=== PATIENT | male | born 1950 | race African-American/Black ===

== ENCOUNTER 2016-09-30 20:19 | Inpatient (IN) | payer BC, MEDICAID ==
[~2016-09-30] VITALS: Ht 182.9 cm; Wt 112.6 kg
[~2016-09-30 20:19] MED LIST: ALFU10TA2 PO; AMIO200T2 PO; ASPI-664 PO; ATOR40TA68 PO; CALC-695 PO; DOCU-144 PO; FERR-55 PO; FLUT125C PO; ISOS30TA5 PO; LOSA50TA6 PO; MEGE400O2 PO; METO-448 PO; SPIR25TA PO
[2016-09-30 20:23] VITALS: Ht 182.9 cm; Wt 112.6 kg
[2016-09-30] MEDS ORDERED: LORAZEPAM 2 MG INJ IV ONE (21:00)
[2016-09-30 21:29] LABS: ADD SCAN DIFF NO
[2016-09-30 21:34] LABS: BASOPHILS % 0.1 % (0.0-2.0); HEMATOCRIT 37.4 % (42.0-52.0); HEMOGLOBIN 13.1 g/dl (14.0-18.0); LYMPHOCYTES % 8.6 % (15.0-51.0); MEAN CORPUSCULAR VOLUME 91.4 fl (82.0-101.0); MONOCYTE # 1.4 10^3/ul (0.3-0.9); MONOCYTES % 12.7 % (0.0-11.0); NEUTROPHIL # 8.8 10^3/ul (1.6-7.5); NEUTROPHILS % 78.2 % (39.0-77.0); PLATELET COUNT 185 10^3/UL (140-415); RED BLOOD COUNT 4.09 10^6/ul (4.70-6.10); RED CELL DISTRIBUTION WIDTH 13.2 % (11.5-14.5); WHITE BLOOD COUNT 11.2 10^3/ul (4.8-10.8)
--- NOTE | 2016-09-30 21:38 | RADRPT ---
PROCEDURE: XR Chest. CLINICAL INDICATION: Chest Pain. TECHNIQUE: Single frontal view of the chest was obtained COMPARISON: 09/04/2013. FINDINGS: Cardiomegaly and atherosclerotic calcifications in the thoracic aorta. Dual chamber left anterior c hest wall cardiac pacer, with lead tips over expected locations of the right atrium and the right ve ntricle. Mild right lung base air space disease. This is new over interval since 09/04/2013. Lungs are otherw ise clear. There is no pleural effusion or pneumothorax. IMPRESSION: Mild right lung base air space disease. RPTAT: [facility] Physician Mamie Date Time Electronically viewed and signed by Physician Mamie on 09/30/2016 21:38 RS/
[2016-09-30 21:42] LABS: INR 1.16; PROTIME 14.9 Sec (12.2-14.2); PT RATIO 1.2
[2016-09-30 21:43] LABS: CREATININE 1.28 mg/dl (0.61-1.24); PARTIAL THROMBOPLASTIN TIME 28.4 Sec (25.0-35.0)
[2016-09-30 21:44] LABS: CALCIUM 9.6 mg/dl (8.4-10.2)
[2016-09-30] MEDS ORDERED: POTASSIUM CHLORIDE 250 ML IVPB ONE (22:00)
[2016-09-30] MEDS ORDERED: AMIODARONE 150MG/D5W BOLUS 100 ML IV ONE (22:00)
[2016-09-30 22:02] LABS: TROPONIN-I 0.64 ng/ml (0.00-0.12)
[2016-09-30] MEDS ORDERED: ACETAMINOPHEN 500 MG TAB PO STA (22:14)
[2016-09-30] MEDS ORDERED: ASPIRIN 81 MG TAB ONE (22:20)
[2016-09-30] MEDS ORDERED: AZITHROMYCIN 500MG/NS (PMX) 250 ML IV STA (22:29)
[2016-09-30] MEDS ORDERED: CEFTRIAXONE 1 GM/50 ML (PMX) 50 ML IVPB STA (22:29)
[2016-09-30] MEDS ORDERED: SOD CHLORIDE 0.9% 1,000 ML IV STA (22:29)
--- NOTE | 2016-09-30 22:29 | ERA ---
ER Documentation Chief Complaint Date/Time DATE: 09/30/16 TIME: 22:22 Chief Complaint defib fired 5-7 times starting at 1900 tonight HPI This 66-year-old male presents to the emergency room for evaluation of his defibrillator firing multiple times tonight. The patient states that he has a pacemaker and defibrillator in place for "an abnormal heart rhythm." The patient states that he was at home and noted his defibrillator went off. He states that it has gone off multiple times, and he came to the ER for evaluation. Since being in the emergency room this patient's defibrillator has fired multiple times as well. He is not complaining of any chest pain when his defibrillator is not firing. He denies any palpitations, states that he is taking all his medications as prescribed. He does state that his scale operator is Dr. Dacosta. ROS All systems reviewed and are negative except as per history of present illness. Medications Home Meds Reported Medications Isosorbide Mononitrate* (Isosorbide Mononitrate*) 30 Mg Tab.er.24h, 30 MG PO DAILY, TAB 07/30/15 Megestrol Acetate (MEGESTROL ACETATE) 400 Mg/10 Ml Oral.susp, 800 MG PO BID, ML 07/30/15 Calcium Carbonate/Vitamin D3 (Calcium 600 + D Tablet) 1 Each Tablet, 1 EACH PO BID, TAB 07/30/15 Docusate Sodium* (Colace*) 100 Mg Capsule, 300 MG PO BID, #60 CAP 07/30/15 Losartan Potassium* (Losartan Potassium*) 50 Mg Tablet, 50 MG PO DAILY, TAB 07/30/15 Ferrous Sulfate* (Ferrous Sulfate*) 325 Mg Tablet, 325 MG PO DAILY, TAB 07/30/15 Spironolactone* (Aldactone*) 25 Mg Tablet, 25 MG PO DAILY, #1 08/08/13 Aspirin* (Aspirin* EC) 81 Mg Tablet.dr, 81 MG PO DAILY 07/12/13 Atorvastatin* (Atorvastatin*) 40 Mg Tablet, 40 MG PO DAILY 07/12/13 Metoprolol Tartrate* (Lopressor*) 25 Mg Tab, 100 MG PO BID 07/12/13 Discontinued Reported Medications Flutamide (Flutamide) 125 Mg Capsule, 250 MG PO Q8, CAP 07/30/15 Alfuzosin Hcl* (Alfuzosin Hcl*) 10 Mg Tab.er.24h, 10 MG PO DAILY, #30 TAB.SA 07/30/15 Amiodarone Hcl* (Amiodarone Hcl*) 200 Mg Tablet, 200 MG PO DAILY 07/12/13 Allergies Allergies: Coded Allergies: lisinopril (Verified Allergy, Severe, ANGIO EDEMA, 09/30/16) PMhx/Soc History of Surgery: Yes (LT INDEX FINGER,DEFIBRILLATOR,UNDESCENDED TESTES) Anesthesia Reaction: No Hx Neurological Disorder: No Hx Respiratory Disorders: No Hx Cardiac Disorders: Yes ([place],DYSLIPIDEMIA,STENT,SVT,POSTURAL HYPOTENSION,HTN, ISCHEMIC CARDIOMYOPATHY) Hx Psychiatric Problems: No Hx Miscellaneous Medical Probl: No Hx Alcohol Use: Yes Hx Substance Use: No Hx Tobacco Use: Yes Smoking Status: Former smoker Physical Exam Vitals Vital Signs Date Time Temp Pulse Resp B/P Pulse Ox O2 Delivery O2 Flow Rate FiO2 09/30/16 22:02 102.3 114 26 115/79 100 09/30/16 21:17 122 28 124/71 100 09/30/16 21:17 Nasal Cannula 3 09/30/16 21:04 129 21 122/61 99 09/30/16 20:43 138 23 136/71 100 09/30/16 20:38 116 137/95 09/30/16 20:23 100.4 80 20 122/83 98 Physical Exam INITIAL VITAL SIGNS: Reviewed by me GENERAL: The patient is well developed, appears to be in mild distress HEENT: Pupils equal, round, and reactive to light. EOMI. There is no scleral icterus. NECK: C-spine is soft and supple, there is no meningismus. There is no cervical lymphadenopathy. LUNGS: Clear to auscultation bilaterally. There are no rales, wheezes or rhonchi. HEART: Tachycardic, no murmurs, clicks, rubs or gallops. ABDOMEN: Soft, non-tender, non-distended. There are bowel sounds in all four quadrants. No rebound or guarding. EXTREMITIES: There is no peripheral cyanosis or edema. No focal swelling or erythema. NEUROLOGICAL: The patient moves all four extremities with 5/5 strength. Cranial nerves II - XII are intact. Normal gait. Alert and oriented SKIN: Pacemaker in place in left anterior chest wall, there is no apparent rash or petechiae. HEME/LYMPHATIC: There is no evidence of excessive bruising or lymphedema. PSYCHIATRIC: The patient does not appear mildly anxious Result Diagram: 09/30/16 2100 09/30/16 2100 Results 24 hrs Laboratory Tests Test 09/30/16 21:00 Activated Partial Thromboplast Time 28.4Sec Anion Gap 23 Basophils # 0.010^3/ul Basophils % 0.1% Blood Urea Nitrogen 16mg/dl Calcium Level 9.6mg/dl Carbon Dioxide Level 19mmol/L Chloride Level 100mmol/L Creatinine 1.28mg/dl Eosinophils # 0.010^3/ul Eosinophils % 0.0% Glucose Level 118mg/dl Hematocrit 37.4% Hemoglobin 13.1g/dl INR International Normalized Ratio 1.16 Lymphocytes # 1.010^3/ul Lymphocytes % 8.6% Mean Corpuscular Hemoglobin 32.0pg Mean Corpuscular Hemoglobin Concent 35.0g/dl Mean Corpuscular Volume 91.4fl Mean Platelet Volume 11.0fl Monocytes # 1.410^3/ul Monocytes % 12.7% Neutrophils # 8.810^3/ul Neutrophils % 78.2% Nucleated Red Blood Cells # 0.010^3/ul Nucleated Red Blood Cells % 0.0/100WBC Platelet Count 67597^3/UL Potassium Level 3.0mmol/L Prothrombin Time 14.9Sec Prothrombin Time Ratio 1.2 Red Blood Count 4.0910^6/ul Red Cell Distribution Width 13.2% Sodium Level 139mmol/L Troponin I 0.640ng/ml White Blood Count 11.210^3/ul Current Medications Medications (Trade) Dose Ordered Sig/Nanette Route PRN Reason Start Time Stop Time Status Last Admin Dose Admin Lorazepam 2 mg 2 mg ONCE ONCE IV 09/30/16 21:00 09/30/16 21:01 DC 09/30/16 20:58 Amiodarone HCl 100 ml @ 600 mls/hr ONCE ONCE IV 09/30/16 22:00 09/30/16 22:09 DC 09/30/16 21:48 Potassium Chloride (KCl 40 MEQ/250 ML NS) 250 ml @ 62.5 mls/hr ONCE ONCE IVPB 09/30/16 22:00 10/01/16 01:59 09/30/16 22:21 Acetaminophen 1000 mg 1,000 mg ONCE STAT PO 09/30/16 22:14 09/30/16 22:15 DC 09/30/16 22:21 Amiodarone HCl/ Dextrose (Cordarone Iv/ D5W) 500 ml @ 0 mls/hr Q0M IV 09/30/16 22:30 10/01/16 22:29 Aspirin (Aspirin) 324 mg ONCE ONCE PO 09/30/16 22:30 09/30/16 22:31 Aspirin (Aspirin) 81 mg STK-MED ONCE .ROUTE 09/30/16 22:20 09/30/16 22:21 DC Procedures/MDM EKG: Rate/Rhythm: Sinus tach with PVCs QRS, ST, T-waves: [No changes consistent w/ acute ischemia] Impression: [Sinus tach with PVCs Chest X-ray 1V Interpreted by me: Soft Tissue: Right lower lobe infiltrate Bones: No acute abnormalities Mediastinum/Cardiac Silhouette/Lungs: [No acute abnormalities] EKG: #2 Rate/Rhythm: Sinus tach with PVCs QRS, ST, T-waves: [No changes consistent w/ acute ischemia] Impression: Sinus tachycardia with PVCs This 66-year-old male presents to the emergency room for evaluation of his defibrillator going off. When I evaluated this patient I did note that his defibrillator went off multiple times in the emergency room. I did call to have his pacemaker interrogated and it was determined that this patient was in a VT storm and has 66 episodes of ventricular tachycardia with multiple shocks delivered throughout the day today. This patient had lab work drawn and his troponin was elevated. The patient was given a full dose aspirin here in the emergency room. He was given 115 mg amiodarone bolus. He was then started on an amiodarone drip. He was found to be febrile after being in the emergency room and he did have a septic workup. Patient does have right lower lobe infiltrate and will be started on Rocephin and azithromycin for right lower lobe pneumonia. I spoke with this patient's scale operator, Dr. Dacosta who agrees with admission to the intensive care unit at this time. This patient will be placed in for admission under the care of Dr. Damon. I have not heard back from this patient's IPA for authorization for over 1 hour. Cardiac Critical Care: Excluding all billable procedures Time: 48 minutes Treatments/Evaluations: Close monitoring for dangerous arrhythmia and cardiovascular collapse, while treating with advance cardiac medications and techniques, multiple bedside evaluations, chemical cardioversion. Departure Diagnosis: Primary Impression: Ventricular tachycardia Additional Impressions: Right lower lobe pneumonia Non-ST elevation [place] (NSTEMI) Hypokalemia Renal insufficiency Condition: Critical KALYANI WHEELER DO Sep 30, 2016 22:28
[2016-09-30] MEDS ORDERED: ONDANSETRON 4 MG INJ IV PRN (22:30)
[2016-09-30] MEDS ORDERED: ASPIRIN 81 MG TAB PO ONE (22:30)
[2016-09-30] MEDS ORDERED: METOCLOPRAMIDE 10 MG INJ IV PRN (22:30)
[2016-09-30] MEDS ORDERED: AMIODARONE 900 MG in DEXTROSE 5% 482 ML IV SCH ×2 (22:30→23:00)
--- NOTE | 2016-09-30 22:38 | HP ---
Date/Time of Note Date/Time of Note DATE: 09/30/16 TIME: 22:33 Assessment/Plan VTE Prophylaxis VTE Prophylaxis Intervention: other (Enoxaparin) Lines/Catheters IV Catheter Type (from Nrs): Peripheral IV Assessment/Plan Assessment/Plan 1) Frequent Defibrillator Shocks, most likely from Runs of VT, also, possibly misfiring. - Admit to Telemetry - Amiodarone bolus and drip - Cardio Consult with Dr. Dallas (ER Physician spoke to him. He is also the patient's Cow Rider.) 2) VT Storm (43 Episodes were seen by the Tech) - See #1 3) Troponin elevated at 0.6, likely due to #2 4)Fever - Septic Work-Up initiated HPI/ROS Admit Date/Time Admit Date/Time Hx of Present Illness Chief Complaint defib fired 5-7 times starting at 1900 tonight HPI per ER Physician This 66-year-old male presents to the emergency room for evaluation of his defibrillator firing multiple times tonight. The patient states that he has a pacemaker and defibrillator in place for "an abnormal heart rhythm." The patient states that he was at home and noted his defibrillator went off. He states that it has gone off multiple times, and he came to the ER for evaluation. Since being in the emergency room this patient's defibrillator has fired multiple times as well. He is not complaining of any chest pain when his defibrillator is not firing. He denies any palpitations, states that he is taking all his medications as prescribed. He does state that his weather algorithm scientist is Dr. Dacosta. Patient also mentions that he thinks he ate a bad salad. He was the only one to eat in, and he was wretching about 30 minutes after eating it, He states he has had sharp pains in his stomach, getting worse. Drank apple cider vinegar to make himself throw up, but id did not alleviate his symptoms He denies diarrhea , but admits to having taken Pepto Bismol last night. He states that he has had another 4 or 5 shocks since he has been here, but only 1 since the Amiodarone was started. He denies Nausea, Vomiting, Cough, Wheeze or SOB. He has had his Pace/Defibrillator about 5 years. Never had a problem like this before. ROS Constitutional: febrile, No chills Eyes: no complaints ENT: no complaints Respiratory: no complaints Cardiovascular: other (Patient is here because of frequent shocks to his chest. ) Gastrointestinal: diarrhea, nausea, pain, No blood, No constipation, No vomiting Musculoskeletal: No back pain, No neck pain Skin: No bruising, No erythema, No pruritis, No rash Neurologic: No confusion, No dizziness, No focal-weakness, No headache Endocrine: No polydypsia, No polyuria Lymphatic: No adenopathy, No tender nodes Psychological: No anxiety, No depression Immunologic: No no complaints PMH/Family/Social Past Medical History Medical History: cancer (Prostate. Completed XRT Tx.) Past Surgical History Past Surgical Hx: no surgical history Family History Significant Family History: no pertinent family hx Social History Alcohol Use: occasionally Smoking Status: Former smoker Drug Use: none Exam/Review of Systems Vital Signs Vitals Vital Signs Date Time Temp Pulse Resp B/P Pulse Ox O2 Delivery O2 Flow Rate FiO2 09/30/16 22:02 102.3 114 26 115/79 100 09/30/16 21:17 Nasal Cannula 3 Exam Exam GENERAL: The patient is well developed, appears to be in mild distress HEENT: Pupils equal, round, and reactive to light. EOMI. There is no scleral icterus. NECK: C-spine is soft and supple,.. No lymphadenopathy. LUNGS: Clear to auscultation bilaterally. There are no rales, wheezes or rhonchi. HEART: Tachycardic, no murmurs, clicks, rubs or gallops. ABDOMEN: Soft, non-tender, non-distended. There are bowel sounds in all four quadrants. No rebound or guarding. EXTREMITIES: There is no peripheral cyanosis or edema. No focal swelling or erythema. NEUROLOGICAL: The patient moves all four extremities with 5/5 strength. Cranial nerves II - XII are grossly intact. Alert and oriented SKIN: Pacemaker in place in left anterior chest wall, there is no apparent rash or petechiae. Normal moisture and temperature. Good turgor. HEME/LYMPHATIC: There is no evidence of excessive bruising or lymphedema. PSYCHIATRIC: The patient does not appear mildly anxious Labs Result Diagram: 09/30/16 2100 09/30/16 2100 Medications Medications Home Meds Reported Medications Isosorbide Mononitrate* (Isosorbide Mononitrate*) 30 Mg Tab.er.24h, 30 MG PO DAILY, TAB 07/30/15 Megestrol Acetate (MEGESTROL ACETATE) 400 Mg/10 Ml Oral.susp, 800 MG PO BID, ML 07/30/15 Calcium Carbonate/Vitamin D3 (Calcium 600 + D Tablet) 1 Each Tablet, 1 EACH PO BID, TAB 07/30/15 Docusate Sodium* (Colace*) 100 Mg Capsule, 300 MG PO BID, #60 CAP 07/30/15 Losartan Potassium* (Losartan Potassium*) 50 Mg Tablet, 50 MG PO DAILY, TAB 07/30/15 Ferrous Sulfate* (Ferrous Sulfate*) 325 Mg Tablet, 325 MG PO DAILY, TAB 07/30/15 Spironolactone* (Aldactone*) 25 Mg Tablet, 25 MG PO DAILY, #1 08/08/13 Aspirin* (Aspirin* EC) 81 Mg Tablet.dr, 81 MG PO DAILY 07/12/13 Atorvastatin* (Atorvastatin*) 40 Mg Tablet, 40 MG PO DAILY 07/12/13 Metoprolol Tartrate* (Lopressor*) 25 Mg Tab, 100 MG PO BID 07/12/13 Discontinued Reported Medications Flutamide (Flutamide) 125 Mg Capsule, 250 MG PO Q8, CAP 07/30/15 Alfuzosin Hcl* (Alfuzosin Hcl*) 10 Mg Tab.er.24h, 10 MG PO DAILY, #30 TAB.SA 07/30/15 Amiodarone Hcl* (Amiodarone Hcl*) 200 Mg Tablet, 200 MG PO DAILY 07/12/13 Current Medications Potassium Chloride 250 ml @ 62.5 mls/hr ONCE ONCE IVPB Last administered on t 22:21; Admin Dose 62.5 MLS/HR; Start 09/30/16 at 22:00; Stop 10/01/16 at 01:59 Amiodarone HCl/ Dextrose (Cordarone Iv/ D5W) 500 ml @ 0 mls/hr Q0M IV ; Start at 22:30; Stop 10/01/16 at 22:29 Aspirin (Aspirin) 324 mg ONCE ONCE PO ; Start 09/30/16 at 22:30; Stop 09/30/16 at 22:31 Procedures Procedures Laboratory Tests Test 09/30/16 21:00 Activated Partial Thromboplast Time 28.4Sec Anion Gap 23 Basophils # 0.010^3/ul Basophils % 0.1% Blood Urea Nitrogen 16mg/dl Calcium Level 9.6mg/dl Carbon Dioxide Level 19mmol/L Chloride Level 100mmol/L Creatinine 1.28mg/dl Eosinophils # 0.010^3/ul Eosinophils % 0.0% Glucose Level 118mg/dl Hematocrit 37.4% Hemoglobin 13.1g/dl INR International Normalized Ratio 1.16 Lymphocytes # 1.010^3/ul Lymphocytes % 8.6% Mean Corpuscular Hemoglobin 32.0pg Mean Corpuscular Hemoglobin Concent 35.0g/dl Mean Corpuscular Volume 91.4fl Mean Platelet Volume 11.0fl Monocytes # 1.410^3/ul Monocytes % 12.7% Neutrophils # 8.810^3/ul Neutrophils % 78.2% Nucleated Red Blood Cells # 0.010^3/ul Nucleated Red Blood Cells % 0.0/100WBC Platelet Count 94473^3/UL Potassium Level 3.0mmol/L Prothrombin Time 14.9Sec Prothrombin Time Ratio 1.2 Red Blood Count 4.0910^6/ul Red Cell Distribution Width 13.2% Sodium Level 139mmol/L Troponin I 0.640ng/ml White Blood Count 11.210^3/ul RADIOLOGY: PROCEDURE: XR Chest. CLINICAL INDICATION: Chest Pain. TECHNIQUE: Single frontal view of the chest was obtained COMPARISON: 09/04/2013. FINDINGS: Cardiomegaly and atherosclerotic calcifications in the thoracic aorta. Dual chamber left anterior chest wall cardiac pacer, with lead tips over expected locations of the right atrium and the right ventricle. Mild right lung base air space disease. This is new over interval since 2013. Lungs are otherwise clear. There is no pleural effusion or pneumothorax. IMPRESSION: Mild right lung base air space disease. KIAN SALAZAR DO Sep 30, 2016 22:38
[2016-09-30 23:02] LABS: ALBUMIN 4.2 g/dl (3.3-4.9); POTASSIUM 3.4 mmol/L (3.5-5.1)
[2016-09-30 23:04] LABS: CREATININE 1.27 mg/dl (0.61-1.24); INR 1.12; PROTIME 14.4 Sec (12.2-14.2); PT RATIO 1.1
[2016-09-30 23:05] LABS: ALBUMIN/GLOBULIN RATIO 1.27; BILIRUBIN,INDIRECT 0.7 mg/dl (0-1.1); BILIRUBIN,TOTAL 0.7 mg/dl (0.2-1.3); CALCIUM 9.7 mg/dl (8.4-10.2); PARTIAL THROMBOPLASTIN TIME 29.9 Sec (25.0-35.0); TOTAL PROTEIN 7.5 g/dl (6.1-8.1)
[2016-10-01] VITALS (44 sets, daily range): BP systolic 92–141; BP diastolic 50–89; PULSE 85–138; RESP 19–33; TEMP 100.6
[2016-10-01] MEDS: morphine 4 MG/ML VIAL IV PRN ×4 (06:27→20:50)
[2016-10-01 07:06] LABS: CK-MB 13.8 ng/ml (0.0-2.4)
[2016-10-01 07:10] LABS: TROPONIN-I 5.56 ng/ml (0.00-0.12)
[2016-10-01 08:04] LABS: CK-MB 10.2 ng/ml (0.0-2.4); TROPONIN-I 4.41 ng/ml (0.00-0.12)
[2016-10-01] MEDS ORDERED: MAGNESIUM SULFATE 2 GM/50 ML 50 ML IVPB ONE (08:30)
[2016-10-01 08:46] LABS: POTASSIUM 4.2 mmol/L (3.5-5.1)
[2016-10-01 08:49] LABS: CREATININE 1.05 mg/dl (0.61-1.24)
[2016-10-01 08:50] LABS: CALCIUM 8.6 mg/dl (8.4-10.2)
[2016-10-01] MEDS: FAMOTIDINE 20 MG INJ IV SCH ×2 (08:59→20:57)
[2016-10-01] MEDS ORDERED: ENOXAPARIN 30 MG/0.3 ML SYG SC SCH (09:00)
[2016-10-01] MEDS: LOSARTAN 50 MG TAB PO SCH (09:00)
[2016-10-01] MEDS: ASPIRIN (EC) 81 MG TAB PO SCH (09:00)
[2016-10-01] MEDS: FERROUS SULFATE (EC) 325 MG TAB PO SCH (09:00)
[2016-10-01] MEDS: ATORVASTATIN 40 MG TAB PO SCH (09:00)
[2016-10-01] MEDS: ISOSORBIDE MONONITRATE(SR)30 MG TAB PO SCH (09:00)
[2016-10-01] MEDS: DOCUSATE SODIUM 100 MG CAP PO SCH ×2 (09:01→20:58)
[2016-10-01] MEDS: METOPROLOL 100 MG TAB PO SCH ×2 (09:01→20:58)
[2016-10-01] MEDS: SPIRONOLACTONE 25 MG TAB PO SCH (09:01)
[2016-10-01 10:19] LABS: ADD UMIC YES; URINE BILIRUBIN (Dip) 1+ (NEGATIVE); URINE BLOOD (Dip) 3+ (NEGATIVE); URINE COLOR YELLOW (YELLOW); URINE GLUCOSE (Dip) NEGATIVE (NEGATIVE); URINE KETONES (Dip) 40 (NEGATIVE); URINE LEUKOCYTE ESTERASE (Dip) NEGATIVE (NEGATIVE); URINE NITRITE (Dip) NEGATIVE (NEGATIVE); URINE TOTAL PROTEIN (Dip) 2+ (NEGATIVE); URINE UROBILINOGEN (Dip) 0.2 E.U./dL (0.1-1.0)
[2016-10-01 10:31] LABS: ICTOTEST NEGATIVE (NEGATIVE)
[2016-10-01 10:35] LABS: BACTERIA,URINE MODERATE
--- NOTE | 2016-10-01 11:29 | CONS ---
Date/Time of Note Date/Time of Note DATE: 10/01/16 TIME: 11:08 Assessment/Plan Assessment/Plan Additional Assessment/Plan Ventricular tachycardia status post ICD firing SIRS Cardiomyopathy status post ICD Coronary artery disease Hypertension Dyslipidemia -Patient with symptoms of fevers and chills and abdominal pain over the past 3 days. Patient was febrile in the emergency room above 102, there is been no further episodes of ventricular tachycardia after amiodarone IV administration. He does also admit to stopping all of his cardiac medications 3 days ago including his amiodarone and beta-alejandro. Would continue IV amiodarone. Continue aspirin, statin, beta-alejandro. Troponins peaked at 5 and are currently trending down. Would recommend sepsis workup including blood and urine cultures. Chest x-ray with possible infiltrate. Would start broad- spectrum antibiotics, would not use any proarrhythmic antibiotics such as quinolones or azithromycin. Maintain potassium above 4.0 and magnesium above 2.0. Check echocardiogram. Consultation Date/Type/Reason Admit Date/Time Type of Consultation: cv Reason for Consultation ICD firing Hx of Present Illness This is a 66-year-old male with past medical history of cardiomyopathy, history of ICD, coronary artery disease who presents after ICD firing. Patient states over the past 3-4 days, he has not been feeling well with abdominal pain and nausea. He states after eating something, he developed abdominal cramps and felt bloated. Because of that, he has not taken any of his medications for the past 3 days. He also has been having right lower quadrant discomfort as well. He denies any chest pain, shortness of breath, dizziness or palpitations. Yesterday, because of severe abdominal cramping, he took some type of liquid laxative. After approximately 20 minutes, he felt his ICD fire. This happened multiple times. He denied any syncope or near syncope, dizziness or lightheadedness, chest pain or palpitations. Because of the above, he came to the emergency room for evaluation and care. He does also complain of fevers and chills and a mild cough. He denies shortness of breath. He is feeling better now but still feels chills. 12 point review of systems was performed with all pertinent positives and negatives mentioned above and all else is negative Past Medical History Medical History: congestive heart failure, coronary artery disease, high cholesterol, hypertension Past Surgical History ICD Past Surgical Hx: angioplasty Family History Significant Family History: no pertinent family hx Social History Smoking Status: Former smoker Exam/Review of Systems Vital Signs Vitals Vital Signs Date Time Temp Pulse Resp B/P Pulse Ox O2 Delivery O2 Flow Rate FiO2 10/01/16 10:30 95 26 128/74 100 10/01/16 10:00 Nasal Cannula 2.0 10/01/16 08:00 100.7 Intake and Output 09/30/16 09/30/16 10/01/16 15:00 23:00 07:00 Intake Total 1100.0 ml Balance 1100.0 ml Exam nad, complaining of chills Constitutional: alert, oriented Head: normocephalic Neck: supple Respiratory: other (Coarse breath sounds bilaterally, no wheezing ) Cardiovascular: other (S1-S2 heard), regular rate and rhythm Gastrointestinal: bowel sounds, other (Discomfort with palpation of the abdomen in the epigastric and right upper quadrant, no guarding), soft Extremities: edema (Trace), other (No cyanosis) Results Result Diagram: 09/30/16209910/01/16 07 Results 24 hrs Laboratory Tests Test 09/30/16 21:00 09/30/16 22:23 10/01/16 05:34 10/01/16 07:22 Activated Partial Thromboplast Time 28.4 29.9 Anion Gap 23 H 21 H 15 Basophils # 0.0 Basophils % 0.1 Blood Urea Nitrogen 16 16 15 Calcium Level 9.6 9.7 8.6 Carbon Dioxide Level 19 L 24 25 Chloride Level 100 99 104 Creatinine 1.28 H 1.27 H 1.05 Eosinophils # 0.0 Eosinophils % 0.0 Glucose Level 118 112 122 Hematocrit 37.4 L Hemoglobin 13.1 L INR International Normalized Ratio 1.16 1.12 Lymphocytes # 1.0 Lymphocytes % 8.6 L Mean Corpuscular Hemoglobin 32.0 Mean Corpuscular Hemoglobin Concent 35.0 Mean Corpuscular Volume 91.4 Mean Platelet Volume 11.0 #H Monocytes # 1.4 H Monocytes % 12.7 H Neutrophils # 8.8 H Neutrophils % 78.2 H Nucleated Red Blood Cells # 0.0 Nucleated Red Blood Cells % 0.0 Platelet Count 185 Potassium Level 3.0 L 3.4 L 4.2 Prothrombin Time 14.9 H 14.4 H Prothrombin Time Ratio 1.2 1.1 Red Blood Count 4.09 L Red Cell Distribution Width 13.2 Sodium Level 139 141 140 Troponin I 0.640 *H 5.560 *H 4.410 *H White Blood Count 11.2 #H Alanine Aminotransferase (ALT/SGPT) 25 Albumin 4.2 Albumin/Globulin Ratio 1.27 Alkaline Phosphatase 66 Aspartate Amino Transf (AST/SGOT) 47 H Direct Bilirubin 0.00 Globulin 3.30 H Indirect Bilirubin 0.7 Lactic Acid Level 1.5 1.1 0.7 Total Bilirubin 0.7 Total Protein 7.5 Creatine Kinase 768 H 741 H Creatine Kinase Index 1.8 1.4 Creatinine Kinase MB (Mass) 13.80 H 10.20 H Magnesium Level 2.0 Test 10/01/16 09:00 Urine Bacteria MODERATE Urine Bilirubin 1+ H Urine Clarity CLEAR Urine Coarse Granular Casts FEW Urine Color YELLOW Urine Epithelial Cells FEW Urine Glucose NEGATIVE Urine Hemoglobin 3+ H Urine Ictotest NEGATIVE Urine Ketones 40 Urine Leukocyte Esterase NEGATIVE Urine Microscopic RBC 5-10 Urine Microscopic WBC 2-5 Urine Nitrite NEGATIVE Urine Specific Wood >=1.030 H Urine Total Protein 2+ H Urine Urobilinogen 0.2 E.U./dL Urine pH 6.0 Medications Medications Current Medications Amiodarone HCl/ Dextrose (Cordarone Iv/ D5W) 500 ml @ 0 mls/hr Q0M IV Last administered on 09/30/16 23:01; Admin Dose 33.3 MLS/HR; Start 09/30/16 at 22:30; Stop 10/01/16 at 22:29 Ondansetron HCl (Zofran Inj) 4 mg Q6H PRN IV NAUSEA AND/OR VOMITING; Start 09/30 at 22:30 Metoclopramide HCl (Reglan) 10 mg Q6H PRN IV NAUSEA AND/OR VOMITING; Start 09/30 at 22:30 Famotidine (Pepcid Iv) 20 mg Q12 IV Last administered on 10/01/16 08:59; Admin Dose 20 MG; Start 10/01/16 at 09:00 Aspirin (Halfprin) 81 mg DAILY PO Last administered on 10/01/16 09:00; Admin Dose 81 MG; Start 10/01/16 at 09:00 Atorvastatin Calcium (Lipitor) 40 mg DAILY PO Last administered on 10/01/16 09 :00; Admin Dose 40 MG; Start 10/01/16 at 09:00 Docusate Sodium (Colace) 300 mg BID PO Last administered on 10/01/16 09:01; Admin Dose 300 MG; Start 10/01/16 at 09:00 Ferrous Sulfate (Ferrous Sulfate (Ec)) 325 mg DAILY PO Last administered on 09:00; Admin Dose 325 MG; Start 10/01/16 at 09:00 Isosorbide Mononitrate (Imdur) 30 mg DAILY PO Last administered on 10/01/16 09 :00; Admin Dose 30 MG; Start 10/01/16 at 09:00 Losartan Potassium (Cozaar) 50 mg DAILY PO Last administered on 10/01/16 09:00 ; Admin Dose 50 MG; Start 10/01/16 at 09:00 Metoprolol Tartrate (Lopressor) 100 mg BID PO Last administered on 10/01/16 09 :01; Admin Dose 100 MG; Start 10/01/16 at 09:00 Spironolactone 25 mg 25 mg DAILY PO Last administered on 10/01/16 09:01; Admin Dose 25 MG; Start 10/01/16 at 09:00 Amiodarone HCl/ Dextrose (Cordarone Iv/ D5W) 500 ml @ 16.667 mls/ hr TITRATE IV ; Start 10/01/16 at 22:30 Enoxaparin Sodium (Lovenox) 30 mg DAILY SC Last administered on 10/01/16 09:04 ; Admin Dose 30 MG; Start 10/01/16 at 09:00 Morphine Sulfate (morphine) 4 mg Q4H PRN IV PAIN LEVEL 4-7 Last administered on 10/01/16 06:27; Admin Dose 4 MG; Start 10/01/16 at 06:30 Simethicone (Mylicon) 80 mg TID PRN PO DISTENSION/GAS/BLOATING Last administered on 10/01/16 09:39; Admin Dose 80 MG; Start 10/01/16 at 09:00 Procedures Procedures ECG demonstrates sinus rhythm at 100 bpm, frequent PVCs, QRS 102 ms, nonspecific STT wave abnormalities Nate Butler DO Oct 01, 2016 11:18
[2016-10-01] MEDS ORDERED: BARIUM SULF 2% 450 ML BTL (BERRY SMOOTHIE) PO ONE (11:30)
--- NOTE | 2016-10-01 12:33 | PN ---
DATE: 10/01/2016 HOSPITALIST PROGRESS NOTE SUBJECTIVE DATA: Complains of right upper quadrant abdominal pain. Complains of nausea. Denies any chest pain. Complains of dyspnea. The patient remains on amiodarone drip. OBJECTIVE DATA: VITAL SIGNS: Temperature 100.7, pulse rate 95, respiratory rate 26, blood pressure 128/74, oxygen saturation is 100% on low flow O2. GENERAL: This is an obese -English male lying in bed in no apparent distress. HEENT: Head normocephalic and atraumatic. Eyes: Anicteric sclerae. Conjunctivae clear. ENT: Nasal septum is midline. Oral mucosa is dry. NECK: Supple. No JVD noticed. RESPIRATORY: Bilaterally diminished breath sounds. No adventitious breath sounds heard. CARDIAC: Irregularly irregular rhythm. Unable to appreciate any murmurs. ABDOMEN: Soft. Diffuse tenderness on palpation. Bowel sounds hypoactive in all 4 quadrants. GENITOURINARY: Deferred. EXTREMITIES: No cyanosis, no clubbing, no edema. Peripheral pulses palpable. NEUROLOGIC: The patient is awake, alert and oriented. Cranial nerves are grossly intact. LABORATORY AND DIAGNOSTIC DATA: WBC 11.2, hemoglobin 13.1, hematocrit 37.4, platelet count 185. Sodium 140, potassium 4.2, chloride 104, anion gap 15, BUN 15, creatinine 1.05, glucose 122. Lactic acid 5.7, calcium 8.6, magnesium 2.0. ASSESSMENT AND PLAN: 1. Ventricular tachycardia. Status post AICD firing. The patient remains on amiodarone drip. Cardiology following. 2. Elevated troponins, etiology unclear. The patient has a known history of coronary artery disease. Continue the patient on aspirin. Cardiology following. 3. Ischemic cardiomyopathy. Status post automatic implantable cardioverter- defibrillator placement. Continue the patient on ARBs, beta blockers, and aldosterone antagonist. 4. Systemic inflammatory response syndrome with leukocytosis, fever, and tachycardia. Etiology unclear. Dewey cultures will be ordered on this patient. Since the patient is complaining of abdominal pain and gastrointestinal disturbances, the patient will be started on empiric antibiotics for any acute gastroenteritis. A CT scan of the abdomen will be obtained to further evaluate this. However, we will avoid any quinolones or Zithromax because of the proarrhythmic properties. 5. Essential hypertension. Continue antihypertensives. Blood pressure well controlled. 6. Dyslipidemia. Continue statins. 7. Abdominal pain. Etiology unclear. Will obtain a CT scan of the abdomen and pelvis. Will send stool studies on this patient. 8. Acute kidney injury. Etiology unclear. Most probably secondary to hemodynamics versus others. We will monitor the BUN and creatinine closely. We will use nephrotoxic drugs with caution. 9. Fluid, electrolytes, and nutrition. Continue on a low cholesterol diet. 10. Deep venous thrombosis prophylaxis, subcutaneous Lovenox (renal dosing). 11. Gastrointestinal prophylaxis, histamine-2 receptor blockers. PLAN: Continue amiodarone. Cardiology to manage cardiac medications. Will send dewey cultures including influenza A and B screen. Will start the patient on empiric antibiotics. Case discussed with Dr. Gordon. Critical care time: 40 minutes. KAILEE GORDON MD, AM/BARRON Conf#: [id number] DID#: [id number] [id number]
--- NOTE | 2016-10-01 14:25 | RADRPT ---
Echocardiogram Report Patient Name: JURGEN JIMENEZ Gender: Male Date: 1950 Study Date: 01-Oct-2016 Cash Grain Farmer: Marcus Keith RDCS Location: 114 Ref. Physician: NATE BUTLER Quality: Technically Difficult Study Procedures: Transthoracic echocardiogram with complete 2D, M-Mode, and doppler examination. Indications: Cardiomyopathy. 2D/M Mode Doppler Measurement Value Normal Ranges Measurement Value Normal Ranges LVIDd 2D 6.3 3.5 - 5.6 cm AV Peak Davin 1.4 m/sec LVIDs 2D 5.3 2.1 - 4.1 cm AV Peak PG 7.3 mmHg LVPWd 2D 0.6 0.6 - 1.1 cm LVOT Peak Davin 0.8 m/sec IVSd 2D 1.2 0.6 - 1.1 cm LVOT Peak PG 2.8 mmHg AoR Diam 2D 3.1 2.0 - 3.7 cm MV E Peak Davin 0.5 m/sec EDV 2D 201.3 cm3 MV A Peak Davin 0.9 m/sec ESV 2D 149.5 cm3 MV E/A 0.6 LA Dimen 2D 4.1 2.3 - 4.0 cm MV Decel Time 121 msec MV Decel [place] 5 MV E/A 0.6 Findings Left Ventricle: Normal left ventricular wall thickness. Mild enlargement of left ventricle cavity. Mild to moderate left ventricular systolic dysfunction. Ejection fraction is visually estimated at 40 %. Tissue Doppler/Mitral Doppler indices are consistent with impaired relaxation (Stage I diastolic dysfunction). Right Ventricle: Normal right ventricular size. Normal right ventricular systolic function. Linear artifact in right ventricle suggestive of ICD lead. Left Atrium: There is mild enlargement of left atrium. Right Atrium: The right atrium is normal in size. Linear artifact in right atrium suggestive of catheter, pacer lead, or ICD lead. Mitral Valve: Mitral valve leaflets appear mildly thickened. Mild to moderate mitral valve regurgitation. Aortic Valve: Normal appearance of the aortic valve. No significant aortic stenosis or insufficiency. Tricuspid Valve: Normal appearance and function of the tricuspid valve with trace physiologic regurgitation. Pulmonic Valve: Normal pulmonic valve appearance. Pericardium: Normal pericardium with no significant pericardial effusion. Aorta: Normal aortic root. IVC: Normal size and normal respiratory collapse consistent with normal right atrial pressure. Conclusions 1.Normal left ventricular wall thickness. Mild enlargement of left ventricle cavity. Mild to moderate left ventricular systolic dysfunction. Ejection fraction is visually estimated at 40 %. Tissue Doppler/Mitral Doppler indices are consistent with impaired relaxation (Stage I diastolic dysfunction). 2.Normal right ventricular size. Normal right ventricular systolic function. Linear artifact in right ventricle suggestive of ICD lead. 3.There is mild enlargement of left atrium. 4.The right atrium is normal in size. Linear artifact in right atrium suggestive of catheter, pacer lead, or ICD lead. 5.Mild to moderate mitral valve regurgitation. 6.No significant valvular stenosis or regurgitation seen of remaining visualized valves. 7.Normal pericardium with no significant pericardial effusion. Electronically Signed By: Nate Butler 01-Oct-2016 14:25:05 -0800 Patient Name: JURGEN JIMENEZ Study Date: 01-Oct-2016 [id number]
[2016-10-01 14:37] LABS: CK-MB 3.2 ng/ml (0.0-2.4); TROPONIN-I 2.07 ng/ml (0.00-0.12)
--- NOTE | 2016-10-01 14:46 | RADRPT ---
Vent Rate: 101 bpm RR Interval: 0 msec IN Interval: 168 msec QRS Duration: 102 msec QT Interval: 366 msec QTC Interval: 474 msec P-R-T [place]: 48 - -3 - 52 degrees Sinus Rhythm with occasional PVC/PAC Otherwise normal ECG Electronically Signed By: Balwinder Lang [id number]
--- NOTE | 2016-10-01 14:50 | RADRPT ---
PROCEDURE: CT Abdomen and Pelvis without contrast. CLINICAL INDICATION: Fever, chills, right lower quadrant pain TECHNIQUE: CT of the abdomen and pelvis was performed on a multi-detector scanner without IV contr ast. Coronal and sagittal images were reformatted from the axial data set. One or more of the foll owing dose reduction techniques were used: automated exposure control, adjustment of the mA and/or kV according to patient size, use of iterative reconstruction technique. CTDI = 22.74 mGy. DLP = 15 11.97 mGy-cm. COMPARISON: CT, 07/12/2013 FINDINGS: CT abdomen: There is mild bibasilar atelectasis. Mild cardiomegaly is noted, without significant pericardial fl uid. Gallbladder is distended. Gallbladder wall thickening and pericholecystic inflammation are no elida. Liver, biliary tree, pancreas, spleen, adrenal glands and right kidney are unremarkable. Smal l nonobstructive left renal calculi are noted. No ureterolithiasis or obstructive uropathy is ident ified. The stomach is grossly unremarkable. The aorta is of normal caliber. Aortic vascular calcifications are present. There is no retroperit jones lymphadenopathy. The chas hepatis region is clear. CT pelvis: No bowel obstruction, free intraperitoneal air or abscess is identified. Scattered colonic divertic brisa are noted without diverticulitis. There is no appendicitis or colitis. Urinary bladder is matthew sly unremarkable. No pelvic mass, free fluid or lymphadenopathy is identified. The surrounding osseous structures are remarkable for degenerative spondylosis of the spine. No ost eolytic or osteoblastic lesion is detected. IMPRESSION: 1. Gallbladder distension, wall thickening and pericholecystic inflammation are seen, suggestive of acute cholecystitis. 2. There is mild cardiomegaly. Coronary arterial and aortoiliac atherosclerotic calcifications are present. 3. Small nonobstructive left renal calculi are noted, without ureterolithiasis or obstructive uropa thy. 4. Scattered colonic diverticula are seen, without diverticulitis. RPTAT: JJ .Josh Georges MD, MD Date Time Electronically viewed and signed by .Josh Georges MD, MD on 10/01/2016 14:50 .R/
[2016-10-01 15:06] LABS: CHOL/HDL RATIO 1.5 RATIO
[2016-10-01] MEDS: CEFEPIME 1GM/50 ML (PMX) 50 ML IVPB SCH ×2 (16:04→20:58)
--- NOTE | 2016-10-01 16:30 | CONS ---
DATE OF ADMISSION: 09/30/2016 DATE OF CONSULTATION: 10/01/2016 TYPE OF CONSULTATION: Infectious disease. REASON FOR CONSULTATION: Antibiotic management. HISTORY OF PRESENT ILLNESS: Jose Barba is a 66-year-old black male who presents to the emergency ro om with a defibrillator out of control with defibrillator firing multiple times. The patient has a pacemaker and defibrillator in place for abnormal heart rhythm. He noted that defibrillated went of f multiple times, and he came to the emergency room. He has no chest pain. He denies palpitations. His assistant store manager is Dr. Rocha. He ate some salad that disagreed with him and began to retc h about 30 minutes after eating it. In the emergency room, he received 4 or 5 shocks and then recei marcello some amiodarone. He denies nausea, vomiting, or shortness of breath. PAST MEDICAL HISTORY: Positive for cancer of the prostate. He completed x-ray therapy. PAST SURGICAL HISTORY: None. FAMILY HISTORY: Noncontributory. SOCIAL HISTORY: He is a former smoker. He does not drink or abuse drugs. ALLERGIES: NONE TO PENICILLIN, SULFA, OR FOODS. MEDICATIONS: Per chart. REVIEW OF SYSTEMS: As per HPI. PHYSICAL EXAMINATION: GENERAL: The patient is a well-developed, well-nourished male who is alert, responsive, in no acute distress. VITAL SIGNS: Stable. His temperature is 102.3. SKIN: Pacemaker in place in the left chest without rash or petechiae and without redness. HEENT: Within normal limits. NECK: Supple. LYMPH NODES: None palpable. CHEST: Decreased breath sounds at the bases. HEART: Without murmur or gallop. ABDOMEN: Soft, nontender, without organosplenomegaly or masses. EXTREMITIES: Without cyanosis, clubbing, or edema. RECTAL AND GENITAL: Deferred. NEUROLOGIC: No focal neurological abnormalities. ANCILLARY LABORATORY DATA: Shows a white count of 11.2, H and H of 13.1 and 37.4, platelet count 18 5,000. BUN and creatinine 16/1.28, glucose 118. Chest x-ray showed cardiomegaly, mild right lung b ase airspace disease. IMPRESSION AND PLAN: The patient may have aspirated. Microbiology: He has gram-negative rods x2 i n his blood cultures, most consistent with urinary tract infection. His urine showed negative for l eukocyte esterase, negative for nitrites, 2 to 5 white cells per high powered field, so not very sig nificant. BUN and creatinine were 15/1.05. His troponin level was 2.07 which is significantly high . Normal was up to 0.12. On 09/30/2016, he had a troponin up to 0.6, then 5.5, 4.4, and 2. The cyndi chisholm may have had some myocardial damage. He was started on metronidazole and cefepime. The cefep amber should be adequate at this point. We have to worry about the possibility of infection of his cyndi lehman, although gram-negative rods are less likely than staph. Nevertheless, that is a possibilit y. A CT scan of the abdomen and pelvis was done today and showed gallbladder distention, wall thick ening, pericholecystic inflammation suggestive of acute cholecystitis. There is mild cardiomegaly, coronary arterial and aortoiliac atherosclerosis, small nonobstructive left renal calculi noted with out ureterolithiasis or obstructive uropathy, scattered colonic diverticula are seen without diverti culitis. In addition to the pacemaker, acute cholecystitis may be the cause of his problem at this point in time. The patient should be seen by surgical consultation. I will dictate my findings to the hospitalist. Dictated By: HARRY RAMACHANDRAN MD, JD/BARRON Conf#: [id number] DID#: [id number]
[2016-10-01] MEDS: metroNIDAZOLE 500 MG/NS (PMX) 100 ML IVPB SCH ×2 (16:56→22:26)
[2016-10-01] MEDS: AMIODARONE 900 MG in DEXTROSE 5% 482 ML IV SCH ×2 (16:57→22:26)
[2016-10-01] MEDS ORDERED: AMIODARONE 900 MG in DEXTROSE 5% 482 ML IV SCH (22:30)
[2016-10-01 23:32] LABS: CK-MB 0.77 ng/ml (0.0-2.4); TROPONIN-I 1.61 ng/ml (0.00-0.12)
[2016-10-02] VITALS (42 sets, daily range): BP systolic 95–150; BP diastolic 57–97; PULSE 108–135; RESP 17–43
[2016-10-02] MEDS ORDERED: AMIODARONE 150MG/D5W BOLUS 100 ML ONE (01:27)
[2016-10-02] MEDS ORDERED: AMIODARONE 150MG/D5W BOLUS 100 ML IV ONE (01:30)
[2016-10-02] MEDS: metroNIDAZOLE 500 MG/NS (PMX) 100 ML IVPB SCH ×3 (05:27→21:47)
[2016-10-02 05:42] LABS: ADD SCAN DIFF NO
[2016-10-02 05:56] LABS: ABNORMAL IP MESSAGE 1; BASOPHILS % 0.1 % (0.0-2.0); HEMATOCRIT 33.3 % (42.0-52.0); HEMOGLOBIN 11.2 g/dl (14.0-18.0); LYMPHOCYTES # 0.4 10^3/ul (0.8-2.9); LYMPHOCYTES % 4.3 % (15.0-51.0); MEAN CORPUSCULAR HEMOGLOBIN 31.2 pg (29.0-33.0); MEAN CORPUSCULAR HGB CONC 33.6 g/dl (32.0-37.0); MEAN CORPUSCULAR VOLUME 92.8 fl (82.0-101.0); MEAN PLATELET VOLUME 11.5 fl (7.4-10.4); MONOCYTE # 0.8 10^3/ul (0.3-0.9); MONOCYTES % 7.7 % (0.0-11.0); NEUTROPHIL # 8.7 10^3/ul (1.6-7.5); NEUTROPHILS % 86.6 % (39.0-77.0); PLATELET COUNT 118 10^3/UL (140-415); RED BLOOD COUNT 3.59 10^6/ul (4.70-6.10); RED CELL DISTRIBUTION WIDTH 13.2 % (11.5-14.5)
[2016-10-02 06:12] LABS: POTASSIUM 3.7 mmol/L (3.5-5.1)
[2016-10-02 06:15] LABS: CREATININE 1.18 mg/dl (0.61-1.24); MAGNESIUM 2.6 mg/dl (1.7-2.5); PHOSPHORUS 1.3 mg/dl (2.5-4.9)
[2016-10-02 06:16] LABS: CALCIUM 8.3 mg/dl (8.4-10.2)
[2016-10-02 06:31] LABS: CK-MB 0.69 ng/ml (0.0-2.4); TROPONIN-I 1.19 ng/ml (0.00-0.12)
--- NOTE | 2016-10-02 08:26 | CONS ---
DATE OF ADMISSION: 09/30/2016 DATE OF CONSULTATION: 10/02/2016 HISTORY OF PRESENT ILLNESS: Mr. Barba is a 66-year-old male who was admitted on the to [facility] due to frequent defibrillator shocks. He was noted to have runs of VT and was admitted to telemetry and started on amiodarone. The following day he was noted to also be complain ing of abdominal pain and there was some concern on CT for cholecystitis, and I was called for a con sultation. The patient has gram-negative rods in his blood. He does have a positive UA. PAST MEDICAL HISTORY: Significant for prostate cancer, treated with RT. ALLERGIES: NONE. SOCIAL HISTORY: He smoked in the past. He drinks occasionally. PAST MEDICAL HISTORY: Significant for CHF, coronary artery disease, elevated cholesterol, hypertens ion. PHYSICAL EXAMINATION: GENERAL: He is an obese male, in no apparent distress. VITAL SIGNS: He is afebrile. Vital signs are stable. His temperature is 99.4, heart rate is 122., his blood pressure is 116/74. CHEST: Clear to auscultation bilaterally. HEART: Tachycardic. ABDOMEN: Soft, nontender. LABORATORY: Today reveal a white count of 10, hematocrit of 33 and platelets of 118. Sodium is 137 , potassium 3.7, chloride 100, CO2 24, BUN and creatinine are 12 and 1.1, and a glucose of 119. LFT s have not been ordered. His troponin yesterday was 2.0, today it is 1.1. His urine did show 1+ bilirubin, moderate bacteria and his blood cultures grew out gram-negative luigi s. He did have a CT yesterday, which revealed gallbladder distention, wall thickening, pericholecystic inflammation seen, suggestive of acute cholecystitis. HIDA scan is pending. ASSESSMENT AND PLAN: Mr. Barab is a 56-year-old high risk surgical candidate, with possible cholecy stitis. 1. Await HIDA scan results. 2. Not clear if the patient truly has cholecystitis, as he does not have any real right upper quadr ant or epigastric tenderness. The source of his gram-negative rods may be his urine, as he does hav e a positive urinalysis. 3. If he does have a positive HIDA, then would likely need a cholecystostomy, as he is a very high risk surgical candidate. 4. Further recommendations to follow, based on HIDA scan results. Dictated By: LUL BUTLER/BARRON Conf#: [id number] DID#: [id number]
--- NOTE | 2016-10-02 08:43 | RADRPT ---
PROCEDURE: Nuclear medicine hepatobiliary scan CLINICAL INDICATION: Cholecystitis abdominal pain, distended gallbladder TECHNIQUE: 8.5 mCi of technetium-99m Choletec was administered intravenously. Planar imaging of t he hepatobiliary system was performed. Delayed images were obtained. Images were reviewed on the h igh resolution PACS workstation. COMPARISON: CT abdomen and pelvis without contrast of 10/01/2016 FINDINGS: There is prompt uptake of the radiopharmaceutical by the liver and excretion into bile ducts. Activ ity seen in bowel as early as 5 minutes postinjection consistent with patency of the common bile sarah t. No activity is seen in the gallbladder up to 4 hours postinjection consistent with cystic duct o bstruction and acute cholecystitis. IMPRESSION: Consistent with cystic duct obstruction and acute cholecystitis. RPTAT: HJES .Vernon Story MD, Date Time Electronically viewed and signed by .Vernon Story MD, on 10/02/2016 08:42 .S/
[2016-10-02] MEDS: DOCUSATE SODIUM 100 MG CAP PO SCH ×2 (09:00→21:00)
[2016-10-02] MEDS: LOSARTAN 50 MG TAB PO SCH (09:00)
[2016-10-02] MEDS: FERROUS SULFATE (EC) 325 MG TAB PO SCH (09:00)
[2016-10-02] MEDS: ISOSORBIDE MONONITRATE(SR)30 MG TAB PO SCH (09:00)
[2016-10-02] MEDS: ASPIRIN (EC) 81 MG TAB PO SCH (09:00)
[2016-10-02] MEDS: METOPROLOL 100 MG TAB PO SCH (09:00)
[2016-10-02] MEDS: SPIRONOLACTONE 25 MG TAB PO SCH (09:00)
[2016-10-02] MEDS: ATORVASTATIN 40 MG TAB PO SCH (09:00)
--- NOTE | 2016-10-02 09:20 | CONS ---
Date/Time of Note Date/Time of Note DATE: 10/02/16 TIME: 09:19 Assessment/Plan Assessment/Plan Chief Complaint/Hosp Course ID PROGRESS NOTE TOTAL ABX DAY #3 => Cefepime #2 + Flagyl #2 s/p Ceftriaxone/Azith 09/30/16 24H INTERVAL SUMMARY * Tmax 99.4, mild tachycardia, WBC normalized w/elevated Neuts%, renal fx improved * A/A/O == he feels much better, still w/sharp pain ABD * CXR IMPRESSION: Mild right lung base air space disease. * BCx 10/01/16 => (+)GNR pending Specimen: [id number] Status: Resulted Gerard: 09/30/16-14 Rcvd: 10/01-7 Source: BLOOD Sp Descrip: Microbiology BLOOD CULTURE Preliminary BCULT GRAM BOTTLE 1 Gram negative rods . seen on gram stain of the broth Organism 1 GRAM NEGATIVE GURPREET PHYSICAL EXAMINATION: GENERAL: 66 yo M, low grade temps, calm, VSS HEENT: Unremarkable NECK: Supple, full ROM CHEST: Equal chest rise bilaterally, without dyspnea on observation HEART: Pulse RRR ABDOMEN: Soft EXTREMITIES: Warm SKIN: See hard chart skin assessment ID ASSESSMENT: 66 yo M w/PMHx former tobacco user, ASHD-CMY w/ICD, prostate cancer->s/p XRT admit with: 1. GNR Sepsis w/shock on admission with acute ABD pain due to #2, ?#3, #4=> associated with: * 10/01/16 (+)GNR Septicemia/Bacteremia 2/2 bottles * Fevers >102.3 * Leukocytosis w/left shift * VT Storm (43 Episodes were seen by the Tech) ->s/p ICD firing * (+)Troponin 2. Acute Cholecystitis-> 10/01/16 HIDA Scan (+) Consistent with cystic duct obstruction and acute cholecystitis. 3. Microhematuria w/possible UTI =>Urine cx pending * CT: Small nonobstructive left renal calculi are noted, without ureterolithiasis or obstructive uropathy. 4. Complex cardiac acute/chronic issues: * NSTEMI in setting sepsis, CMY, demand ischemia * ASHD w/ischemia CMY w/indwelling ICD, CAD->Hx of angioplasty cardiomyopathy * s/p VT Storm (43 Episodes were seen by the Tech on admission) 5. Acute renal insufficiency/AMBER -> s.Cr improved today 6. HTN 7. HLD 8. Scattered colonic diverticula are seen, without diverticulitis. (-)MRSA Nares INVASIVES: ICD, Periph IV ABX ALLERGY: None to ABX CURRENT ABX: TOTAL ABX DAY #3 => Cefepime #2 + Flagyl #2 s/p Ceftriaxone/Azith 09/30/16 ID RECOMMENDATIONS: 1. Continue current ABX * Avoid renal toxic ABX * Avoid Fluoroquinolones/Macrolides in setting VTach 2. Surgical & Cards recs pending . Problems: Consultation Date/Type/Reason Admit Date/Time Sep 30, 2016 at 22:33 Initial Consult Date Type of Consultation: ID Exam/Review of Systems Vital Signs Vitals Vital Signs Date Time Temp Pulse Resp B/P Pulse Ox O2 Delivery O2 Flow Rate FiO2 10/02/16 08:00 116 10/02/16 07:43 Nasal Cannula 1.0 10/02/16 07:00 99.4 22 116/74 100 Intake and Output 10/01/16 10/01/16 10/02/16 15:00 23:00 07:00 Intake Total 633.6 ml 533.40 ml 416.62 ml Output Total 200 ml 225 ml 800 ml Balance 433.6 ml 308.40 ml -383.38 ml Results Result Diagram: 10/02/16 0450 10/02/16 0450 Results 24 hrs Laboratory Tests Test 10/01/16 13:30 10/01/16 22:45 10/02/16 04:50 Cholesterol Level 115 Cholesterol/HDL Ratio 1.5 Creatine Kinase 750 H 616 H 599 H Creatine Kinase Index 0.4 0.1 0.1 Creatinine Kinase MB (Mass) 3.20 H 0.77 0.69 Free Thyroxine 1.15 HDL Cholesterol 72 Hemoglobin A1c 5.5 LDL Cholesterol, Calculated 35 Thyroid Stimulating Hormone (TSH) 0.337 L Triglycerides Level 41 Troponin I 2.070 *H 1.610 *H 1.190 *H Anion Gap 17 H Basophils # 0.0 Basophils % 0.1 Blood Urea Nitrogen 12 Calcium Level 8.3 L Carbon Dioxide Level 24 Chloride Level 100 Creatinine 1.18 Eosinophils # 0.0 Eosinophils % 0.0 Glucose Level 119 Hematocrit 33.3 L Hemoglobin 11.2 L Lymphocytes # 0.4 L Lymphocytes % 4.3 L Magnesium Level 2.6 H Mean Corpuscular Hemoglobin 31.2 Mean Corpuscular Hemoglobin Concent 33.6 Mean Corpuscular Volume 92.8 Mean Platelet Volume 11.5 H Monocytes # 0.8 Monocytes % 7.7 Neutrophils # 8.7 H Neutrophils % 86.6 H Nucleated Red Blood Cells # 0.0 Nucleated Red Blood Cells % 0.0 Phosphorus Level 1.3 L Platelet Count 118 #L Potassium Level 3.7 Red Blood Count 3.59 L Red Cell Distribution Width 13.2 Sodium Level 137 White Blood Count 10.0 Medications Medications Current Medications Ondansetron HCl (Zofran Inj) 4 mg Q6H PRN IV NAUSEA AND/OR VOMITING; Start 09/30 at 22:30 Metoclopramide HCl (Reglan) 10 mg Q6H PRN IV NAUSEA AND/OR VOMITING; Start 09/30 at 22:30 Famotidine (Pepcid Iv) 20 mg Q12 IV Last administered on 10/01/16 20:57; Admin Dose 20 MG; Start 10/01/16 at 09:00 Aspirin (Halfprin) 81 mg DAILY PO Last administered on 10/01/16 09:00; Admin Dose 81 MG; Start 10/01/16 at 09:00 Atorvastatin Calcium (Lipitor) 40 mg DAILY PO Last administered on 10/01/16 09 :00; Admin Dose 40 MG; Start 10/01/16 at 09:00 Docusate Sodium (Colace) 300 mg BID PO Last administered on 10/01/16 09:01; Admin Dose 300 MG; Start 10/01/16 at 09:00 Ferrous Sulfate (Ferrous Sulfate (Ec)) 325 mg DAILY PO Last administered on 09:00; Admin Dose 325 MG; Start 10/01/16 at 09:00 Isosorbide Mononitrate (Imdur) 30 mg DAILY PO Last administered on 10/01/16 09 :00; Admin Dose 30 MG; Start 10/01/16 at 09:00 Losartan Potassium (Cozaar) 50 mg DAILY PO Last administered on 10/01/16 09:00 ; Admin Dose 50 MG; Start 10/01/16 at 09:00 Metoprolol Tartrate (Lopressor) 100 mg BID PO Last administered on 10/01/16 09 :01; Admin Dose 100 MG; Start 10/01/16 at 09:00 Spironolactone (Aldactone) 25 mg DAILY PO Last administered on 10/01/16 09:01 ; Admin Dose 25 MG; Start 10/01/16 at 09:00 Morphine Sulfate (morphine) 4 mg Q4H PRN IV PAIN LEVEL 4-7 Last administered on 10/01/16 20:15; Admin Dose 4 MG; Start 10/01/16 at 06:30 Simethicone 80 mg 80 mg TID PRN PO DISTENSION/GAS/BLOATING Last administered on 10/01/16 09:39; Admin Dose 80 MG; Start 10/01/16 at 09:00 Cefepime HCl 50 ml @ 100 mls/hr Q12 IVPB Last administered on 10/01/16 20:58 ; Admin Dose 100 MLS/HR; Start 10/01/16 at 13:00 Metronidazole 100 ml @ 100 mls/hr Q8 IVPB Last administered on 10/02/16 05:27 ; Admin Dose 100 MLS/HR; Start 10/01/16 at 14:00 Amiodarone HCl/ Dextrose (Cordarone Iv/ D5W) 500 ml @ 16.66 mls/ hr Q24H IV Last administered on 10/01/16 22:26; Admin Dose 16.66 MLS/HR; Start 10/01/16 at 17:00 SUSAN GLOVER NP Oct 02, 2016 09:20
[2016-10-02] MEDS: CEFEPIME 1GM/50 ML (PMX) 50 ML IVPB SCH ×2 (09:48→22:30)
[2016-10-02] MEDS: FAMOTIDINE 20 MG INJ IV SCH ×2 (09:48→21:38)
--- NOTE | 2016-10-02 10:30 | PN ---
DATE: 10/02/2016 SUBJECTIVE: Follow up on gram-negative sepsis, v-tach, status post ICD firing, cardiomyopathy, [place]ary artery disease, hypertension, dyslipidemia. The patient does report mild right upper quadrant pain, no vomiting today. No reported chest pain. The patient is breathing comfortably, no orthopne a. The patient is saturating 99% to 100% on 1 liter nasal cannula. The patient did have a low-grad e temperature earlier this morning of 99.4, temperature max of 100.8. PHYSICAL EXAMINATION: GENERAL: The patient is conscious, awake, alert. VITAL SIGNS: Temperature max 100.8, pulse 116, respirations 22, blood pressure 116/74, O2 saturatio n 100% on 1 liter. HEENT: Atraumatic, normocephalic. Conjunctivae and lids normal. Oropharynx clear. NECK: Supple. No mass, no thyromegaly. CHEST: Fairly clear. CARDIOVASCULAR: S1, S2 normal. No murmur or gallop. ABDOMEN: Soft, nondistended. Mild right upper quadrant tenderness present. EXTREMITIES: No significant edema. No clubbing or cyanosis. NEUROLOGIC: The patient is awake, alert, fairly oriented with no gross focal deficit. LABORATORY DATA: Done this morning, WBC 10, hemoglobin 11.2, platelet 118. Sodium 137, potassium 3 .7, BUN 12, creatinine 1.1, phosphorus 1.3, magnesium 2.6. Troponin 1.19. IMPRESSION: 1. Ventricular tachycardia. Currently, the patient remains on amiodarone drip. 2. Gram-negative sepsis, possibly due to cholecystitis. The patient's HIDA scan is positive. CT o f the abdomen and pelvis is positive for cholecystitis. The patient remains on cefepime and Flagyl. The patient is beginning to have mild thrombocytopenia, another indication of gram-negative sepsis . 3. Cardiomyopathy. Continue aspirin, Imdur, Cozaar, metoprolol and Aldactone. The patient remains critically ill. We will continue to monitor him in ICU. Meanwhile, we will rep lace phosphate and will continue to monitor electrolytes and renal function closely. The patient delgado s slight depressed TSH; however, free T4 is within normal limits. Total critical care time spent 30 minutes. Dictated By: ASHIA AVERY/BARRON Conf#: [id number] DID#: [id number]
[2016-10-02] MEDS ORDERED: POTASSIUM PHOSPHATE 15 MM in SOD CHLORIDE 0.9% 250 ML IVPB ONE (11:00)
[2016-10-02 12:20] LABS: CK-MB 1.07 ng/ml (0.0-2.4); TROPONIN-I 0.921 ng/ml (0.00-0.12)
--- NOTE | 2016-10-02 16:08 | PN ---
DATE: 10/02/2016 CARDIOLOGY FOLLOWUP SUBJECTIVE: Discussed with the staff. Rhythm strip was reviewed. The patient with episodes of suzanne tained VT overnight. He was successfully cardioverted back using ATP ICD. Extra amiodarone was giv en. It has come down for now. The patient is still n.p.o. He does not complain of any abdominal p ain, no chest pain. MEDICATIONS: Reviewed. PHYSICAL EXAMINATION: VITAL SIGNS: Temperature 99, heart rate of 120, blood pressure 130/90, respiratory rate of 24, satu rating 100%. HEENT: Normocephalic, atraumatic. CARDIOVASCULAR: Tachycardic, systolic murmur. PULMONARY: With no wheezes anteriorly. GASTROINTESTINAL: Soft. No rebound or guarding. EXTREMITIES: With trivial edema. NEUROLOGIC: Awake, responds appropriately. PSYCHIATRIC: Appears to be calm. IMAGING: Abdominal and pelvic CT shows gallbladder distention. LABORATORY DATA: Shows WBC of 10, hemoglobin 11.2, platelets of 118. Sodium 137, potassium 3.7, BU N of 12, creatinine 1.18, glucose 119. Troponin at peak was 2.0, has come down to 0.96. Magnesium is 2.6. Blood cultures grew gram-negative rods. ASSESSMENT AND PLAN: 1. Ventricular tachycardia storm. 2. Status post successful ICD function/discharge for SVT. 3. Sepsis. 4. Ischemic cardiomyopathy. 5. Congestive heart failure, currently appears to be stable. 6. History of hypertension. 7. History of coronary artery disease, status post myocardial infarction. 8. History of percutaneous coronary intervention. 9. [id number]-[id number] myocardial infarction. 10. Tachycardia. 11. Acute cholecystitis. RECOMMENDATIONS: Will replace the potassium and magnesium. Recommend keeping the magnesium above 2 and potassium above 4. I will start the patient on carvedilol. The patient has been kept n.p.o. o n all his p.o. medications . We will give the aspirin rectally and I personally instructed the nurse to give the p.o. Coreg despite patient being n.p.o. Amiodarone drip will be continued at th e current dose. We will continue to closely monitor in the ICU. More than 38 minutes of critical care time was spent managing this patient excluding any procedures. Dictated By: MONIQUE EDWARDS/BARRON Conf#: [id number] DID#: [id number] CC: ASHIA MARCANO MD;*[facility]*
[2016-10-02] MEDS: ASPIRIN 300 MG SUPP PR SCH (16:56)
[2016-10-02] MEDS: AMIODARONE 900 MG in DEXTROSE 5% 482 ML IV SCH (23:25)
[2016-10-03] VITALS (27 sets, daily range): BP systolic 83–159; BP diastolic 55–111; PULSE 99–154; RESP 15–31
[2016-10-03 05:04] LABS: ADD SCAN DIFF NO
[2016-10-03 05:16] LABS: ABNORMAL IP MESSAGE 1; BASOPHILS % 0.1 % (0.0-2.0); HEMATOCRIT 33.2 % (42.0-52.0); HEMOGLOBIN 11.4 g/dl (14.0-18.0); LYMPHOCYTES # 0.4 10^3/ul (0.8-2.9); LYMPHOCYTES % 3.8 % (15.0-51.0); MEAN CORPUSCULAR HEMOGLOBIN 31.4 pg (29.0-33.0); MEAN CORPUSCULAR HGB CONC 34.3 g/dl (32.0-37.0); MEAN CORPUSCULAR VOLUME 91.5 fl (82.0-101.0); MEAN PLATELET VOLUME 11.4 fl (7.4-10.4); MONOCYTE # 0.8 10^3/ul (0.3-0.9); MONOCYTES % 7.6 % (0.0-11.0); NEUTROPHIL # 8.9 10^3/ul (1.6-7.5); NEUTROPHILS % 87.3 % (39.0-77.0); PLATELET COUNT 116 10^3/UL (140-415); RED BLOOD COUNT 3.63 10^6/ul (4.70-6.10); RED CELL DISTRIBUTION WIDTH 13.2 % (11.5-14.5); WHITE BLOOD COUNT 10.1 10^3/ul (4.8-10.8)
[2016-10-03 05:46] LABS: ALBUMIN 3.1 g/dl (3.3-4.9)
[2016-10-03 05:47] LABS: POTASSIUM 3.7 mmol/L (3.5-5.1)
[2016-10-03 05:48] LABS: TROPONIN-I 0.535 ng/ml (0.00-0.12)
[2016-10-03 05:49] LABS: ALBUMIN/GLOBULIN RATIO 0.93; BILIRUBIN,INDIRECT 0.3 mg/dl (0-1.1); BILIRUBIN,TOTAL 0.3 mg/dl (0.2-1.3); CK-MB 1.36 ng/ml (0.0-2.4); CREATININE 1.17 mg/dl (0.61-1.24); TOTAL PROTEIN 6.4 g/dl (6.1-8.1)
[2016-10-03 05:50] LABS: CALCIUM 8.6 mg/dl (8.4-10.2); MAGNESIUM 2.7 mg/dl (1.7-2.5)
[2016-10-03] MEDS: metroNIDAZOLE 500 MG/NS (PMX) 100 ML IVPB SCH ×3 (06:14→22:09)
[2016-10-03] MEDS ORDERED: POTASSIUM CHLORIDE 250 ML IVPB ONE (07:30)
[2016-10-03] MEDS: morphine 4 MG/ML VIAL IV PRN (08:34)
[2016-10-03] MEDS: ASPIRIN 300 MG SUPP PR SCH (09:00)
[2016-10-03] MEDS: DOCUSATE SODIUM 100 MG CAP PO SCH ×2 (09:00→21:48)
[2016-10-03] MEDS: FAMOTIDINE 20 MG INJ IV SCH ×2 (09:56→21:50)
[2016-10-03] MEDS: CEFEPIME 1GM/50 ML (PMX) 50 ML IVPB SCH (09:56)
[2016-10-03] MEDS: SPIRONOLACTONE 25 MG TAB PO SCH (09:57)
[2016-10-03] MEDS: FERROUS SULFATE (EC) 325 MG TAB PO SCH (09:59)
[2016-10-03] MEDS: LOSARTAN 50 MG TAB PO SCH (09:59)
[2016-10-03] MEDS: ASPIRIN (EC) 81 MG TAB PO SCH (10:00)
[2016-10-03] MEDS: ATORVASTATIN 40 MG TAB PO SCH (10:00)
[2016-10-03] MEDS: ISOSORBIDE MONONITRATE(SR)30 MG TAB PO SCH (10:00)
--- NOTE | 2016-10-03 10:56 | PN ---
Date/Time of Note Date/Time of Note DATE: 10/03/16 TIME: 10:49 Assessment/Plan VTE Prophylaxis VTE Prophylaxis Intervention: SCD's Lines/Catheters IV Catheter Type (from [facility]): Peripheral IV Urinary Cath still in place: No Assessment/Plan Assessment/Plan 1. Ventricular tachycardia. Currently, the patient remains on amiodarone drip. - monitor him in ICU. - monitor electrolytes and renal function closely. 2. Gram-negative sepsis, possibly due to cholecystitis. The patient's HIDA scan is positive. CT of the abdomen and pelvis is positive for cholecystitis. The patient remains on cefepime and Flagyl. The patient is beginning to have mild thrombocytopenia, another indication of gram-negative sepsis. 3. Cardiomyopathy. Continue aspirin, Imdur, Cozaar, metoprolol and Aldactone. 4. Coronary artery disease. 5. Hypertension 6. Dyslipidemia Further recommendations based on clinical course. Plan of care discussed with Dr. Duron. Total critical care time spent 30 minutes. Subjective 24 Hr Interval Summary Free Text/Dictation NAD, feeling better, deies any chest pain, shortness of breath, dizziness, palpitations, states his abdominal discomforts are much better- no pain, nausea/ vomitting. Taking clear liquid diet- tolerating so far.seems comfortable. no new issues reported by staff. dw staff. Constitutional: improved Eyes: no complaints ENT: no complaints Respiratory: no complaints Cardiovascular: no complaints Gastrointestinal: no complaints Genitourinary: no complaints Musculoskeletal: no complaints Skin: no complaints Neurologic: no complaints Endocrine: no complaints Lymphatic: no complaints Psychological: no complaints Immunologic: no complaints Exam/Review of Systems Vital Signs Vitals Vital Signs Date Time Temp Pulse Resp B/P Pulse Ox O2 Delivery O2 Flow Rate FiO2 10/03/16 10:00 100 28 136/95 10/03/16 09:00 100 10/03/16 08:00 99.4 Nasal Cannula 10/03/16 08:00 2.0 Intake and Output 10/02/16 10/02/16 10/03/16 15:00 23:00 07:00 Intake Total 50 ml 688.30 ml 224.92 ml Output Total 225 ml 725 ml 350 ml Balance -175 ml -36.70 ml -125.08 ml Exam Constitutional: alert, oriented, well developed Psych: nl mood/affect Head: atraumatic Eyes: EOMI ENMT: nl external ears & nose Neck: non-tender Respiratory: clear to auscultation Cardiovascular: nl pulses Gastrointestinal: non-tender, soft Musculoskeletal: nl extremities to inspection Extremities: normal pulses Neurological: nl mental status, nl speech Skin: nl turgor Lymph: nontender Results Result Diagram: 10/03/160 10/03/16409 Results 24 hrs Laboratory Tests Test 10/02/16 11:40 10/03/16 04:10 Creatine Kinase 506 H 491 H Creatine Kinase Index 0.2 0.3 Creatinine Kinase MB (Mass) 1.07 1.36 Troponin I 0.921 *H 0.535 *H Alanine Aminotransferase (ALT/SGPT) 49 Albumin 3.1 L Albumin/Globulin Ratio 0.93 Alkaline Phosphatase 81 Anion Gap 18 H Aspartate Amino Transf (AST/SGOT) 80 H B-Type Natriuretic Peptide 2210 H Basophils # 0.0 Basophils % 0.1 Blood Urea Nitrogen 14 Calcium Level 8.6 Carbon Dioxide Level 22 Chloride Level 105 Creatinine 1.17 Direct Bilirubin 0.00 Eosinophils # 0.0 Eosinophils % 0.0 Globulin 3.30 H Glucose Level 115 Hematocrit 33.2 L Hemoglobin 11.4 L Indirect Bilirubin 0.3 Lymphocytes # 0.4 L Lymphocytes % 3.8 L Magnesium Level 2.7 H Mean Corpuscular Hemoglobin 31.4 Mean Corpuscular Hemoglobin Concent 34.3 Mean Corpuscular Volume 91.5 Mean Platelet Volume 11.4 H Monocytes # 0.8 Monocytes % 7.6 Neutrophils # 8.9 H Neutrophils % 87.3 H Nucleated Red Blood Cells # 0.0 Nucleated Red Blood Cells % 0.0 Phosphorus Level 2.0 L Platelet Count 116 L Potassium Level 3.7 Red Blood Count 3.63 L Red Cell Distribution Width 13.2 Sodium Level 141 Total Bilirubin 0.3 Total Protein 6.4 White Blood Count 10.1 Medications Medications Current Medications Ondansetron HCl (Zofran Inj) 4 mg Q6H PRN IV NAUSEA AND/OR VOMITING; Start 09/30 at 22:30 Metoclopramide HCl (Reglan) 10 mg Q6H PRN IV NAUSEA AND/OR VOMITING; Start 09/30 at 22:30 Famotidine (Pepcid Iv) 20 mg Q12 IV Last administered on 10/03/16t 09:56; Admin Dose 20 MG; Start 10/01/16 at 09:00 Aspirin (Halfprin) 81 mg DAILY PO Last administered on 10/03/16 10:00; Admin Dose 81 MG; Start 10/01/16 at 09:00 Atorvastatin Calcium (Lipitor) 40 mg DAILY PO Last administered on 10/03/16 10 :00; Admin Dose 40 MG; Start 10/01/16 at 09:00 Docusate Sodium (Colace) 300 mg BID PO Last administered on 10/01/16 09:01; Admin Dose 300 MG; Start 10/01/16 at 09:00 Ferrous Sulfate (Ferrous Sulfate (Ec)) 325 mg DAILY PO Last administered on 09:59; Admin Dose 325 MG; Start 10/01/16 at 09:00 Isosorbide Mononitrate (Imdur) 30 mg DAILY PO Last administered on 10/03/16 10 :00; Admin Dose 30 MG; Start 10/01/16 at 09:00 Losartan Potassium (Cozaar) 50 mg DAILY PO Last administered on 10/03/16 09:59 ; Admin Dose 50 MG; Start 10/01/16 at 09:00 Spironolactone (Aldactone) 25 mg DAILY PO Last administered on 10/03/16 09:57 ; Admin Dose 25 MG; Start 10/01/16 at 09:00 Morphine Sulfate (morphine) 4 mg Q4H PRN IV PAIN LEVEL 4-7 Last administered on 10/03/16 08:34; Admin Dose 4 MG; Start 10/01/16 at 06:30 Simethicone 80 mg 80 mg TID PRN PO DISTENSION/GAS/BLOATING Last administered on 10/01/16 09:39; Admin Dose 80 MG; Start 10/01/16 at 09:00 Cefepime HCl 50 ml @ 100 mls/hr Q12 IVPB Last administered on 10/03/16 09:56 ; Admin Dose 100 MLS/HR; Start 10/01/16 at 13:00 Metronidazole 100 ml @ 100 mls/hr Q8 IVPB Last administered on 10/03/16 06:14 ; Admin Dose 100 MLS/HR; Start 10/01/16 at 14:00 Amiodarone HCl/ Dextrose (Cordarone Iv/ D5W) 500 ml @ 8.33 mls/hr Q24H IV Last administered on 10/02/16 23:25; Admin Dose 16.66 MLS/HR; Start 10/01/16 at 17:00 Aspirin 300 mg 300 mg DAILY [place] Last administered on 10/02/16 16:56; Admin Dose 300 MG; Start 10/02/16 at 15:30 Potassium Chloride (KCl 40 MEQ/250 ML NS) 250 ml @ 62.5 mls/hr ONCE ONCE IVPB Last administered on 10/03/16 08:29; Admin Dose 62.5 MLS/HR; Start 10/03/16 at 07:30; Stop 10/03/16 at 11:29 Digoxin (Digoxin) 125 mcg DAILY@13 IV ; Start 10/03/16 at 13:00 Carvedilol (Coreg) 6.25 mg BID PO Last administered on 10/03/16 09:59; Admin Dose 6.25 MG; Start 10/03/16 at 09:00 RON GR Oct 03, 2016 10:56
--- NOTE | 2016-10-03 13:48 | CONS ---
Date/Time of Note Date/Time of Note DATE: 10/03/16 TIME: 13:39 Assessment/Plan Assessment/Plan Chief Complaint/Hosp Course ID PROGRESS NOTE TOTAL ABX DAY #4 => Cefepime #3 + Flagyl #3 s/p Ceftriaxone/Azith 09/30/16 24H INTERVAL SUMMARY * A/A/O -- doing well, had episode of Vtach last night -- CARDS increased Amiodarone and restarted PO COREG * Tmax 99.4, mild tachycardia, WBC normalized, renal fx improved * CXR IMPRESSION: Mild right lung base air space disease. * BCx 10/01/16 => BLOOD CULTURE Final BCULT GRAM BOTTLE 1 Gram negative rods . seen on gram stain of the broth Organism 1 SERRATIA MARCESCENS S LINA M.I.C. RX --------- --- AMIKACIN 4 S CEFOTAXIME S CIPROFLOXACIN <=0.25 S GENTAMICIN <=1 S LEVOFLOXACIN <=0.12 S TOBRAMYCIN 8 I TRIMETHOPRIM/SULFAMETHOXAZOLE <=20 S PHYSICAL EXAMINATION: GENERAL: 66 yo M, low grade temps, calm, VSS HEENT: Unremarkable NECK: Supple, full ROM CHEST: Equal chest rise bilaterally, without dyspnea on observation HEART: Pulse RRR ABDOMEN: Soft EXTREMITIES: Warm SKIN: See hard chart skin assessment ID ASSESSMENT: 66 yo M w/PMHx former tobacco user, ASHD-CMY w/ICD, prostate cancer->s/p XRT admit with: 1. GNR Biliary Sepsis w/shock on admission with acute ABD pain due to #2, ?#3, #4=>associated with: * 10/01/16 (+)GNR Septicemia/Bacteremia 2/2 bottles =>Organism 1 SERRATIA MARCESCENS * Fevers >102.3 = RESOLVED * Leukocytosis w/left shift = RESOLVED * VT Storm (43 Episodes were seen by the Tech) ->s/p ICD firing * (+)Troponin 2. Acute Cholecystitis-> 10/01/16 HIDA Scan (+) Consistent with cystic duct obstruction and acute cholecystitis. 3. Microhematuria w/possible UTI =>Urine cx pending * CT: Small nonobstructive left renal calculi are noted, without ureterolithiasis or obstructive uropathy. 4. Complex cardiac acute/chronic issues: * Acute NSTEMI in setting sepsis, CMY, VTACH storm, +demand ischemia * Hx of ASHD w/ischemia CMY w/indwelling ICD, CAD->Hx of angioplasty cardiomyopathy * s/p VT Storm (43 Episodes were seen by the Tech on admission) 5. Acute renal insufficiency/AMBER -> s.Cr improved today 6. HTN 7. HLD 8. Scattered colonic diverticula are seen, without diverticulitis. (-)MRSA Nares INVASIVES: ICD, Periph IV ABX ALLERGY: None to ABX CURRENT ABX: TOTAL ABX DAY #4 => Cefepime #3 + Flagyl #3 s/p Ceftriaxone/Azith 09/30/16 ID RECOMMENDATIONS: 1. Continue current ABX * Avoid Fluoroquinolones/Macrolides in setting VTach * Avoid renal toxic ABX - renal fx has improved 2. Surgical & Cards recs noted - unstable for surgery at this time . . Problems: Consultation Date/Type/Reason Admit Date/Time Sep 30, 2016 at 22:33 Type of Consultation: ID Exam/Review of Systems Vital Signs Vitals Vital Signs Date Time Temp Pulse Resp B/P Pulse Ox O2 Delivery O2 Flow Rate FiO2 10/03/16 12:00 110 10/03/16 12:00 99.0 25 110/74 99 Nasal Cannula 10/03/16 08:00 2.0 Intake and Output 10/02/16 10/02/16 10/03/16 15:00 23:00 07:00 Intake Total 50 ml 688.30 ml 224.92 ml Output Total 225 ml 725 ml 350 ml Balance -175 ml -36.70 ml -125.08 ml Results Result Diagram: 10/03/16 0410 10/03/16409 Results 24 hrs Laboratory Tests Test 10/03/16 04:10 Alanine Aminotransferase (ALT/SGPT) 49 Albumin 3.1 L Albumin/Globulin Ratio 0.93 Alkaline Phosphatase 81 Anion Gap 18 H Aspartate Amino Transf (AST/SGOT) 80 H B-Type Natriuretic Peptide 2210 H Basophils # 0.0 Basophils % 0.1 Blood Urea Nitrogen 14 Calcium Level 8.6 Carbon Dioxide Level 22 Chloride Level 105 Creatine Kinase 491 H Creatine Kinase Index 0.3 Creatinine 1.17 Creatinine Kinase MB (Mass) 1.36 Direct Bilirubin 0.00 Eosinophils # 0.0 Eosinophils % 0.0 Globulin 3.30 H Glucose Level 115 Hematocrit 33.2 L Hemoglobin 11.4 L Indirect Bilirubin 0.3 Lymphocytes # 0.4 L Lymphocytes % 3.8 L Magnesium Level 2.7 H Mean Corpuscular Hemoglobin 31.4 Mean Corpuscular Hemoglobin Concent 34.3 Mean Corpuscular Volume 91.5 Mean Platelet Volume 11.4 H Monocytes # 0.8 Monocytes % 7.6 Neutrophils # 8.9 H Neutrophils % 87.3 H Nucleated Red Blood Cells # 0.0 Nucleated Red Blood Cells % 0.0 Phosphorus Level 2.0 L Platelet Count 116 L Potassium Level 3.7 Red Blood Count 3.63 L Red Cell Distribution Width 13.2 Sodium Level 141 Total Bilirubin 0.3 Total Protein 6.4 Troponin I 0.535 *H White Blood Count 10.1 Medications Medications Current Medications Ondansetron HCl (Zofran Inj) 4 mg Q6H PRN IV NAUSEA AND/OR VOMITING; Start 09/30 at 22:30 Metoclopramide HCl (Reglan) 10 mg Q6H PRN IV NAUSEA AND/OR VOMITING; Start 09/30 at 22:30 Famotidine (Pepcid Iv) 20 mg Q12 IV Last administered on 10/03/16 09:56; Admin Dose 20 MG; Start 10/01/16 at 09:00 Aspirin (Halfprin) 81 mg DAILY PO Last administered on 10/03/16 10:00; Admin Dose 81 MG; Start 10/01/16 at 09:00 Atorvastatin Calcium (Lipitor) 40 mg DAILY PO Last administered on 10/03/16 10 :00; Admin Dose 40 MG; Start 10/01/16 at 09:00 Docusate Sodium (Colace) 300 mg BID PO Last administered on 10/01/16 09:01; Admin Dose 300 MG; Start 10/01/16 at 09:00 Ferrous Sulfate (Ferrous Sulfate (Ec)) 325 mg DAILY PO Last administered on 09:59; Admin Dose 325 MG; Start 10/01/16 at 09:00 Isosorbide Mononitrate (Imdur) 30 mg DAILY PO Last administered on 10/03/16 10 :00; Admin Dose 30 MG; Start 10/01/16 at 09:00 Losartan Potassium (Cozaar) 50 mg DAILY PO Last administered on 10/03/16 09:59 ; Admin Dose 50 MG; Start 10/01/16 at 09:00 Spironolactone (Aldactone) 25 mg DAILY PO Last administered on 10/03/16 09:57 ; Admin Dose 25 MG; Start 10/01/16 at 09:00 Morphine Sulfate (morphine) 4 mg Q4H PRN IV PAIN LEVEL 4-7 Last administered on 10/03/16 08:34; Admin Dose 4 MG; Start 10/01/16 at 06:30 Simethicone 80 mg 80 mg TID PRN PO DISTENSION/GAS/BLOATING Last administered on 10/01/16 09:39; Admin Dose 80 MG; Start 10/01/16 at 09:00 Cefepime HCl 50 ml @ 100 mls/hr Q12 IVPB Last administered on 10/03/16 09:56 ; Admin Dose 100 MLS/HR; Start 10/01/16 at 13:00 Metronidazole 100 ml @ 100 mls/hr Q8 IVPB Last administered on 10/03/16 06:14 ; Admin Dose 100 MLS/HR; Start 10/01/16 at 14:00 Amiodarone HCl/ Dextrose (Cordarone Iv/ D5W) 500 ml @ 8.33 mls/hr Q24H IV Last administered on 10/02/16 23:25; Admin Dose 16.66 MLS/HR; Start 10/01/16 at 17:00 Aspirin (Aspirin) 300 mg DAILY AL Last administered on 10/02/16 16:56; Admin Dose 300 MG; Start 10/02/16 at 15:30 Digoxin (Digoxin) 125 mcg DAILY@13 IV ; Start 10/03/16 at 13:00 Carvedilol (Coreg) 6.25 mg BID PO Last administered on 10/03/16 09:59; Admin Dose 6.25 MG; Start 10/03/16 at 09:00 SUSAN GLOVER NP 12, 2017 13:48
--- NOTE | 2016-10-03 14:05 | PN ---
DATE: 10/03/2016 SUBJECTIVE: Mr. Barba is hospital day 3 from a run of V-tach and possible cholecystitis. Patient f eels much better, minimal pain. OBJECTIVE VITAL SIGNS: He is afebrile. Vital signs stable. ABDOMEN: Soft, nondistended. LABORATORY DATA: Today, reveal white count of 10, hematocrit 33, and platelets 116. His LFTs are w ithin normal limits. ASSESSMENT AND PLAN: Mr. Barba is a 66-year-old male with a resolving acute cholecystitis. 1. Clears. 2. Advance diet as tolerated. 3. Laparoscopic cholecystectomy when more stable and recovers from his myocardial infarction. Dictated By: LUL BUTLER/NTS Conf#: [id number] DID#: [id number]
[2016-10-03] MEDS: DIGOXIN 500 MCG INJ IV SCH (16:51)
[2016-10-03] MEDS ORDERED: ACETAMINOPHEN 325 MG TAB PO ONE (20:30)
[2016-10-04] VITALS (25 sets, daily range): BP systolic 92–173; BP diastolic 53–90; PULSE 20–120; RESP 18–24
[2016-10-04] MEDS: CEFEPIME 1GM/50 ML (PMX) 50 ML IVPB SCH ×3 (01:49→20:43)
[2016-10-04] MEDS: metroNIDAZOLE 500 MG/NS (PMX) 100 ML IVPB SCH ×2 (06:05→13:31)
[2016-10-04 07:06] LABS: ADD SCAN DIFF NO
[2016-10-04 07:14] LABS: ABNORMAL IP MESSAGE 1; BASOPHILS % 0.1 % (0.0-2.0); EOSINOPHILS % 0.1 % (0.0-7.0); HEMATOCRIT 32.7 % (42.0-52.0); HEMOGLOBIN 11.1 g/dl (14.0-18.0); LYMPHOCYTES # 0.4 10^3/ul (0.8-2.9); LYMPHOCYTES % 3.8 % (15.0-51.0); MEAN CORPUSCULAR HEMOGLOBIN 31.2 pg (29.0-33.0); MEAN CORPUSCULAR HGB CONC 33.9 g/dl (32.0-37.0); MEAN CORPUSCULAR VOLUME 91.9 fl (82.0-101.0); MEAN PLATELET VOLUME 12.1 fl (7.4-10.4); MONOCYTE # 0.8 10^3/ul (0.3-0.9); MONOCYTES % 7.6 % (0.0-11.0); NEUTROPHIL # 8.9 10^3/ul (1.6-7.5); NEUTROPHILS % 87.6 % (39.0-77.0); PLATELET COUNT 99 10^3/UL (140-415); RED BLOOD COUNT 3.56 10^6/ul (4.70-6.10); RED CELL DISTRIBUTION WIDTH 13.3 % (11.5-14.5); WHITE BLOOD COUNT 10.2 10^3/ul (4.8-10.8)
--- NOTE | 2016-10-04 07:25 | PN ---
DATE: 10/03/2016 CARDIOLOGY FOLLOWUP PROGRESS NOTE/INTENSIVE CARE UNIT PROGRESS NOTE SUBJECTIVE: Discussed with the staff. Rhythm strip was reviewed. Overnight, the patient's rhythm has remained stable. Remains in sinus rhythm. Frequent PVCs but no more episodes of shocks or VT n oted. Denies any chest pain or pressure. Does complain of diarrhea though. MEDICATIONS: Reviewed as per medical reconciliation, personally reviewed and discussed with the sta ff . PHYSICAL EXAMINATION: VITAL SIGNS: Temperature 99, T-max is 102, heart rate of 109, blood pressure 130/90, respiratory ra te of 24. HEENT: Normocephalic, atraumatic. No acute distress. Pupils equal and round. CARDIOVASCULAR: Tachycardic, systolic murmur. PULMONARY: With no wheezes anteriorly. GASTROINTESTINAL: Soft. No rebound or guarding. EXTREMITIES: With trivial edema. NEUROLOGIC: Awake and alert. PSYCHIATRIC: Appeared to be calm. LABORATORY: Sodium 141, potassium 3.7, BUN of 14, creatinine 1.17, glucose 115. Mag is 2.7. ProBN P of 2210. WBC of 10.1, hemoglobin 11.4, platelet 116. ASSESSMENT AND PLAN: 1. Recurrent ventricular tachycardia requiring multiple implantable cardioverter defibrillator ther apies. 2. Status post successful implantable cardioverter defibrillator therapy with antitachycardia pacin g (ATP) and shocks. 3. History of severe ischemic cardiomyopathy. 4. Sepsis and possibly cholangitis and acute cholecystitis. 5. Gram-negative luigi bacteremia 6. Hypertension. 7. History of coronary artery disease. 8. Status post acute myocardial infarction. 9. History of percutaneous coronary intervention (PCI). 10. Tachycardia . RECOMMENDATIONS: I will decrease the amiodarone to 0.25. Aspirin will be continued. Coreg will be increased to 6.25 b.i.d. and increased as tolerated. We will continue with the ICU care. Potassiu m and magnesium will be replaced. To keep the potassium above 4 and magnesium above 2. We will cont inue with the ICU care and close monitoring. GI workup and surgical workup as per surgical colleagu es. We will continue with the ICU care. I spent more than 38 minutes of critical care time in management of this patient excluding procedure s. Dictated By: MONIQUE BARONE MD AV/NTS Conf#: [id number] DID#: [id number] CC: ASHIA MARCANO MD;*[facility]*
[2016-10-04 07:50] LABS: ALBUMIN 2.8 g/dl (3.3-4.9)
[2016-10-04 07:53] LABS: BILIRUBIN,INDIRECT 0.3 mg/dl (0-1.1); BILIRUBIN,TOTAL 0.3 mg/dl (0.2-1.3); CREATININE 1.03 mg/dl (0.61-1.24); TOTAL PROTEIN 5.6 g/dl (6.1-8.1)
[2016-10-04 07:54] LABS: MAGNESIUM 2.6 mg/dl (1.7-2.5)
[2016-10-04] MEDS: DOCUSATE SODIUM 100 MG CAP PO SCH ×2 (09:00→20:43)
[2016-10-04] MEDS: ISOSORBIDE MONONITRATE(SR)30 MG TAB PO SCH ×2 (09:00→10:57)
[2016-10-04] MEDS: LOSARTAN 50 MG TAB PO SCH ×2 (09:00→10:58)
[2016-10-04] MEDS: FAMOTIDINE 20 MG INJ IV SCH ×2 (09:47→20:40)
[2016-10-04] MEDS: ASPIRIN (EC) 81 MG TAB PO SCH (09:48)
[2016-10-04] MEDS: FERROUS SULFATE (EC) 325 MG TAB PO SCH (09:48)
[2016-10-04] MEDS: ATORVASTATIN 40 MG TAB PO SCH (09:48)
[2016-10-04] MEDS: SPIRONOLACTONE 25 MG TAB PO SCH (10:58)
--- NOTE | 2016-10-04 12:43 | PN ---
DATE: 10/04/2016 SUBJECTIVE: No acute events overnight. The patient is alert, feels better, looks comfortable. VITAL SIGNS: He is afebrile. T-max yesterday was 103.9. LABORATORY: WBC count 10.2, platelets 99, neutrophils 87.6. BUN 16, creatinine 1.03. MICROBIOLOGY: Blood culture on admission grew Serratia marcescens intermittently sensitive to tobra mycin. Repeat blood cultures negative. Urine culture negative. Stool for C. diff negative. ANTIMICROBIALS: The patient is on: 1. Flagyl. 2. Cefepime. PHYSICAL EXAMINATION: GENERAL: Obese, well-developed, elderly man who is alert, in no distress. HEENT: Head atraumatic, normocephalic. Sclerae anicteric. Buccal mucosa pink. NECK: Supple, trachea midline. CHEST: Rise symmetrical. Breath sounds clear. HEART: S1, S2. ABDOMEN: Soft, bowel tones present. EXTREMITIES: Without cyanosis. ASSESSMENT: 1. Acute cholecystitis. 2. Bacteremia, likely secondary to above. 3. Arrhythmia with a history of ICD. 4. Non-ST elevation myocardial infarction. 5. Acute renal insufficiency. 6. Hypertension. 7. Thrombocytopenia, possibly secondary to cefepime. PLAN: The patient remains stable. Surgery on case. We will continue him on current antimicrobials . Monitor platelet count closely. The patient is not a candidate for fluoroquinolones given his ar rhythmia and amiodarone therapy. Dictated By: DILLON GÓMEZ COLD ROLLING COORDINATOR for HARRY ALEJANDRA/BARRON Conf#: [id number] DID#: [id number]
[2016-10-04] MEDS: DIGOXIN 500 MCG INJ IV SCH (13:30)
[2016-10-04] MEDS ORDERED: AMIODARONE 200 MG TAB PO ONE (15:42)
--- NOTE | 2016-10-04 15:45 | CONS ---
Date/Time of Note Date/Time of Note DATE: 10/04/16 TIME: 15:39 Assessment/Plan Assessment/Plan Additional Assessment/Plan Ventricular tachycardia status post ICD firing Sepsis with acute cholecystitis Cardiomyopathy with ejection fraction 40% status post ICD Coronary artery disease Hypertension Dyslipidemia -Patient with improvement with IV antibiotics. Given recent ventricular tachycardia requiring multiple shocks and troponin elevation likely secondary to above, patient currently at high risk for any procedures at the current time. Increase Coreg as blood pressure permits. Change amiodarone to p.o. Maintain potassium above 4.0 and magnesium above 2.0. Consultation Date/Type/Reason Admit Date/Time Sep 30, 2016 at 22:33 Initial Consult Date Type of Consultation: cv 24 HR Interval Summary Free Text/Dictation Feeling better, less abdominal pain. Able to tolerate p.o. medications and food. Denies chest pain or palpitations Exam/Review of Systems Vital Signs Vitals Vital Signs Date Time Temp Pulse Resp B/P Pulse Ox O2 Delivery O2 Flow Rate FiO2 10/04/16 15:15 98.5 112 24 142/72 95 Nasal Cannula 2.0 Intake and Output 10/03/16 10/03/16 10/04/16 15:00 23:00 07:00 Intake Total 1220 ml 50 ml 513.2 ml Output Total 401 ml 51 ml 101 ml Balance 819 ml -1 ml 412.2 ml Exam No apparent distress Constitutional: alert, oriented Head: normocephalic Neck: supple Respiratory: other (Coarse breath sounds bilaterally, no wheezing) Cardiovascular: other, regular rate and rhythm Gastrointestinal: bowel sounds, other (Mild discomfort right upper quadrant, no guarding), soft Extremities: edema (Trace), other (No cyanosis) Results Result Diagram: 10/04/16 0624 10/04/16 0410 Results 24 hrs Laboratory Tests Test 10/04/16 04:10 10/04/16 06:24 Alanine Aminotransferase (ALT/SGPT) 51 Albumin 2.8 L Albumin/Globulin Ratio 1.00 Alkaline Phosphatase 90 Anion Gap 16 Aspartate Amino Transf (AST/SGOT) 88 H Blood Urea Nitrogen 16 Calcium Level 8.0 L Carbon Dioxide Level 23 Chloride Level 104 Creatinine 1.03 Direct Bilirubin 0.00 Globulin 2.80 Glucose Level 140 Indirect Bilirubin 0.3 Magnesium Level 2.6 H Potassium Level 4.0 Sodium Level 139 Total Bilirubin 0.3 Total Protein 5.6 L Basophils # 0.0 Basophils % 0.1 Eosinophils # 0.0 Eosinophils % 0.1 Hematocrit 32.7 L Hemoglobin 11.1 L Lymphocytes # 0.4 L Lymphocytes % 3.8 L Mean Corpuscular Hemoglobin 31.2 Mean Corpuscular Hemoglobin Concent 33.9 Mean Corpuscular Volume 91.9 Mean Platelet Volume 12.1 H Monocytes # 0.8 Monocytes % 7.6 Neutrophils # 8.9 H Neutrophils % 87.6 H Nucleated Red Blood Cells # 0.0 Nucleated Red Blood Cells % 0.0 Platelet Count 99 L Red Blood Count 3.56 L Red Cell Distribution Width 13.3 White Blood Count 10.2 Medications Medications Current Medications Ondansetron HCl (Zofran Inj) 4 mg Q6H PRN IV NAUSEA AND/OR VOMITING; Start 09/30 at 22:30 Metoclopramide HCl (Reglan) 10 mg Q6H PRN IV NAUSEA AND/OR VOMITING; Start 09/30 at 22:30 Famotidine (Pepcid Iv) 20 mg Q12 IV Last administered on 10/04/16 09:47; Admin Dose 20 MG; Start 10/01/16 at 09:00 Aspirin (Halfprin) 81 mg DAILY PO Last administered on 10/04/16 09:48; Admin Dose 81 MG; Start 10/01/16 at 09:00 Atorvastatin Calcium (Lipitor) 40 mg DAILY PO Last administered on 10/04/16 09 :48; Admin Dose 40 MG; Start 10/01/16 at 09:00 Docusate Sodium (Colace) 300 mg BID PO Last administered on 10/03/16 21:48; Admin Dose 300 MG; Start 10/01/16 at 09:00 Ferrous Sulfate (Ferrous Sulfate (Ec)) 325 mg DAILY PO Last administered on 09:48; Admin Dose 325 MG; Start 10/01/16 at 09:00 Isosorbide Mononitrate (Imdur) 30 mg DAILY PO Last administered on 10/04/16 10 :57; Admin Dose 30 MG; Start 10/01/16 at 09:00 Losartan Potassium (Cozaar) 50 mg DAILY PO Last administered on 10/04/16 10:58 ; Admin Dose 50 MG; Start 10/01/16 at 09:00 Spironolactone (Aldactone) 25 mg DAILY PO Last administered on 10/04/16 10:58 ; Admin Dose 25 MG; Start 10/01/16 at 09:00 Morphine Sulfate (morphine) 4 mg Q4H PRN IV PAIN LEVEL 4-7 Last administered on 10/03/16 08:34; Admin Dose 4 MG; Start 10/01/16 at 06:30 Simethicone 80 mg 80 mg TID PRN PO DISTENSION/GAS/BLOATING Last administered on 10/01/16 09:39; Admin Dose 80 MG; Start 10/01/16 at 09:00 Cefepime HCl 50 ml @ 100 mls/hr Q12 IVPB Last administered on 10/04/16 09:47 ; Admin Dose 100 MLS/HR; Start 10/01/16 at 13:00 Metronidazole 100 ml @ 100 mls/hr Q8 IVPB Last administered on 10/04/16 13:31 ; Admin Dose 100 MLS/HR; Start 10/01/16 at 14:00 Amiodarone HCl/ Dextrose (Cordarone Iv/ D5W) 500 ml @ 8.33 mls/hr Q24H IV Last administered on 10/02/16 23:25; Admin Dose 16.66 MLS/HR; Start 10/01/16 at 17:00 Digoxin (Digoxin) 125 mcg DAILY@13 IV Last administered on 10/04/16 13:30; Admin Dose 125 MCG; Start 10/03/16 at 13:00 Carvedilol (Coreg) 6.25 mg BID PO Last administered on 10/04/16 09:49; Admin Dose 6.25 MG; Start 10/03/16 at 09:00 Nate Butler DO Oct 04, 2016 15:44
--- NOTE | 2016-10-04 18:55 | PN ---
Date/Time of Note Date/Time of Note DATE: 10/04/16 TIME: 18:46 Assessment/Plan VTE Prophylaxis VTE Prophylaxis Intervention: SCD's Lines/Catheters IV [facility]from [facility] Urinary Cath still in place: No Assessment/Plan Chief Complaint/Hosp Course Assessment and plan - Ventricular tachycardia status post ICD firing, Dr. Bautista is following in cardiology consultation. Continue p.o. amiodarone. Telemetry monitoring. - Elevated troponin secondary to #1. - Sepsis 2 to acute cholecystitis with gram-negative rods bacteremia. Dr. Persaud is following infection disease consultation. Patient is currently on cefepime and Flagyl. - Cardiomyopathy with ejection fraction 40%. Continue Coreg. - Coronary artery disease. Continue aspirin. - Hypertension, continue Cozaar. - Dyslipidemia, continue Lipitor. Further recommendations based on clinical course. Plan of care discussed with Dr. Duron. Problems: Subjective 24 Hr Interval Summary Free Text/Dictation Patient denies any chest pain denies shortness of breath, sinus rhythm on telemetry, patient's complains of abdominal pain., Patient tolerates liquid diet well. Denies nausea vomiting. Exam/Review of Systems Vital Signs Vitals Vital Signs Date Time Temp Pulse Resp B/P Pulse Ox O2 Delivery O2 Flow Rate FiO2 10/04/16 16:38 110 10/04/16 15:58 98.0 19 137/74 98 10/04/16 15:15 Nasal Cannula 2.0 Intake and Output 10/03/16 10/03/16 10/04/16 15:00 23:00 07:00 Intake Total 1220 ml 50 ml 513.2 ml Output Total 401 ml 51 ml 101 ml Balance 819 ml -1 ml 412.2 ml Exam Constitutional: alert, oriented Psych: no complaints Head: atraumatic, normocephalic Eyes: nl conjunctiva ENMT: nl external ears & nose Neck: non-tender, supple Respiratory: clear to auscultation, normal air movement Cardiovascular: nl pulses, regular rate and rhythm Gastrointestinal: non-tender, soft Musculoskeletal: nl extremities to inspection Extremities: normal pulses Neurological: MEDIA RELATIONS COORDINATOR II-XII intact Results Result Diagram: 10/04/16 0624 10/04/16 0410 Results 24 hrs Laboratory Tests Test 10/04/16 04:10 10/04/16 06:24 Alanine Aminotransferase (ALT/SGPT) 51 Albumin 2.8 L Albumin/Globulin Ratio 1.00 Alkaline Phosphatase 90 Anion Gap 16 Aspartate Amino Transf (AST/SGOT) 88 H Blood Urea Nitrogen 16 Calcium Level 8.0 L Carbon Dioxide Level 23 Chloride Level 104 Creatinine 1.03 Direct Bilirubin 0.00 Globulin 2.80 Glucose Level 140 Indirect Bilirubin 0.3 Magnesium Level 2.6 H Potassium Level 4.0 Sodium Level 139 Total Bilirubin 0.3 Total Protein 5.6 L Basophils # 0.0 Basophils % 0.1 Eosinophils # 0.0 Eosinophils % 0.1 Hematocrit 32.7 L Hemoglobin 11.1 L Lymphocytes # 0.4 L Lymphocytes % 3.8 L Mean Corpuscular Hemoglobin 31.2 Mean Corpuscular Hemoglobin Concent 33.9 Mean Corpuscular Volume 91.9 Mean Platelet Volume 12.1 H Monocytes # 0.8 Monocytes % 7.6 Neutrophils # 8.9 H Neutrophils % 87.6 H Nucleated Red Blood Cells # 0.0 Nucleated Red Blood Cells % 0.0 Platelet Count 99 L Red Blood Count 3.56 L Red Cell Distribution Width 13.3 White Blood Count 10.2 Medications Medications Current Medications Ondansetron HCl (Zofran Inj) 4 mg Q6H PRN IV NAUSEA AND/OR VOMITING; Start 09/30 at 22:30 Metoclopramide HCl (Reglan) 10 mg Q6H PRN IV NAUSEA AND/OR VOMITING; Start 09/30 at 22:30 Famotidine (Pepcid Iv) 20 mg Q12 IV Last administered on 10/04/16 09:47; Admin Dose 20 MG; Start 10/01/16 at 09:00 Aspirin (Halfprin) 81 mg DAILY PO Last administered on 10/04/16 09:48; Admin Dose 81 MG; Start 10/01/16 at 09:00 Atorvastatin Calcium (Lipitor) 40 mg DAILY PO Last administered on 10/04/16 09 :48; Admin Dose 40 MG; Start 10/01/16 at 09:00 Docusate Sodium (Colace) 300 mg BID PO Last administered on 10/03/16 21:48; Admin Dose 300 MG; Start 10/01/16 at 09:00 Ferrous Sulfate (Ferrous Sulfate (Ec)) 325 mg DAILY PO Last administered on 09:48; Admin Dose 325 MG; Start 10/01/16 at 09:00 Isosorbide Mononitrate (Imdur) 30 mg DAILY PO Last administered on 10/04/16 10 :57; Admin Dose 30 MG; Start 10/01/16 at 09:00 Losartan Potassium (Cozaar) 50 mg DAILY PO Last administered on 10/04/16 10:58 ; Admin Dose 50 MG; Start 10/01/16 at 09:00 Spironolactone (Aldactone) 25 mg DAILY PO Last administered on 10/04/16 10:58 ; Admin Dose 25 MG; Start 10/01/16 at 09:00 Morphine Sulfate (morphine) 4 mg Q4H PRN IV PAIN LEVEL 4-7 Last administered on 10/03/16 08:34; Admin Dose 4 MG; Start 10/01/16 at 06:30 Simethicone 80 mg 80 mg TID PRN PO DISTENSION/GAS/BLOATING Last administered on 10/01/16 09:39; Admin Dose 80 MG; Start 10/01/16 at 09:00 Cefepime HCl 50 ml @ 100 mls/hr Q12 IVPB Last administered on 10/04/16 09:47 ; Admin Dose 100 MLS/HR; Start 10/01/16 at 13:00 Metronidazole (Flagyl 500 Mg (Pmx)) 100 ml @ 100 mls/hr Q8 IVPB Last administered on 10/04/16 13:31; Admin Dose 100 MLS/HR; Start 10/01/16 at 14:00 Digoxin (Digoxin) 125 mcg DAILY@13 IV Last administered on 10/04/16 13:30; Admin Dose 125 MCG; Start 10/03/16 at 13:00 Carvedilol (Coreg) 6.25 mg TID PO ; Start 10/04/16 at 21:00 Amiodarone HCl (Cordarone) 200 mg BID PO ; Start 10/04/16 at 21:00 ANGELI BLACKWELL Oct 04, 2016 18:55
[2016-10-04] MEDS: AMIODARONE 200 MG TAB PO SCH (20:43)
[2016-10-05] VITALS (15 sets, daily range): BP systolic 109–140; BP diastolic 58–94; PULSE 86–104; RESP 19–22
[2016-10-05] MEDS: metroNIDAZOLE 500 MG/NS (PMX) 100 ML IVPB SCH ×4 (01:10→20:55)
[2016-10-05 06:59] LABS: ADD SCAN DIFF NO
[2016-10-05 07:03] LABS: ABNORMAL IP MESSAGE 1; BASOPHILS % 0.1 % (0.0-2.0); EOSINOPHILS # 0.1 10^3/ul (0.0-0.5); EOSINOPHILS % 0.8 % (0.0-7.0); HEMATOCRIT 28.7 % (42.0-52.0); HEMOGLOBIN 9.9 g/dl (14.0-18.0); LYMPHOCYTES # 0.5 10^3/ul (0.8-2.9); LYMPHOCYTES % 4.9 % (15.0-51.0); MEAN CORPUSCULAR HEMOGLOBIN 30.8 pg (29.0-33.0); MEAN CORPUSCULAR HGB CONC 34.5 g/dl (32.0-37.0); MEAN CORPUSCULAR VOLUME 89.4 fl (82.0-101.0); MEAN PLATELET VOLUME 12.4 fl (7.4-10.4); MONOCYTE # 1.1 10^3/ul (0.3-0.9); MONOCYTES % 11.2 % (0.0-11.0); NEUTROPHIL # 8.2 10^3/ul (1.6-7.5); NEUTROPHILS % 82.2 % (39.0-77.0); PLATELET COUNT 98 10^3/UL (140-415); RED BLOOD COUNT 3.21 10^6/ul (4.70-6.10); RED CELL DISTRIBUTION WIDTH 13.2 % (11.5-14.5)
[2016-10-05 07:13] LABS: POTASSIUM 3.7 mmol/L (3.5-5.1)
[2016-10-05 07:16] LABS: CALCIUM 8.1 mg/dl (8.4-10.2); CREATININE 1.09 mg/dl (0.61-1.24)
[2016-10-05] MEDS: DOCUSATE SODIUM 100 MG CAP PO SCH ×2 (09:00→20:54)
[2016-10-05] MEDS: CEFEPIME 1GM/50 ML (PMX) 50 ML IVPB SCH (09:15)
[2016-10-05] MEDS: FERROUS SULFATE (EC) 325 MG TAB PO SCH (09:17)
[2016-10-05] MEDS: SPIRONOLACTONE 25 MG TAB PO SCH (09:17)
[2016-10-05] MEDS: ATORVASTATIN 40 MG TAB PO SCH (09:17)
[2016-10-05] MEDS: FAMOTIDINE 20 MG INJ IV SCH ×2 (09:18→20:55)
[2016-10-05] MEDS: ASPIRIN (EC) 81 MG TAB PO SCH (09:20)
[2016-10-05] MEDS: ISOSORBIDE MONONITRATE(SR)30 MG TAB PO SCH (09:20)
[2016-10-05] MEDS: AMIODARONE 200 MG TAB PO SCH ×2 (09:21→20:54)
[2016-10-05] MEDS: LOSARTAN 50 MG TAB PO SCH (09:27)
[2016-10-05] MEDS: DIGOXIN 500 MCG INJ IV SCH (13:33)
--- NOTE | 2016-10-05 14:41 | CONS ---
Date/Time of Note Date/Time of Note DATE: 10/05/16 TIME: 14:38 Assessment/Plan Assessment/Plan Additional Assessment/Plan Ventricular tachycardia status post ICD firing Sepsis with acute cholecystitis Cardiomyopathy with ejection fraction 40% status post ICD Coronary artery disease Hypertension Dyslipidemia -Patient was on Lopressor at home, would switch Coreg to Lopressor at higher dose for better beta blockade. Encourage ambulation today, continue amiodarone , supplement potassium to maintain above 4.0 and magnesium above 2.0 Consultation Date/Type/Reason Admit Date/Time Sep 30, 2016 at 22:33 Type of Consultation: cv 24 HR Interval Summary Free Text/Dictation Denies chest pain, shortness of breath, palpitations. Abdominal pain is improving Exam/Review of Systems Vital Signs Vitals Vital Signs Date Time Temp Pulse Resp B/P Pulse Ox O2 Delivery O2 Flow Rate FiO2 10/05/16 12:00 94 10/05/16 11:18 98.0 22 125/68 96 10/05/16 08:20 Nasal Cannula 2.0 Intake and Output 10/04/16 10/04/16 10/05/16 15:00 23:00 07:00 Intake Total 150 ml 1520.3 ml Output Total 300 ml 700 ml Balance -150 ml 820.3 ml Exam No apparent distress Constitutional: alert, oriented Head: normocephalic Neck: supple Respiratory: other (Coarse breath sounds bilaterally, no wheezing) Cardiovascular: other (S1-S2 heard), regular rate and rhythm Gastrointestinal: bowel sounds, other (Mild discomfort with palpation, no guarding), soft Extremities: other (No edema or cyanosis) Results Result Diagram: 10/05/16 0615 10/05/16 0615 Results 24 hrs Laboratory Tests Test 10/05/16 06:15 Anion Gap 13 Basophils # 0.0 Basophils % 0.1 Blood Urea Nitrogen 17 Calcium Level 8.1 L Carbon Dioxide Level 23 Chloride Level 104 Creatinine 1.09 Eosinophils # 0.1 Eosinophils % 0.8 Glucose Level 142 Hematocrit 28.7 L Hemoglobin 9.9 L Lymphocytes # 0.5 L Lymphocytes % 4.9 L Mean Corpuscular Hemoglobin 30.8 Mean Corpuscular Hemoglobin Concent 34.5 Mean Corpuscular Volume 89.4 Mean Platelet Volume 12.4 H Monocytes # 1.1 H Monocytes % 11.2 H Neutrophils # 8.2 H Neutrophils % 82.2 H Nucleated Red Blood Cells # 0.0 Nucleated Red Blood Cells % 0.0 Platelet Count 98 L Potassium Level 3.7 Red Blood Count 3.21 L Red Cell Distribution Width 13.2 Sodium Level 136 White Blood Count 10.0 Medications Medications Current Medications Ondansetron HCl (Zofran Inj) 4 mg Q6H PRN IV NAUSEA AND/OR VOMITING; Start 09/30 at 22:30 Metoclopramide HCl (Reglan) 10 mg Q6H PRN IV NAUSEA AND/OR VOMITING; Start 09/30 at 22:30 Famotidine (Pepcid Iv) 20 mg Q12 IV Last administered on 10/05/16 09:18; Admin Dose 20 MG; Start 10/01/16 at 09:00 Aspirin (Halfprin) 81 mg DAILY PO Last administered on 10/05/16 09:20; Admin Dose 81 MG; Start 10/01/16 at 09:00 Atorvastatin Calcium (Lipitor) 40 mg DAILY PO Last administered on 10/05/16 09 :17; Admin Dose 40 MG; Start 10/01/16 at 09:00 Docusate Sodium (Colace) 300 mg BID PO Last administered on 10/04/16 20:43; Admin Dose 300 MG; Start 10/01/16 at 09:00 Ferrous Sulfate (Ferrous Sulfate (Ec)) 325 mg DAILY PO Last administered on 09:17; Admin Dose 325 MG; Start 10/01/16 at 09:00 Isosorbide Mononitrate (Imdur) 30 mg DAILY PO Last administered on 10/05/16 09 :20; Admin Dose 30 MG; Start 10/01/16 at 09:00 Losartan Potassium (Cozaar) 50 mg DAILY PO Last administered on 10/05/16 09:27 ; Admin Dose 50 MG; Start 10/01/16 at 09:00 Spironolactone (Aldactone) 25 mg DAILY PO Last administered on 10/05/16 09:17 ; Admin Dose 25 MG; Start 10/01/16 at 09:00 Morphine Sulfate (morphine) 4 mg Q4H PRN IV PAIN LEVEL 4-7 Last administered on 10/03/16 08:34; Admin Dose 4 MG; Start 10/01/16 at 06:30 Simethicone 80 mg 80 mg TID PRN PO DISTENSION/GAS/BLOATING Last administered on 10/01/16 09:39; Admin Dose 80 MG; Start 10/01/16 at 09:00 Cefepime HCl 50 ml @ 100 mls/hr Q12 IVPB Last administered on 10/05/16 09:15 ; Admin Dose 100 MLS/HR; Start 10/01/16 at 13:00 Metronidazole (Flagyl 500 Mg (Pmx)) 100 ml @ 100 mls/hr Q8 IVPB Last administered on 10/05/16 13:33; Admin Dose 100 MLS/HR; Start 10/01/16 at 14:00 Digoxin (Digoxin) 125 mcg DAILY@13 IV Last administered on 10/05/16 13:33; Admin Dose 125 MCG; Start 10/03/16 at 13:00 Carvedilol (Coreg) 6.25 mg TID PO Last administered on 10/05/16 13:33; Admin Dose 6.25 MG; Start 10/04/16 at 21:00 Amiodarone HCl (Cordarone) 200 mg BID PO Last administered on 10/05/16 09:21; Admin Dose 200 MG; Start 10/04/16 at 21:00 Acetaminophen (Tylenol Tab) 650 mg Q4H PRN PO PAIN AND OR ELEVATED TEMP; Start 10/04/16 at 23:00 Nate Butler DO Oct 05, 2016 14:41
[2016-10-05] MEDS ORDERED: POTASSIUM CHLORIDE 20 MEQ POWDER FOR ORAL SOLN PO ONE (15:00)
--- NOTE | 2016-10-05 16:16 | CONS ---
Date/Time of Note Date/Time of Note DATE: 10/05/16 TIME: 16:14 Assessment/Plan Assessment/Plan Chief Complaint/Hosp Course SUBJECTIVE: No acute events overnight. The patient is alert, feels good, no fevers MICROBIOLOGY: Blood culture on admission grew Serratia marcescens. Repeat blood cultures negative. Urine culture negative. Stool for C. diff negative. ANTIMICROBIALS: 1. Flagyl. 2. Cefepime. PHYSICAL EXAMINATION: GENERAL: Obese, well-developed, elderly man who is alert, in no distress. HEENT: Head atraumatic, normocephalic. Sclerae anicteric. Buccal mucosa pink. NECK: Supple, trachea midline. CHEST: Rise symmetrical. Breath sounds clear. HEART: S1, S2. ABDOMEN: Soft, bowel tones present. EXTREMITIES: Without cyanosis. ASSESSMENT: 1. Acute cholecystitis. 2. Bacteremia, likely secondary to above. 3. Arrhythmia with a history of ICD. 4. Non-ST elevation myocardial infarction. 5. Acute renal insufficiency. 6. Hypertension. 7. Thrombocytopenia, possibly secondary to cefepime. PLAN: The patient remains stable. Willl change Cefepime to Rocephin, f/u surgical/card recommendations. The patient is not a candidate for fluoroquinolones given his arrhythmia and amiodarone therapy. DW staff Problems: Consultation Date/Type/Reason Admit Date/Time Sep 30, 2016 at 22:33 Initial Consult Date Type of Consultation: id Exam/Review of Systems Vital Signs Vitals Vital Signs Date Time Temp Pulse Resp B/P Pulse Ox O2 Delivery O2 Flow Rate FiO2 10/05/16 14:56 98.2 99 21 118/66 95 10/05/16 08:20 Nasal Cannula 2.0 Intake and Output 10/04/16 10/04/16 10/05/16 15:00 23:00 07:00 Intake Total 150 ml 1520.3 ml Output Total 300 ml 700 ml Balance -150 ml 820.3 ml Results Result Diagram: 10/05/16 0615 10/05/16 0615 Results 24 hrs Laboratory Tests Test 10/05/16 06:15 Anion Gap 13 Basophils # 0.0 Basophils % 0.1 Blood Urea Nitrogen 17 Calcium Level 8.1 L Carbon Dioxide Level 23 Chloride Level 104 Creatinine 1.09 Eosinophils # 0.1 Eosinophils % 0.8 Glucose Level 142 Hematocrit 28.7 L Hemoglobin 9.9 L Lymphocytes # 0.5 L Lymphocytes % 4.9 L Mean Corpuscular Hemoglobin 30.8 Mean Corpuscular Hemoglobin Concent 34.5 Mean Corpuscular Volume 89.4 Mean Platelet Volume 12.4 H Monocytes # 1.1 H Monocytes % 11.2 H Neutrophils # 8.2 H Neutrophils % 82.2 H Nucleated Red Blood Cells # 0.0 Nucleated Red Blood Cells % 0.0 Platelet Count 98 L Potassium Level 3.7 Red Blood Count 3.21 L Red Cell Distribution Width 13.2 Sodium Level 136 White Blood Count 10.0 Medications Medications Current Medications Ondansetron HCl (Zofran Inj) 4 mg Q6H PRN IV NAUSEA AND/OR VOMITING; Start 09/30 at 22:30 Metoclopramide HCl (Reglan) 10 mg Q6H PRN IV NAUSEA AND/OR VOMITING; Start 09/30 at 22:30 Famotidine (Pepcid Iv) 20 mg Q12 IV Last administered on 10/05/16 09:18; Admin Dose 20 MG; Start 10/01/16 at 09:00 Aspirin (Halfprin) 81 mg DAILY PO Last administered on 10/05/16 09:20; Admin Dose 81 MG; Start 10/01/16 at 09:00 Atorvastatin Calcium (Lipitor) 40 mg DAILY PO Last administered on 10/05/16 09 :17; Admin Dose 40 MG; Start 10/01/16 at 09:00 Docusate Sodium (Colace) 300 mg BID PO Last administered on 10/04/16 20:43; Admin Dose 300 MG; Start 10/01/16 at 09:00 Ferrous Sulfate (Ferrous Sulfate (Ec)) 325 mg DAILY PO Last administered on 09:17; Admin Dose 325 MG; Start 10/01/16 at 09:00 Isosorbide Mononitrate (Imdur) 30 mg DAILY PO Last administered on 10/05/16 09 :20; Admin Dose 30 MG; Start 10/01/16 at 09:00 Losartan Potassium (Cozaar) 50 mg DAILY PO Last administered on 10/05/16 09:27 ; Admin Dose 50 MG; Start 10/01/16 at 09:00 Spironolactone (Aldactone) 25 mg DAILY PO Last administered on 10/05/16 09:17 ; Admin Dose 25 MG; Start 10/01/16 at 09:00 Morphine Sulfate (morphine) 4 mg Q4H PRN IV PAIN LEVEL 4-7 Last administered on 10/03/16 08:34; Admin Dose 4 MG; Start 10/01/16 at 06:30 Simethicone 80 mg 80 mg TID PRN PO DISTENSION/GAS/BLOATING Last administered on 10/01/16 09:39; Admin Dose 80 MG; Start 10/01/16 at 09:00 Cefepime HCl 50 ml @ 100 mls/hr Q12 IVPB Last administered on 10/05/16 09:15 ; Admin Dose 100 MLS/HR; Start 10/01/16 at 13:00 Metronidazole (Flagyl 500 Mg (Pmx)) 100 ml @ 100 mls/hr Q8 IVPB Last administered on 10/05/16 13:33; Admin Dose 100 MLS/HR; Start 10/01/16 at 14:00 Digoxin (Digoxin) 125 mcg DAILY@13 IV Last administered on 10/05/16 13:33; Admin Dose 125 MCG; Start 10/03/16 at 13:00 Amiodarone HCl (Cordarone) 200 mg BID PO Last administered on 10/05/16 09:21; Admin Dose 200 MG; Start 10/04/16 at 21:00 Acetaminophen (Tylenol Tab) 650 mg Q4H PRN PO PAIN AND OR ELEVATED TEMP; Start 10/04/16 at 23:00 Metoprolol Tartrate (Lopressor) 100 mg BID PO ; Start 10/05/16 at 21:00 DILLON GÓMEZ NP Oct 05, 2016 16:15
[2016-10-05] MEDS: CEFTRIAXONE 1 GM/50 ML (PMX) 50 ML IVPB SCH (17:14)
--- NOTE | 2016-10-05 18:06 | PN ---
Date/Time of Note Date/Time of Note DATE: 10/05/16 TIME: 18:02 Assessment/Plan VTE Prophylaxis VTE Prophylaxis Intervention: SCD's Lines/Catheters IV C[facility]ter Type (from [facility]): Saline Lock Urinary Cath still in place: No Assessment/Plan Chief Complaint/Hosp Course Assessment and plan - Ventricular tachycardia status post ICD firing, Dr. Bautista is following in cardiology consultation. Continue p.o. amiodarone. Telemetry monitoring. - Elevated troponin secondary to #1. - Sepsis 2 to acute cholecystitis with gram-negative rods bacteremia. Dr. Persaud is following infection disease consultation. Patient is currently on cefepime and Flagyl. - Acute cholecystitis, continue antibiotics per ID. Status post evaluation by Dr. Vargas and general surgery consultation. Plan for laparoscopic cholecystectomy as an outpatient when patient cardiac condition improves. - Cardiomyopathy with ejection fraction 40%. Continue Coreg. - Coronary artery disease. Continue aspirin. - Hypertension, continue Cozaar. - Dyslipidemia, continue Lipitor. Further recommendations based on clinical course. Plan of care discussed with Dr. Duron. Problems: Subjective 24 Hr Interval Summary Free Text/Dictation Patient was able to walk with physical therapy, wants to have a walker in his room so he can get out get up to use the restroom, although patient had episode of ventricular tachycardia status post defibrillation by the implanted device, patient is currently in sinus rhythm, denies any chest pain denies shortness of breath, continue telemetry monitoring. Exam/Review of Systems Vital Signs Vitals Vital Signs Date Time Temp Pulse Resp B/P Pulse Ox O2 Delivery O2 Flow Rate FiO2 10/05/16 16:00 98 10/05/16 14:56 98.2 21 118/66 95 10/05/16 08:20 Nasal Cannula 2.0 Intake and Output 10/04/16 10/04/16 10/05/16 15:00 23:00 07:00 Intake Total 150 ml 1520.3 ml Output Total 300 ml 700 ml Balance -150 ml 820.3 ml Exam Constitutional: alert, oriented Psych: no complaints Head: atraumatic, normocephalic Eyes: nl conjunctiva ENMT: nl external ears & nose Neck: non-tender, supple Respiratory: clear to auscultation, normal air movement Cardiovascular: nl pulses, regular rate and rhythm Gastrointestinal: non-tender, soft Musculoskeletal: nl extremities to inspection Extremities: normal pulses Neurological: POLISHER HAND II-XII intact Results Result Diagram: 10/05/16 0615 10/05/16 0615 Results 24 hrs Laboratory Tests Test 10/05/16 06:15 Anion Gap 13 Basophils # 0.0 Basophils % 0.1 Blood Urea Nitrogen 17 Calcium Level 8.1 L Carbon Dioxide Level 23 Chloride Level 104 Creatinine 1.09 Eosinophils # 0.1 Eosinophils % 0.8 Glucose Level 142 Hematocrit 28.7 L Hemoglobin 9.9 L Lymphocytes # 0.5 L Lymphocytes % 4.9 L Mean Corpuscular Hemoglobin 30.8 Mean Corpuscular Hemoglobin Concent 34.5 Mean Corpuscular Volume 89.4 Mean Platelet Volume 12.4 H Monocytes # 1.1 H Monocytes % 11.2 H Neutrophils # 8.2 H Neutrophils % 82.2 H Nucleated Red Blood Cells # 0.0 Nucleated Red Blood Cells % 0.0 Platelet Count 98 L Potassium Level 3.7 Red Blood Count 3.21 L Red Cell Distribution Width 13.2 Sodium Level 136 White Blood Count 10.0 Medications Medications Current Medications Ondansetron HCl (Zofran Inj) 4 mg Q6H PRN IV NAUSEA AND/OR VOMITING; Start 09/30 at 22:30 Metoclopramide HCl (Reglan) 10 mg Q6H PRN IV NAUSEA AND/OR VOMITING; Start 09/30 at 22:30 Famotidine (Pepcid Iv) 20 mg Q12 IV Last administered on 10/05/16 09:18; Admin Dose 20 MG; Start 10/01/16 at 09:00 Aspirin (Halfprin) 81 mg DAILY PO Last administered on 10/05/16 09:20; Admin Dose 81 MG; Start 10/01/16 at 09:00 Atorvastatin Calcium (Lipitor) 40 mg DAILY PO Last administered on 10/05/16 09 :17; Admin Dose 40 MG; Start 10/01/16 at 09:00 Docusate Sodium (Colace) 300 mg BID PO Last administered on 10/04/16 20:43; Admin Dose 300 MG; Start 10/01/16 at 09:00 Ferrous Sulfate (Ferrous Sulfate (Ec)) 325 mg DAILY PO Last administered on 09:17; Admin Dose 325 MG; Start 10/01/16 at 09:00 Isosorbide Mononitrate (Imdur) 30 mg DAILY PO Last administered on 10/05/16 09 :20; Admin Dose 30 MG; Start 10/01/16 at 09:00 Losartan Potassium (Cozaar) 50 mg DAILY PO Last administered on 10/05/16 09:27 ; Admin Dose 50 MG; Start 10/01/16 at 09:00 Spironolactone (Aldactone) 25 mg DAILY PO Last administered on 10/05/16 09:17 ; Admin Dose 25 MG; Start 10/01/16 at 09:00 Morphine Sulfate (morphine) 4 mg Q4H PRN IV PAIN LEVEL 4-7 Last administered on 10/03/16 08:34; Admin Dose 4 MG; Start 10/01/16 at 06:30 Simethicone 80 mg 80 mg TID PRN PO DISTENSION/GAS/BLOATING Last administered on 10/01/16 09:39; Admin Dose 80 MG; Start 10/01/16 at 09:00 Metronidazole (Flagyl 500 Mg (Pmx)) 100 ml @ 100 mls/hr Q8 IVPB Last administered on 10/05/16 13:33; Admin Dose 100 MLS/HR; Start 10/01/16 at 14:00 Digoxin (Digoxin) 125 mcg DAILY@13 IV Last administered on 10/05/16 13:33; Admin Dose 125 MCG; Start 10/03/16 at 13:00 Amiodarone HCl (Cordarone) 200 mg BID PO Last administered on 10/05/16 09:21; Admin Dose 200 MG; Start 10/04/16 at 21:00 Acetaminophen (Tylenol Tab) 650 mg Q4H PRN PO PAIN AND OR ELEVATED TEMP; Start 10/04/16 at 23:00 Metoprolol Tartrate 100 mg 100 mg BID PO ; Start 10/05/16 at 21:00 Ceftriaxone Sodium (Rocephin) 50 ml @ 100 mls/hr Q24H IVPB Last administered on 10/05/16 17:14; Admin Dose 100 MLS/HR; Start 10/05/16 at 16:30 ANGELI BLACKWELL Oct 05, 2016 18:06
[2016-10-05] MEDS: METOPROLOL 100 MG TAB PO SCH (20:55)
[2016-10-06] VITALS (11 sets, daily range): BP systolic 112–140; BP diastolic 63–72; PULSE 76–97; RESP 18–22
[2016-10-06] MEDS: metroNIDAZOLE 500 MG/NS (PMX) 100 ML IVPB SCH ×3 (07:09→21:17)
[2016-10-06 07:11] LABS: ADD SCAN DIFF NO
[2016-10-06 07:18] LABS: BASOPHILS % 0.4 % (0.0-2.0); EOSINOPHILS # 0.2 10^3/ul (0.0-0.5); HEMATOCRIT 29.5 % (42.0-52.0); HEMOGLOBIN 10.3 g/dl (14.0-18.0); LYMPHOCYTES # 0.7 10^3/ul (0.8-2.9); LYMPHOCYTES % 7.7 % (15.0-51.0); MEAN CORPUSCULAR HEMOGLOBIN 31.3 pg (29.0-33.0); MEAN CORPUSCULAR HGB CONC 34.9 g/dl (32.0-37.0); MEAN CORPUSCULAR VOLUME 89.7 fl (82.0-101.0); MEAN PLATELET VOLUME 12.3 fl (7.4-10.4); MONOCYTES % 10.8 % (0.0-11.0); NEUTROPHIL # 7.6 10^3/ul (1.6-7.5); NEUTROPHILS % 78.3 % (39.0-77.0); PLATELET COUNT 134 10^3/UL (140-415); RED BLOOD COUNT 3.29 10^6/ul (4.70-6.10); RED CELL DISTRIBUTION WIDTH 13.4 % (11.5-14.5); WHITE BLOOD COUNT 9.7 10^3/ul (4.8-10.8)
[2016-10-06 07:43] LABS: POTASSIUM 3.7 mmol/L (3.5-5.1)
[2016-10-06 07:45] LABS: CREATININE 0.94 mg/dl (0.61-1.24)
[2016-10-06 07:46] LABS: CALCIUM 8.4 mg/dl (8.4-10.2)
[2016-10-06] MEDS: DOCUSATE SODIUM 100 MG CAP PO SCH ×2 (09:00→21:17)
[2016-10-06] MEDS: ASPIRIN (EC) 81 MG TAB PO SCH (09:30)
[2016-10-06] MEDS: ATORVASTATIN 40 MG TAB PO SCH (09:30)
[2016-10-06] MEDS: SPIRONOLACTONE 25 MG TAB PO SCH (09:30)
[2016-10-06] MEDS: LOSARTAN 50 MG TAB PO SCH (09:31)
[2016-10-06] MEDS: ISOSORBIDE MONONITRATE(SR)30 MG TAB PO SCH (09:31)
[2016-10-06] MEDS: METOPROLOL 100 MG TAB PO SCH ×2 (09:32→21:18)
[2016-10-06] MEDS: AMIODARONE 200 MG TAB PO SCH ×2 (09:32→21:18)
[2016-10-06] MEDS: FAMOTIDINE 20 MG INJ IV SCH (09:37)
[2016-10-06] MEDS: FERROUS SULFATE (EC) 325 MG TAB PO SCH (09:37)
--- NOTE | 2016-10-06 11:09 | CONS ---
Date/Time of Note Date/Time of Note DATE: 10/06/16 TIME: 11:08 Assessment/Plan Assessment/Plan Additional Assessment/Plan Ventricular tachycardia status post ICD firing Sepsis with acute cholecystitis Cardiomyopathy with ejection fraction 40% status post ICD Coronary artery disease Hypertension Dyslipidemia -Patient tolerating current dose of beta-alejandro. Blood pressure trend overall stable. Potassium supplementation to maintain above 4.0. Consultation Date/Type/Reason Admit Date/Time Sep 30, 2016 at 22:33 Type of Consultation: cv 24 HR Interval Summary Free Text/Dictation Patient feeling better today, denies shortness of breath, palpitations or dizziness Exam/Review of Systems Vital Signs Vitals Vital Signs Date Time Temp Pulse Resp B/P Pulse Ox O2 Delivery O2 Flow Rate FiO2 10/06/16 09:16 88 10/06/16 08:41 Nasal Cannula 2.0 10/06/16 07:22 98.3 18 140/72 95 Intake and Output 10/05/16 10/05/16 10/06/16 15:00 23:00 07:00 Intake Total 150 ml 850 ml 300 ml Output Total 750 ml 850 ml Balance 150 ml 100 ml -550 ml Exam No apparent distress Constitutional: alert, oriented Head: normocephalic Neck: supple Respiratory: clear to auscultation, normal air movement Cardiovascular: other (S1-S2 heard), regular rate and rhythm Gastrointestinal: bowel sounds, other (Mild discomfort with palpation, no guarding), soft Extremities: other (No edema or cyanosis) Results Result Diagram: 10/06/16 0625 10/06/16 0625 Results 24 hrs Laboratory Tests Test 10/06/16 06:25 Anion Gap 15 Basophils # 0.0 Basophils % 0.4 Blood Urea Nitrogen 15 Calcium Level 8.4 Carbon Dioxide Level 23 Chloride Level 104 Creatinine 0.94 Eosinophils # 0.2 Eosinophils % 2.0 Glucose Level 147 Hematocrit 29.5 L Hemoglobin 10.3 L Lymphocytes # 0.7 L Lymphocytes % 7.7 L Mean Corpuscular Hemoglobin 31.3 Mean Corpuscular Hemoglobin Concent 34.9 Mean Corpuscular Volume 89.7 Mean Platelet Volume 12.3 H Monocytes # 1.0 H Monocytes % 10.8 Neutrophils # 7.6 H Neutrophils % 78.3 H Nucleated Red Blood Cells # 0.0 Nucleated Red Blood Cells % 0.0 Platelet Count 134 #L Potassium Level 3.7 Red Blood Count 3.29 L Red Cell Distribution Width 13.4 Sodium Level 138 White Blood Count 9.7 Medications Medications Current Medications Ondansetron HCl (Zofran Inj) 4 mg Q6H PRN IV NAUSEA AND/OR VOMITING; Start 09/30 at 22:30 Metoclopramide HCl (Reglan) 10 mg Q6H PRN IV NAUSEA AND/OR VOMITING; Start 09/30 at 22:30 Famotidine (Pepcid Iv) 20 mg Q12 IV Last administered on 10/06/16 09:37; Admin Dose 20 MG; Start 10/01/16 at 09:00 Aspirin (Halfprin) 81 mg DAILY PO Last administered on 10/06/16 09:30; Admin Dose 81 MG; Start 10/01/16 at 09:00 Atorvastatin Calcium (Lipitor) 40 mg DAILY PO Last administered on 10/06/16 09 :30; Admin Dose 40 MG; Start 10/01/16 at 09:00 Docusate Sodium (Colace) 300 mg BID PO Last administered on 10/05/16 20:54; Admin Dose 300 MG; Start 10/01/16 at 09:00 Ferrous Sulfate (Ferrous Sulfate (Ec)) 325 mg DAILY PO Last administered on 09:37; Admin Dose 325 MG; Start 10/01/16 at 09:00 Isosorbide Mononitrate (Imdur) 30 mg DAILY PO Last administered on 10/06/16 09 :31; Admin Dose 30 MG; Start 10/01/16 at 09:00 Losartan Potassium (Cozaar) 50 mg DAILY PO Last administered on 10/06/16 09:31 ; Admin Dose 50 MG; Start 10/01/16 at 09:00 Spironolactone (Aldactone) 25 mg DAILY PO Last administered on 10/06/16 09:30 ; Admin Dose 25 MG; Start 10/01/16 at 09:00 Morphine Sulfate (morphine) 4 mg Q4H PRN IV PAIN LEVEL 4-7 Last administered on 10/03/16 08:34; Admin Dose 4 MG; Start 10/01/16 at 06:30 Simethicone 80 mg 80 mg TID PRN PO DISTENSION/GAS/BLOATING Last administered on 10/01/16 09:39; Admin Dose 80 MG; Start 10/01/16 at 09:00 Metronidazole (Flagyl 500 Mg (Pmx)) 100 ml @ 100 mls/hr Q8 IVPB Last administered on 10/06/16 07:09; Admin Dose 100 MLS/HR; Start 10/01/16 at 14:00 Digoxin (Digoxin) 125 mcg DAILY@13 IV Last administered on 10/05/16 13:33; Admin Dose 125 MCG; Start 10/03/16 at 13:00 Amiodarone HCl (Cordarone) 200 mg BID PO Last administered on 10/06/16 09:32; Admin Dose 200 MG; Start 10/04/16 at 21:00 Acetaminophen (Tylenol Tab) 650 mg Q4H PRN PO PAIN AND OR ELEVATED TEMP; Start 10/04/16 at 23:00 Metoprolol Tartrate 100 mg 100 mg BID PO Last administered on 10/06/16 09:32; Admin Dose 100 MG; Start 10/05/16 at 21:00 Ceftriaxone Sodium (Rocephin) 50 ml @ 100 mls/hr Q24H IVPB Last administered on 10/05/16 17:14; Admin Dose 100 MLS/HR; Start 10/05/16 at 16:30 Nate Butler DO Oct 06, 2016 11:09
[2016-10-06] MEDS: DIGOXIN 500 MCG INJ IV SCH (13:05)
--- NOTE | 2016-10-06 14:43 | CONS ---
Date/Time of Note Date/Time of Note DATE: 10/06/16 TIME: 14:41 Assessment/Plan Assessment/Plan Chief Complaint/Hosp Course SUBJECTIVE: No acute events overnight. The patient is alert, feels ok, no fevers MICROBIOLOGY: Blood culture on admission grew Serratia marcescens. Repeat blood cultures negative. Urine culture negative. Stool for C. diff negative. ANTIMICROBIALS: 1. Flagyl. 2. Rocephin. PHYSICAL EXAMINATION: GENERAL: Obese, well-developed, elderly man who is alert, in no distress. HEENT: Head atraumatic, normocephalic. Sclerae anicteric. Buccal mucosa pink. NECK: Supple, trachea midline. CHEST: Rise symmetrical. Breath sounds clear. HEART: S1, S2. ABDOMEN: Soft, bowel tones present. EXTREMITIES: Without cyanosis. ASSESSMENT: 1. Acute cholecystitis. 2. Bacteremia, likely secondary to above. 3. Arrhythmia with a history of ICD. 4. Non-ST elevation myocardial infarction. 5. Acute renal insufficiency. 6. Hypertension. 7. Thrombocytopenia PLAN: The patient remains stable. Continue abx, warm compresses to L wrist/ hand and elevation. F/u surgical/card recommendations. DW pt Problems: Consultation Date/Type/Reason Admit Date/Time Sep 30, 2016 at 22:33 Type of Consultation: ID Exam/Review of Systems Vital Signs Vitals Vital Signs Date Time Temp Pulse Resp B/P Pulse Ox O2 Delivery O2 Flow Rate FiO2 10/06/16 12:33 76 10/06/16 11:39 97.9 18 117/66 97 10/06/16 08:41 Nasal Cannula 2.0 Intake and Output 10/05/16 10/05/16 10/06/16 15:00 23:00 07:00 Intake Total 150 ml 850 ml 300 ml Output Total 750 ml 850 ml Balance 150 ml 100 ml -550 ml Results Result Diagram: 10/06/16 0625 10/06/16 0625 Results 24 hrs Laboratory Tests Test 10/06/16 06:25 Anion Gap 15 Basophils # 0.0 Basophils % 0.4 Blood Urea Nitrogen 15 Calcium Level 8.4 Carbon Dioxide Level 23 Chloride Level 104 Creatinine 0.94 Eosinophils # 0.2 Eosinophils % 2.0 Glucose Level 147 Hematocrit 29.5 L Hemoglobin 10.3 L Lymphocytes # 0.7 L Lymphocytes % 7.7 L Mean Corpuscular Hemoglobin 31.3 Mean Corpuscular Hemoglobin Concent 34.9 Mean Corpuscular Volume 89.7 Mean Platelet Volume 12.3 H Monocytes # 1.0 H Monocytes % 10.8 Neutrophils # 7.6 H Neutrophils % 78.3 H Nucleated Red Blood Cells # 0.0 Nucleated Red Blood Cells % 0.0 Platelet Count 134 #L Potassium Level 3.7 Red Blood Count 3.29 L Red Cell Distribution Width 13.4 Sodium Level 138 White Blood Count 9.7 Medications Medications Current Medications Ondansetron HCl (Zofran Inj) 4 mg Q6H PRN IV NAUSEA AND/OR VOMITING; Start 09/30 at 22:30 Metoclopramide HCl (Reglan) 10 mg Q6H PRN IV NAUSEA AND/OR VOMITING; Start 09/30 at 22:30 Famotidine (Pepcid Iv) 20 mg Q12 IV Last administered on 10/06/16 09:37; Admin Dose 20 MG; Start 10/01/16 at 09:00 Aspirin (Halfprin) 81 mg DAILY PO Last administered on 10/06/16 09:30; Admin Dose 81 MG; Start 10/01/16 at 09:00 Atorvastatin Calcium (Lipitor) 40 mg DAILY PO Last administered on 10/06/16 09 :30; Admin Dose 40 MG; Start 10/01/16 at 09:00 Docusate Sodium (Colace) 300 mg BID PO Last administered on 10/05/16 20:54; Admin Dose 300 MG; Start 10/01/16 at 09:00 Ferrous Sulfate (Ferrous Sulfate (Ec)) 325 mg DAILY PO Last administered on 09:37; Admin Dose 325 MG; Start 10/01/16 at 09:00 Isosorbide Mononitrate (Imdur) 30 mg DAILY PO Last administered on 10/06/16 09 :31; Admin Dose 30 MG; Start 10/01/16 at 09:00 Losartan Potassium (Cozaar) 50 mg DAILY PO Last administered on 10/06/16 09:31 ; Admin Dose 50 MG; Start 10/01/16 at 09:00 Spironolactone (Aldactone) 25 mg DAILY PO Last administered on 10/06/16 09:30 ; Admin Dose 25 MG; Start 10/01/16 at 09:00 Morphine Sulfate (morphine) 4 mg Q4H PRN IV PAIN LEVEL 4-7 Last administered on 10/03/16 08:34; Admin Dose 4 MG; Start 10/01/16 at 06:30 Simethicone 80 mg 80 mg TID PRN PO DISTENSION/GAS/BLOATING Last administered on 10/01/16 09:39; Admin Dose 80 MG; Start 10/01/16 at 09:00 Metronidazole (Flagyl 500 Mg (Pmx)) 100 ml @ 100 mls/hr Q8 IVPB Last administered on 10/06/16 14:33; Admin Dose 100 MLS/HR; Start 10/01/16 at 14:00 Digoxin (Digoxin) 125 mcg DAILY@13 IV Last administered on 10/06/16 13:05; Admin Dose 125 MCG; Start 10/03/16 at 13:00 Amiodarone HCl (Cordarone) 200 mg BID PO Last administered on 10/06/16 09:32; Admin Dose 200 MG; Start 10/04/16 at 21:00 Acetaminophen (Tylenol Tab) 650 mg Q4H PRN PO PAIN AND OR ELEVATED TEMP; Start 10/04/16 at 23:00 Metoprolol Tartrate 100 mg 100 mg BID PO Last administered on 10/06/16 09:32; Admin Dose 100 MG; Start 10/05/16 at 21:00 Ceftriaxone Sodium (Rocephin) 50 ml @ 100 mls/hr Q24H IVPB Last administered on 10/05/16 17:14; Admin Dose 100 MLS/HR; Start 10/05/16 at 16:30 DILLON GÓMEZ NP Oct 06, 2016 14:43
[2016-10-06] MEDS: CEFTRIAXONE 1 GM/50 ML (PMX) 50 ML IVPB SCH (16:13)
--- NOTE | 2016-10-06 16:35 | PN ---
Date/Time of Note Date/Time of Note DATE: 10/06/16 TIME: 16:33 Assessment/Plan VTE Prophylaxis VTE Prophylaxis Intervention: SCD's Lines/Catheters IV [facility] Saline Lock Urinary Cath still in place: No Assessment/Plan Chief Complaint/Hosp Course Assessment and plan - Ventricular tachycardia status post ICD firing, Dr. Bautista is following in cardiology consultation. Continue p.o. amiodarone. Telemetry monitoring. - Elevated troponin secondary to #1. - Sepsis 2 to acute cholecystitis with gram-negative rods bacteremia. Dr. Persaud is following infection disease consultation. Patient is currently on cefepime and Flagyl. - Acute cholecystitis, continue antibiotics per ID. Status post evaluation by Dr. Vargas and general surgery consultation. Plan for laparoscopic cholecystectomy as an outpatient when patient cardiac condition improves. - Cardiomyopathy with ejection fraction 40%. Continue Coreg. - Coronary artery disease. Continue aspirin. - Hypertension, continue Cozaar. - Dyslipidemia, continue Lipitor. Further recommendations based on clinical course. Plan of care discussed with Dr. Duron. Problems: Subjective 24 Hr Interval Summary Free Text/Dictation Patient denies any chest pain, sinus rhythm with frequent PVCs. Exam/Review of Systems Vital Signs Vitals Vital Signs Date Time Temp Pulse Resp B/P Pulse Ox O2 Delivery O2 Flow Rate FiO2 10/06/16 16:30 83 10/06/16 15:08 98.2 22 115/63 97 10/06/16 08:41 Nasal Cannula 2.0 Intake and Output 10/05/16 10/05/16 10/06/16 15:00 23:00 07:00 Intake Total 150 ml 850 ml 300 ml Output Total 750 ml 850 ml Balance 150 ml 100 ml -550 ml Exam Constitutional: alert, oriented Psych: no complaints Head: atraumatic, normocephalic Eyes: nl conjunctiva ENMT: nl external ears & nose Neck: non-tender, supple Respiratory: clear to auscultation, normal air movement Cardiovascular: nl pulses, regular rate and rhythm Gastrointestinal: non-tender, soft Musculoskeletal: nl extremities to inspection Extremities: normal pulses Neurological: PIPE WASHER II-XII intact Results Result Diagram: 10/06/16 0625 10/06/16 0625 Results 24 hrs Laboratory Tests Test 10/06/16 06:25 Anion Gap 15 Basophils # 0.0 Basophils % 0.4 Blood Urea Nitrogen 15 Calcium Level 8.4 Carbon Dioxide Level 23 Chloride Level 104 Creatinine 0.94 Eosinophils # 0.2 Eosinophils % 2.0 Glucose Level 147 Hematocrit 29.5 L Hemoglobin 10.3 L Lymphocytes # 0.7 L Lymphocytes % 7.7 L Mean Corpuscular Hemoglobin 31.3 Mean Corpuscular Hemoglobin Concent 34.9 Mean Corpuscular Volume 89.7 Mean Platelet Volume 12.3 H Monocytes # 1.0 H Monocytes % 10.8 Neutrophils # 7.6 H Neutrophils % 78.3 H Nucleated Red Blood Cells # 0.0 Nucleated Red Blood Cells % 0.0 Platelet Count 134 #L Potassium Level 3.7 Red Blood Count 3.29 L Red Cell Distribution Width 13.4 Sodium Level 138 White Blood Count 9.7 Medications Medications Current Medications Ondansetron HCl (Zofran Inj) 4 mg Q6H PRN IV NAUSEA AND/OR VOMITING; Start 09/30 at 22:30 Metoclopramide HCl (Reglan) 10 mg Q6H PRN IV NAUSEA AND/OR VOMITING; Start 09/30 at 22:30 Famotidine (Pepcid Iv) 20 mg Q12 IV Last administered on 10/06/16 09:37; Admin Dose 20 MG; Start 10/01/16 at 09:00 Aspirin (Halfprin) 81 mg DAILY PO Last administered on 10/06/16 09:30; Admin Dose 81 MG; Start 10/01/16 at 09:00 Atorvastatin Calcium (Lipitor) 40 mg DAILY PO Last administered on 10/06/16 09 :30; Admin Dose 40 MG; Start 10/01/16 at 09:00 Docusate Sodium (Colace) 300 mg BID PO Last administered on 10/05/16 20:54; Admin Dose 300 MG; Start 10/01/16 at 09:00 Ferrous Sulfate (Ferrous Sulfate (Ec)) 325 mg DAILY PO Last administered on 09:37; Admin Dose 325 MG; Start 10/01/16 at 09:00 Isosorbide Mononitrate (Imdur) 30 mg DAILY PO Last administered on 10/06/16 09 :31; Admin Dose 30 MG; Start 10/01/16 at 09:00 Losartan Potassium (Cozaar) 50 mg DAILY PO Last administered on 10/06/16 09:31 ; Admin Dose 50 MG; Start 10/01/16 at 09:00 Spironolactone (Aldactone) 25 mg DAILY PO Last administered on 10/06/16 09:30 ; Admin Dose 25 MG; Start 10/01/16 at 09:00 Morphine Sulfate (morphine) 4 mg Q4H PRN IV PAIN LEVEL 4-7 Last administered on 10/03/16 08:34; Admin Dose 4 MG; Start 10/01/16 at 06:30 Simethicone 80 mg 80 mg TID PRN PO DISTENSION/GAS/BLOATING Last administered on 10/01/16 09:39; Admin Dose 80 MG; Start 10/01/16 at 09:00 Metronidazole (Flagyl 500 Mg (Pmx)) 100 ml @ 100 mls/hr Q8 IVPB Last administered on 10/06/16 14:33; Admin Dose 100 MLS/HR; Start 10/01/16 at 14:00 Digoxin (Digoxin) 125 mcg DAILY@13 IV Last administered on 10/06/16 13:05; Admin Dose 125 MCG; Start 10/03/16 at 13:00 Amiodarone HCl (Cordarone) 200 mg BID PO Last administered on 10/06/16 09:32; Admin Dose 200 MG; Start 10/04/16 at 21:00 Acetaminophen (Tylenol Tab) 650 mg Q4H PRN PO PAIN AND OR ELEVATED TEMP; Start 10/04/16 at 23:00 Metoprolol Tartrate 100 mg 100 mg BID PO Last administered on 10/06/16 09:32; Admin Dose 100 MG; Start 10/05/16 at 21:00 Ceftriaxone Sodium (Rocephin) 50 ml @ 100 mls/hr Q24H IVPB Last administered on 10/06/16 16:13; Admin Dose 100 MLS/HR; Start 10/05/16 at 16:30 ANGELI BLACKWELL Oct 06, 2016 16:34
[2016-10-06] MEDS: FAMOTIDINE 20 MG TAB PO SCH (21:17)
[2016-10-07] VITALS (12 sets, daily range): BP systolic 114–146; BP diastolic 64–81; PULSE 78–95; RESP 18–20
[2016-10-07] MEDS: metroNIDAZOLE 500 MG/NS (PMX) 100 ML IVPB SCH ×2 (05:43→14:00)
[2016-10-07 07:15] LABS: ADD SCAN DIFF NO
[2016-10-07 07:35] LABS: POTASSIUM 3.9 mmol/L (3.5-5.1)
[2016-10-07 07:38] LABS: CREATININE 0.92 mg/dl (0.61-1.24)
[2016-10-07 07:39] LABS: CALCIUM 8.6 mg/dl (8.4-10.2)
[2016-10-07 08:34] LABS: BASOPHILS % 0.2 % (0.0-2.0); EOSINOPHILS # 0.2 10^3/ul (0.0-0.5); EOSINOPHILS % 2.3 % (0.0-7.0); HEMATOCRIT 30.3 % (42.0-52.0); HEMOGLOBIN 10.4 g/dl (14.0-18.0); LYMPHOCYTES % 10.6 % (15.0-51.0); MEAN CORPUSCULAR HGB CONC 34.3 g/dl (32.0-37.0); MEAN CORPUSCULAR VOLUME 90.4 fl (82.0-101.0); MEAN PLATELET VOLUME 12.7 fl (7.4-10.4); MONOCYTES % 10.8 % (0.0-11.0); NEUTROPHIL # 6.9 10^3/ul (1.6-7.5); NEUTROPHILS % 75.4 % (39.0-77.0); PLATELET COUNT 200 10^3/UL (140-415); RED BLOOD COUNT 3.35 10^6/ul (4.70-6.10); WHITE BLOOD COUNT 9.2 10^3/ul (4.8-10.8)
[2016-10-07] MEDS: FAMOTIDINE 20 MG TAB PO SCH ×2 (08:52→20:53)
[2016-10-07] MEDS: FERROUS SULFATE (EC) 325 MG TAB PO SCH (08:52)
[2016-10-07] MEDS: ACETAMINOPHEN 325 MG TAB PO PRN (08:52)
[2016-10-07] MEDS: SPIRONOLACTONE 25 MG TAB PO SCH (08:52)
[2016-10-07] MEDS: DOCUSATE SODIUM 100 MG CAP PO SCH ×2 (08:52→20:53)
[2016-10-07] MEDS: ASPIRIN (EC) 81 MG TAB PO SCH (08:52)
[2016-10-07] MEDS: ATORVASTATIN 40 MG TAB PO SCH (08:53)
[2016-10-07] MEDS: AMIODARONE 200 MG TAB PO SCH ×2 (08:53→20:56)
[2016-10-07] MEDS: ISOSORBIDE MONONITRATE(SR)30 MG TAB PO SCH (08:53)
[2016-10-07] MEDS: LOSARTAN 50 MG TAB PO SCH (08:53)
[2016-10-07] MEDS: METOPROLOL 100 MG TAB PO SCH ×2 (08:54→20:57)
--- NOTE | 2016-10-07 12:23 | PN ---
Date/Time of Note Date/Time of Note DATE: 10/07/16 TIME: 12:20 Assessment/Plan VTE Prophylaxis VTE Prophylaxis Intervention: other Lines/Catheters IV Catheter Type (from [facility]): Saline Lock Urinary Cath still in place: No Assessment/Plan Assessment/Plan - Ventricular tachycardia status post ICD firing - per Dr. Bautista is following in cardiology consultation. Continue p.o. amiodarone. Telemetry monitoring. - Elevated troponin secondary to #1. - Sepsis 2 to acute cholecystitis with gram-negative rods bacteremia. - per Dr. Persaud in infection disease consultation. - on cefepime and Flagyl. - Acute cholecystitis, continue antibiotics per ID. - per Dr. Vargas in general surgery consultation. Plan for laparoscopic cholecystectomy as an outpatient when patient cardiac condition improves. - Cardiomyopathy with ejection fraction 40%. Continue Coreg. - Coronary artery disease. Continue aspirin. - Hypertension, continue Cozaar. - Dyslipidemia, continue Lipitor. Further recommendations based on clinical course. Plan of care discussed with Dr. Duron. Subjective 24 Hr Interval Summary Free Text/Dictation NAD . resting in bed, seems comfortable.c/o generalized weakness when standing up- no fall /injury reported.dw staff Eyes: no complaints ENT: no complaints Respiratory: no complaints Cardiovascular: no complaints Gastrointestinal: no complaints Genitourinary: no complaints Musculoskeletal: no complaints Skin: no complaints Neurologic: no complaints Endocrine: no complaints Lymphatic: no complaints Psychological: no complaints Exam/Review of Systems Vital Signs Vitals Vital Signs Date Time Temp Pulse Resp B/P Pulse Ox O2 Delivery O2 Flow Rate FiO2 10/07/16 11:39 98.0 73 18 114/67 98 10/07/16 08:45 Nasal Cannula 2.0 Intake and Output 10/06/16 10/06/16 10/07/16 15:00 23:00 07:00 Intake Total 750 ml 400 ml Output Total 800 ml 800 ml Balance -50 ml -400 ml Exam Constitutional: alert, oriented, well developed Psych: nl mood/affect Head: atraumatic Eyes: EOMI, PERRL, nl sclera ENMT: nl external ears & nose Neck: non-tender Cardiovascular: nl pulses Gastrointestinal: non-tender, soft Musculoskeletal: nl extremities to inspection Extremities: normal pulses Neurological: nl mental status, nl speech Skin: nl turgor Lymph: nontender Results Result Diagram: 10/07/1635 10/07/1635 Results 24 hrs Laboratory Tests Test 10/07/16 06:35 Anion Gap 14 Basophils # 0.0 Basophils % 0.2 Blood Urea Nitrogen 12 Calcium Level 8.6 Carbon Dioxide Level 23 Chloride Level 104 Creatinine 0.92 Eosinophils # 0.2 Eosinophils % 2.3 Glucose Level 196 Hematocrit 30.3 L Hemoglobin 10.4 L Lymphocytes # 1.0 Lymphocytes % 10.6 L Mean Corpuscular Hemoglobin 31.0 Mean Corpuscular Hemoglobin Concent 34.3 Mean Corpuscular Volume 90.4 Mean Platelet Volume 12.7 H Monocytes # 1.0 H Monocytes % 10.8 Neutrophils # 6.9 Neutrophils % 75.4 Nucleated Red Blood Cells # 0.0 Nucleated Red Blood Cells % 0.0 Platelet Count 200 # Potassium Level 3.9 Red Blood Count 3.35 L Red Cell Distribution Width 14.0 Sodium Level 137 White Blood Count 9.2 Medications Medications Current Medications Ondansetron HCl (Zofran Inj) 4 mg Q6H PRN IV NAUSEA AND/OR VOMITING; Start 09/30 at 22:30 Metoclopramide HCl (Reglan) 10 mg Q6H PRN IV NAUSEA AND/OR VOMITING; Start 09/30 at 22:30 Aspirin (Halfprin) 81 mg DAILY PO Last administered on 10/07/16 08:52; Admin Dose 81 MG; Start 10/01/16 at 09:00 Atorvastatin Calcium (Lipitor) 40 mg DAILY PO Last administered on 10/07/16 08 :53; Admin Dose 40 MG; Start 10/01/16 at 09:00 Docusate Sodium (Colace) 300 mg BID PO Last administered on 10/07/16 08:52; Admin Dose 300 MG; Start 10/01/16 at 09:00 Ferrous Sulfate (Ferrous Sulfate (Ec)) 325 mg DAILY PO Last administered on 08:52; Admin Dose 325 MG; Start 10/01/16 at 09:00 Isosorbide Mononitrate (Imdur) 30 mg DAILY PO Last administered on 10/07/16 08 :53; Admin Dose 30 MG; Start 10/01/16 at 09:00 Losartan Potassium (Cozaar) 50 mg DAILY PO Last administered on 10/07/16 08:53 ; Admin Dose 50 MG; Start 10/01/16 at 09:00 Spironolactone (Aldactone) 25 mg DAILY PO Last administered on 10/07/16 08:52 ; Admin Dose 25 MG; Start 10/01/16 at 09:00 Morphine Sulfate (morphine) 4 mg Q4H PRN IV PAIN LEVEL 4-7 Last administered on 10/03/16 08:34; Admin Dose 4 MG; Start 10/01/16 at 06:30 Simethicone 80 mg 80 mg TID PRN PO DISTENSION/GAS/BLOATING Last administered on 10/01/16 09:39; Admin Dose 80 MG; Start 10/01/16 at 09:00 Metronidazole (Flagyl 500 Mg (Pmx)) 100 ml @ 100 mls/hr Q8 IVPB Last administered on 10/07/16 05:43; Admin Dose 100 MLS/HR; Start 10/01/16 at 14:00 Digoxin (Digoxin) 125 mcg DAILY@13 IV Last administered on 10/06/16 13:05; Admin Dose 125 MCG; Start 10/03/16 at 13:00 Amiodarone HCl (Cordarone) 200 mg BID PO Last administered on 10/07/16 08:53; Admin Dose 200 MG; Start 10/04/16 at 21:00 Acetaminophen (Tylenol Tab) 650 mg Q4H PRN PO PAIN AND OR ELEVATED TEMP Last administered on 10/07/16 08:52; Admin Dose 650 MG; Start 10/04/16 at 23:00 Metoprolol Tartrate 100 mg 100 mg BID PO Last administered on 10/07/16 08:54; Admin Dose 100 MG; Start 10/05/16 at 21:00 Ceftriaxone Sodium (Rocephin) 50 ml @ 100 mls/hr Q24H IVPB Last administered on 10/06/16 16:13; Admin Dose 100 MLS/HR; Start 10/05/16 at 16:30 Famotidine (Pepcid) 20 mg BID PO Last administered on 10/07/16 08:52; Admin Dose 20 MG; Start 10/06/16 at 21:00 RON GR Oct 07, 2016 12:22
[2016-10-07] MEDS: DIGOXIN 500 MCG INJ IV SCH (13:11)
--- NOTE | 2016-10-07 14:57 | RADRPT ---
PROCEDURE: US left upper extremity veins. CLINICAL INDICATION: Left arm pain and swelling. TECHNIQUE: Multiple longitudinal and transverse images of the left upper extremity venous tree was obtained with cabral scale, pulsed Doppler, and color Doppler imaging. COMPARISON: None available FINDINGS: The left internal jugular, subclavian, axillary, brachial, radial, and ulnar veins are patent with n ormal flow and compressibility. There is thrombosis of the left cephalic vein and the basilic vein w ith lack of flow and lack of compressibility. IMPRESSION: 1. Thrombosis of the left cephalic vein and left basilic vein. 2. Otherwise normal venous system of the left upper extremity. RPTAT: QQ .Yogesh Thibodeaux MD, Date Time Electronically viewed and signed by .Yogesh Thibodeaux MD, on 10/07/2016 14:56 .R/
--- NOTE | 2016-10-07 15:16 | CONS ---
Date/Time of Note Date/Time of Note DATE: 10/07/16 TIME: 15:14 Assessment/Plan Assessment/Plan Chief Complaint/Hosp Course SUBJECTIVE: No acute events overnight. The patient is alert, feels ok, he doesn't have IV line and refusing it, no fevers MICROBIOLOGY: Blood culture on admission grew Serratia marcescens. Repeat blood cultures negative. Urine culture negative. Stool for C. diff negative. PHYSICAL EXAMINATION: GENERAL: Obese, well-developed, elderly man who is alert, in no distress. HEENT: Head atraumatic, normocephalic. Sclerae anicteric. Buccal mucosa pink. NECK: Supple, trachea midline. CHEST: Rise symmetrical. Breath sounds clear. HEART: S1, S2. ABDOMEN: Soft, bowel tones present. EXTREMITIES: Without cyanosis. ASSESSMENT: 1. Acute cholecystitis. 2. Bacteremia, likely secondary to above. 3. Arrhythmia with a history of ICD. 4. Non-ST elevation myocardial infarction. 5. Acute renal insufficiency. 6. Hypertension. 7. Thrombocytopenia PLAN: The patient remains stable. He is on abx #8, needs to complete 6 more days IV Rocephin, I gave him an option of PICC, will dw primary, not a candidate for oral Levaquin or Cipro 2 to interaction with Tal CLAYTON pt Problems: Consultation Date/Type/Reason Admit Date/Time Sep 30, 2016 at 22:33 Type of Consultation: ID Exam/Review of Systems Vital Signs Vitals Vital Signs Date Time Temp Pulse Resp B/P Pulse Ox O2 Delivery O2 Flow Rate FiO2 10/07/16 12:13 95 10/07/16 11:39 98.0 18 114/67 98 10/07/16 08:45 Nasal Cannula 2.0 Intake and Output 10/06/16 10/06/16 10/07/16 15:00 23:00 07:00 Intake Total 750 ml 400 ml Output Total 800 ml 800 ml Balance -50 ml -400 ml Results Result Diagram: 10/07/16 0635 10/07/16 0635 Results 24 hrs Laboratory Tests Test 10/07/16 06:35 Anion Gap 14 Basophils # 0.0 Basophils % 0.2 Blood Urea Nitrogen 12 Calcium Level 8.6 Carbon Dioxide Level 23 Chloride Level 104 Creatinine 0.92 Eosinophils # 0.2 Eosinophils % 2.3 Glucose Level 196 Hematocrit 30.3 L Hemoglobin 10.4 L Lymphocytes # 1.0 Lymphocytes % 10.6 L Mean Corpuscular Hemoglobin 31.0 Mean Corpuscular Hemoglobin Concent 34.3 Mean Corpuscular Volume 90.4 Mean Platelet Volume 12.7 H Monocytes # 1.0 H Monocytes % 10.8 Neutrophils # 6.9 Neutrophils % 75.4 Nucleated Red Blood Cells # 0.0 Nucleated Red Blood Cells % 0.0 Platelet Count 200 # Potassium Level 3.9 Red Blood Count 3.35 L Red Cell Distribution Width 14.0 Sodium Level 137 White Blood Count 9.2 Medications Medications Current Medications Ondansetron HCl (Zofran Inj) 4 mg Q6H PRN IV NAUSEA AND/OR VOMITING; Start 09/30 at 22:30 Metoclopramide HCl (Reglan) 10 mg Q6H PRN IV NAUSEA AND/OR VOMITING; Start 09/30 at 22:30 Aspirin (Halfprin) 81 mg DAILY PO Last administered on 10/07/16 08:52; Admin Dose 81 MG; Start 10/01/16 at 09:00 Atorvastatin Calcium (Lipitor) 40 mg DAILY PO Last administered on 10/07/16 08 :53; Admin Dose 40 MG; Start 10/01/16 at 09:00 Docusate Sodium (Colace) 300 mg BID PO Last administered on 10/07/16 08:52; Admin Dose 300 MG; Start 10/01/16 at 09:00 Ferrous Sulfate (Ferrous Sulfate (Ec)) 325 mg DAILY PO Last administered on 08:52; Admin Dose 325 MG; Start 10/01/16 at 09:00 Isosorbide Mononitrate (Imdur) 30 mg DAILY PO Last administered on 10/07/16 08 :53; Admin Dose 30 MG; Start 10/01/16 at 09:00 Losartan Potassium (Cozaar) 50 mg DAILY PO Last administered on 10/07/16 08:53 ; Admin Dose 50 MG; Start 10/01/16 at 09:00 Spironolactone (Aldactone) 25 mg DAILY PO Last administered on 10/07/16 08:52 ; Admin Dose 25 MG; Start 10/01/16 at 09:00 Morphine Sulfate (morphine) 4 mg Q4H PRN IV PAIN LEVEL 4-7 Last administered on 10/03/16 08:34; Admin Dose 4 MG; Start 10/01/16 at 06:30 Simethicone (Mylicon) 80 mg TID PRN PO DISTENSION/GAS/BLOATING Last administered on 10/01/16 09:39; Admin Dose 80 MG; Start 10/01/16 at 09:00 Digoxin (Digoxin) 125 mcg DAILY@13 IV Last administered on 10/07/16 13:11; Admin Dose 125 MCG; Start 10/03/16 at 13:00 Amiodarone HCl (Cordarone) 200 mg BID PO Last administered on 10/07/16 08:53; Admin Dose 200 MG; Start 10/04/16 at 21:00 Acetaminophen (Tylenol Tab) 650 mg Q4H PRN PO PAIN AND OR ELEVATED TEMP Last administered on 10/07/16 08:52; Admin Dose 650 MG; Start 10/04/16 at 23:00 Metoprolol Tartrate (Lopressor) 100 mg BID PO Last administered on 10/07/16 08 :54; Admin Dose 100 MG; Start 10/05/16 at 21:00 Famotidine (Pepcid) 20 mg BID PO Last administered on 10/07/16 08:52; Admin Dose 20 MG; Start 10/06/16 at 21:00 Levofloxacin (Levaquin) 500 mg DAILY PO ; Start 10/08/16 at 09:00; Status UNV Metronidazole (Flagyl) 500 mg BID PO ; Start 10/07/16 at 21:00; Status UNV DILLON GÓMEZ NP Oct 07, 2016 15:16
[2016-10-07] MEDS ORDERED: POTASSIUM CHLORIDE (SR) 20 MEQ TAB PO STA (15:57)
--- NOTE | 2016-10-07 15:58 | CONS ---
Date/Time of Note Date/Time of Note DATE: 10/07/16 TIME: 15:55 Assessment/Plan Assessment/Plan Additional Assessment/Plan Ventricular tachycardia status post ICD firing Sepsis with acute cholecystitis Cardiomyopathy with ejection fraction 40% status post ICD Coronary artery disease Hypertension Dyslipidemia -Patient continues to feel better. Telemetry reviewed with no significant episodes of ventricular tachycardia. Continue beta blockade and amiodarone. Maintain potassium above 4.0 and magnesium above 2.0. Consultation Date/Type/Reason Admit Date/Time Sep 30, 2016 at 22:33 Type of Consultation: cv 24 HR Interval Summary Free Text/Dictation Patient denies chest pain, shortness of breath or dizziness. Abdominal pain improving Exam/Review of Systems Vital Signs Vitals Vital Signs Date Time Temp Pulse Resp B/P Pulse Ox O2 Delivery O2 Flow Rate FiO2 10/07/16 12:13 95 10/07/16 11:39 98.0 18 114/67 98 10/07/16 08:45 Nasal Cannula 2.0 Intake and Output 10/06/16 10/06/16 10/07/16 14:59 22:59 06:59 Intake Total 750 ml 400 ml Output Total 800 ml 800 ml Balance -50 ml -400 ml Exam No apparent distress, family at bedside, eating lunch Constitutional: alert, oriented Head: normocephalic Neck: supple Respiratory: other (Coarse breath sounds bilaterally, no wheezing) Cardiovascular: other (S1-S2 heard), regular rate and rhythm Gastrointestinal: bowel sounds, non-tender, other (No guarding), soft Extremities: edema (Trace lower extremity) Results Result Diagram: 10/07/16 0635 10/07/16 0635 Results 24 hrs Laboratory Tests Test 10/07/16 06:35 Anion Gap 14 Basophils # 0.0 Basophils % 0.2 Blood Urea Nitrogen 12 Calcium Level 8.6 Carbon Dioxide Level 23 Chloride Level 104 Creatinine 0.92 Eosinophils # 0.2 Eosinophils % 2.3 Glucose Level 196 Hematocrit 30.3 L Hemoglobin 10.4 L Lymphocytes # 1.0 Lymphocytes % 10.6 L Mean Corpuscular Hemoglobin 31.0 Mean Corpuscular Hemoglobin Concent 34.3 Mean Corpuscular Volume 90.4 Mean Platelet Volume 12.7 H Monocytes # 1.0 H Monocytes % 10.8 Neutrophils # 6.9 Neutrophils % 75.4 Nucleated Red Blood Cells # 0.0 Nucleated Red Blood Cells % 0.0 Platelet Count 200 # Potassium Level 3.9 Red Blood Count 3.35 L Red Cell Distribution Width 14.0 Sodium Level 137 White Blood Count 9.2 Medications Medications Current Medications Ondansetron HCl (Zofran Inj) 4 mg Q6H PRN IV NAUSEA AND/OR VOMITING; Start 09/30 at 22:30 Metoclopramide HCl (Reglan) 10 mg Q6H PRN IV NAUSEA AND/OR VOMITING; Start 09/30 at 22:30 Aspirin (Halfprin) 81 mg DAILY PO Last administered on 10/07/16 08:52; Admin Dose 81 MG; Start 10/01/16 at 09:00 Atorvastatin Calcium (Lipitor) 40 mg DAILY PO Last administered on 10/07/16 08 :53; Admin Dose 40 MG; Start 10/01/16 at 09:00 Docusate Sodium (Colace) 300 mg BID PO Last administered on 10/07/16 08:52; Admin Dose 300 MG; Start 10/01/16 at 09:00 Ferrous Sulfate (Ferrous Sulfate (Ec)) 325 mg DAILY PO Last administered on 08:52; Admin Dose 325 MG; Start 10/01/16 at 09:00 Isosorbide Mononitrate (Imdur) 30 mg DAILY PO Last administered on 10/07/16 08 :53; Admin Dose 30 MG; Start 10/01/16 at 09:00 Losartan Potassium (Cozaar) 50 mg DAILY PO Last administered on 10/07/16 08:53 ; Admin Dose 50 MG; Start 10/01/16 at 09:00 Spironolactone (Aldactone) 25 mg DAILY PO Last administered on 10/07/16 08:52 ; Admin Dose 25 MG; Start 10/01/16 at 09:00 Morphine Sulfate (morphine) 4 mg Q4H PRN IV PAIN LEVEL 4-7 Last administered on 10/03/16 08:34; Admin Dose 4 MG; Start 10/01/16 at 06:30 Simethicone (Mylicon) 80 mg TID PRN PO DISTENSION/GAS/BLOATING Last administered on 10/01/16 09:39; Admin Dose 80 MG; Start 10/01/16 at 09:00 Digoxin (Digoxin) 125 mcg DAILY@13 IV Last administered on 10/07/16 13:11; Admin Dose 125 MCG; Start 10/03/16 at 13:00 Amiodarone HCl (Cordarone) 200 mg BID PO Last administered on 10/07/16 08:53; Admin Dose 200 MG; Start 10/04/16 at 21:00 Acetaminophen (Tylenol Tab) 650 mg Q4H PRN PO PAIN AND OR ELEVATED TEMP Last administered on 10/07/16 08:52; Admin Dose 650 MG; Start 10/04/16 at 23:00 Metoprolol Tartrate (Lopressor) 100 mg BID PO Last administered on 10/07/16 08 :54; Admin Dose 100 MG; Start 10/05/16 at 21:00 Famotidine (Pepcid) 20 mg BID PO Last administered on 10/07/16 08:52; Admin Dose 20 MG; Start 10/06/16 at 21:00 Levofloxacin (Levaquin) 500 mg DAILY PO ; Start 10/08/16 at 09:00 Metronidazole (Flagyl) 500 mg BID PO ; Start 10/07/16 at 21:00 Nate Butler DO Oct 07, 2016 15:57
[2016-10-07] MEDS: metroNIDAZOLE 500 MG TAB PO SCH (20:53)
[2016-10-07] MEDS: ENOXAPARIN 60 MG/0.6 ML SYG SC SCH (21:33)
[2016-10-08] VITALS (15 sets, daily range): BP systolic 137–151; BP diastolic 58–81; PULSE 20–111; RESP 18–20
[2016-10-08 07:35] LABS: ADD SCAN DIFF NO
[2016-10-08 07:45] LABS: BASOPHILS % 0.4 % (0.0-2.0); EOSINOPHILS # 0.2 10^3/ul (0.0-0.5); HEMATOCRIT 31.7 % (42.0-52.0); HEMOGLOBIN 11.1 g/dl (14.0-18.0); LYMPHOCYTES # 0.9 10^3/ul (0.8-2.9); LYMPHOCYTES % 8.8 % (15.0-51.0); MEAN CORPUSCULAR HEMOGLOBIN 31.5 pg (29.0-33.0); MEAN CORPUSCULAR VOLUME 90.1 fl (82.0-101.0); MEAN PLATELET VOLUME 12.2 fl (7.4-10.4); MONOCYTE # 1.1 10^3/ul (0.3-0.9); MONOCYTES % 10.4 % (0.0-11.0); NEUTROPHIL # 8.1 10^3/ul (1.6-7.5); NEUTROPHILS % 77.5 % (39.0-77.0); PLATELET COUNT 277 10^3/UL (140-415); RED BLOOD COUNT 3.52 10^6/ul (4.70-6.10); RED CELL DISTRIBUTION WIDTH 14.1 % (11.5-14.5); WHITE BLOOD COUNT 10.4 10^3/ul (4.8-10.8)
[2016-10-08 08:11] LABS: CREATININE 0.9 mg/dl (0.61-1.24)
[2016-10-08 08:12] LABS: CALCIUM 8.8 mg/dl (8.4-10.2)
[2016-10-08] MEDS: metroNIDAZOLE 500 MG TAB PO SCH (10:23)
[2016-10-08] MEDS: LEVOFLOXACIN 500 MG TAB PO SCH (10:23)
[2016-10-08] MEDS: FERROUS SULFATE (EC) 325 MG TAB PO SCH (10:24)
[2016-10-08] MEDS: FAMOTIDINE 20 MG TAB PO SCH ×2 (10:24→21:40)
[2016-10-08] MEDS: METOPROLOL 100 MG TAB PO SCH ×2 (10:24→21:40)
[2016-10-08] MEDS: ISOSORBIDE MONONITRATE(SR)30 MG TAB PO SCH (10:25)
[2016-10-08] MEDS: ASPIRIN (EC) 81 MG TAB PO SCH (10:26)
[2016-10-08] MEDS: AMIODARONE 200 MG TAB PO SCH ×2 (10:26→21:39)
[2016-10-08] MEDS: DOCUSATE SODIUM 100 MG CAP PO SCH ×2 (10:26→21:31)
[2016-10-08] MEDS: ATORVASTATIN 40 MG TAB PO SCH (10:27)
[2016-10-08] MEDS: SPIRONOLACTONE 25 MG TAB PO SCH (10:27)
[2016-10-08] MEDS: LOSARTAN 50 MG TAB PO SCH (10:27)
[2016-10-08] MEDS: ENOXAPARIN 60 MG/0.6 ML SYG SC SCH ×2 (10:36→21:44)
--- NOTE | 2016-10-08 13:33 | CONS ---
Date/Time of Note Date/Time of Note DATE: 10/08/16 TIME: 13:31 Assessment/Plan Assessment/Plan Additional Assessment/Plan Ventricular tachycardia status post ICD firing Sepsis with acute cholecystitis Cardiomyopathy with ejection fraction 40% status post ICD Coronary artery disease Hypertension Dyslipidemia Left upper extremity cephalic and basilic superficial vein thrombosis -Patient continues to feel better. Heart rate well controlled and blood pressure trend improved. Telemetry reviewed with no evidence of significant ventricular arrhythmias. Maintain potassium above 4.0 and magnesium above 2.0. IV has been removed from left upper extremity. Might benefit from warm compresses. Consultation Date/Type/Reason Admit Date/Time Sep 30, 2016 at 22:33 Type of Consultation: cv 24 HR Interval Summary Free Text/Dictation Patient continues to feel better, denies palpitations, chest pain or shortness of breath Exam/Review of Systems Vital Signs Vitals Vital Signs Date Time Temp Pulse Resp B/P Pulse Ox O2 Delivery O2 Flow Rate FiO2 10/08/16 12:45 20 10/08/16 12:03 98.2 19 143/70 98 10/08/16 00:57 2.0 10/07/16 08:45 Nasal Cannula Intake and Output 10/07/16 10/07/16 10/08/16 15:00 23:00 07:00 Intake Total 740 ml Output Total 225 ml 200 ml Balance 515 ml -200 ml Exam No apparent distress Constitutional: alert, oriented Head: normocephalic Neck: supple Respiratory: other (Coarse breath sounds bilaterally, no wheezing) Cardiovascular: other (S1-S2 heard), regular rate and rhythm Gastrointestinal: bowel sounds, non-tender, other (No guarding with palpation) , soft Extremities: other (No edema or cyanosis) Results Result Diagram: 10/08/16 0700 10/08/16 0700 Results 24 hrs Laboratory Tests Test 10/08/16 07:00 Anion Gap 14 Basophils # 0.0 Basophils % 0.4 Blood Urea Nitrogen 10 Calcium Level 8.8 Carbon Dioxide Level 25 Chloride Level 104 Creatinine 0.90 Eosinophils # 0.2 Eosinophils % 2.0 Glucose Level 145 # Hematocrit 31.7 L Hemoglobin 11.1 L Lymphocytes # 0.9 Lymphocytes % 8.8 L Magnesium Level 1.8 Mean Corpuscular Hemoglobin 31.5 Mean Corpuscular Hemoglobin Concent 35.0 Mean Corpuscular Volume 90.1 Mean Platelet Volume 12.2 H Monocytes # 1.1 H Monocytes % 10.4 Neutrophils # 8.1 H Neutrophils % 77.5 H Nucleated Red Blood Cells # 0.0 Nucleated Red Blood Cells % 0.0 Platelet Count 277 # Potassium Level 4.0 Red Blood Count 3.52 L Red Cell Distribution Width 14.1 Sodium Level 139 White Blood Count 10.4 Medications Medications Current Medications Ondansetron HCl (Zofran Inj) 4 mg Q6H PRN IV NAUSEA AND/OR VOMITING; Start 09/30 at 22:30 Metoclopramide HCl (Reglan) 10 mg Q6H PRN IV NAUSEA AND/OR VOMITING; Start 09/30 at 22:30 Aspirin (Halfprin) 81 mg DAILY PO Last administered on 10/08/16 10:26; Admin Dose 81 MG; Start 10/01/16 at 09:00 Atorvastatin Calcium (Lipitor) 40 mg DAILY PO Last administered on 10/08/16 10 :27; Admin Dose 40 MG; Start 10/01/16 at 09:00 Docusate Sodium (Colace) 300 mg BID PO Last administered on 10/08/16 10:26; Admin Dose 300 MG; Start 10/01/16 at 09:00 Ferrous Sulfate (Ferrous Sulfate (Ec)) 325 mg DAILY PO Last administered on 10:24; Admin Dose 325 MG; Start 10/01/16 at 09:00 Isosorbide Mononitrate (Imdur) 30 mg DAILY PO Last administered on 10/08/16 10 :25; Admin Dose 30 MG; Start 10/01/16 at 09:00 Losartan Potassium (Cozaar) 50 mg DAILY PO Last administered on 10/08/16 10:27 ; Admin Dose 50 MG; Start 10/01/16 at 09:00 Spironolactone (Aldactone) 25 mg DAILY PO Last administered on 10/08/16 10:27 ; Admin Dose 25 MG; Start 10/01/16 at 09:00 Morphine Sulfate (morphine) 4 mg Q4H PRN IV PAIN LEVEL 4-7 Last administered on 10/03/16 08:34; Admin Dose 4 MG; Start 10/01/16 at 06:30 Simethicone (Mylicon) 80 mg TID PRN PO DISTENSION/GAS/BLOATING Last administered on 10/01/16 09:39; Admin Dose 80 MG; Start 10/01/16 at 09:00 Amiodarone HCl (Cordarone) 200 mg BID PO Last administered on 10/08/16 10:26; Admin Dose 200 MG; Start 10/04/16 at 21:00 Acetaminophen (Tylenol Tab) 650 mg Q4H PRN PO PAIN AND OR ELEVATED TEMP Last administered on 10/07/16 08:52; Admin Dose 650 MG; Start 10/04/16 at 23:00 Metoprolol Tartrate (Lopressor) 100 mg BID PO Last administered on 10/08/16 10 :24; Admin Dose 100 MG; Start 10/05/16 at 21:00 Famotidine (Pepcid) 20 mg BID PO Last administered on 10/08/16 10:24; Admin Dose 20 MG; Start 10/06/16 at 21:00 Levofloxacin (Levaquin) 500 mg DAILY PO Last administered on 10/08/16 10:23; Admin Dose 500 MG; Start 10/08/16 at 09:00 Enoxaparin Sodium (Lovenox) 115 mg Q12 SC Last administered on 10/08/16 10:36 ; Admin Dose 115 MG; Start 10/07/16 at 21:00 Digoxin 0.125 mg 0.125 mg DAILY@13 PO ; Start 10/08/16 at 13:00 Magnesium Sulfate (Magnesium Sulfate 2 Gm/50 ml) 50 ml @ 25 mls/hr ONCE ONCE IVPB ; Start 10/08/16 at 13:30; Stop 10/08/16 at 15:29; Status Nate Tavares DO Oct 08, 2016 13:33
[2016-10-08] MEDS: DIGOXIN 0.125 MG TAB PO SCH (13:45)
[2016-10-08] MEDS ORDERED: MAGNESIUM SULFATE 2 GM/50 ML 50 ML IVPB ONE (14:00)
--- NOTE | 2016-10-08 15:34 | CONS ---
Date/Time of Note Date/Time of Note DATE: 10/08/16 TIME: 15:33 Assessment/Plan Assessment/Plan Chief Complaint/Hosp Course SUBJECTIVE: No acute events overnight no fevers Abx: Levaquin PHYSICAL EXAMINATION: GENERAL: Obese, well-developed, elderly man who is alert, in no distress. HEENT: Head atraumatic, normocephalic. Sclerae anicteric. Buccal mucosa pink. NECK: Supple, trachea midline. CHEST: Rise symmetrical. Breath sounds clear. HEART: S1, S2. ABDOMEN: Soft, bowel tones present. EXTREMITIES: Without cyanosis. ASSESSMENT: 1. Acute cholecystitis. 2. Bacteremia, likely secondary to above. 3. Arrhythmia with a history of ICD. 4. Non-ST elevation myocardial infarction. 5. Acute renal insufficiency. 6. Hypertension. 7. Thrombocytopenia PLAN: The patient remains stable. Started on PO Levaquin per primary==> abx #9 , will monitor on telemetry DW pt Problems: Consultation Date/Type/Reason Admit Date/Time Sep 30, 2016 at 22:33 Type of Consultation: ID Exam/Review of Systems Vital Signs Vitals Vital Signs Date Time Temp Pulse Resp B/P Pulse Ox O2 Delivery O2 Flow Rate FiO2 10/08/16 15:16 98.2 83 19 143/71 96 10/08/16 15:07 2.0 10/07/16 08:45 Nasal Cannula Intake and Output 10/07/16 10/07/16 10/08/16 15:00 23:00 07:00 Intake Total 740 ml Output Total 225 ml 200 ml Balance 515 ml -200 ml Results Result Diagram: 10/08/16 0700 10/08/16 0700 Results 24 hrs Laboratory Tests Test 10/08/16 07:00 Anion Gap 14 Basophils # 0.0 Basophils % 0.4 Blood Urea Nitrogen 10 Calcium Level 8.8 Carbon Dioxide Level 25 Chloride Level 104 Creatinine 0.90 Eosinophils # 0.2 Eosinophils % 2.0 Glucose Level 145 # Hematocrit 31.7 L Hemoglobin 11.1 L Lymphocytes # 0.9 Lymphocytes % 8.8 L Magnesium Level 1.8 Mean Corpuscular Hemoglobin 31.5 Mean Corpuscular Hemoglobin Concent 35.0 Mean Corpuscular Volume 90.1 Mean Platelet Volume 12.2 H Monocytes # 1.1 H Monocytes % 10.4 Neutrophils # 8.1 H Neutrophils % 77.5 H Nucleated Red Blood Cells # 0.0 Nucleated Red Blood Cells % 0.0 Platelet Count 277 # Potassium Level 4.0 Red Blood Count 3.52 L Red Cell Distribution Width 14.1 Sodium Level 139 White Blood Count 10.4 Medications Medications Current Medications Ondansetron HCl (Zofran Inj) 4 mg Q6H PRN IV NAUSEA AND/OR VOMITING; Start 09/30 at 22:30 Metoclopramide HCl (Reglan) 10 mg Q6H PRN IV NAUSEA AND/OR VOMITING; Start 09/30 at 22:30 Aspirin (Halfprin) 81 mg DAILY PO Last administered on 10/08/16 10:26; Admin Dose 81 MG; Start 10/01/16 at 09:00 Atorvastatin Calcium (Lipitor) 40 mg DAILY PO Last administered on 10/08/16 10 :27; Admin Dose 40 MG; Start 10/01/16 at 09:00 Docusate Sodium (Colace) 300 mg BID PO Last administered on 10/08/16 10:26; Admin Dose 300 MG; Start 10/01/16 at 09:00 Ferrous Sulfate (Ferrous Sulfate (Ec)) 325 mg DAILY PO Last administered on 10:24; Admin Dose 325 MG; Start 10/01/16 at 09:00 Isosorbide Mononitrate (Imdur) 30 mg DAILY PO Last administered on 10/08/16 10 :25; Admin Dose 30 MG; Start 10/01/16 at 09:00 Losartan Potassium (Cozaar) 50 mg DAILY PO Last administered on 10/08/16 10:27 ; Admin Dose 50 MG; Start 10/01/16 at 09:00 Spironolactone (Aldactone) 25 mg DAILY PO Last administered on 10/08/16 10:27 ; Admin Dose 25 MG; Start 10/01/16 at 09:00 Morphine Sulfate (morphine) 4 mg Q4H PRN IV PAIN LEVEL 4-7 Last administered on 10/03/16 08:34; Admin Dose 4 MG; Start 10/01/16 at 06:30 Simethicone (Mylicon) 80 mg TID PRN PO DISTENSION/GAS/BLOATING Last administered on 10/01/16 09:39; Admin Dose 80 MG; Start 10/01/16 at 09:00 Amiodarone HCl (Cordarone) 200 mg BID PO Last administered on 10/08/16 10:26; Admin Dose 200 MG; Start 10/04/16 at 21:00 Acetaminophen (Tylenol Tab) 650 mg Q4H PRN PO PAIN AND OR ELEVATED TEMP Last administered on 10/07/16 08:52; Admin Dose 650 MG; Start 10/04/16 at 23:00 Metoprolol Tartrate (Lopressor) 100 mg BID PO Last administered on 10/08/16 10 :24; Admin Dose 100 MG; Start 10/05/16 at 21:00 Famotidine (Pepcid) 20 mg BID PO Last administered on 10/08/16 10:24; Admin Dose 20 MG; Start 10/06/16 at 21:00 Levofloxacin (Levaquin) 500 mg DAILY PO Last administered on 10/08/16 10:23; Admin Dose 500 MG; Start 10/08/16 at 09:00 Enoxaparin Sodium (Lovenox) 115 mg Q12 SC Last administered on 10/08/16 10:36 ; Admin Dose 115 MG; Start 10/07/16 at 21:00 Digoxin 0.125 mg 0.125 mg DAILY@13 PO Last administered on 10/08/16 13:45; Admin Dose 0.125 MG; Start 10/08/16 at 13:00 Magnesium Sulfate (Magnesium Sulfate 2 Gm/50 ml) 50 ml @ 25 mls/hr ONCE ONCE IVPB ; Start 10/08/16 at 14:00; Stop 10/08/16 at 15:59; Status Future hold DILLON GÓMEZ NP Oct 08, 2016 15:34
--- NOTE | 2016-10-08 18:32 | PN ---
Date/Time of Note Date/Time of Note DATE: 10/08/16 TIME: 18:25 Assessment/Plan VTE Prophylaxis VTE Prophylaxis Intervention: SCD's Lines/Catheters IV C[facility]ter Type (from [facility]): [facility] Urinary Cath still in place: No Assessment/Plan Chief Complaint/Hosp Course Assessment and plan - Left cephalic and left basilic veins thrombosis, continue Lovenox. - Ventricular tachycardia status post ICD firing, Dr. Butler is following in cardiology consultation. Continue p.o. amiodarone. Telemetry monitoring. - Elevated troponin secondary to #1. - Sepsis 2 to acute cholecystitis with gram-negative rods bacteremia. Dr. Persaud is following infection disease consultation. Continue Levaquin. - Acute cholecystitis, continue antibiotics per ID. Status post evaluation by Dr. Vargas and general surgery consultation. Plan for laparoscopic cholecystectomy as an outpatient when patient cardiac condition improves. - Cardiomyopathy with ejection fraction 40%. Continue Coreg. - Coronary artery disease. Continue aspirin. - Hypertension, continue Cozaar. - Dyslipidemia, continue Lipitor. Further recommendations based on clinical course. Plan of care discussed with Dr. Duron. Problems: Subjective 24 Hr Interval Summary Free Text/Dictation Patient's complains of left left hand swelling, denies any chest pain, continues to have frequent PVCs with small run of V. tach. Exam/Review of Systems Vital Signs Vitals Vital Signs Date Time Temp Pulse Resp B/P Pulse Ox O2 Delivery O2 Flow Rate FiO2 10/08/16 17:31 106 10/08/16 15:16 98.2 19 143/71 96 10/08/16 15:07 2.0 10/07/16 08:45 Nasal Cannula Intake and Output 10/07/16 10/07/16 10/08/16 15:00 23:00 07:00 Intake Total 740 ml Output Total 225 ml 200 ml Balance 515 ml -200 ml Exam Constitutional: alert, oriented Psych: no complaints Head: atraumatic, normocephalic Eyes: nl conjunctiva ENMT: nl external ears & nose Neck: non-tender, supple Respiratory: clear to auscultation, normal air movement Cardiovascular: nl pulses, regular rate and rhythm Gastrointestinal: non-tender, soft Musculoskeletal: nl extremities to inspection Extremities: normal pulses Neurological: [employer] II-XII intact Results Result Diagram: 10/08/16 0700 10/08/16 0700 Results 24 hrs Laboratory Tests Test 10/08/16 07:00 Anion Gap 14 Basophils # 0.0 Basophils % 0.4 Blood Urea Nitrogen 10 Calcium Level 8.8 Carbon Dioxide Level 25 Chloride Level 104 Creatinine 0.90 Eosinophils # 0.2 Eosinophils % 2.0 Glucose Level 145 # Hematocrit 31.7 L Hemoglobin 11.1 L Lymphocytes # 0.9 Lymphocytes % 8.8 L Magnesium Level 1.8 Mean Corpuscular Hemoglobin 31.5 Mean Corpuscular Hemoglobin Concent 35.0 Mean Corpuscular Volume 90.1 Mean Platelet Volume 12.2 H Monocytes # 1.1 H Monocytes % 10.4 Neutrophils # 8.1 H Neutrophils % 77.5 H Nucleated Red Blood Cells # 0.0 Nucleated Red Blood Cells % 0.0 Platelet Count 277 # Potassium Level 4.0 Red Blood Count 3.52 L Red Cell Distribution Width 14.1 Sodium Level 139 White Blood Count 10.4 Medications Medications Current Medications Ondansetron HCl (Zofran Inj) 4 mg Q6H PRN IV NAUSEA AND/OR VOMITING; Start 09/30 at 22:30 Metoclopramide HCl (Reglan) 10 mg Q6H PRN IV NAUSEA AND/OR VOMITING; Start 09/30 at 22:30 Aspirin (Halfprin) 81 mg DAILY PO Last administered on 10/08/16 10:26; Admin Dose 81 MG; Start 10/01/16 at 09:00 Atorvastatin Calcium (Lipitor) 40 mg DAILY PO Last administered on 10/08/16 10 :27; Admin Dose 40 MG; Start 10/01/16 at 09:00 Docusate Sodium (Colace) 300 mg BID PO Last administered on 10/08/16 10:26; Admin Dose 300 MG; Start 10/01/16 at 09:00 Ferrous Sulfate (Ferrous Sulfate (Ec)) 325 mg DAILY PO Last administered on 10:24; Admin Dose 325 MG; Start 10/01/16 at 09:00 Isosorbide Mononitrate (Imdur) 30 mg DAILY PO Last administered on 10/08/16 10 :25; Admin Dose 30 MG; Start 10/01/16 at 09:00 Losartan Potassium (Cozaar) 50 mg DAILY PO Last administered on 10/08/16 10:27 ; Admin Dose 50 MG; Start 10/01/16 at 09:00 Spironolactone (Aldactone) 25 mg DAILY PO Last administered on 10/08/16 10:27 ; Admin Dose 25 MG; Start 10/01/16 at 09:00 Morphine Sulfate (morphine) 4 mg Q4H PRN IV PAIN LEVEL 4-7 Last administered on 10/03/16 08:34; Admin Dose 4 MG; Start 10/01/16 at 06:30 Simethicone (Mylicon) 80 mg TID PRN PO DISTENSION/GAS/BLOATING Last administered on 10/01/16 09:39; Admin Dose 80 MG; Start 10/01/16 at 09:00 Amiodarone HCl (Cordarone) 200 mg BID PO Last administered on 10/08/16 10:26; Admin Dose 200 MG; Start 10/04/16 at 21:00 Acetaminophen (Tylenol Tab) 650 mg Q4H PRN PO PAIN AND OR ELEVATED TEMP Last administered on 10/07/16 08:52; Admin Dose 650 MG; Start 10/04/16 at 23:00 Metoprolol Tartrate (Lopressor) 100 mg BID PO Last administered on 10/08/16 10 :24; Admin Dose 100 MG; Start 10/05/16 at 21:00 Famotidine (Pepcid) 20 mg BID PO Last administered on 10/08/16 10:24; Admin Dose 20 MG; Start 10/06/16 at 21:00 Levofloxacin (Levaquin) 500 mg DAILY PO Last administered on 10/08/16 10:23; Admin Dose 500 MG; Start 10/08/16 at 09:00 Enoxaparin Sodium (Lovenox) 115 mg Q12 SC Last administered on 10/08/16 10:36 ; Admin Dose 115 MG; Start 10/07/16 at 21:00 Digoxin (Digoxin) 0.125 mg DAILY@13 PO Last administered on 10/08/16 13:45; Admin Dose 0.125 MG; Start 10/08/16 at 13:00 Magnesium Chloride (Mag 64) 64 mg BID PO ; Start 10/08/16 at 21:00 ANGELI BLACKWELL Oct 08, 2016 18:32
[2016-10-08] MEDS: MAGNESIUM CHLORIDE (SR) 64 MG TAB PO SCH (21:40)
[2016-10-09] VITALS (12 sets, daily range): BP systolic 130–149; BP diastolic 60–69; PULSE 80–95; RESP 16–19
[2016-10-09 06:27] LABS: ADD SCAN DIFF NO
[2016-10-09 06:54] LABS: BASOPHIL # 0.1 10^3/ul (0.0-0.1); BASOPHILS % 0.4 % (0.0-2.0); EOSINOPHILS # 0.1 10^3/ul (0.0-0.5); EOSINOPHILS % 1.1 % (0.0-7.0); HEMATOCRIT 32.6 % (42.0-52.0); HEMOGLOBIN 11.4 g/dl (14.0-18.0); LYMPHOCYTES # 1.2 10^3/ul (0.8-2.9); LYMPHOCYTES % 9.8 % (15.0-51.0); MEAN CORPUSCULAR HEMOGLOBIN 31.7 pg (29.0-33.0); MEAN CORPUSCULAR VOLUME 90.6 fl (82.0-101.0); MEAN PLATELET VOLUME 12.4 fl (7.4-10.4); MONOCYTE # 0.9 10^3/ul (0.3-0.9); MONOCYTES % 7.1 % (0.0-11.0); NEUTROPHIL # 9.5 10^3/ul (1.6-7.5); PLATELET COUNT 358 10^3/UL (140-415); RED CELL DISTRIBUTION WIDTH 14.2 % (11.5-14.5); WHITE BLOOD COUNT 11.9 10^3/ul (4.8-10.8)
[2016-10-09 06:58] LABS: POTASSIUM 4.1 mmol/L (3.5-5.1)
[2016-10-09 07:01] LABS: CALCIUM 9.3 mg/dl (8.4-10.2)
[2016-10-09] MEDS: MAGNESIUM CHLORIDE (SR) 64 MG TAB PO SCH ×2 (08:46→20:38)
[2016-10-09] MEDS: FERROUS SULFATE (EC) 325 MG TAB PO SCH (08:47)
[2016-10-09] MEDS: LEVOFLOXACIN 500 MG TAB PO SCH (08:47)
[2016-10-09] MEDS: DOCUSATE SODIUM 100 MG CAP PO SCH ×2 (08:47→20:39)
[2016-10-09] MEDS: SPIRONOLACTONE 25 MG TAB PO SCH (08:47)
[2016-10-09] MEDS: ASPIRIN (EC) 81 MG TAB PO SCH (08:47)
[2016-10-09] MEDS: ATORVASTATIN 40 MG TAB PO SCH (08:47)
[2016-10-09] MEDS: AMIODARONE 200 MG TAB PO SCH ×2 (08:48→20:39)
[2016-10-09] MEDS: FAMOTIDINE 20 MG TAB PO SCH ×2 (08:48→20:38)
[2016-10-09] MEDS: METOPROLOL 100 MG TAB PO SCH ×2 (08:48→20:38)
[2016-10-09] MEDS: ISOSORBIDE MONONITRATE(SR)30 MG TAB PO SCH (08:49)
[2016-10-09] MEDS: LOSARTAN 50 MG TAB PO SCH (08:49)
[2016-10-09] MEDS: ENOXAPARIN 60 MG/0.6 ML SYG SC SCH ×2 (08:58→20:58)
--- NOTE | 2016-10-09 10:05 | CONS ---
Date/Time of Note Date/Time of Note DATE: 10/09/16 TIME: 10:03 Assessment/Plan Assessment/Plan Chief Complaint/Hosp Course Ventricular tachycardia status post ICD firing Sepsis with acute cholecystitis Cardiomyopathy with ejection fraction 40% status post ICD Coronary artery disease Hypertension Dyslipidemia Left upper extremity cephalic and basilic superficial vein thrombosis Problems: Additional Assessment/Plan 1) continue amiodarone 2) patient on AC though only seems to have superficial thrombosis. Will discuss Consultation Date/Type/Reason Admit Date/Time Sep 30, 2016 at 22:33 Initial Consult Date Type of Consultation: cv 24 HR Interval Summary Free Text/Dictation no chest pain, no sob, no palpitations. Detailed Summary Respiratory: no complaints Cardiovascular: no complaints Musculoskeletal: no complaints Skin: no complaints Neurologic: no complaints Exam/Review of Systems Vital Signs Vitals Vital Signs Date Time Temp Pulse Resp B/P Pulse Ox O2 Delivery O2 Flow Rate FiO2 10/09/16 08:22 87 10/09/16 07:39 98.7 19 130/60 95 10/08/16 23:30 Room Air 10/08/16 15:07 2.0 Intake and Output 10/08/16 10/08/16 10/09/16 15:00 23:00 07:00 Intake Total 700 ml Output Total 225 ml 400 ml Balance 475 ml -400 ml Exam Constitutional: alert, oriented Head: atraumatic, normocephalic Neck: supple Respiratory: clear to auscultation Cardiovascular: regular rate and rhythm Gastrointestinal: soft Musculoskeletal: nl extremities to inspection Extremities: normal pulses Results Result Diagram: 10/09/16 0540 10/09/16 0540 Results 24 hrs Laboratory Tests Test 10/09/16 05:40 Anion Gap 16 Basophils # 0.1 Basophils % 0.4 Blood Urea Nitrogen 13 Calcium Level 9.3 Carbon Dioxide Level 23 Chloride Level 104 Creatinine 1.00 Eosinophils # 0.1 Eosinophils % 1.1 Glucose Level 146 Hematocrit 32.6 L Hemoglobin 11.4 L Lymphocytes # 1.2 Lymphocytes % 9.8 L Mean Corpuscular Hemoglobin 31.7 Mean Corpuscular Hemoglobin Concent 35.0 Mean Corpuscular Volume 90.6 Mean Platelet Volume 12.4 H Monocytes # 0.9 Monocytes % 7.1 Neutrophils # 9.5 H Neutrophils % 80.0 H Nucleated Red Blood Cells # 0.0 Nucleated Red Blood Cells % 0.0 Platelet Count 358 # Potassium Level 4.1 Red Blood Count 3.60 L Red Cell Distribution Width 14.2 Sodium Level 139 White Blood Count 11.9 H Medications Medications Current Medications Ondansetron HCl (Zofran Inj) 4 mg Q6H PRN IV NAUSEA AND/OR VOMITING; Start 09/30 at 22:30 Metoclopramide HCl (Reglan) 10 mg Q6H PRN IV NAUSEA AND/OR VOMITING; Start 09/30 at 22:30 Aspirin (Halfprin) 81 mg DAILY PO Last administered on 10/09/16 08:47; Admin Dose 81 MG; Start 10/01/16 at 09:00 Atorvastatin Calcium (Lipitor) 40 mg DAILY PO Last administered on 10/09/16 08 :47; Admin Dose 40 MG; Start 10/01/16 at 09:00 Docusate Sodium (Colace) 300 mg BID PO Last administered on 10/09/16 08:47; Admin Dose 300 MG; Start 10/01/16 at 09:00 Ferrous Sulfate (Ferrous Sulfate (Ec)) 325 mg DAILY PO Last administered on 08:47; Admin Dose 325 MG; Start 10/01/16 at 09:00 Isosorbide Mononitrate (Imdur) 30 mg DAILY PO Last administered on 10/09/16 08 :49; Admin Dose 30 MG; Start 10/01/16 at 09:00 Losartan Potassium (Cozaar) 50 mg DAILY PO Last administered on 10/09/16 08:49 ; Admin Dose 50 MG; Start 10/01/16 at 09:00 Spironolactone (Aldactone) 25 mg DAILY PO Last administered on 10/09/16 08:47 ; Admin Dose 25 MG; Start 10/01/16 at 09:00 Morphine Sulfate (morphine) 4 mg Q4H PRN IV PAIN LEVEL 4-7 Last administered on 10/03/16 08:34; Admin Dose 4 MG; Start 10/01/16 at 06:30 Simethicone (Mylicon) 80 mg TID PRN PO DISTENSION/GAS/BLOATING Last administered on 10/01/16 09:39; Admin Dose 80 MG; Start 10/01/16 at 09:00 Amiodarone HCl (Cordarone) 200 mg BID PO Last administered on 10/09/16 08:48; Admin Dose 200 MG; Start 10/04/16 at 21:00 Acetaminophen (Tylenol Tab) 650 mg Q4H PRN PO PAIN AND OR ELEVATED TEMP Last administered on 10/07/16 08:52; Admin Dose 650 MG; Start 10/04/16 at 23:00 Metoprolol Tartrate (Lopressor) 100 mg BID PO Last administered on 10/09/16 08 :48; Admin Dose 100 MG; Start 10/05/16 at 21:00 Famotidine (Pepcid) 20 mg BID PO Last administered on 10/09/16 08:48; Admin Dose 20 MG; Start 10/06/16 at 21:00 Levofloxacin (Levaquin) 500 mg DAILY PO Last administered on 10/09/16 08:47; Admin Dose 500 MG; Start 10/08/16 at 09:00 Enoxaparin Sodium (Lovenox) 115 mg Q12 SC Last administered on 10/09/16 08:58 ; Admin Dose 115 MG; Start 10/07/16 at 21:00 Digoxin (Digoxin) 0.125 mg DAILY@13 PO Last administered on 10/08/16 13:45; Admin Dose 0.125 MG; Start 10/08/16 at 13:00 Magnesium Chloride (Mag 64) 64 mg BID PO Last administered on 10/09/16 08:46; Admin Dose 64 MG; Start 10/08/16 at 21:00 ANDRES TORRES MD Oct 09, 2016 10:05
--- NOTE | 2016-10-09 12:02 | PN ---
Date/Time of Note Date/Time of Note DATE: 10/09/16 TIME: 12:02 Assessment/Plan VTE Prophylaxis VTE Prophylaxis Intervention: other Lines/Catheters [facility] Urinary Cath still in place: No Assessment/Plan Chief Complaint/Hosp Course - Left cephalic and left basilic veins thrombosis, continue Lovenox. - Ventricular tachycardia status post ICD firing, Dr. Butler is following in cardiology consultation. Continue p.o. amiodarone. Telemetry monitoring. - Elevated troponin secondary to #1. - Sepsis 2 to acute cholecystitis with gram-negative rods bacteremia. Dr. Persaud is following infection disease consultation. Continue Levaquin. - Acute cholecystitis, continue antibiotics per ID. Status post evaluation by Dr. Vargas and general surgery consultation. Plan for laparoscopic cholecystectomy as an outpatient when patient cardiac condition improves. - Cardiomyopathy with ejection fraction 40%. Continue Coreg. - Coronary artery disease. Continue aspirin. - Hypertension, continue Cozaar. - Dyslipidemia, continue Lipitor. Problems: Subjective 24 Hr Interval Summary Free Text/Dictation Patient is doing better Exam/Review of Systems Vital Signs Vitals Vital Signs Date Time Temp Pulse Resp B/P Pulse Ox O2 Delivery O2 Flow Rate FiO2 10/09/16 08:22 87 10/09/16 07:39 98.7 19 130/60 95 10/08/16 23:30 Room Air 10/08/16 15:07 2.0 Intake and Output 10/08/16 10/08/16 10/09/16 15:00 23:00 07:00 Intake Total 700 ml Output Total 225 ml 400 ml Balance 475 ml -400 ml Exam Constitutional: well developed Head: atraumatic, normocephalic Neck: supple Respiratory: clear to auscultation Cardiovascular: regular rate and rhythm Gastrointestinal: non-tender, soft Results Result Diagram: 10/09/16 0540 10/09/16 0540 Results 24 hrs Laboratory Tests Test 10/09/16 05:40 Anion Gap 16 Basophils # 0.1 Basophils % 0.4 Blood Urea Nitrogen 13 Calcium Level 9.3 Carbon Dioxide Level 23 Chloride Level 104 Creatinine 1.00 Eosinophils # 0.1 Eosinophils % 1.1 Glucose Level 146 Hematocrit 32.6 L Hemoglobin 11.4 L Lymphocytes # 1.2 Lymphocytes % 9.8 L Mean Corpuscular Hemoglobin 31.7 Mean Corpuscular Hemoglobin Concent 35.0 Mean Corpuscular Volume 90.6 Mean Platelet Volume 12.4 H Monocytes # 0.9 Monocytes % 7.1 Neutrophils # 9.5 H Neutrophils % 80.0 H Nucleated Red Blood Cells # 0.0 Nucleated Red Blood Cells % 0.0 Platelet Count 358 # Potassium Level 4.1 Red Blood Count 3.60 L Red Cell Distribution Width 14.2 Sodium Level 139 White Blood Count 11.9 H Medications Medications Current Medications Ondansetron HCl (Zofran Inj) 4 mg Q6H PRN IV NAUSEA AND/OR VOMITING; Start 09/30 at 22:30 Metoclopramide HCl (Reglan) 10 mg Q6H PRN IV NAUSEA AND/OR VOMITING; Start 09/30 at 22:30 Aspirin (Halfprin) 81 mg DAILY PO Last administered on 10/09/16 08:47; Admin Dose 81 MG; Start 10/01/16 at 09:00 Atorvastatin Calcium (Lipitor) 40 mg DAILY PO Last administered on 10/09/16 08 :47; Admin Dose 40 MG; Start 10/01/16 at 09:00 Docusate Sodium (Colace) 300 mg BID PO Last administered on 10/09/16 08:47; Admin Dose 300 MG; Start 10/01/16 at 09:00 Ferrous Sulfate (Ferrous Sulfate (Ec)) 325 mg DAILY PO Last administered on 08:47; Admin Dose 325 MG; Start 10/01/16 at 09:00 Isosorbide Mononitrate (Imdur) 30 mg DAILY PO Last administered on 10/09/16 08 :49; Admin Dose 30 MG; Start 10/01/16 at 09:00 Losartan Potassium (Cozaar) 50 mg DAILY PO Last administered on 10/09/16 08:49 ; Admin Dose 50 MG; Start 10/01/16 at 09:00 Spironolactone (Aldactone) 25 mg DAILY PO Last administered on 10/09/16 08:47 ; Admin Dose 25 MG; Start 10/01/16 at 09:00 Morphine Sulfate (morphine) 4 mg Q4H PRN IV PAIN LEVEL 4-7 Last administered on 10/03/16 08:34; Admin Dose 4 MG; Start 10/01/16 at 06:30 Simethicone (Mylicon) 80 mg TID PRN PO DISTENSION/GAS/BLOATING Last administered on 10/01/16 09:39; Admin Dose 80 MG; Start 10/01/16 at 09:00 Amiodarone HCl (Cordarone) 200 mg BID PO Last administered on 10/09/16 08:48; Admin Dose 200 MG; Start 10/04/16 at 21:00 Acetaminophen (Tylenol Tab) 650 mg Q4H PRN PO PAIN AND OR ELEVATED TEMP Last administered on 10/07/16 08:52; Admin Dose 650 MG; Start 10/04/16 at 23:00 Metoprolol Tartrate (Lopressor) 100 mg BID PO Last administered on 10/09/16 08 :48; Admin Dose 100 MG; Start 10/05/16 at 21:00 Famotidine (Pepcid) 20 mg BID PO Last administered on 10/09/16 08:48; Admin Dose 20 MG; Start 10/06/16 at 21:00 Levofloxacin (Levaquin) 500 mg DAILY PO Last administered on 10/09/16 08:47; Admin Dose 500 MG; Start 10/08/16 at 09:00 Enoxaparin Sodium (Lovenox) 115 mg Q12 SC Last administered on 10/09/16 08:58 ; Admin Dose 115 MG; Start 10/07/16 at 21:00 Digoxin (Digoxin) 0.125 mg DAILY@13 PO Last administered on 10/08/16 13:45; Admin Dose 0.125 MG; Start 10/08/16 at 13:00 Magnesium Chloride (Mag 64) 64 mg BID PO Last administered on 10/09/16 08:46; Admin Dose 64 MG; Start 10/08/16 at 21:00 LEILANI FRIAS 18, 2017 12:02
[2016-10-09] MEDS: DIGOXIN 0.125 MG TAB PO SCH (13:22)
[2016-10-09] MEDS: ACETAMINOPHEN 325 MG TAB PO PRN (17:29)
[2016-10-10] VITALS (13 sets, daily range): BP systolic 119–186; BP diastolic 56–80; PULSE 64–105; RESP 16–22
[2016-10-10] MEDS: AMIODARONE 200 MG TAB PO SCH ×2 (10:13→21:14)
[2016-10-10] MEDS: MAGNESIUM CHLORIDE (SR) 64 MG TAB PO SCH ×2 (10:13→21:16)
[2016-10-10] MEDS: ASPIRIN (EC) 81 MG TAB PO SCH (10:14)
[2016-10-10] MEDS: FAMOTIDINE 20 MG TAB PO SCH ×2 (10:14→21:16)
[2016-10-10] MEDS: FERROUS SULFATE (EC) 325 MG TAB PO SCH (10:15)
[2016-10-10] MEDS: LEVOFLOXACIN 500 MG TAB PO SCH (10:15)
[2016-10-10] MEDS: METOPROLOL 100 MG TAB PO SCH ×2 (10:15→21:14)
[2016-10-10] MEDS: ISOSORBIDE MONONITRATE(SR)30 MG TAB PO SCH (10:15)
[2016-10-10] MEDS: ATORVASTATIN 40 MG TAB PO SCH (10:16)
[2016-10-10] MEDS: DOCUSATE SODIUM 100 MG CAP PO SCH ×2 (10:16→21:13)
[2016-10-10] MEDS: LOSARTAN 50 MG TAB PO SCH (10:16)
[2016-10-10] MEDS: SPIRONOLACTONE 25 MG TAB PO SCH (10:17)
[2016-10-10] MEDS: ENOXAPARIN 60 MG/0.6 ML SYG SC SCH ×2 (10:23→21:28)
--- NOTE | 2016-10-10 11:46 | PN ---
Date/Time of Note Date/Time of Note DATE: 10/10/16 TIME: 11:45 Assessment/Plan VTE Prophylaxis VTE Prophylaxis Intervention: other Lines/Catheters IV Catheter Type (from [facility]): [facility] Urinary Cath still in place: No Assessment/Plan Chief Complaint/Hosp Course - Left cephalic and left basilic veins thrombosis, continue Lovenox. - Ventricular tachycardia status post ICD firing, Dr. Butler is following in cardiology consultation. Continue p.o. amiodarone. Telemetry monitoring. - Elevated troponin secondary to #1. - Sepsis 2 to acute cholecystitis with gram-negative rods bacteremia. Dr. Persaud is following infection disease consultation. Continue Levaquin. - Acute cholecystitis, continue antibiotics per ID. Status post evaluation by Dr. Vargas and general surgery consultation. Plan for laparoscopic cholecystectomy as an outpatient when patient cardiac condition improves. - Cardiomyopathy with ejection fraction 40%. Continue Coreg. - Coronary artery disease. Continue aspirin. - Hypertension, continue Cozaar. - Dyslipidemia, continue Lipitor. Problems: Subjective 24 Hr Interval Summary Free Text/Dictation Patient has no complaints Exam/Review of Systems Vital Signs Vitals Vital Signs Date Time Temp Pulse Resp B/P Pulse Ox O2 Delivery O2 Flow Rate FiO2 10/10/16 08:22 83 10/10/16 08:06 98.3 20 138/63 100 10/10/16 05:46 Room Air 10/10/16 03:59 2.0 Intake and Output 10/09/16 10/09/16 10/10/16 15:00 23:00 07:00 Intake Total 1200 ml 400 ml Output Total 400 ml Balance 1200 ml 0 ml Exam Constitutional: well developed Head: atraumatic, normocephalic Neck: supple Respiratory: clear to auscultation Cardiovascular: regular rate and rhythm Gastrointestinal: non-tender, soft Extremities: normal pulses Results Result Diagram: 10/09/1640 10/09/1640 Medications Medications Current Medications Ondansetron HCl (Zofran Inj) 4 mg Q6H PRN IV NAUSEA AND/OR VOMITING; Start 09/30 at 22:30 Metoclopramide HCl (Reglan) 10 mg Q6H PRN IV NAUSEA AND/OR VOMITING; Start 09/30 at 22:30 Aspirin (Halfprin) 81 mg DAILY PO Last administered on 10/10/16t 10:14; Admin Dose 81 MG; Start 10/01/16 at 09:00 Atorvastatin Calcium (Lipitor) 40 mg DAILY PO Last administered on 10/10/16 10 :16; Admin Dose 40 MG; Start 10/01/16 at 09:00 Docusate Sodium (Colace) 300 mg BID PO Last administered on 10/10/16 10:16; Admin Dose 300 MG; Start 10/01/16 at 09:00 Ferrous Sulfate (Ferrous Sulfate (Ec)) 325 mg DAILY PO Last administered on 10:15; Admin Dose 325 MG; Start 10/01/16 at 09:00 Isosorbide Mononitrate (Imdur) 30 mg DAILY PO Last administered on 10/10/16 10 :15; Admin Dose 30 MG; Start 10/01/16 at 09:00 Losartan Potassium (Cozaar) 50 mg DAILY PO Last administered on 10/10/16 10:16 ; Admin Dose 50 MG; Start 10/01/16 at 09:00 Spironolactone (Aldactone) 25 mg DAILY PO Last administered on 10/10/16 10:17 ; Admin Dose 25 MG; Start 10/01/16 at 09:00 Morphine Sulfate (morphine) 4 mg Q4H PRN IV PAIN LEVEL 4-7 Last administered on 10/03/16 08:34; Admin Dose 4 MG; Start 10/01/16 at 06:30 Simethicone (Mylicon) 80 mg TID PRN PO DISTENSION/GAS/BLOATING Last administered on 10/01/16 09:39; Admin Dose 80 MG; Start 10/01/16 at 09:00 Amiodarone HCl (Cordarone) 200 mg BID PO Last administered on 10/10/16 10:13; Admin Dose 200 MG; Start 10/04/16 at 21:00 Acetaminophen (Tylenol Tab) 650 mg Q4H PRN PO PAIN AND OR ELEVATED TEMP Last administered on 10/09/16 17:29; Admin Dose 650 MG; Start 10/04/16 at 23:00 Metoprolol Tartrate (Lopressor) 100 mg BID PO Last administered on 10/10/16 10 :15; Admin Dose 100 MG; Start 10/05/16 at 21:00 Famotidine (Pepcid) 20 mg BID PO Last administered on 10/10/16 10:14; Admin Dose 20 MG; Start 10/06/16 at 21:00 Levofloxacin (Levaquin) 500 mg DAILY PO Last administered on 10/10/16 10:15; Admin Dose 500 MG; Start 10/08/16 at 09:00 Enoxaparin Sodium (Lovenox) 115 mg Q12 SC Last administered on 10/10/16 10:23 ; Admin Dose 115 MG; Start 10/07/16 at 21:00 Digoxin (Digoxin) 0.125 mg DAILY@13 PO Last administered on 10/09/16 13:22; Admin Dose 0.125 MG; Start 10/08/16 at 13:00 Magnesium Chloride (Mag 64) 64 mg BID PO Last administered on 10/10/16 10:13; Admin Dose 64 MG; Start 10/08/16 at 21:00 LEILANI FRIAS 19, 2017 11:46
[2016-10-10] MEDS ORDERED: MAGNESIUM SULFATE 2 GM/50 ML 50 ML IVPB ONE (12:00)
[2016-10-10] MEDS: DIGOXIN 0.125 MG TAB PO SCH (13:34)
--- NOTE | 2016-10-10 16:42 | PN ---
DATE: 10/10/2016 SUBJECTIVE: Mr. Barba is recovering from VT storm and sepsis secondary to acute cholecystitis with Gram-negative luigi bacteremia. Unfortunately, he developed an episode of VF while on telemetry, requ iring an ICD shock which was successful. The patient was symptomatic with the prodrome of near loss of consciousness. He is clearly scared and anxious about the recurrent nature of his shock. PHYSICAL EXAMINATION: GENERAL: He is in no physical distress. VITAL SIGNS: Temperature 98.6, pulse 105, blood pressure 186/66, oxygen saturation 98%. NECK: No jugular venous distention. LUNGS: Clear. CARDIAC: Regular rate and rhythm. ABDOMEN: Obese, soft. EXTREMITIES: Reveal no edema. LABORATORY RESULTS: Sodium 139, potassium 4.1, BUN 13, creatinine 1. White count 11.9, hematocrit 32.6, platelet count 358. ASSESSMENT: 1. At this time, I will take the liberty of stopping Levaquin, which is QT-prolonging and can furth ermore interact with amiodarone. 2. I have asked the nurse to discussed possible replacement of antibiotics with the primary and inf ectious disease team. In addition, I will give 2 grams of magnesium sulfate. 3. I will also increase the oral amiodarone to 400 mg twice daily. Dictated By: JAMES SEVERINO/BARRON Conf#: [id number] DID#: [id number]
[2016-10-10] MEDS: TRIMETHOPRIM/SULFAMETHOX (DS) TAB PO SCH (21:14)
[2016-10-11] VITALS (12 sets, daily range): BP systolic 116–151; BP diastolic 58–87; PULSE 70–219; RESP 16–18
[2016-10-11 07:30] LABS: ADD SCAN DIFF NO
[2016-10-11 07:44] LABS: BASOPHIL # 0.1 10^3/ul (0.0-0.1); BASOPHILS % 0.7 % (0.0-2.0); EOSINOPHILS # 0.1 10^3/ul (0.0-0.5); EOSINOPHILS % 1.4 % (0.0-7.0); HEMATOCRIT 32.9 % (42.0-52.0); HEMOGLOBIN 11.3 g/dl (14.0-18.0); LYMPHOCYTES % 11.4 % (15.0-51.0); MEAN CORPUSCULAR HEMOGLOBIN 31.4 pg (29.0-33.0); MEAN CORPUSCULAR HGB CONC 34.3 g/dl (32.0-37.0); MEAN CORPUSCULAR VOLUME 91.4 fl (82.0-101.0); MEAN PLATELET VOLUME 11.4 fl (7.4-10.4); MONOCYTE # 0.8 10^3/ul (0.3-0.9); MONOCYTES % 8.5 % (0.0-11.0); NEUTROPHIL # 6.7 10^3/ul (1.6-7.5); NEUTROPHILS % 76.1 % (39.0-77.0); PLATELET COUNT 401 10^3/UL (140-415); RED CELL DISTRIBUTION WIDTH 14.2 % (11.5-14.5); WHITE BLOOD COUNT 8.8 10^3/ul (4.8-10.8)
[2016-10-11 07:55] LABS: POTASSIUM 4.4 mmol/L (3.5-5.1)
[2016-10-11 07:58] LABS: CREATININE 1.06 mg/dl (0.61-1.24)
[2016-10-11 07:59] LABS: CALCIUM 9.1 mg/dl (8.4-10.2)
[2016-10-11] MEDS: SPIRONOLACTONE 25 MG TAB PO SCH (08:40)
[2016-10-11] MEDS: DOCUSATE SODIUM 100 MG CAP PO SCH ×2 (08:40→21:06)
[2016-10-11] MEDS: ATORVASTATIN 40 MG TAB PO SCH (08:41)
[2016-10-11] MEDS: AMIODARONE 200 MG TAB PO SCH ×2 (08:41→21:06)
[2016-10-11] MEDS: ASPIRIN (EC) 81 MG TAB PO SCH (08:43)
[2016-10-11] MEDS: METOPROLOL 100 MG TAB PO SCH ×2 (08:43→21:06)
[2016-10-11] MEDS: FERROUS SULFATE (EC) 325 MG TAB PO SCH (08:43)
[2016-10-11] MEDS: TRIMETHOPRIM/SULFAMETHOX (DS) TAB PO SCH ×2 (08:43→21:06)
[2016-10-11] MEDS: FAMOTIDINE 20 MG TAB PO SCH ×2 (08:44→21:05)
[2016-10-11] MEDS: LOSARTAN 50 MG TAB PO SCH (08:44)
[2016-10-11] MEDS: MAGNESIUM CHLORIDE (SR) 64 MG TAB PO SCH ×2 (08:44→21:05)
[2016-10-11] MEDS: ISOSORBIDE MONONITRATE(SR)30 MG TAB PO SCH (08:44)
[2016-10-11] MEDS: ENOXAPARIN 60 MG/0.6 ML SYG SC SCH ×2 (09:02→21:21)
[2016-10-11] MEDS: DIGOXIN 0.125 MG TAB PO SCH (13:09)
--- NOTE | 2016-10-11 17:14 | CONS ---
Date/Time of Note Date/Time of Note DATE: 10/11/16 TIME: 17:11 Assessment/Plan Assessment/Plan Additional Assessment/Plan Ventricular tachycardia status post ICD firing Sepsis with acute cholecystitis Cardiomyopathy with ejection fraction 40% status post ICD Coronary artery disease Hypertension Dyslipidemia Left upper extremity cephalic and basilic superficial vein thrombosis -Patient with recurrent VT/VF requiring ICD firing today and successful. Electrolytes within normal limits. Agree with holding quinolones secondary to proarrhythmic effects. Increase dose of beta-alejandro, start mexiletine. Continue telemetry monitoring. Consultation Date/Type/Reason Admit Date/Time Sep 30, 2016 at 22:33 Type of Consultation: cv 24 HR Interval Summary Free Text/Dictation Patient with ICD firing today. Did feel lightheaded and dizzy prior to this episode. Denied chest pain or shortness of breath Exam/Review of Systems Vital Signs Vitals Vital Signs Date Time Temp Pulse Resp B/P Pulse Ox O2 Delivery O2 Flow Rate FiO2 10/11/16 12:30 98.3 83 17 151/63 97 Room Air 10/11/16 04:43 2.0 Intake and Output 10/10/16 10/10/16 10/11/16 15:00 23:00 07:00 Intake Total 950 ml 480 ml Output Total 1100 ml 550 ml Balance -150 ml -70 ml Exam No apparent distress Constitutional: alert, oriented Head: normocephalic Neck: supple Respiratory: other (Coarse breath sounds bilaterally, no wheezing) Cardiovascular: other (S1-S2 heard), regular rate and rhythm Gastrointestinal: bowel sounds, non-tender, other (No guarding), soft Extremities: other (No edema or cyanosis) Results Result Diagram: 10/11/16 0625 10/11/16 0655 Results 24 hrs Laboratory Tests Test 10/11/16 05:25 10/11/16 06:25 10/11/16 06:55 Magnesium Level 2.1 Basophils # 0.1 Basophils % 0.7 Eosinophils # 0.1 Eosinophils % 1.4 Hematocrit 32.9 L Hemoglobin 11.3 L Lymphocytes # 1.0 Lymphocytes % 11.4 L Mean Corpuscular Hemoglobin 31.4 Mean Corpuscular Hemoglobin Concent 34.3 Mean Corpuscular Volume 91.4 Mean Platelet Volume 11.4 H Monocytes # 0.8 Monocytes % 8.5 Neutrophils # 6.7 Neutrophils % 76.1 Nucleated Red Blood Cells # 0.0 Nucleated Red Blood Cells % 0.0 Platelet Count 401 Red Blood Count 3.60 L Red Cell Distribution Width 14.2 White Blood Count 8.8 # Anion Gap 15 Blood Urea Nitrogen 12 Calcium Level 9.1 Carbon Dioxide Level 23 Chloride Level 104 Creatinine 1.06 Glucose Level 110 Potassium Level 4.4 Sodium Level 138 Medications Medications Current Medications Ondansetron HCl (Zofran Inj) 4 mg Q6H PRN IV NAUSEA AND/OR VOMITING; Start 09/30 at 22:30 Metoclopramide HCl (Reglan) 10 mg Q6H PRN IV NAUSEA AND/OR VOMITING; Start 09/30 at 22:30 Aspirin (Halfprin) 81 mg DAILY PO Last administered on 10/11/16 08:43; Admin Dose 81 MG; Start 10/01/16 at 09:00 Atorvastatin Calcium (Lipitor) 40 mg DAILY PO Last administered on 10/11/16 08 :41; Admin Dose 40 MG; Start 10/01/16 at 09:00 Docusate Sodium (Colace) 300 mg BID PO Last administered on 10/11/16 08:40; Admin Dose 300 MG; Start 10/01/16 at 09:00 Ferrous Sulfate (Ferrous Sulfate (Ec)) 325 mg DAILY PO Last administered on 08:43; Admin Dose 325 MG; Start 10/01/16 at 09:00 Isosorbide Mononitrate (Imdur) 30 mg DAILY PO Last administered on 10/11/16 08 :44; Admin Dose 30 MG; Start 10/01/16 at 09:00 Losartan Potassium (Cozaar) 50 mg DAILY PO Last administered on 10/11/16 08:44 ; Admin Dose 50 MG; Start 10/01/16 at 09:00 Spironolactone (Aldactone) 25 mg DAILY PO Last administered on 10/11/16 08:40 ; Admin Dose 25 MG; Start 10/01/16 at 09:00 Morphine Sulfate (morphine) 4 mg Q4H PRN IV PAIN LEVEL 4-7 Last administered on 10/03/16 08:34; Admin Dose 4 MG; Start 10/01/16 at 06:30 Simethicone (Mylicon) 80 mg TID PRN PO DISTENSION/GAS/BLOATING Last administered on 10/01/16 09:39; Admin Dose 80 MG; Start 10/01/16 at 09:00 Acetaminophen (Tylenol Tab) 650 mg Q4H PRN PO PAIN AND OR ELEVATED TEMP Last administered on 10/09/16 17:29; Admin Dose 650 MG; Start 10/04/16 at 23:00 Metoprolol Tartrate (Lopressor) 100 mg BID PO Last administered on 10/11/16 08 :43; Admin Dose 100 MG; Start 10/05/16 at 21:00 Famotidine (Pepcid) 20 mg BID PO Last administered on 10/11/16 08:44; Admin Dose 20 MG; Start 10/06/16 at 21:00 Enoxaparin Sodium (Lovenox) 115 mg Q12 SC Last administered on 10/11/16 09:02 ; Admin Dose 115 MG; Start 10/07/16 at 21:00 Digoxin (Digoxin) 0.125 mg DAILY@13 PO Last administered on 10/11/16 13:09; Admin Dose 0.125 MG; Start 10/08/16 at 13:00 Magnesium Chloride (Mag 64) 64 mg BID PO Last administered on 10/11/16 08:44; Admin Dose 64 MG; Start 10/08/16 at 21:00 Amiodarone HCl (Cordarone) 400 mg BID PO Last administered on 10/11/16 08:41; Admin Dose 400 MG; Start 10/10/16 at 21:00 Trimethoprim/ Sulfamethoxazole (Bactrim (Ds)) 1 tab BID PO Last administered on 10/11/16 08:43; Admin Dose 1 TAB; Start 10/10/16 at 21:00 Mexiletine HCl (Mexitil) 150 mg Q8 PO ; Start 10/11/16 at 16:30 Nate Butler DO Oct 11, 2016 17:14
[2016-10-11] MEDS: MEXILETINE 150 MG CAP PO SCH ×2 (17:57→21:06)
--- NOTE | 2016-10-11 18:38 | PN ---
Date/Time of Note Date/Time of Note DATE: 10/11/16 TIME: 18:35 Assessment/Plan VTE Prophylaxis VTE Prophylaxis Intervention: SCD's Lines/Catheters [facility] Saline [facility] Urinary Cath still in place: No Assessment/Plan Chief Complaint/Hosp Course Assessment and plan - Left cephalic and left basilic veins thrombosis, continue Lovenox. - Ventricular tachycardia status post ICD firing, Dr. Butler is following in cardiology consultation. Continue p.o. amiodarone. Started on Mexitil, continue telemetry monitoring. - Elevated troponin secondary to #1. - Sepsis 2 to acute cholecystitis with gram-negative rods bacteremia. Dr. Persaud is following infection disease consultation. - Acute cholecystitis, continue antibiotics per ID. Status post evaluation by Dr. Vargas and general surgery consultation. Plan for laparoscopic cholecystectomy as an outpatient when patient cardiac condition improves. - Cardiomyopathy with ejection fraction 40%. Continue Coreg. - Coronary artery disease. Continue aspirin. - Hypertension, continue Cozaar. - Dyslipidemia, continue Lipitor. Further recommendations based on clinical course. Plan of care discussed with Dr. Duron. Problems: Subjective 24 Hr Interval Summary Free Text/Dictation Patient was run of V. tach and ICD firing today, currently is sinus rhythm with bigeminy and paced rhythm. Patient remains afebrile. Exam/Review of Systems Vital Signs Vitals Vital Signs Date Time Temp Pulse Resp B/P Pulse Ox O2 Delivery O2 Flow Rate FiO2 10/11/16 18:00 98.1 73 17 133/58 96 Room Air 10/11/16 04:43 2.0 Intake and Output 10/10/16 10/10/16 10/11/16 15:00 23:00 07:00 Intake Total 950 ml 480 ml Output Total 1100 ml 550 ml Balance -150 ml -70 ml Exam Constitutional: alert, oriented Psych: no complaints Head: atraumatic, normocephalic Eyes: nl conjunctiva ENMT: nl external ears & nose Neck: non-tender, supple Respiratory: clear to auscultation, normal air movement Cardiovascular: nl pulses, regular rate and rhythm Gastrointestinal: non-tender, soft Musculoskeletal: nl extremities to inspection Extremities: normal pulses 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 Results Result Diagram: 10/11/16 0625 10/11/16 0655 Results 24 hrs Laboratory Tests Test 10/11/16 05:25 10/11/16 06:25 10/11/16 06:55 Magnesium Level 2.1 Basophils # 0.1 Basophils % 0.7 Eosinophils # 0.1 Eosinophils % 1.4 Hematocrit 32.9 L Hemoglobin 11.3 L Lymphocytes # 1.0 Lymphocytes % 11.4 L Mean Corpuscular Hemoglobin 31.4 Mean Corpuscular Hemoglobin Concent 34.3 Mean Corpuscular Volume 91.4 Mean Platelet Volume 11.4 H Monocytes # 0.8 Monocytes % 8.5 Neutrophils # 6.7 Neutrophils % 76.1 Nucleated Red Blood Cells # 0.0 Nucleated Red Blood Cells % 0.0 Platelet Count 401 Red Blood Count 3.60 L Red Cell Distribution Width 14.2 White Blood Count 8.8 # Anion Gap 15 Blood Urea Nitrogen 12 Calcium Level 9.1 Carbon Dioxide Level 23 Chloride Level 104 Creatinine 1.06 Glucose Level 110 Potassium Level 4.4 Sodium Level 138 Medications Medications Current Medications Ondansetron HCl (Zofran Inj) 4 mg Q6H PRN IV NAUSEA AND/OR VOMITING; Start 09/30 at 22:30 Metoclopramide HCl (Reglan) 10 mg Q6H PRN IV NAUSEA AND/OR VOMITING; Start 09/30 at 22:30 Aspirin (Halfprin) 81 mg DAILY PO Last administered on 10/11/16 08:43; Admin Dose 81 MG; Start 10/01/16 at 09:00 Atorvastatin Calcium (Lipitor) 40 mg DAILY PO Last administered on 10/11/16 08 :41; Admin Dose 40 MG; Start 10/01/16 at 09:00 Docusate Sodium (Colace) 300 mg BID PO Last administered on 10/11/16 08:40; Admin Dose 300 MG; Start 10/01/16 at 09:00 Ferrous Sulfate (Ferrous Sulfate (Ec)) 325 mg DAILY PO Last administered on 08:43; Admin Dose 325 MG; Start 10/01/16 at 09:00 Isosorbide Mononitrate (Imdur) 30 mg DAILY PO Last administered on 10/11/16 08 :44; Admin Dose 30 MG; Start 10/01/16 at 09:00 Losartan Potassium (Cozaar) 50 mg DAILY PO Last administered on 10/11/16 08:44 ; Admin Dose 50 MG; Start 10/01/16 at 09:00 Spironolactone (Aldactone) 25 mg DAILY PO Last administered on 10/11/16 08:40 ; Admin Dose 25 MG; Start 10/01/16 at 09:00 Morphine Sulfate (morphine) 4 mg Q4H PRN IV PAIN LEVEL 4-7 Last administered on 10/03/16 08:34; Admin Dose 4 MG; Start 10/01/16 at 06:30 Simethicone (Mylicon) 80 mg TID PRN PO DISTENSION/GAS/BLOATING Last administered on 10/01/16 09:39; Admin Dose 80 MG; Start 10/01/16 at 09:00 Acetaminophen (Tylenol Tab) 650 mg Q4H PRN PO PAIN AND OR ELEVATED TEMP Last administered on 10/09/16 17:29; Admin Dose 650 MG; Start 10/04/16 at 23:00 Famotidine (Pepcid) 20 mg BID PO Last administered on 10/11/16 08:44; Admin Dose 20 MG; Start 10/06/16 at 21:00 Enoxaparin Sodium (Lovenox) 115 mg Q12 SC Last administered on 10/11/16 09:02 ; Admin Dose 115 MG; Start 10/07/16 at 21:00 Magnesium Chloride (Mag 64) 64 mg BID PO Last administered on 10/11/16 08:44; Admin Dose 64 MG; Start 10/08/16 at 21:00 Amiodarone HCl (Cordarone) 400 mg BID PO Last administered on 10/11/16 08:41; Admin Dose 400 MG; Start 10/10/16 at 21:00 Trimethoprim/ Sulfamethoxazole (Bactrim (Ds)) 1 tab BID PO Last administered on 10/11/16 08:43; Admin Dose 1 TAB; Start 10/10/16 at 21:00 Mexiletine HCl (Mexitil) 150 mg Q8 PO Last administered on 10/11/16 17:57; Admin Dose 150 MG; Start 10/11/16 at 16:30 Metoprolol Tartrate (Lopressor) 150 mg BID PO ; Start 10/11/16 at 21:00 ANGELI BLACKWELL Oct 11, 2016 18:38
[2016-10-12] VITALS (12 sets, daily range): BP systolic 108–128; BP diastolic 55–62; PULSE 60–75; RESP 16–18
[2016-10-12] MEDS: MEXILETINE 150 MG CAP PO SCH ×3 (06:10→22:26)
[2016-10-12 06:50] LABS: ADD SCAN DIFF NO
[2016-10-12 06:52] LABS: BASOPHIL # 0.1 10^3/ul (0.0-0.1); BASOPHILS % 0.7 % (0.0-2.0); EOSINOPHILS # 0.1 10^3/ul (0.0-0.5); EOSINOPHILS % 1.3 % (0.0-7.0); HEMOGLOBIN 11.5 g/dl (14.0-18.0); LYMPHOCYTES # 1.1 10^3/ul (0.8-2.9); LYMPHOCYTES % 12.2 % (15.0-51.0); MEAN CORPUSCULAR HEMOGLOBIN 31.1 pg (29.0-33.0); MEAN CORPUSCULAR HGB CONC 33.8 g/dl (32.0-37.0); MEAN CORPUSCULAR VOLUME 91.9 fl (82.0-101.0); MEAN PLATELET VOLUME 10.6 fl (7.4-10.4); MONOCYTE # 0.7 10^3/ul (0.3-0.9); MONOCYTES % 7.4 % (0.0-11.0); NEUTROPHIL # 6.8 10^3/ul (1.6-7.5); NEUTROPHILS % 76.6 % (39.0-77.0); PLATELET COUNT 468 10^3/UL (140-415); RED CELL DISTRIBUTION WIDTH 14.1 % (11.5-14.5); WHITE BLOOD COUNT 8.9 10^3/ul (4.8-10.8)
[2016-10-12 07:06] LABS: POTASSIUM 4.5 mmol/L (3.5-5.1)
[2016-10-12 07:09] LABS: CREATININE 1.26 mg/dl (0.61-1.24)
[2016-10-12 07:10] LABS: CALCIUM 9.4 mg/dl (8.4-10.2)
[2016-10-12] MEDS: MAGNESIUM CHLORIDE (SR) 64 MG TAB PO SCH ×2 (08:22→21:10)
[2016-10-12] MEDS: AMIODARONE 200 MG TAB PO SCH ×2 (08:22→21:12)
[2016-10-12] MEDS: FERROUS SULFATE (EC) 325 MG TAB PO SCH (08:24)
[2016-10-12] MEDS: ASPIRIN (EC) 81 MG TAB PO SCH (08:24)
[2016-10-12] MEDS: DOCUSATE SODIUM 100 MG CAP PO SCH ×2 (08:24→21:10)
[2016-10-12] MEDS: LOSARTAN 50 MG TAB PO SCH (08:24)
[2016-10-12] MEDS: FAMOTIDINE 20 MG TAB PO SCH ×2 (08:24→21:10)
[2016-10-12] MEDS: ISOSORBIDE MONONITRATE(SR)30 MG TAB PO SCH (08:24)
[2016-10-12] MEDS: TRIMETHOPRIM/SULFAMETHOX (DS) TAB PO SCH ×2 (08:24→21:10)
[2016-10-12] MEDS: ATORVASTATIN 40 MG TAB PO SCH (08:24)
[2016-10-12] MEDS: SPIRONOLACTONE 25 MG TAB PO SCH (08:25)
[2016-10-12] MEDS: METOPROLOL 100 MG TAB PO SCH ×2 (08:26→21:13)
[2016-10-12] MEDS: ENOXAPARIN 60 MG/0.6 ML SYG SC SCH ×2 (08:37→21:18)
--- NOTE | 2016-10-12 15:26 | CONS ---
Date/Time of Note Date/Time of Note DATE: 10/12/16 TIME: 15:24 Assessment/Plan Assessment/Plan Additional Assessment/Plan Ventricular tachycardia status post ICD firing Sepsis with acute cholecystitis Cardiomyopathy with ejection fraction 40% status post ICD Coronary artery disease Hypertension Dyslipidemia Left upper extremity cephalic and basilic superficial vein thrombosis -No significant arrhythmias on review of telemetry over the past day. Decreased dose of amiodarone, continue mexiletine, will stop him door for more "blood pressure room" for beta-alejandro if needed. Maintain potassium above 4.0 and magnesium above 2.0. Encourage ambulation. Consultation Date/Type/Reason Admit Date/Time Sep 30, 2016 at 22:33 Type of Consultation: cv 24 HR Interval Summary Free Text/Dictation Patient denies shortness of breath, chest pain, palpitations or dizziness Exam/Review of Systems Vital Signs Vitals Vital Signs Date Time Temp Pulse Resp B/P Pulse Ox O2 Delivery O2 Flow Rate FiO2 10/12/16 15:22 98.5 60 18 117/62 97 10/12/16 01:31 2.0 10/11/16 18:00 Room Air Intake and Output 10/11/16 10/11/16 10/12/16 15:00 23:00 07:00 Intake Total 600 ml 500 ml Output Total 1000 ml 550 ml Balance -1000 ml 600 ml -50 ml Exam No apparent distress, brother at bedside Constitutional: alert, obese, oriented Head: normocephalic Neck: supple Respiratory: other (Coarse breath sounds bilaterally, no wheezing or rhonchi) Cardiovascular: other (S1-S2 heard), regular rate and rhythm, systolic murmur Gastrointestinal: bowel sounds, non-tender, other (No guarding), soft Extremities: other (No edema or cyanosis) Results Result Diagram: 10/12/16 0632 10/12/16 0632 Results 24 hrs Laboratory Tests Test 10/12/16 06:32 Anion Gap 14 Basophils # 0.1 Basophils % 0.7 Blood Urea Nitrogen 14 Calcium Level 9.4 Carbon Dioxide Level 24 Chloride Level 103 Creatinine 1.26 H Eosinophils # 0.1 Eosinophils % 1.3 Glucose Level 105 Hematocrit 34.0 L Hemoglobin 11.5 L Lymphocytes # 1.1 Lymphocytes % 12.2 L Mean Corpuscular Hemoglobin 31.1 Mean Corpuscular Hemoglobin Concent 33.8 Mean Corpuscular Volume 91.9 Mean Platelet Volume 10.6 H Monocytes # 0.7 Monocytes % 7.4 Neutrophils # 6.8 Neutrophils % 76.6 Nucleated Red Blood Cells # 0.0 Nucleated Red Blood Cells % 0.0 Platelet Count 468 H Potassium Level 4.5 Red Blood Count 3.70 L Red Cell Distribution Width 14.1 Sodium Level 136 White Blood Count 8.9 Medications Medications Current Medications Ondansetron HCl (Zofran Inj) 4 mg Q6H PRN IV NAUSEA AND/OR VOMITING; Start 09/30 at 22:30 Metoclopramide HCl (Reglan) 10 mg Q6H PRN IV NAUSEA AND/OR VOMITING; Start 09/30 at 22:30 Aspirin (Halfprin) 81 mg DAILY PO Last administered on 10/12/16 08:24; Admin Dose 81 MG; Start 10/01/16 at 09:00 Atorvastatin Calcium (Lipitor) 40 mg DAILY PO Last administered on 10/12/16 08 :24; Admin Dose 40 MG; Start 10/01/16 at 09:00 Docusate Sodium (Colace) 300 mg BID PO Last administered on 10/12/16 08:24; Admin Dose 300 MG; Start 10/01/16 at 09:00 Ferrous Sulfate (Ferrous Sulfate (Ec)) 325 mg DAILY PO Last administered on 08:24; Admin Dose 325 MG; Start 10/01/16 at 09:00 Isosorbide Mononitrate (Imdur) 30 mg DAILY PO Last administered on 10/12/16 08 :24; Admin Dose 30 MG; Start 10/01/16 at 09:00 Losartan Potassium (Cozaar) 50 mg DAILY PO Last administered on 10/12/16 08:24 ; Admin Dose 50 MG; Start 10/01/16 at 09:00 Spironolactone (Aldactone) 25 mg DAILY PO Last administered on 10/12/16 08:25 ; Admin Dose 25 MG; Start 10/01/16 at 09:00 Morphine Sulfate (morphine) 4 mg Q4H PRN IV PAIN LEVEL 4-7 Last administered on 10/03/16 08:34; Admin Dose 4 MG; Start 10/01/16 at 06:30 Simethicone (Mylicon) 80 mg TID PRN PO DISTENSION/GAS/BLOATING Last administered on 10/01/16 09:39; Admin Dose 80 MG; Start 10/01/16 at 09:00 Acetaminophen (Tylenol Tab) 650 mg Q4H PRN PO PAIN AND OR ELEVATED TEMP Last administered on 10/09/16 17:29; Admin Dose 650 MG; Start 10/04/16 at 23:00 Famotidine (Pepcid) 20 mg BID PO Last administered on 10/12/16 08:24; Admin Dose 20 MG; Start 10/06/16 at 21:00 Enoxaparin Sodium (Lovenox) 115 mg Q12 SC Last administered on 10/12/16 08:37 ; Admin Dose 115 MG; Start 10/07/16 at 21:00 Magnesium Chloride (Mag 64) 64 mg BID PO Last administered on 10/12/16 08:22; Admin Dose 64 MG; Start 10/08/16 at 21:00 Amiodarone HCl (Cordarone) 400 mg BID PO Last administered on 10/12/16 08:22; Admin Dose 400 MG; Start 10/10/16 at 21:00 Trimethoprim/ Sulfamethoxazole (Bactrim (Ds)) 1 tab BID PO Last administered on 10/12/16 08:24; Admin Dose 1 TAB; Start 10/10/16 at 21:00 Mexiletine HCl (Mexitil) 150 mg Q8 PO Last administered on 10/12/16 13:48; Admin Dose 150 MG; Start 10/11/16 at 16:30 Metoprolol Tartrate (Lopressor) 150 mg BID PO Last administered on 10/12/16 08 :26; Admin Dose 150 MG; Start 10/11/16 at 21:00 Nate Butler DO Oct 12, 2016 15:26
--- NOTE | 2016-10-12 16:19 | PN ---
Date/Time of Note Date/Time of Note DATE: 10/12/16 TIME: 16:17 Assessment/Plan VTE Prophylaxis VTE Prophylaxis Intervention: SCD's Lines/Catheters [facility] Saline Lock Urinary Cath still in place: No Assessment/Plan Chief Complaint/Hosp Course Assessment and plan - Left cephalic and left basilic veins thrombosis, continue Lovenox. - Ventricular tachycardia status post ICD firing, Dr. Butler is following in cardiology consultation. Continue p.o. amiodarone. Started on Mexitil, continue telemetry monitoring. - Elevated troponin secondary to #1. - Sepsis 2 to acute cholecystitis with gram-negative rods bacteremia. Dr. Persaud is following infection disease consultation. - Acute cholecystitis, continue antibiotics per ID. Status post evaluation by Dr. Vargas and general surgery consultation. Plan for laparoscopic cholecystectomy as an outpatient when patient cardiac condition improves. - Cardiomyopathy with ejection fraction 40%. Continue Coreg. - Coronary artery disease. Continue aspirin. - Hypertension, continue Cozaar. - Dyslipidemia, continue Lipitor. Further recommendations based on clinical course. Plan of care discussed with Dr. Duron. Problems: Subjective 24 Hr Interval Summary Free Text/Dictation Sinus rhythm with PVC on telemetry monitoring, patient denies any chest pain denies shortness of breath, remains afebrile. Exam/Review of Systems Vital Signs Vitals Vital Signs Date Time Temp Pulse Resp B/P Pulse Ox O2 Delivery O2 Flow Rate FiO2 10/12/16 15:22 98.5 60 18 117/62 97 10/12/16 01:31 2.0 10/11/16 18:00 Room Air Intake and Output 10/11/16 10/11/16 10/12/16 15:00 23:00 07:00 Intake Total 600 ml 500 ml Output Total 1000 ml 550 ml Balance -1000 ml 600 ml -50 ml Exam Constitutional: alert, oriented Psych: no complaints Head: atraumatic, normocephalic Eyes: nl conjunctiva ENMT: nl external ears & nose Neck: non-tender, supple Respiratory: clear to auscultation, normal air movement Cardiovascular: nl pulses, regular rate and rhythm Gastrointestinal: non-tender, soft Musculoskeletal: nl extremities to inspection Extremities: normal pulses Neurological: LEAD DEVELOPER II-XII intact Results Result Diagram: 10/12/16 0632 10/12/16 0632 Results 24 hrs Laboratory Tests Test 3/21/17 06:32 Anion Gap 14 Basophils # 0.1 Basophils % 0.7 Blood Urea Nitrogen 14 Calcium Level 9.4 Carbon Dioxide Level 24 Chloride Level 103 Creatinine 1.26 H Eosinophils # 0.1 Eosinophils % 1.3 Glucose Level 105 Hematocrit 34.0 L Hemoglobin 11.5 L Lymphocytes # 1.1 Lymphocytes % 12.2 L Mean Corpuscular Hemoglobin 31.1 Mean Corpuscular Hemoglobin Concent 33.8 Mean Corpuscular Volume 91.9 Mean Platelet Volume 10.6 H Monocytes # 0.7 Monocytes % 7.4 Neutrophils # 6.8 Neutrophils % 76.6 Nucleated Red Blood Cells # 0.0 Nucleated Red Blood Cells % 0.0 Platelet Count 468 H Potassium Level 4.5 Red Blood Count 3.70 L Red Cell Distribution Width 14.1 Sodium Level 136 White Blood Count 8.9 Medications Medications Current Medications Ondansetron HCl (Zofran Inj) 4 mg Q6H PRN IV NAUSEA AND/OR VOMITING; Start 09/30 at 22:30 Metoclopramide HCl (Reglan) 10 mg Q6H PRN IV NAUSEA AND/OR VOMITING; Start 09/30 at 22:30 Aspirin (Halfprin) 81 mg DAILY PO Last administered on 10/12/16 08:24; Admin Dose 81 MG; Start 10/01/16 at 09:00 Atorvastatin Calcium (Lipitor) 40 mg DAILY PO Last administered on 10/12/16 08 :24; Admin Dose 40 MG; Start 10/01/16 at 09:00 Docusate Sodium (Colace) 300 mg BID PO Last administered on 10/12/16 08:24; Admin Dose 300 MG; Start 10/01/16 at 09:00 Ferrous Sulfate (Ferrous Sulfate (Ec)) 325 mg DAILY PO Last administered on 08:24; Admin Dose 325 MG; Start 10/01/16 at 09:00 Losartan Potassium (Cozaar) 50 mg DAILY PO Last administered on 10/12/16 08:24 ; Admin Dose 50 MG; Start 10/01/16 at 09:00 Spironolactone (Aldactone) 25 mg DAILY PO Last administered on 10/12/16 08:25 ; Admin Dose 25 MG; Start 10/01/16 at 09:00 Morphine Sulfate (morphine) 4 mg Q4H PRN IV PAIN LEVEL 4-7 Last administered on 10/03/16 08:34; Admin Dose 4 MG; Start 10/01/16 at 06:30 Simethicone (Mylicon) 80 mg TID PRN PO DISTENSION/GAS/BLOATING Last administered on 10/01/16 09:39; Admin Dose 80 MG; Start 10/01/16 at 09:00 Acetaminophen (Tylenol Tab) 650 mg Q4H PRN PO PAIN AND OR ELEVATED TEMP Last administered on 10/09/16 17:29; Admin Dose 650 MG; Start 10/04/16 at 23:00 Famotidine (Pepcid) 20 mg BID PO Last administered on 10/12/16 08:24; Admin Dose 20 MG; Start 10/06/16 at 21:00 Enoxaparin Sodium (Lovenox) 115 mg Q12 SC Last administered on 10/12/16 08:37 ; Admin Dose 115 MG; Start 10/07/16 at 21:00 Magnesium Chloride (Mag 64) 64 mg BID PO Last administered on 10/12/16 08:22; Admin Dose 64 MG; Start 10/08/16 at 21:00 Trimethoprim/ Sulfamethoxazole (Bactrim (Ds)) 1 tab BID PO Last administered on 10/12/16 08:24; Admin Dose 1 TAB; Start 10/10/16 at 21:00 Mexiletine HCl (Mexitil) 150 mg Q8 PO Last administered on 10/12/16 13:48; Admin Dose 150 MG; Start 10/11/16 at 16:30 Metoprolol Tartrate (Lopressor) 150 mg BID PO Last administered on 10/12/16 08 :26; Admin Dose 150 MG; Start 10/11/16 at 21:00 Amiodarone HCl (Cordarone) 200 mg BID PO ; Start 10/12/16 at 21:00 ANGELI BLACKWELL Oct 12, 2016 16:19
[2016-10-13] VITALS (13 sets, daily range): BP systolic 93–131; BP diastolic 56–68; PULSE 61–70; RESP 16–18
[2016-10-13] MEDS: MEXILETINE 150 MG CAP PO SCH ×3 (05:42→21:20)
[2016-10-13 08:04] LABS: ADD SCAN DIFF NO
[2016-10-13 08:10] LABS: BASOPHIL # 0.1 10^3/ul (0.0-0.1); BASOPHILS % 0.5 % (0.0-2.0); EOSINOPHILS # 0.1 10^3/ul (0.0-0.5); HEMATOCRIT 34.7 % (42.0-52.0); HEMOGLOBIN 11.7 g/dl (14.0-18.0); LYMPHOCYTES # 1.1 10^3/ul (0.8-2.9); LYMPHOCYTES % 11.4 % (15.0-51.0); MEAN CORPUSCULAR HEMOGLOBIN 30.8 pg (29.0-33.0); MEAN CORPUSCULAR HGB CONC 33.7 g/dl (32.0-37.0); MEAN CORPUSCULAR VOLUME 91.3 fl (82.0-101.0); MEAN PLATELET VOLUME 10.5 fl (7.4-10.4); MONOCYTE # 0.6 10^3/ul (0.3-0.9); MONOCYTES % 6.8 % (0.0-11.0); NEUTROPHIL # 7.4 10^3/ul (1.6-7.5); PLATELET COUNT 490 10^3/UL (140-415); RED CELL DISTRIBUTION WIDTH 14.1 % (11.5-14.5); WHITE BLOOD COUNT 9.4 10^3/ul (4.8-10.8)
--- NOTE | 2016-10-13 08:16 | RADRPT ---
Vent Rate: 81 bpm RR Interval: 0 msec GA Interval: 186 msec QRS Duration: 96 msec QT Interval: 390 msec QTC Interval: 453 msec P-R-T Kasbeer: 50 - 3 - 34 degrees Sinus rhythm with occasional , and consecutive premature ventricular complexes and fusion complexes Nonspecific T wave abnormality Abnormal ECG Electronically Signed By: Shabbir Trevizo [id number]
[2016-10-13 08:23] LABS: POTASSIUM 4.6 mmol/L (3.5-5.1)
[2016-10-13 08:26] LABS: CREATININE 1.33 mg/dl (0.61-1.24)
[2016-10-13 08:27] LABS: CALCIUM 9.3 mg/dl (8.4-10.2); MAGNESIUM 2.2 mg/dl (1.7-2.5)
[2016-10-13] MEDS: DOCUSATE SODIUM 100 MG CAP PO SCH ×2 (08:48→21:22)
[2016-10-13] MEDS: ASPIRIN (EC) 81 MG TAB PO SCH (08:48)
[2016-10-13] MEDS: TRIMETHOPRIM/SULFAMETHOX (DS) TAB PO SCH ×2 (08:48→21:19)
[2016-10-13] MEDS: FERROUS SULFATE (EC) 325 MG TAB PO SCH (08:48)
[2016-10-13] MEDS: ATORVASTATIN 40 MG TAB PO SCH (08:48)
[2016-10-13] MEDS: MAGNESIUM CHLORIDE (SR) 64 MG TAB PO SCH ×2 (08:48→21:20)
[2016-10-13] MEDS: SPIRONOLACTONE 25 MG TAB PO SCH (08:48)
[2016-10-13] MEDS: LOSARTAN 50 MG TAB PO SCH (08:49)
[2016-10-13] MEDS: METOPROLOL 100 MG TAB PO SCH ×2 (08:49→21:25)
[2016-10-13] MEDS: FAMOTIDINE 20 MG TAB PO SCH ×2 (08:49→21:20)
[2016-10-13] MEDS: AMIODARONE 200 MG TAB PO SCH ×2 (09:00→14:01)
[2016-10-13] MEDS: ENOXAPARIN 60 MG/0.6 ML SYG SC SCH ×2 (09:00→21:31)
--- NOTE | 2016-10-13 18:25 | CONS ---
Date/Time of Note Date/Time of Note DATE: 10/13/16 TIME: 18:23 Assessment/Plan Assessment/Plan Additional Assessment/Plan Ventricular tachycardia status post ICD firing Sepsis with acute cholecystitis Cardiomyopathy with ejection fraction 40% status post ICD Coronary artery disease Hypertension Dyslipidemia Left upper extremity cephalic and basilic superficial vein thrombosis -Patient tolerating current dose of beta-alejandro, amiodarone and mexiletine. Telemetry reviewed with no significant arrhythmias. Increase ambulation and activity. DC planning next 1-2 days. Consultation Date/Type/Reason Admit Date/Time Sep 30, 2016 at 22:33 Type of Consultation: cv 24 HR Interval Summary Free Text/Dictation Patient denies shortness of breath, chest pain or palpitations. Feeling better. Exam/Review of Systems Vital Signs Vitals Vital Signs Date Time Temp Pulse Resp B/P Pulse Ox O2 Delivery O2 Flow Rate FiO2 10/13/16 16:14 62 10/13/16 15:15 98.6 18 118/59 93 10/13/16 12:20 2.0 10/11/16 18:00 Room Air Intake and Output 10/12/16 10/12/16 10/13/16 15:00 23:00 07:00 Intake Total 800 ml 240 ml Output Total 500 ml 350 ml Balance 300 ml -110 ml Exam No apparent distress, brother at bedside Constitutional: alert, oriented Head: normocephalic Neck: supple Respiratory: clear to auscultation, normal air movement Cardiovascular: other (S1-S2 heard), regular rate and rhythm Gastrointestinal: bowel sounds, non-tender, other (No guarding), soft Extremities: other (No edema or cyanosis) Results Result Diagram: 10/13/16 0725 10/13/16 0725 Results 24 hrs Laboratory Tests Test 10/13/16 07:25 White Blood Count 9.4 Red Blood Count 3.80 L Hemoglobin 11.7 L Hematocrit 34.7 L Mean Corpuscular Volume 91.3 Mean Corpuscular Hemoglobin 30.8 Mean Corpuscular Hemoglobin Concent 33.7 Red Cell Distribution Width 14.1 Platelet Count 490 H Mean Platelet Volume 10.5 H Neutrophils % 79.0 H Lymphocytes % 11.4 L Monocytes % 6.8 Eosinophils % 1.0 Basophils % 0.5 Nucleated Red Blood Cells % 0.0 Neutrophils # 7.4 Lymphocytes # 1.1 Monocytes # 0.6 Eosinophils # 0.1 Basophils # 0.1 Nucleated Red Blood Cells # 0.0 Sodium Level 135 Potassium Level 4.6 Chloride Level 102 Carbon Dioxide Level 21 Anion Gap 17 H Blood Urea Nitrogen 18 Creatinine 1.33 H Glucose Level 100 Calcium Level 9.3 Magnesium Level 2.2 Medications Medications Current Medications Ondansetron HCl (Zofran Inj) 4 mg Q6H PRN IV NAUSEA AND/OR VOMITING; Start 09/30 at 22:30 Metoclopramide HCl (Reglan) 10 mg Q6H PRN IV NAUSEA AND/OR VOMITING; Start 09/30 at 22:30 Aspirin (Halfprin) 81 mg DAILY PO Last administered on 10/13/16 08:48; Admin Dose 81 MG; Start 10/01/16 at 09:00 Atorvastatin Calcium (Lipitor) 40 mg DAILY PO Last administered on 10/13/16 08 :48; Admin Dose 40 MG; Start 10/01/16 at 09:00 Docusate Sodium (Colace) 300 mg BID PO Last administered on 10/13/16 08:48; Admin Dose 300 MG; Start 10/01/16 at 09:00 Ferrous Sulfate (Ferrous Sulfate (Ec)) 325 mg DAILY PO Last administered on 08:48; Admin Dose 325 MG; Start 10/01/16 at 09:00 Losartan Potassium (Cozaar) 50 mg DAILY PO Last administered on 10/13/16 08:49 ; Admin Dose 50 MG; Start 10/01/16 at 09:00 Spironolactone (Aldactone) 25 mg DAILY PO Last administered on 10/13/16 08:48 ; Admin Dose 25 MG; Start 10/01/16 at 09:00 Morphine Sulfate (morphine) 4 mg Q4H PRN IV PAIN LEVEL 4-7 Last administered on 10/03/16 08:34; Admin Dose 4 MG; Start 10/01/16 at 06:30 Simethicone (Mylicon) 80 mg TID PRN PO DISTENSION/GAS/BLOATING Last administered on 10/01/16 09:39; Admin Dose 80 MG; Start 10/01/16 at 09:00 Acetaminophen (Tylenol Tab) 650 mg Q4H PRN PO PAIN AND OR ELEVATED TEMP Last administered on 10/09/16 17:29; Admin Dose 650 MG; Start 10/04/16 at 23:00 Famotidine (Pepcid) 20 mg BID PO Last administered on 10/13/16 08:49; Admin Dose 20 MG; Start 10/06/16 at 21:00 Enoxaparin Sodium (Lovenox) 115 mg Q12 SC Last administered on 10/13/16 09:00 ; Admin Dose 115 MG; Start 10/07/16 at 21:00 Magnesium Chloride (Mag 64) 64 mg BID PO Last administered on 10/13/16 08:48; Admin Dose 64 MG; Start 10/08/16 at 21:00 Trimethoprim/ Sulfamethoxazole (Bactrim (Ds)) 1 tab BID PO Last administered on 10/13/16 08:48; Admin Dose 1 TAB; Start 10/10/16 at 21:00 Mexiletine HCl (Mexitil) 150 mg Q8 PO Last administered on 10/13/16 14:21; Admin Dose 150 MG; Start 10/11/16 at 16:30 Metoprolol Tartrate (Lopressor) 150 mg BID PO Last administered on 10/13/16 08 :49; Admin Dose 150 MG; Start 10/11/16 at 21:00 Amiodarone HCl (Cordarone) 200 mg BID PO Last administered on 10/13/16 14:01; Admin Dose 200 MG; Start 10/12/16 at 21:00 Nate Butlre DO Oct 13, 2016 18:25
--- NOTE | 2016-10-13 18:46 | PN ---
Date/Time of Note Date/Time of Note DATE: 10/13/16 TIME: 18:44 Assessment/Plan VTE Prophylaxis VTE Prophylaxis Intervention: SCD's Lines/Catheters IV C[facility]ter Type (from [facility] Saline Lock Urinary Cath still in place: No Assessment/Plan Chief Complaint/Hosp Course Assessment and plan - Left cephalic and left basilic veins thrombosis, continue Lovenox. - Ventricular tachycardia status post ICD firing, Dr. Butler is following in cardiology consultation. Continue p.o. amiodarone. Started on Mexitil, continue telemetry monitoring. - Elevated troponin secondary to #1. - Sepsis 2 to acute cholecystitis with gram-negative rods bacteremia. Dr. Persaud is following infection disease consultation. - Acute cholecystitis, continue antibiotics per ID. Status post evaluation by Dr. Vargas and general surgery consultation. Plan for laparoscopic cholecystectomy as an outpatient when patient cardiac condition improves. - Cardiomyopathy with ejection fraction 40%. Continue Coreg. - Coronary artery disease. Continue aspirin. - Hypertension, continue Cozaar. - Dyslipidemia, continue Lipitor. Further recommendations based on clinical course. Plan of care discussed with Dr. Duron. Problems: Subjective 24 Hr Interval Summary Free Text/Dictation Patient remains in sinus rhythm, paced at times, no episodes of V. tach. Patient tolerates current diet well. Exam/Review of Systems Vital Signs Vitals Vital Signs Date Time Temp Pulse Resp B/P Pulse Ox O2 Delivery O2 Flow Rate FiO2 10/13/16 16:14 62 10/13/16 15:15 98.6 18 118/59 93 10/13/16 12:20 2.0 10/11/16 18:00 Room Air Intake and Output 10/12/16 10/12/16 10/13/16 15:00 23:00 07:00 Intake Total 800 ml 240 ml Output Total 500 ml 350 ml Balance 300 ml -110 ml Exam Constitutional: alert, oriented Psych: no complaints Head: atraumatic, normocephalic Eyes: nl conjunctiva ENMT: nl external ears & nose Neck: non-tender, supple Respiratory: clear to auscultation, normal air movement Cardiovascular: nl pulses, regular rate and rhythm Gastrointestinal: non-tender, soft Musculoskeletal: nl extremities to inspection Extremities: normal pulses Neurological: [employer]IN[employer] II-XII intact Results Result Diagram: 10/13/1672410/13/16724 Results 24 hrs Laboratory Tests Test 10/13/16 07:25 White Blood Count 9.4 Red Blood Count 3.80 L Hemoglobin 11.7 L Hematocrit 34.7 L Mean Corpuscular Volume 91.3 Mean Corpuscular Hemoglobin 30.8 Mean Corpuscular Hemoglobin Concent 33.7 Red Cell Distribution Width 14.1 Platelet Count 490 H Mean Platelet Volume 10.5 H Neutrophils % 79.0 H Lymphocytes % 11.4 L Monocytes % 6.8 Eosinophils % 1.0 Basophils % 0.5 Nucleated Red Blood Cells % 0.0 Neutrophils # 7.4 Lymphocytes # 1.1 Monocytes # 0.6 Eosinophils # 0.1 Basophils # 0.1 Nucleated Red Blood Cells # 0.0 Sodium Level 135 Potassium Level 4.6 Chloride Level 102 Carbon Dioxide Level 21 Anion Gap 17 H Blood Urea Nitrogen 18 Creatinine 1.33 H Glucose Level 100 Calcium Level 9.3 Magnesium Level 2.2 Medications Medications Current Medications Ondansetron HCl (Zofran Inj) 4 mg Q6H PRN IV NAUSEA AND/OR VOMITING; Start 09/30 at 22:30 Metoclopramide HCl (Reglan) 10 mg Q6H PRN IV NAUSEA AND/OR VOMITING; Start 09/30 at 22:30 Aspirin (Halfprin) 81 mg DAILY PO Last administered on 10/13/16 08:48; Admin Dose 81 MG; Start 10/01/16 at 09:00 Atorvastatin Calcium (Lipitor) 40 mg DAILY PO Last administered on 10/13/16 08 :48; Admin Dose 40 MG; Start 10/01/16 at 09:00 Docusate Sodium (Colace) 300 mg BID PO Last administered on 10/13/16 08:48; Admin Dose 300 MG; Start 10/01/16 at 09:00 Ferrous Sulfate (Ferrous Sulfate (Ec)) 325 mg DAILY PO Last administered on 08:48; Admin Dose 325 MG; Start 10/01/16 at 09:00 Losartan Potassium (Cozaar) 50 mg DAILY PO Last administered on 10/13/16 08:49 ; Admin Dose 50 MG; Start 10/01/16 at 09:00 Spironolactone (Aldactone) 25 mg DAILY PO Last administered on 10/13/16 08:48 ; Admin Dose 25 MG; Start 10/01/16 at 09:00 Morphine Sulfate (morphine) 4 mg Q4H PRN IV PAIN LEVEL 4-7 Last administered on 10/03/16 08:34; Admin Dose 4 MG; Start 10/01/16 at 06:30 Simethicone (Mylicon) 80 mg TID PRN PO DISTENSION/GAS/BLOATING Last administered on 10/01/16 09:39; Admin Dose 80 MG; Start 10/01/16 at 09:00 Acetaminophen (Tylenol Tab) 650 mg Q4H PRN PO PAIN AND OR ELEVATED TEMP Last administered on 10/09/16 17:29; Admin Dose 650 MG; Start 10/04/16 at 23:00 Famotidine (Pepcid) 20 mg BID PO Last administered on 10/13/16 08:49; Admin Dose 20 MG; Start 10/06/16 at 21:00 Enoxaparin Sodium (Lovenox) 115 mg Q12 SC Last administered on 10/13/16 09:00 ; Admin Dose 115 MG; Start 10/07/16 at 21:00 Magnesium Chloride (Mag 64) 64 mg BID PO Last administered on 10/13/16 08:48; Admin Dose 64 MG; Start 10/08/16 at 21:00 Trimethoprim/ Sulfamethoxazole (Bactrim (Ds)) 1 tab BID PO Last administered on 10/13/16 08:48; Admin Dose 1 TAB; Start 10/10/16 at 21:00 Mexiletine HCl (Mexitil) 150 mg Q8 PO Last administered on 10/13/16 14:21; Admin Dose 150 MG; Start 10/11/16 at 16:30 Metoprolol Tartrate (Lopressor) 150 mg BID PO Last administered on 10/13/16 08 :49; Admin Dose 150 MG; Start 10/11/16 at 21:00 Amiodarone HCl (Cordarone) 200 mg BID PO Last administered on 10/13/16 14:01; Admin Dose 200 MG; Start 10/12/16 at 21:00 ANGELI BLACKWELL Oct 13, 2016 18:46
[2016-10-14] VITALS (11 sets, daily range): BP systolic 114–140; BP diastolic 57–67; PULSE 60–67; RESP 16–20
[2016-10-14] MEDS: MEXILETINE 150 MG CAP PO SCH ×3 (05:34→21:42)
[2016-10-14] MEDS: MAGNESIUM CHLORIDE (SR) 64 MG TAB PO SCH ×2 (08:52→21:41)
[2016-10-14] MEDS: ATORVASTATIN 40 MG TAB PO SCH (08:52)
[2016-10-14] MEDS: FAMOTIDINE 20 MG TAB PO SCH ×2 (08:52→21:43)
[2016-10-14] MEDS: TRIMETHOPRIM/SULFAMETHOX (DS) TAB PO SCH ×2 (08:52→21:42)
[2016-10-14] MEDS: ASPIRIN (EC) 81 MG TAB PO SCH (08:52)
[2016-10-14] MEDS: FERROUS SULFATE (EC) 325 MG TAB PO SCH (08:52)
[2016-10-14] MEDS: DOCUSATE SODIUM 100 MG CAP PO SCH ×2 (08:52→21:43)
[2016-10-14] MEDS: SPIRONOLACTONE 25 MG TAB PO SCH (08:52)
[2016-10-14] MEDS: AMIODARONE 200 MG TAB PO SCH ×2 (08:53→21:42)
[2016-10-14] MEDS: LOSARTAN 50 MG TAB PO SCH (08:53)
[2016-10-14] MEDS: METOPROLOL 100 MG TAB PO SCH ×2 (08:55→21:43)
[2016-10-14] MEDS: ENOXAPARIN 60 MG/0.6 ML SYG SC SCH ×2 (08:57→21:47)
--- NOTE | 2016-10-14 12:41 | CONS ---
Date/Time of Note Date/Time of Note DATE: 10/14/16 TIME: 12:40 Assessment/Plan Assessment/Plan Additional Assessment/Plan Ventricular tachycardia status post ICD firing Sepsis with acute cholecystitis Cardiomyopathy with ejection fraction 40% status post ICD Coronary artery disease Hypertension Dyslipidemia Left upper extremity cephalic and basilic superficial vein thrombosis -Patient tolerating current dose of beta-alejandro, amiodarone and mexiletine. Telemetry reviewed with no significant arrhythmias. Increase ambulation and activity. Check labs. Maintain potassium above 4.0 and magnesium above 2.0. DC planning Consultation Date/Type/Reason Admit Date/Time Sep 30, 2016 at 22:33 Type of Consultation: cv 24 HR Interval Summary Free Text/Dictation Patient ambulating in the room. Denies chest pain, shortness of breath or palpitations Exam/Review of Systems Vital Signs Vitals Vital Signs Date Time Temp Pulse Resp B/P Pulse Ox O2 Delivery O2 Flow Rate FiO2 10/14/16 12:08 67 10/14/16 11:05 97.5 18 116/57 96 10/14/16 00:35 2.0 10/11/16 18:00 Room Air Intake and Output 10/13/16 10/13/16 10/14/16 15:00 23:00 07:00 Intake Total 720 ml 500 ml Output Total 940 ml 900 ml Balance -220 ml -400 ml Exam No apparent distress Constitutional: alert, oriented Head: normocephalic Neck: supple Respiratory: clear to auscultation, normal air movement Cardiovascular: other (S1-S2 heard), regular rate and rhythm Gastrointestinal: bowel sounds, non-tender, other (No guarding), soft Extremities: other (No cyanosis or edema) Results Result Diagram: 10/13/1672410/13/16724 Medications Medications Current Medications Ondansetron HCl (Zofran Inj) 4 mg Q6H PRN IV NAUSEA AND/OR VOMITING; Start 09/30 at 22:30 Metoclopramide HCl (Reglan) 10 mg Q6H PRN IV NAUSEA AND/OR VOMITING; Start 09/30 at 22:30 Aspirin (Halfprin) 81 mg DAILY PO Last administered on 10/14/16t 08:52; Admin Dose 81 MG; Start 10/01/16 at 09:00 Atorvastatin Calcium (Lipitor) 40 mg DAILY PO Last administered on 10/14/16 08 :52; Admin Dose 40 MG; Start 10/01/16 at 09:00 Docusate Sodium (Colace) 300 mg BID PO Last administered on 10/14/16 08:52; Admin Dose 300 MG; Start 10/01/16 at 09:00 Ferrous Sulfate (Ferrous Sulfate (Ec)) 325 mg DAILY PO Last administered on 08:52; Admin Dose 325 MG; Start 10/01/16 at 09:00 Losartan Potassium (Cozaar) 50 mg DAILY PO Last administered on 10/14/16 08:53 ; Admin Dose 50 MG; Start 10/01/16 at 09:00 Spironolactone (Aldactone) 25 mg DAILY PO Last administered on 10/14/16 08:52 ; Admin Dose 25 MG; Start 10/01/16 at 09:00 Morphine Sulfate (morphine) 4 mg Q4H PRN IV PAIN LEVEL 4-7 Last administered on 10/03/16 08:34; Admin Dose 4 MG; Start 10/01/16 at 06:30 Simethicone (Mylicon) 80 mg TID PRN PO DISTENSION/GAS/BLOATING Last administered on 10/01/16 09:39; Admin Dose 80 MG; Start 10/01/16 at 09:00 Acetaminophen (Tylenol Tab) 650 mg Q4H PRN PO PAIN AND OR ELEVATED TEMP Last administered on 10/09/16 17:29; Admin Dose 650 MG; Start 10/04/16 at 23:00 Famotidine (Pepcid) 20 mg BID PO Last administered on 10/14/16 08:52; Admin Dose 20 MG; Start 10/06/16 at 21:00 Enoxaparin Sodium (Lovenox) 115 mg Q12 SC Last administered on 10/14/16 08:57 ; Admin Dose 115 MG; Start 10/07/16 at 21:00 Magnesium Chloride (Mag 64) 64 mg BID PO Last administered on 10/14/16 08:52; Admin Dose 64 MG; Start 10/08/16 at 21:00 Trimethoprim/ Sulfamethoxazole (Bactrim (Ds)) 1 tab BID PO Last administered on 10/14/16 08:52; Admin Dose 1 TAB; Start 10/10/16 at 21:00 Mexiletine HCl (Mexitil) 150 mg Q8 PO Last administered on 10/14/16 05:34; Admin Dose 150 MG; Start 10/11/16 at 16:30 Metoprolol Tartrate (Lopressor) 150 mg BID PO Last administered on 10/14/16 08 :55; Admin Dose 150 MG; Start 10/11/16 at 21:00 Amiodarone HCl (Cordarone) 200 mg BID PO Last administered on 10/14/16 08:53; Admin Dose 200 MG; Start 10/12/16 at 21:00 Nate Butler DO Oct 14, 2016 12:41
--- NOTE | 2016-10-14 18:09 | PN ---
Date/Time of Note Date/Time of Note DATE: 10/14/16 TIME: 18:04 Assessment/Plan VTE Prophylaxis VTE Prophylaxis Intervention: other Lines/Catheters IV [facility]from [facility] Saline Lock Urinary Cath still in place: No Assessment/Plan Assessment/Plan - Left cephalic and left basilic veins thrombosis, continue Lovenox. - Ventricular tachycardia status post ICD firing, Dr. Butler is following in cardiology consultation. Continue p.o. amiodarone. Started on Mexitil, continue telemetry monitoring. - Elevated troponin secondary to #1. - Sepsis 2 to acute cholecystitis with gram-negative rods bacteremia. Dr. Persaud is following infection disease consultation. - Acute cholecystitis, continue antibiotics per ID. Status post evaluation by Dr. Vargas and general surgery consultation. Plan for laparoscopic cholecystectomy as an outpatient when patient cardiac condition improves. - Cardiomyopathy with ejection fraction 40%. Continue Coreg. - Coronary artery disease. Continue aspirin. - Hypertension, continue Cozaar. - Dyslipidemia, continue Lipitor. Further recommendations based on clinical course. Plan of care discussed with Dr. Duron. Exam/Review of Systems Vital Signs Vitals Vital Signs Date Time Temp Pulse Resp B/P Pulse Ox O2 Delivery O2 Flow Rate FiO2 10/14/16 16:06 62 10/14/16 14:56 98.4 18 126/63 96 10/14/16 00:35 2.0 10/11/16 18:00 Room Air Intake and Output 10/13/16 10/13/16 10/14/16 15:00 23:00 07:00 Intake Total 720 ml 500 ml Output Total 940 ml 900 ml Balance -220 ml -400 ml Exam Constitutional: alert, well developed Psych: no complaints Eyes: EOMI, nl sclera ENMT: nl external ears & nose Respiratory: clear to auscultation Cardiovascular: nl pulses Gastrointestinal: non-tender, soft Musculoskeletal: nl extremities to inspection Extremities: normal pulses Lymph: nontender Results Result Diagram: 10/13/1672410/13/16724 Medications Medications Current Medications Ondansetron HCl (Zofran Inj) 4 mg Q6H PRN IV NAUSEA AND/OR VOMITING; Start 09/30 at 22:30 Metoclopramide HCl (Reglan) 10 mg Q6H PRN IV NAUSEA AND/OR VOMITING; Start 09/30 at 22:30 Aspirin (Halfprin) 81 mg DAILY PO Last administered on 10/14/16 08:52; Admin Dose 81 MG; Start 10/01/16 at 09:00 Atorvastatin Calcium (Lipitor) 40 mg DAILY PO Last administered on 10/14/16 08 :52; Admin Dose 40 MG; Start 10/01/16 at 09:00 Docusate Sodium (Colace) 300 mg BID PO Last administered on 10/14/16 08:52; Admin Dose 300 MG; Start 10/01/16 at 09:00 Ferrous Sulfate (Ferrous Sulfate (Ec)) 325 mg DAILY PO Last administered on 08:52; Admin Dose 325 MG; Start 10/01/16 at 09:00 Losartan Potassium (Cozaar) 50 mg DAILY PO Last administered on 10/14/16 08:53 ; Admin Dose 50 MG; Start 10/01/16 at 09:00 Spironolactone (Aldactone) 25 mg DAILY PO Last administered on 10/14/16 08:52 ; Admin Dose 25 MG; Start 10/01/16 at 09:00 Morphine Sulfate (morphine) 4 mg Q4H PRN IV PAIN LEVEL 4-7 Last administered on 10/03/16 08:34; Admin Dose 4 MG; Start 10/01/16 at 06:30 Simethicone (Mylicon) 80 mg TID PRN PO DISTENSION/GAS/BLOATING Last administered on 10/01/16 09:39; Admin Dose 80 MG; Start 10/01/16 at 09:00 Acetaminophen (Tylenol Tab) 650 mg Q4H PRN PO PAIN AND OR ELEVATED TEMP Last administered on 10/09/16 17:29; Admin Dose 650 MG; Start 10/04/16 at 23:00 Famotidine (Pepcid) 20 mg BID PO Last administered on 10/14/16 08:52; Admin Dose 20 MG; Start 10/06/16 at 21:00 Enoxaparin Sodium (Lovenox) 115 mg Q12 SC Last administered on 10/14/16 08:57 ; Admin Dose 115 MG; Start 10/07/16 at 21:00 Magnesium Chloride (Mag 64) 64 mg BID PO Last administered on 10/14/16 08:52; Admin Dose 64 MG; Start 10/08/16 at 21:00 Trimethoprim/ Sulfamethoxazole (Bactrim (Ds)) 1 tab BID PO Last administered on 10/14/16 08:52; Admin Dose 1 TAB; Start 10/10/16 at 21:00 Mexiletine HCl (Mexitil) 150 mg Q8 PO Last administered on 10/14/16 15:24; Admin Dose 150 MG; Start 10/11/16 at 16:30 Metoprolol Tartrate (Lopressor) 150 mg BID PO Last administered on 10/14/16 08 :55; Admin Dose 150 MG; Start 10/11/16 at 21:00 Amiodarone HCl (Cordarone) 200 mg BID PO Last administered on 10/14/16 08:53; Admin Dose 200 MG; Start 10/12/16 at 21:00 RON GR Oct 14, 2016 18:09
[2016-10-14 19:08] LABS: ADD SCAN DIFF NO
[2016-10-14 19:11] LABS: BASOPHIL # 0.1 10^3/ul (0.0-0.1); BASOPHILS % 0.6 % (0.0-2.0); EOSINOPHILS # 0.1 10^3/ul (0.0-0.5); HEMATOCRIT 35.7 % (42.0-52.0); HEMOGLOBIN 12.1 g/dl (14.0-18.0); LYMPHOCYTES # 1.2 10^3/ul (0.8-2.9); LYMPHOCYTES % 12.8 % (15.0-51.0); MEAN CORPUSCULAR HEMOGLOBIN 31.3 pg (29.0-33.0); MEAN CORPUSCULAR HGB CONC 33.9 g/dl (32.0-37.0); MEAN CORPUSCULAR VOLUME 92.5 fl (82.0-101.0); MEAN PLATELET VOLUME 10.4 fl (7.4-10.4); MONOCYTE # 0.6 10^3/ul (0.3-0.9); MONOCYTES % 6.5 % (0.0-11.0); NEUTROPHIL # 7.3 10^3/ul (1.6-7.5); NEUTROPHILS % 78.1 % (39.0-77.0); PLATELET COUNT 515 10^3/UL (140-415); RED BLOOD COUNT 3.86 10^6/ul (4.70-6.10); WHITE BLOOD COUNT 9.4 10^3/ul (4.8-10.8)
[2016-10-15] VITALS (12 sets, daily range): BP systolic 120–144; BP diastolic 57–70; PULSE 57–72; RESP 16–20
[2016-10-15] MEDS: MEXILETINE 150 MG CAP PO SCH ×3 (05:51→21:01)
[2016-10-15 06:13] LABS: ADD SCAN DIFF NO
[2016-10-15 06:35] LABS: BASOPHIL # 0.1 10^3/ul (0.0-0.1); BASOPHILS % 0.8 % (0.0-2.0); EOSINOPHILS # 0.1 10^3/ul (0.0-0.5); EOSINOPHILS % 1.2 % (0.0-7.0); HEMATOCRIT 35.9 % (42.0-52.0); HEMOGLOBIN 11.9 g/dl (14.0-18.0); LYMPHOCYTES # 0.9 10^3/ul (0.8-2.9); LYMPHOCYTES % 11.2 % (15.0-51.0); MEAN CORPUSCULAR HEMOGLOBIN 30.8 pg (29.0-33.0); MEAN CORPUSCULAR HGB CONC 33.1 g/dl (32.0-37.0); MEAN PLATELET VOLUME 10.3 fl (7.4-10.4); MONOCYTE # 0.6 10^3/ul (0.3-0.9); MONOCYTES % 6.6 % (0.0-11.0); NEUTROPHIL # 6.6 10^3/ul (1.6-7.5); NEUTROPHILS % 79.4 % (39.0-77.0); PLATELET COUNT 459 10^3/UL (140-415); RED BLOOD COUNT 3.86 10^6/ul (4.70-6.10); RED CELL DISTRIBUTION WIDTH 14.2 % (11.5-14.5); WHITE BLOOD COUNT 8.3 10^3/ul (4.8-10.8)
[2016-10-15 06:52] LABS: POTASSIUM 4.8 mmol/L (3.5-5.1)
[2016-10-15 06:54] LABS: CREATININE 1.62 mg/dl (0.61-1.24)
[2016-10-15 06:55] LABS: CALCIUM 9.5 mg/dl (8.4-10.2)
[2016-10-15] MEDS: MAGNESIUM CHLORIDE (SR) 64 MG TAB PO SCH ×2 (08:39→21:03)
[2016-10-15] MEDS: ASPIRIN (EC) 81 MG TAB PO SCH (08:40)
[2016-10-15] MEDS: FAMOTIDINE 20 MG TAB PO SCH ×2 (08:40→21:03)
[2016-10-15] MEDS: LOSARTAN 50 MG TAB PO SCH (08:40)
[2016-10-15] MEDS: TRIMETHOPRIM/SULFAMETHOX (DS) TAB PO SCH (08:40)
[2016-10-15] MEDS: FERROUS SULFATE (EC) 325 MG TAB PO SCH (08:40)
[2016-10-15] MEDS: ATORVASTATIN 40 MG TAB PO SCH (08:40)
[2016-10-15] MEDS: SPIRONOLACTONE 25 MG TAB PO SCH (08:40)
[2016-10-15] MEDS: METOPROLOL 100 MG TAB PO SCH ×2 (08:40→21:02)
[2016-10-15] MEDS: DOCUSATE SODIUM 100 MG CAP PO SCH ×2 (08:41→21:03)
[2016-10-15] MEDS: ENOXAPARIN 60 MG/0.6 ML SYG SC SCH ×2 (08:42→22:42)
[2016-10-15] MEDS: AMIODARONE 200 MG TAB PO SCH ×2 (09:25→21:02)
--- NOTE | 2016-10-15 15:23 | CONS ---
Date/Time of Note Date/Time of Note DATE: 10/15/16 TIME: 15:22 Assessment/Plan Assessment/Plan Additional Assessment/Plan Ventricular tachycardia status post ICD firing Sepsis with acute cholecystitis Cardiomyopathy with ejection fraction 40% status post ICD Coronary artery disease Hypertension Dyslipidemia Left upper extremity cephalic and basilic superficial vein thrombosis -Patient tolerating current dose of beta-alejandro, amiodarone and mexiletine. Telemetry reviewed with no significant arrhythmias. Increase ambulation and activity. Creatinine is rising, would monitor and if continues to rise, would hold ARB and possibly Aldactone. Consultation Date/Type/Reason Admit Date/Time Sep 30, 2016 at 22:33 Type of Consultation: cv 24 HR Interval Summary Free Text/Dictation Feeling better, denies chest pain, shortness of breath or palpitations or dizziness. Still complains of fatigue Exam/Review of Systems Vital Signs Vitals Vital Signs Date Time Temp Pulse Resp B/P Pulse Ox O2 Delivery O2 Flow Rate FiO2 10/15/16 12:37 57 10/15/16 11:12 98.1 18 137/65 96 10/15/16 06:07 2.0 10/11/16 18:00 Room Air Intake and Output 10/14/16 10/14/16 10/15/16 15:00 23:00 07:00 Intake Total 720 ml 500 ml Output Total 900 ml 1000 ml Balance -180 ml -500 ml Exam No apparent distress Constitutional: alert, oriented Head: normocephalic Neck: supple Respiratory: other (Coarse breath sounds bilaterally, no wheezing) Cardiovascular: other (S1-S2), regular rate and rhythm Gastrointestinal: bowel sounds, non-tender, other (No guarding), soft Extremities: other (No edema or cyanosis) Results Result Diagram: 10/15/16 0535 10/15/16 0535 Results 24 hrs Laboratory Tests Test 10/14/16 18:50 10/15/16 05:35 White Blood Count 9.4 8.3 Red Blood Count 3.86 L 3.86 L Hemoglobin 12.1 L 11.9 L Hematocrit 35.7 L 35.9 L Mean Corpuscular Volume 92.5 93.0 Mean Corpuscular Hemoglobin 31.3 30.8 Mean Corpuscular Hemoglobin Concent 33.9 33.1 Red Cell Distribution Width 14.0 14.2 Platelet Count 515 H 459 H Mean Platelet Volume 10.4 10.3 Neutrophils % 78.1 H 79.4 H Lymphocytes % 12.8 L 11.2 L Monocytes % 6.5 6.6 Eosinophils % 1.0 1.2 Basophils % 0.6 0.8 Nucleated Red Blood Cells % 0.0 0.0 Neutrophils # 7.3 6.6 Lymphocytes # 1.2 0.9 Monocytes # 0.6 0.6 Eosinophils # 0.1 0.1 Basophils # 0.1 0.1 Nucleated Red Blood Cells # 0.0 0.0 Sodium Level 136 Potassium Level 4.8 Chloride Level 102 Carbon Dioxide Level 20 L Anion Gap 19 H Blood Urea Nitrogen 21 H Creatinine 1.62 H Glucose Level 109 Calcium Level 9.5 Magnesium Level 2.3 Medications Medications Current Medications Ondansetron HCl (Zofran Inj) 4 mg Q6H PRN IV NAUSEA AND/OR VOMITING; Start 09/30 at 22:30 Metoclopramide HCl (Reglan) 10 mg Q6H PRN IV NAUSEA AND/OR VOMITING; Start 09/30 at 22:30 Aspirin (Halfprin) 81 mg DAILY PO Last administered on 10/15/16 08:40; Admin Dose 81 MG; Start 10/01/16 at 09:00 Atorvastatin Calcium (Lipitor) 40 mg DAILY PO Last administered on 10/15/16 08 :40; Admin Dose 40 MG; Start 10/01/16 at 09:00 Docusate Sodium (Colace) 300 mg BID PO Last administered on 10/15/16 08:41; Admin Dose 300 MG; Start 10/01/16 at 09:00 Ferrous Sulfate (Ferrous Sulfate (Ec)) 325 mg DAILY PO Last administered on 08:40; Admin Dose 325 MG; Start 10/01/16 at 09:00 Losartan Potassium (Cozaar) 50 mg DAILY PO Last administered on 10/15/16 08:40 ; Admin Dose 50 MG; Start 10/01/16 at 09:00 Spironolactone (Aldactone) 25 mg DAILY PO Last administered on 10/15/16 08:40 ; Admin Dose 25 MG; Start 10/01/16 at 09:00 Morphine Sulfate (morphine) 4 mg Q4H PRN IV PAIN LEVEL 4-7 Last administered on 10/03/16 08:34; Admin Dose 4 MG; Start 10/01/16 at 06:30 Simethicone (Mylicon) 80 mg TID PRN PO DISTENSION/GAS/BLOATING Last administered on 10/01/16 09:39; Admin Dose 80 MG; Start 10/01/16 at 09:00 Acetaminophen (Tylenol Tab) 650 mg Q4H PRN PO PAIN AND OR ELEVATED TEMP Last administered on 10/09/16 17:29; Admin Dose 650 MG; Start 10/04/16 at 23:00 Famotidine (Pepcid) 20 mg BID PO Last administered on 10/15/16 08:40; Admin Dose 20 MG; Start 10/06/16 at 21:00 Enoxaparin Sodium (Lovenox) 115 mg Q12 SC Last administered on 10/15/16 08:42 ; Admin Dose 115 MG; Start 10/07/16 at 21:00 Magnesium Chloride (Mag 64) 64 mg BID PO Last administered on 10/15/16 08:39; Admin Dose 64 MG; Start 10/08/16 at 21:00 Mexiletine HCl (Mexitil) 150 mg Q8 PO Last administered on 10/15/16 14:35; Admin Dose 150 MG; Start 10/11/16 at 16:30 Metoprolol Tartrate (Lopressor) 150 mg BID PO Last administered on 10/15/16 08 :40; Admin Dose 150 MG; Start 10/11/16 at 21:00 Amiodarone HCl (Cordarone) 200 mg BID PO Last administered on 10/15/16 09:25; Admin Dose 200 MG; Start 10/12/16 at 21:00 Nate Butler DO Oct 15, 2016 15:23
--- NOTE | 2016-10-15 16:04 | PN ---
Date/Time of Note Date/Time of Note DATE: 10/15/16 TIME: 15:59 Assessment/Plan VTE Prophylaxis VTE Prophylaxis Intervention: SCD's Lines/Catheters IV C[facility]ter Type (from [facility]): Saline Lock Urinary Cath still in place: No Assessment/Plan Chief Complaint/Hosp Course Assessment and plan -Slow increase in creatinine, Dr. Wheat will be following patient in nephrology consultation. - Left cephalic and left basilic veins thrombosis, continue Lovenox. - Ventricular tachycardia status post ICD firing, Dr. Butler is following in cardiology consultation. Continue p.o. amiodarone, metoprolol and Mexitil per cardiology, continue telemetry monitoring. - Elevated troponin secondary to #1. - Sepsis 2 to acute cholecystitis with gram-negative rods bacteremia. Dr. Persaud is following infection disease consultation. - Acute cholecystitis, continue antibiotics per ID. Status post evaluation by Dr. Vargas and general surgery consultation. Plan for laparoscopic cholecystectomy as an outpatient when patient cardiac condition improves. - Cardiomyopathy with ejection fraction 40%. - Coronary artery disease. Continue aspirin. - Hypertension, continue Cozaar. - Dyslipidemia, continue Lipitor. Further recommendations based on clinical course. Plan of care discussed with Dr. Duron. Problems: Subjective 24 Hr Interval Summary Free Text/Dictation Patient looks comfortable, no episodes of V. tach per telemetry monitoring, patient is currently in sinus rhythm, patient denies any dysuria denies nausea vomiting, complaints of left hand swelling secondary to small hematoma. Patient denies any abdominal pain, tolerates diet well. Exam/Review of Systems Vital Signs Vitals Vital Signs Date Time Temp Pulse Resp B/P Pulse Ox O2 Delivery O2 Flow Rate FiO2 10/15/16 15:33 98.0 64 18 129/57 97 10/15/16 06:07 2.0 10/11/16 18:00 Room Air Intake and Output 10/14/16 10/14/16 10/15/16 15:00 23:00 07:00 Intake Total 720 ml 500 ml Output Total 900 ml 1000 ml Balance -180 ml -500 ml Exam Constitutional: alert, oriented Psych: no complaints Head: atraumatic, normocephalic Eyes: nl conjunctiva ENMT: nl external ears & nose Neck: non-tender, supple Respiratory: clear to auscultation, normal air movement Cardiovascular: nl pulses, regular rate and rhythm Gastrointestinal: non-tender, soft Musculoskeletal: nl extremities to inspection Extremities: normal pulses Neurological: [employer] II-XII intact Results Result Diagram: 10/15/16 0535 10/15/16 0535 Results 24 hrs Laboratory Tests Test 10/14/16 18:50 10/15/16 05:35 White Blood Count 9.4 8.3 Red Blood Count 3.86 L 3.86 L Hemoglobin 12.1 L 11.9 L Hematocrit 35.7 L 35.9 L Mean Corpuscular Volume 92.5 93.0 Mean Corpuscular Hemoglobin 31.3 30.8 Mean Corpuscular Hemoglobin Concent 33.9 33.1 Red Cell Distribution Width 14.0 14.2 Platelet Count 515 H 459 H Mean Platelet Volume 10.4 10.3 Neutrophils % 78.1 H 79.4 H Lymphocytes % 12.8 L 11.2 L Monocytes % 6.5 6.6 Eosinophils % 1.0 1.2 Basophils % 0.6 0.8 Nucleated Red Blood Cells % 0.0 0.0 Neutrophils # 7.3 6.6 Lymphocytes # 1.2 0.9 Monocytes # 0.6 0.6 Eosinophils # 0.1 0.1 Basophils # 0.1 0.1 Nucleated Red Blood Cells # 0.0 0.0 Sodium Level 136 Potassium Level 4.8 Chloride Level 102 Carbon Dioxide Level 20 L Anion Gap 19 H Blood Urea Nitrogen 21 H Creatinine 1.62 H Glucose Level 109 Calcium Level 9.5 Magnesium Level 2.3 Medications Medications Current Medications Ondansetron HCl (Zofran Inj) 4 mg Q6H PRN IV NAUSEA AND/OR VOMITING; Start 09/30 at 22:30 Metoclopramide HCl (Reglan) 10 mg Q6H PRN IV NAUSEA AND/OR VOMITING; Start 09/30 at 22:30 Aspirin (Halfprin) 81 mg DAILY PO Last administered on 10/15/16 08:40; Admin Dose 81 MG; Start 10/01/16 at 09:00 Atorvastatin Calcium (Lipitor) 40 mg DAILY PO Last administered on 10/15/16 08 :40; Admin Dose 40 MG; Start 10/01/16 at 09:00 Docusate Sodium (Colace) 300 mg BID PO Last administered on 10/15/16 08:41; Admin Dose 300 MG; Start 10/01/16 at 09:00 Ferrous Sulfate (Ferrous Sulfate (Ec)) 325 mg DAILY PO Last administered on 08:40; Admin Dose 325 MG; Start 10/01/16 at 09:00 Losartan Potassium (Cozaar) 50 mg DAILY PO Last administered on 10/15/16 08:40 ; Admin Dose 50 MG; Start 10/01/16 at 09:00 Spironolactone (Aldactone) 25 mg DAILY PO Last administered on 10/15/16 08:40 ; Admin Dose 25 MG; Start 10/01/16 at 09:00 Morphine Sulfate (morphine) 4 mg Q4H PRN IV PAIN LEVEL 4-7 Last administered on 10/03/16 08:34; Admin Dose 4 MG; Start 10/01/16 at 06:30 Simethicone (Mylicon) 80 mg TID PRN PO DISTENSION/GAS/BLOATING Last administered on 10/01/16 09:39; Admin Dose 80 MG; Start 10/01/16 at 09:00 Acetaminophen (Tylenol Tab) 650 mg Q4H PRN PO PAIN AND OR ELEVATED TEMP Last administered on 10/09/16 17:29; Admin Dose 650 MG; Start 10/04/16 at 23:00 Famotidine (Pepcid) 20 mg BID PO Last administered on 10/15/16 08:40; Admin Dose 20 MG; Start 10/06/16 at 21:00 Enoxaparin Sodium (Lovenox) 115 mg Q12 SC Last administered on 10/15/16 08:42 ; Admin Dose 115 MG; Start 10/07/16 at 21:00 Magnesium Chloride (Mag 64) 64 mg BID PO Last administered on 10/15/16 08:39; Admin Dose 64 MG; Start 10/08/16 at 21:00 Mexiletine HCl (Mexitil) 150 mg Q8 PO Last administered on 10/15/16 14:35; Admin Dose 150 MG; Start 10/11/16 at 16:30 Metoprolol Tartrate (Lopressor) 150 mg BID PO Last administered on 10/15/16 08 :40; Admin Dose 150 MG; Start 10/11/16 at 21:00 Amiodarone HCl (Cordarone) 200 mg BID PO Last administered on 10/15/16 09:25; Admin Dose 200 MG; Start 10/12/16 at 21:00 ANGELI BLACKWELL Oct 15, 2016 16:04
[2016-10-16] VITALS (11 sets, daily range): BP systolic 118–138; BP diastolic 58–72; PULSE 58–68; RESP 18–20
[2016-10-16] MEDS: MEXILETINE 150 MG CAP PO SCH ×3 (06:41→23:13)
[2016-10-16 07:41] LABS: ADD SCAN DIFF NO
[2016-10-16 07:43] LABS: BASOPHIL # 0.1 10^3/ul (0.0-0.1); BASOPHILS % 0.9 % (0.0-2.0); EOSINOPHILS # 0.1 10^3/ul (0.0-0.5); EOSINOPHILS % 1.5 % (0.0-7.0); HEMATOCRIT 37.4 % (42.0-52.0); HEMOGLOBIN 12.5 g/dl (14.0-18.0); LYMPHOCYTES # 1.7 10^3/ul (0.8-2.9); LYMPHOCYTES % 19.2 % (15.0-51.0); MEAN CORPUSCULAR HGB CONC 33.4 g/dl (32.0-37.0); MEAN CORPUSCULAR VOLUME 92.8 fl (82.0-101.0); MEAN PLATELET VOLUME 10.4 fl (7.4-10.4); MONOCYTE # 0.7 10^3/ul (0.3-0.9); MONOCYTES % 7.9 % (0.0-11.0); NEUTROPHILS % 69.2 % (39.0-77.0); PLATELET COUNT 509 10^3/UL (140-415); RED BLOOD COUNT 4.03 10^6/ul (4.70-6.10); WHITE BLOOD COUNT 8.7 10^3/ul (4.8-10.8)
[2016-10-16 07:55] LABS: POTASSIUM 4.5 mmol/L (3.5-5.1)
[2016-10-16 07:57] LABS: BILIRUBIN,INDIRECT 0.4 mg/dl (0-1.1); BILIRUBIN,TOTAL 0.4 mg/dl (0.2-1.3); CREATININE 1.72 mg/dl (0.61-1.24)
[2016-10-16 07:58] LABS: ALBUMIN/GLOBULIN RATIO 0.9; CALCIUM 9.6 mg/dl (8.4-10.2); TOTAL PROTEIN 8.4 g/dl (6.1-8.1)
[2016-10-16] MEDS: DOCUSATE SODIUM 100 MG CAP PO SCH ×2 (09:33→20:45)
[2016-10-16] MEDS: ASPIRIN (EC) 81 MG TAB PO SCH (09:33)
[2016-10-16] MEDS: MAGNESIUM CHLORIDE (SR) 64 MG TAB PO SCH ×2 (09:33→20:45)
[2016-10-16] MEDS: FERROUS SULFATE (EC) 325 MG TAB PO SCH (09:33)
[2016-10-16] MEDS: FAMOTIDINE 20 MG TAB PO SCH ×2 (09:33→20:55)
[2016-10-16] MEDS: AMIODARONE 200 MG TAB PO SCH ×2 (09:34→20:50)
[2016-10-16] MEDS: METOPROLOL 100 MG TAB PO SCH ×2 (09:34→20:51)
[2016-10-16] MEDS: ATORVASTATIN 40 MG TAB PO SCH (09:35)
[2016-10-16] MEDS: LOSARTAN 50 MG TAB PO SCH (09:35)
[2016-10-16 09:45] LABS: ADD UMIC NO; URINE BILIRUBIN (Dip) NEGATIVE (NEGATIVE); URINE BLOOD (Dip) NEGATIVE (NEGATIVE); URINE COLOR LT. YELLOW (YELLOW); URINE GLUCOSE (Dip) NEGATIVE (NEGATIVE); URINE KETONES (Dip) NEGATIVE (NEGATIVE); URINE LEUKOCYTE ESTERASE (Dip) NEGATIVE (NEGATIVE); URINE NITRITE (Dip) NEGATIVE (NEGATIVE); URINE TOTAL PROTEIN (Dip) NEGATIVE (NEGATIVE); URINE UROBILINOGEN (Dip) 0.2 E.U./dL (0.1-1.0)
[2016-10-16] MEDS: ENOXAPARIN 60 MG/0.6 ML SYG SC SCH ×2 (10:18→20:48)
--- NOTE | 2016-10-16 10:27 | PN ---
Date/Time of Note Date/Time of Note DATE: 10/16/16 TIME: 10:26 Assessment/Plan VTE Prophylaxis VTE Prophylaxis Intervention: SCD's Lines/Catheters IV [facility] Type (from [facility]): Saline Lock Urinary Cath still in place: No Assessment/Plan Assessment/Plan Ventricular tachycardia status post ICD firing Sepsis with acute cholecystitis Cardiomyopathy with ejection fraction 40% status post ICD Coronary artery disease Hypertension Dyslipidemia Left upper extremity cephalic and basilic superficial vein thrombosis -Patient tolerating current dose of beta-alejandro, amiodarone and mexiletine. Telemetry reviewed with no significant arrhythmias. Increase ambulation and activity. Creatinine is rising, would monitor and if continues to rise, would hold ARB and possibly Aldactone. -no recurrent VT -no further cardiac testing and no new meds necessary Subjective 24 Hr Interval Summary Free Text/Dictation The patient with no cahnge Exam/Review of Systems Vital Signs Vitals Vital Signs Date Time Temp Pulse Resp B/P Pulse Ox O2 Delivery O2 Flow Rate FiO2 10/16/16 08:33 68 10/16/16 08:17 21 10/16/16 04:34 98.0 20 130/72 96 10/15/16 06:07 2.0 Intake and Output 10/15/16 10/15/16 10/16/16 15:00 23:00 07:00 Intake Total 950 ml 720 ml Output Total 600 ml 800 ml Balance 350 ml -80 ml Results Result Diagram: 10/16/16 0611 10/16/16 0611 Results 24 hrs Laboratory Tests Test 10/16/16 01:00 10/16/16 06:00 10/16/16 06:11 Urine Osmolality 783 Urine Random Sodium 66 Magnesium Level 2.3 White Blood Count 8.7 Red Blood Count 4.03 L Hemoglobin 12.5 L Hematocrit 37.4 L Mean Corpuscular Volume 92.8 Mean Corpuscular Hemoglobin 31.0 Mean Corpuscular Hemoglobin Concent 33.4 Red Cell Distribution Width 14.0 Platelet Count 509 H Mean Platelet Volume 10.4 Neutrophils % 69.2 Lymphocytes % 19.2 Monocytes % 7.9 Eosinophils % 1.5 Basophils % 0.9 Nucleated Red Blood Cells % 0.0 Neutrophils # 6.0 Lymphocytes # 1.7 Monocytes # 0.7 Eosinophils # 0.1 Basophils # 0.1 Nucleated Red Blood Cells # 0.0 Sodium Level 132 L Potassium Level 4.5 Chloride Level 101 Carbon Dioxide Level 19 L Anion Gap 17 H Blood Urea Nitrogen 24 H Creatinine 1.72 H Glucose Level 144 Calcium Level 9.6 Total Bilirubin 0.4 Direct Bilirubin 0.00 Indirect Bilirubin 0.4 Aspartate Amino Transf (AST/SGOT) 55 H Alanine Aminotransferase (ALT/SGPT) 58 Alkaline Phosphatase 111 Total Protein 8.4 H Albumin 4.0 Globulin 4.40 H Albumin/Globulin Ratio 0.90 Medications Medications Current Medications Ondansetron HCl (Zofran Inj) 4 mg Q6H PRN IV NAUSEA AND/OR VOMITING; Start 09/30 at 22:30 Metoclopramide HCl (Reglan) 10 mg Q6H PRN IV NAUSEA AND/OR VOMITING; Start 09/30 at 22:30 Aspirin (Halfprin) 81 mg DAILY PO Last administered on 10/16/16 09:33; Admin Dose 81 MG; Start 10/01/16 at 09:00 Atorvastatin Calcium (Lipitor) 40 mg DAILY PO Last administered on 10/16/16 09 :35; Admin Dose 40 MG; Start 10/01/16 at 09:00 Docusate Sodium (Colace) 300 mg BID PO Last administered on 10/16/16 09:33; Admin Dose 300 MG; Start 10/01/16 at 09:00 Ferrous Sulfate (Ferrous Sulfate (Ec)) 325 mg DAILY PO Last administered on 09:33; Admin Dose 325 MG; Start 10/01/16 at 09:00 Losartan Potassium (Cozaar) 50 mg DAILY PO Last administered on 10/16/16 09:35 ; Admin Dose 50 MG; Start 10/01/16 at 09:00 Morphine Sulfate (morphine) 4 mg Q4H PRN IV PAIN LEVEL 4-7 Last administered on 10/03/16 08:34; Admin Dose 4 MG; Start 10/01/16 at 06:30 Simethicone (Mylicon) 80 mg TID PRN PO DISTENSION/GAS/BLOATING Last administered on 10/01/16 09:39; Admin Dose 80 MG; Start 10/01/16 at 09:00 Acetaminophen (Tylenol Tab) 650 mg Q4H PRN PO PAIN AND OR ELEVATED TEMP Last administered on 10/09/16 17:29; Admin Dose 650 MG; Start 10/04/16 at 23:00 Famotidine (Pepcid) 20 mg BID PO Last administered on 10/16/16 09:33; Admin Dose 20 MG; Start 10/06/16 at 21:00 Enoxaparin Sodium (Lovenox) 115 mg Q12 SC Last administered on 10/16/16 10:18 ; Admin Dose 115 MG; Start 10/07/16 at 21:00 Magnesium Chloride (Mag 64) 64 mg BID PO Last administered on 10/16/16 09:33; Admin Dose 64 MG; Start 10/08/16 at 21:00 Mexiletine HCl (Mexitil) 150 mg Q8 PO Last administered on 10/16/16 06:41; Admin Dose 150 MG; Start 10/11/16 at 16:30 Metoprolol Tartrate (Lopressor) 150 mg BID PO Last administered on 10/16/16 09 :34; Admin Dose 150 MG; Start 10/11/16 at 21:00 Amiodarone HCl (Cordarone) 200 mg BID PO Last administered on 10/16/16 09:34; Admin Dose 200 MG; Start 10/12/16 at 21:00 RHIANNON BERGER MD Oct 16, 2016 10:27
--- NOTE | 2016-10-16 11:44 | PN ---
Date/Time of Note Date/Time of Note DATE: 10/16/16 TIME: 11:43 Assessment/Plan VTE Prophylaxis VTE Prophylaxis Intervention: other Lines/Catheters IV C[facility]ter Type (from [facility] Saline Lock Urinary Cath still in place: No Assessment/Plan Assessment/Plan -Slow increase in creatinine, Dr. Wheat will be following patient in nephrology consultation. - Left cephalic and left basilic veins thrombosis, continue Lovenox. - Ventricular tachycardia status post ICD firing, Dr. Butler is following in cardiology consultation. Continue p.o. amiodarone, metoprolol and Mexitil per cardiology, continue telemetry monitoring. - Elevated troponin secondary to #1. - Sepsis 2 to acute cholecystitis with gram-negative rods bacteremia. Dr. Persaud is following infection disease consultation. - Acute cholecystitis, continue antibiotics per ID. Status post evaluation by Dr. Vargas and general surgery consultation. Plan for laparoscopic cholecystectomy as an outpatient when patient cardiac condition improves. - Cardiomyopathy with ejection fraction 40%. - Coronary artery disease. Continue aspirin. - Hypertension, continue Cozaar. - Dyslipidemia, continue Lipitor. Further recommendations based on clinical course. Plan of care discussed with Dr. Duron. Subjective 24 Hr Interval Summary Constitutional: other (GENERELIZED WEAKNESS) Eyes: no complaints ENT: no complaints Respiratory: no complaints Cardiovascular: no complaints Gastrointestinal: no complaints Genitourinary: no complaints Musculoskeletal: no complaints Skin: no complaints Neurologic: no complaints Endocrine: no complaints Lymphatic: no complaints Exam/Review of Systems Vital Signs Vitals Vital Signs Date Time Temp Pulse Resp B/P Pulse Ox O2 Delivery O2 Flow Rate FiO2 10/16/16 08:33 68 10/16/16 08:17 21 10/16/16 04:34 98.0 20 130/72 96 10/15/16 06:07 2.0 Intake and Output 10/15/16 10/15/16 10/16/16 15:00 23:00 07:00 Intake Total 950 ml 720 ml Output Total 600 ml 800 ml Balance 350 ml -80 ml Exam Constitutional: alert, oriented, well developed Psych: nl mood/affect Head: atraumatic Eyes: EOMI, nl sclera ENMT: nl external ears & nose Neck: non-tender Respiratory: clear to auscultation Cardiovascular: nl pulses Gastrointestinal: non-tender, soft Musculoskeletal: nl extremities to inspection Extremities: normal pulses Neurological: nl mental status, nl speech Skin: nl turgor Lymph: nl lymph nodes Results Result Diagram: 10/16/16 0611 10/16/16 0611 Results 24 hrs Laboratory Tests Test 10/16/16 01:00 10/16/16 06:00 10/16/16 06:11 Urine Color LT. YELLOW Urine Clarity CLEAR Urine pH 6.0 Urine Specific Patterson 1.025 Urine Ketones NEGATIVE Urine Nitrite NEGATIVE Urine Bilirubin NEGATIVE Urine Urobilinogen 0.2 E.U./dL Urine Leukocyte Esterase NEGATIVE Urine Hemoglobin NEGATIVE Urine Osmolality 783 Urine Random Sodium 66 Urine Glucose NEGATIVE Urine Total Protein NEGATIVE Magnesium Level 2.3 White Blood Count 8.7 Red Blood Count 4.03 L Hemoglobin 12.5 L Hematocrit 37.4 L Mean Corpuscular Volume 92.8 Mean Corpuscular Hemoglobin 31.0 Mean Corpuscular Hemoglobin Concent 33.4 Red Cell Distribution Width 14.0 Platelet Count 509 H Mean Platelet Volume 10.4 Neutrophils % 69.2 Lymphocytes % 19.2 Monocytes % 7.9 Eosinophils % 1.5 Basophils % 0.9 Nucleated Red Blood Cells % 0.0 Neutrophils # 6.0 Lymphocytes # 1.7 Monocytes # 0.7 Eosinophils # 0.1 Basophils # 0.1 Nucleated Red Blood Cells # 0.0 Sodium Level 132 L Potassium Level 4.5 Chloride Level 101 Carbon Dioxide Level 19 L Anion Gap 17 H Blood Urea Nitrogen 24 H Creatinine 1.72 H Glucose Level 144 Calcium Level 9.6 Total Bilirubin 0.4 Direct Bilirubin 0.00 Indirect Bilirubin 0.4 Aspartate Amino Transf (AST/SGOT) 55 H Alanine Aminotransferase (ALT/SGPT) 58 Alkaline Phosphatase 111 Total Protein 8.4 H Albumin 4.0 Globulin 4.40 H Albumin/Globulin Ratio 0.90 Medications Medications Current Medications Ondansetron HCl (Zofran Inj) 4 mg Q6H PRN IV NAUSEA AND/OR VOMITING; Start 09/30 at 22:30 Metoclopramide HCl (Reglan) 10 mg Q6H PRN IV NAUSEA AND/OR VOMITING; Start 09/30 at 22:30 Aspirin (Halfprin) 81 mg DAILY PO Last administered on 10/16/16 09:33; Admin Dose 81 MG; Start 10/01/16 at 09:00 Atorvastatin Calcium (Lipitor) 40 mg DAILY PO Last administered on 10/16/16 09 :35; Admin Dose 40 MG; Start 10/01/16 at 09:00 Docusate Sodium (Colace) 300 mg BID PO Last administered on 10/16/16 09:33; Admin Dose 300 MG; Start 10/01/16 at 09:00 Ferrous Sulfate (Ferrous Sulfate (Ec)) 325 mg DAILY PO Last administered on 09:33; Admin Dose 325 MG; Start 10/01/16 at 09:00 Losartan Potassium (Cozaar) 50 mg DAILY PO Last administered on 10/16/16 09:35 ; Admin Dose 50 MG; Start 10/01/16 at 09:00 Morphine Sulfate (morphine) 4 mg Q4H PRN IV PAIN LEVEL 4-7 Last administered on 10/03/16 08:34; Admin Dose 4 MG; Start 10/01/16 at 06:30 Simethicone (Mylicon) 80 mg TID PRN PO DISTENSION/GAS/BLOATING Last administered on 10/01/16 09:39; Admin Dose 80 MG; Start 10/01/16 at 09:00 Acetaminophen (Tylenol Tab) 650 mg Q4H PRN PO PAIN AND OR ELEVATED TEMP Last administered on 10/09/16 17:29; Admin Dose 650 MG; Start 10/04/16 at 23:00 Famotidine (Pepcid) 20 mg BID PO Last administered on 10/16/16 09:33; Admin Dose 20 MG; Start 10/06/16 at 21:00 Enoxaparin Sodium (Lovenox) 115 mg Q12 SC Last administered on 10/16/16 10:18 ; Admin Dose 115 MG; Start 10/07/16 at 21:00 Magnesium Chloride (Mag 64) 64 mg BID PO Last administered on 10/16/16 09:33; Admin Dose 64 MG; Start 10/08/16 at 21:00 Mexiletine HCl (Mexitil) 150 mg Q8 PO Last administered on 10/16/16 06:41; Admin Dose 150 MG; Start 10/11/16 at 16:30 Metoprolol Tartrate (Lopressor) 150 mg BID PO Last administered on 10/16/16 09 :34; Admin Dose 150 MG; Start 10/11/16 at 21:00 Amiodarone HCl (Cordarone) 200 mg BID PO Last administered on 10/16/16 09:34; Admin Dose 200 MG; Start 10/12/16 at 21:00 RON GR Oct 16, 2016 11:44
[2016-10-16] MEDS: DEXTROSE 5%-0.45% NACL 1,000 ML IV SCH (13:28)
[2016-10-17] VITALS (10 sets, daily range): BP systolic 130–145; BP diastolic 60–66; PULSE 60–69; RESP 18–19
[2016-10-17] MEDS: DEXTROSE 5%-0.45% NACL 1,000 ML IV SCH ×2 (04:40→21:30)
[2016-10-17] MEDS: MEXILETINE 150 MG CAP PO SCH ×3 (06:27→21:29)
[2016-10-17 06:40] LABS: ADD SCAN DIFF NO
[2016-10-17 06:44] LABS: BASOPHIL # 0.1 10^3/ul (0.0-0.1); EOSINOPHILS # 0.1 10^3/ul (0.0-0.5); EOSINOPHILS % 1.8 % (0.0-7.0); HEMATOCRIT 31.9 % (42.0-52.0); HEMOGLOBIN 10.5 g/dl (14.0-18.0); LYMPHOCYTES % 15.9 % (15.0-51.0); MEAN CORPUSCULAR HEMOGLOBIN 30.6 pg (29.0-33.0); MEAN CORPUSCULAR HGB CONC 32.9 g/dl (32.0-37.0); MEAN PLATELET VOLUME 9.9 fl (7.4-10.4); MONOCYTE # 0.6 10^3/ul (0.3-0.9); NEUTROPHIL # 4.4 10^3/ul (1.6-7.5); NEUTROPHILS % 70.5 % (39.0-77.0); PLATELET COUNT 367 10^3/UL (140-415); RED BLOOD COUNT 3.43 10^6/ul (4.70-6.10); RED CELL DISTRIBUTION WIDTH 14.2 % (11.5-14.5); WHITE BLOOD COUNT 6.3 10^3/ul (4.8-10.8)
[2016-10-17 06:50] LABS: POTASSIUM 4.8 mmol/L (3.5-5.1)
[2016-10-17 06:53] LABS: CALCIUM 9.1 mg/dl (8.4-10.2); CREATININE 1.44 mg/dl (0.61-1.24)
[2016-10-17] MEDS: FERROUS SULFATE (EC) 325 MG TAB PO SCH (08:29)
[2016-10-17] MEDS: MAGNESIUM CHLORIDE (SR) 64 MG TAB PO SCH ×2 (08:29→21:29)
[2016-10-17] MEDS: ASPIRIN (EC) 81 MG TAB PO SCH (08:29)
[2016-10-17] MEDS: DOCUSATE SODIUM 100 MG CAP PO SCH ×2 (08:29→20:41)
[2016-10-17] MEDS: FAMOTIDINE 20 MG TAB PO SCH ×2 (08:29→20:41)
[2016-10-17] MEDS: ATORVASTATIN 40 MG TAB PO SCH (08:30)
[2016-10-17] MEDS: METOPROLOL 100 MG TAB PO SCH ×2 (08:34→20:42)
[2016-10-17] MEDS: LOSARTAN 50 MG TAB PO SCH (08:34)
[2016-10-17] MEDS: AMIODARONE 200 MG TAB PO SCH ×2 (08:35→20:42)
[2016-10-17] MEDS: ENOXAPARIN 60 MG/0.6 ML SYG SC SCH ×2 (08:43→20:51)
--- NOTE | 2016-10-17 10:37 | PN ---
DATE: 10/17/2016 CARDIOLOGY PROGRESS NOTE SUBJECTIVE: The patient feels much better today. Reports that his energy is returning quickly and he is more able to walk around the room. OBJECTIVE: GENERAL: He is in no distress. VITAL SIGNS: Temperature 98, pulse 61, blood pressure 145/66. NECK: No jugular venous distention. LUNGS: Clear. CARDIAC: Regular rate and rhythm. ABDOMEN: Soft, nontender. EXTREMITIES: Reveal no edema. LABORATORY RESULTS: White count 6.3, hematocrit 31.9, platelet count 367. Sodium 134, potassium 4. 8, BUN 20, creatinine 1.4, improved from 1.72. CURRENT MEDICATIONS: 1. Amiodarone. 2. Saline at 60 mL an hour. 3. Metoprolol 150 mg b.i.d. 4. Mexiletine 150 mg t.i.d. 5. Lovenox. 6. Famotidine. 7. Aspirin. 8. Losartan. 9. Lipitor. TELEMETRY: No further episodes of ventricular tachycardia. ASSESSMENT AND PLAN: 1. Ventricular tachycardia, likely secondary to acute cholecystitis. It appears to be improving. 2. On Lovenox for left upper extremity cephalic and mesocephalic superficial thrombosis. 3. Renal function is improving, tolerating amiodarone, mexiletine, and metoprolol. Dictated By: JAMES SEVERINO/BARRON Conf#: [id number] DID#: [id number]
--- NOTE | 2016-10-17 13:04 | PN ---
Date/Time of Note Date/Time of Note DATE: 10/17/16 TIME: 13:02 Assessment/Plan VTE Prophylaxis VTE Prophylaxis Intervention: other Lines/Catheters [facility] Type [facility] Saline Lock Urinary Cath still in place: No Assessment/Plan Assessment/Plan -Slow increase in creatinine, Dr. Wheat will be following patient in nephrology consultation. - Left cephalic and left basilic veins thrombosis, continue Lovenox. - Ventricular tachycardia status post ICD firing, Dr. Butler is following in cardiology consultation. Continue p.o. amiodarone, metoprolol and Mexitil per cardiology, continue telemetry monitoring. - Elevated troponin secondary to #1. - Sepsis 2 to acute cholecystitis with gram-negative rods bacteremia. Dr. Persaud is following infection disease consultation. - Acute cholecystitis, continue antibiotics per ID. Status post evaluation by Dr. Vargas and general surgery consultation. Plan for laparoscopic cholecystectomy as an outpatient when patient cardiac condition improves. - Cardiomyopathy with ejection fraction 40%. - Coronary artery disease. Continue aspirin. - Hypertension, continue Cozaar. - Dyslipidemia, continue Lipitor. Further recommendations based on clinical course. Plan of care discussed with Dr. Duron. Subjective 24 Hr Interval Summary Constitutional: other (Generelized Weakness) Eyes: no complaints ENT: no complaints Respiratory: no complaints Cardiovascular: no complaints Gastrointestinal: no complaints Genitourinary: no complaints Musculoskeletal: no complaints Skin: no complaints Neurologic: no complaints Endocrine: no complaints Lymphatic: no complaints Exam/Review of Systems Vital Signs Vitals Vital Signs Date Time Temp Pulse Resp B/P Pulse Ox O2 Delivery O2 Flow Rate FiO2 10/17/16 12:00 64 10/17/16 11:54 97.4 18 137/65 96 10/17/16 08:43 Room Air 10/16/16 18:21 21 10/15/16 06:07 2.0 Intake and Output 10/16/16 10/16/16 10/17/16 15:00 23:00 07:00 Intake Total 1240 ml 660 ml Output Total 850 ml 1275 ml Balance 390 ml -615 ml Exam Constitutional: alert, oriented, well developed Psych: no complaints Eyes: EOMI ENMT: nl external ears & nose Neck: non-tender Respiratory: clear to auscultation Cardiovascular: nl pulses Gastrointestinal: non-tender, soft Musculoskeletal: nl extremities to inspection Neurological: nl mental status, nl speech Skin: nl turgor Lymph: nontender Results Result Diagram: 10/17/16 0605 10/17/16 0605 Results 24 hrs Laboratory Tests Test 10/17/16 06:05 White Blood Count 6.3 # Red Blood Count 3.43 L Hemoglobin 10.5 L Hematocrit 31.9 L Mean Corpuscular Volume 93.0 Mean Corpuscular Hemoglobin 30.6 Mean Corpuscular Hemoglobin Concent 32.9 Red Cell Distribution Width 14.2 Platelet Count 367 # Mean Platelet Volume 9.9 Neutrophils % 70.5 Lymphocytes % 15.9 Monocytes % 10.0 Eosinophils % 1.8 Basophils % 1.0 Nucleated Red Blood Cells % 0.0 Neutrophils # 4.4 Lymphocytes # 1.0 Monocytes # 0.6 Eosinophils # 0.1 Basophils # 0.1 Nucleated Red Blood Cells # 0.0 Sodium Level 134 L Potassium Level 4.8 Chloride Level 105 Carbon Dioxide Level 21 Anion Gap 13 Blood Urea Nitrogen 20 Creatinine 1.44 H Glucose Level 120 Calcium Level 9.1 Medications Medications Current Medications Ondansetron HCl (Zofran Inj) 4 mg Q6H PRN IV NAUSEA AND/OR VOMITING; Start 09/30 at 22:30 Metoclopramide HCl (Reglan) 10 mg Q6H PRN IV NAUSEA AND/OR VOMITING; Start 09/30 at 22:30 Aspirin (Halfprin) 81 mg DAILY PO Last administered on 10/17/16 08:29; Admin Dose 81 MG; Start 10/01/16 at 09:00 Atorvastatin Calcium (Lipitor) 40 mg DAILY PO Last administered on 10/17/16 08 :30; Admin Dose 40 MG; Start 10/01/16 at 09:00 Docusate Sodium (Colace) 300 mg BID PO Last administered on 10/17/16 08:29; Admin Dose 300 MG; Start 10/01/16 at 09:00 Ferrous Sulfate (Ferrous Sulfate (Ec)) 325 mg DAILY PO Last administered on 08:29; Admin Dose 325 MG; Start 10/01/16 at 09:00 Losartan Potassium (Cozaar) 50 mg DAILY PO Last administered on 10/17/16 08:34 ; Admin Dose 50 MG; Start 10/01/16 at 09:00 Morphine Sulfate (morphine) 4 mg Q4H PRN IV PAIN LEVEL 4-7 Last administered on 10/03/16 08:34; Admin Dose 4 MG; Start 10/01/16 at 06:30 Simethicone (Mylicon) 80 mg TID PRN PO DISTENSION/GAS/BLOATING Last administered on 10/01/16 09:39; Admin Dose 80 MG; Start 10/01/16 at 09:00 Acetaminophen (Tylenol Tab) 650 mg Q4H PRN PO PAIN AND OR ELEVATED TEMP Last administered on 10/09/16 17:29; Admin Dose 650 MG; Start 10/04/16 at 23:00 Famotidine (Pepcid) 20 mg BID PO Last administered on 10/17/16 08:29; Admin Dose 20 MG; Start 10/06/16 at 21:00 Enoxaparin Sodium (Lovenox) 115 mg Q12 SC Last administered on 10/17/16 08:43 ; Admin Dose 115 MG; Start 10/07/16 at 21:00 Magnesium Chloride (Mag 64) 64 mg BID PO Last administered on 10/17/16 08:29; Admin Dose 64 MG; Start 10/08/16 at 21:00 Mexiletine HCl (Mexitil) 150 mg Q8 PO Last administered on 10/17/16 06:27; Admin Dose 150 MG; Start 10/11/16 at 16:30 Metoprolol Tartrate (Lopressor) 150 mg BID PO Last administered on 10/17/16 08 :34; Admin Dose 150 MG; Start 10/11/16 at 21:00 Amiodarone HCl 200 mg 200 mg BID PO Last administered on 10/17/16 08:35; Admin Dose 200 MG; Start 10/12/16 at 21:00 Dextrose/Sodium Chloride (D5-1/2ns) 1,000 ml @ 60 mls/hr [id number] IV Last administered on 10/17/16 04:40; Admin Dose 60 MLS/HR; Start 10/16/16 at 12:00 RON GR Oct 17, 2016 13:04
--- NOTE | 2016-10-17 17:28 | PN ---
Date/Time of Note Date/Time of Note DATE: 10/17/16 TIME: 17:23 Assessment/Plan VTE Prophylaxis VTE Prophylaxis Intervention: other Assessment/Plan Problems: (1) Renal insufficiency Status: Resolved (2) Ventricular tachycardia Status: Chronic (3) Non-ST elevation [place] (NSTEMI) Status: Acute Assessment/Plan acute cholecystitis sepsis Subjective 24 Hr Interval Summary Constitutional: no complaints Eyes: no complaints ENT: no complaints Respiratory: no complaints Cardiovascular: no complaints Gastrointestinal: pain Genitourinary: no complaints Exam/Review of Systems Vital Signs Vitals Vital Signs Date Time Temp Pulse Resp B/P Pulse Ox O2 Delivery O2 Flow Rate FiO2 10/17/16 16:00 61 10/17/16 15:00 97.7 18 130/60 99 10/17/16 08:43 Room Air 10/16/16 18:21 21 10/15/16 06:07 2.0 Intake and Output 10/16/16 10/16/16 10/17/16 15:00 23:00 07:00 Intake Total 1240 ml 660 ml Output Total 850 ml 1275 ml Balance 390 ml -615 ml Exam Constitutional: alert Psych: no complaints Head: normocephalic Neck: supple Respiratory: clear to auscultation, normal air movement Cardiovascular: regular rate and rhythm Gastrointestinal: soft, tender Extremities: normal pulses Results Result Diagram: 10/17/16 0605 10/17/16 0605 Results 24 hrs Laboratory Tests Test 10/17/16 06:05 White Blood Count 6.3 # Red Blood Count 3.43 L Hemoglobin 10.5 L Hematocrit 31.9 L Mean Corpuscular Volume 93.0 Mean Corpuscular Hemoglobin 30.6 Mean Corpuscular Hemoglobin Concent 32.9 Red Cell Distribution Width 14.2 Platelet Count 367 # Mean Platelet Volume 9.9 Neutrophils % 70.5 Lymphocytes % 15.9 Monocytes % 10.0 Eosinophils % 1.8 Basophils % 1.0 Nucleated Red Blood Cells % 0.0 Neutrophils # 4.4 Lymphocytes # 1.0 Monocytes # 0.6 Eosinophils # 0.1 Basophils # 0.1 Nucleated Red Blood Cells # 0.0 Sodium Level 134 L Potassium Level 4.8 Chloride Level 105 Carbon Dioxide Level 21 Anion Gap 13 Blood Urea Nitrogen 20 Creatinine 1.44 H Glucose Level 120 Calcium Level 9.1 Medications Medications Current Medications Ondansetron HCl (Zofran Inj) 4 mg Q6H PRN IV NAUSEA AND/OR VOMITING; Start 09/30 at 22:30 Metoclopramide HCl (Reglan) 10 mg Q6H PRN IV NAUSEA AND/OR VOMITING; Start 09/30 at 22:30 Aspirin (Halfprin) 81 mg DAILY PO Last administered on 10/17/16 08:29; Admin Dose 81 MG; Start 10/01/16 at 09:00 Atorvastatin Calcium (Lipitor) 40 mg DAILY PO Last administered on 10/17/16 08 :30; Admin Dose 40 MG; Start 10/01/16 at 09:00 Docusate Sodium (Colace) 300 mg BID PO Last administered on 10/17/16 08:29; Admin Dose 300 MG; Start 10/01/16 at 09:00 Ferrous Sulfate (Ferrous Sulfate (Ec)) 325 mg DAILY PO Last administered on 08:29; Admin Dose 325 MG; Start 10/01/16 at 09:00 Losartan Potassium (Cozaar) 50 mg DAILY PO Last administered on 10/17/16 08:34 ; Admin Dose 50 MG; Start 10/01/16 at 09:00 Morphine Sulfate (morphine) 4 mg Q4H PRN IV PAIN LEVEL 4-7 Last administered on 10/03/16 08:34; Admin Dose 4 MG; Start 10/01/16 at 06:30 Simethicone (Mylicon) 80 mg TID PRN PO DISTENSION/GAS/BLOATING Last administered on 10/01/16 09:39; Admin Dose 80 MG; Start 10/01/16 at 09:00 Acetaminophen (Tylenol Tab) 650 mg Q4H PRN PO PAIN AND OR ELEVATED TEMP Last administered on 10/09/16 17:29; Admin Dose 650 MG; Start 10/04/16 at 23:00 Famotidine (Pepcid) 20 mg BID PO Last administered on 10/17/16 08:29; Admin Dose 20 MG; Start 10/06/16 at 21:00 Enoxaparin Sodium (Lovenox) 115 mg Q12 SC Last administered on 10/17/16 08:43 ; Admin Dose 115 MG; Start 10/07/16 at 21:00 Magnesium Chloride (Mag 64) 64 mg BID PO Last administered on 10/17/16 08:29; Admin Dose 64 MG; Start 10/08/16 at 21:00 Mexiletine HCl (Mexitil) 150 mg Q8 PO Last administered on 10/17/16 14:00; Admin Dose 150 MG; Start 10/11/16 at 16:30 Metoprolol Tartrate (Lopressor) 150 mg BID PO Last administered on 10/17/16 08 :34; Admin Dose 150 MG; Start 10/11/16 at 21:00 Amiodarone HCl 200 mg 200 mg BID PO Last administered on 10/17/16 08:35; Admin Dose 200 MG; Start 10/12/16 at 21:00 Dextrose/Sodium Chloride (D5-1/2ns) 1,000 ml @ 60 mls/hr [id number] IV Last administered on 10/17/16 04:40; Admin Dose 60 MLS/HR; Start 10/16/16 at 12:00 SWAPNIL DOBBS MD Oct 17, 2016 17:28
[2016-10-18] VITALS (14 sets, daily range): BP systolic 99–145; BP diastolic 54–69; PULSE 50–72; RESP 18–20
[2016-10-18] MEDS: MEXILETINE 150 MG CAP PO SCH ×3 (05:54→21:22)
[2016-10-18 07:19] LABS: ADD SCAN DIFF NO
[2016-10-18 07:26] LABS: BASOPHIL # 0.1 10^3/ul (0.0-0.1); BASOPHILS % 1.1 % (0.0-2.0); EOSINOPHILS # 0.1 10^3/ul (0.0-0.5); EOSINOPHILS % 2.1 % (0.0-7.0); HEMATOCRIT 30.8 % (42.0-52.0); HEMOGLOBIN 10.2 g/dl (14.0-18.0); LYMPHOCYTES % 17.1 % (15.0-51.0); MEAN CORPUSCULAR HEMOGLOBIN 30.9 pg (29.0-33.0); MEAN CORPUSCULAR HGB CONC 33.1 g/dl (32.0-37.0); MEAN CORPUSCULAR VOLUME 93.3 fl (82.0-101.0); MEAN PLATELET VOLUME 10.2 fl (7.4-10.4); MONOCYTE # 0.5 10^3/ul (0.3-0.9); MONOCYTES % 9.2 % (0.0-11.0); NEUTROPHILS % 69.8 % (39.0-77.0); PLATELET COUNT 316 10^3/UL (140-415); RED CELL DISTRIBUTION WIDTH 14.2 % (11.5-14.5); WHITE BLOOD COUNT 5.7 10^3/ul (4.8-10.8)
[2016-10-18 07:43] LABS: POTASSIUM 4.1 mmol/L (3.5-5.1)
[2016-10-18 07:45] LABS: CREATININE 1.15 mg/dl (0.61-1.24)
[2016-10-18 07:46] LABS: CALCIUM 8.6 mg/dl (8.4-10.2)
[2016-10-18] MEDS: LOSARTAN 50 MG TAB PO SCH (09:24)
[2016-10-18] MEDS: ASPIRIN (EC) 81 MG TAB PO SCH (09:25)
[2016-10-18] MEDS: FAMOTIDINE 20 MG TAB PO SCH ×2 (09:25→21:22)
[2016-10-18] MEDS: FERROUS SULFATE (EC) 325 MG TAB PO SCH (09:25)
[2016-10-18] MEDS: MAGNESIUM CHLORIDE (SR) 64 MG TAB PO SCH ×2 (09:25→21:21)
[2016-10-18] MEDS: METOPROLOL 100 MG TAB PO SCH ×2 (09:25→21:23)
[2016-10-18] MEDS: AMIODARONE 200 MG TAB PO SCH ×2 (09:26→21:22)
[2016-10-18] MEDS: ATORVASTATIN 40 MG TAB PO SCH (09:27)
[2016-10-18] MEDS: DOCUSATE SODIUM 100 MG CAP PO SCH ×2 (09:27→21:21)
[2016-10-18] MEDS: ENOXAPARIN 60 MG/0.6 ML SYG SC SCH (09:36)
[2016-10-18] MEDS: DEXTROSE 5%-0.45% NACL 1,000 ML IV SCH (13:20)
--- NOTE | 2016-10-18 15:06 | CONS ---
Date/Time of Note Date/Time of Note DATE: 10/18/16 TIME: 15:05 Assessment/Plan Assessment/Plan Additional Assessment/Plan Ventricular tachycardia status post ICD firing Sepsis with acute cholecystitis Cardiomyopathy with ejection fraction 40% status post ICD Coronary artery disease Hypertension Dyslipidemia Left upper extremity cephalic and basilic superficial vein thrombosis -Patient tolerating current dose of beta-alejandro, amiodarone and mexiletine. Telemetry reviewed with no significant arrhythmias. Increase ambulation and activity. Renal function improving. DC planning Consultation Date/Type/Reason Admit Date/Time Sep 30, 2016 at 22:33 Type of Consultation: cv 24 HR Interval Summary Free Text/Dictation Continues to feel better. Denies chest pain, palpitations or dizziness Exam/Review of Systems Vital Signs Vitals Vital Signs Date Time Temp Pulse Resp B/P Pulse Ox O2 Delivery O2 Flow Rate FiO2 10/18/16 12:47 72 10/18/16 11:56 97.6 20 125/58 99 10/17/16 08:43 Room Air 10/16/16 18:21 21 10/15/16 06:07 2.0 Intake and Output 10/17/16 10/17/16 10/18/16 15:00 23:00 07:00 Intake Total 2800 ml 780 ml Output Total 1175 ml 800 ml Balance 1625 ml -20 ml Exam No apparent distress Constitutional: alert, oriented Head: normocephalic Neck: supple Respiratory: other (Coarse breath sounds bilaterally, no wheezing) Cardiovascular: other (S1-S2 heard), regular rate and rhythm Gastrointestinal: bowel sounds, non-tender, other, soft Extremities: other (No edema or cyanosis) Results Result Diagram: 10/18/16 0550 10/18/16 0550 Results 24 hrs Laboratory Tests Test 10/18/16 05:50 White Blood Count 5.7 Red Blood Count 3.30 L Hemoglobin 10.2 L Hematocrit 30.8 L Mean Corpuscular Volume 93.3 Mean Corpuscular Hemoglobin 30.9 Mean Corpuscular Hemoglobin Concent 33.1 Red Cell Distribution Width 14.2 Platelet Count 316 Mean Platelet Volume 10.2 Neutrophils % 69.8 Lymphocytes % 17.1 Monocytes % 9.2 Eosinophils % 2.1 Basophils % 1.1 Nucleated Red Blood Cells % 0.0 Neutrophils # 4.0 Lymphocytes # 1.0 Monocytes # 0.5 Eosinophils # 0.1 Basophils # 0.1 Nucleated Red Blood Cells # 0.0 Sodium Level 134 L Potassium Level 4.1 Chloride Level 105 Carbon Dioxide Level 19 L Anion Gap 14 Blood Urea Nitrogen 14 Creatinine 1.15 Glucose Level 110 Calcium Level 8.6 Medications Medications Current Medications Ondansetron HCl (Zofran Inj) 4 mg Q6H PRN IV NAUSEA AND/OR VOMITING; Start 09/30 at 22:30 Metoclopramide HCl (Reglan) 10 mg Q6H PRN IV NAUSEA AND/OR VOMITING; Start 09/30 at 22:30 Aspirin (Halfprin) 81 mg DAILY PO Last administered on 10/18/16 09:25; Admin Dose 81 MG; Start 10/01/16 at 09:00 Atorvastatin Calcium (Lipitor) 40 mg DAILY PO Last administered on 10/18/16 09 :27; Admin Dose 40 MG; Start 10/01/16 at 09:00 Docusate Sodium (Colace) 300 mg BID PO Last administered on 10/18/16 09:27; Admin Dose 300 MG; Start 10/01/16 at 09:00 Ferrous Sulfate (Ferrous Sulfate (Ec)) 325 mg DAILY PO Last administered on 09:25; Admin Dose 325 MG; Start 10/01/16 at 09:00 Losartan Potassium (Cozaar) 50 mg DAILY PO Last administered on 10/18/16 09:24 ; Admin Dose 50 MG; Start 10/01/16 at 09:00 Morphine Sulfate (morphine) 4 mg Q4H PRN IV PAIN LEVEL 4-7 Last administered on 10/03/16 08:34; Admin Dose 4 MG; Start 10/01/16 at 06:30 Simethicone (Mylicon) 80 mg TID PRN PO DISTENSION/GAS/BLOATING Last administered on 10/01/16 09:39; Admin Dose 80 MG; Start 10/01/16 at 09:00 Acetaminophen (Tylenol Tab) 650 mg Q4H PRN PO PAIN AND OR ELEVATED TEMP Last administered on 10/09/16 17:29; Admin Dose 650 MG; Start 10/04/16 at 23:00 Famotidine (Pepcid) 20 mg BID PO Last administered on 10/18/16 09:25; Admin Dose 20 MG; Start 10/06/16 at 21:00 Enoxaparin Sodium (Lovenox) 115 mg Q12 SC Last administered on 10/18/16 09:36 ; Admin Dose 115 MG; Start 10/07/16 at 21:00 Magnesium Chloride (Mag 64) 64 mg BID PO Last administered on 10/18/16 09:25; Admin Dose 64 MG; Start 10/08/16 at 21:00 Mexiletine HCl (Mexitil) 150 mg Q8 PO Last administered on 10/18/16 13:20; Admin Dose 150 MG; Start 10/11/16 at 16:30 Metoprolol Tartrate (Lopressor) 150 mg BID PO Last administered on 10/18/16 09 :25; Admin Dose 150 MG; Start 10/11/16 at 21:00 Amiodarone HCl 200 mg 200 mg BID PO Last administered on 10/18/16 09:26; Admin Dose 200 MG; Start 10/12/16 at 21:00 Dextrose/Sodium Chloride (D5-1/2ns) 1,000 ml @ 60 mls/hr [id number] IV Last administered on 10/18/16 13:20; Admin Dose 60 MLS/HR; Start 10/16/16 at 12:00 Nate Butler DO Oct 18, 2016 15:06
--- NOTE | 2016-10-18 16:44 | PN ---
Date/Time of Note Date/Time of Note DATE: 10/18/16 TIME: 16:34 Assessment/Plan VTE Prophylaxis VTE Prophylaxis Intervention: SCD's Lines/Catheters IV Catheter Type (from [facility] Peripheral IV Assessment/Plan Chief Complaint/Hosp Course Assessment and plan - Renal insufficiency, resolved. Dr. Wheat is following patient in nephrology consultation. - Left cephalic and left basilic veins thrombosis, continue Lovenox. - Ventricular tachycardia status post ICD firing, Dr. Butler is following in cardiology consultation. Continue p.o. amiodarone, metoprolol and Mexitil per cardiology, continue telemetry monitoring. - Elevated troponin secondary to #1. - Sepsis 2 to acute cholecystitis with gram-negative rods bacteremia. Dr. Persaud is following infection disease consultation. - Acute cholecystitis, continue antibiotics per ID. Status post evaluation by Dr. Vargas and general surgery consultation. Plan for laparoscopic cholecystectomy as an outpatient when patient cardiac condition improves. - Cardiomyopathy with ejection fraction 40%. - Coronary artery disease. Continue aspirin. - Hypertension, continue Cozaar. - Dyslipidemia, continue Lipitor. Patient stated that he has stairs at home, able to get out of bed and walk using a walker, however, he did not go up the stairs while in hospital, will order physical therapy to assess patient's with goals to prepare patient's to go home. Further recommendations based on clinical course. Plan of care discussed with Dr. Duron. Problems: Subjective 24 Hr Interval Summary Free Text/Dictation Patient is currently in sinus bradycardia sinus rhythm, no episodes of SVT, patient is able to tolerate a diet well, denies any abdominal pain. Patient is using walker able to get out of bed, however patient stated that he has a lot of stairs at home, and did not go up and down the stem's while in the hospital. Will obtain physical therapy evaluation with goal to prepare patient's to discharge home. Exam/Review of Systems Vital Signs Vitals Vital Signs Date Time Temp Pulse Resp B/P Pulse Ox O2 Delivery O2 Flow Rate FiO2 10/18/16 16:33 61 10/18/16 15:57 97.9 18 108/54 98 10/17/16 08:43 Room Air 10/16/16 18:21 21 10/15/16 06:07 2.0 Intake and Output 10/17/16 10/17/1617 15:00 23:00 07:00 Intake Total 2800 ml 780 ml Output Total 1175 ml 800 ml Balance 1625 ml -20 ml Exam Constitutional: alert, oriented Psych: no complaints Head: atraumatic, normocephalic Eyes: nl conjunctiva ENMT: nl external ears & nose Neck: non-tender, supple Respiratory: clear to auscultation, normal air movement Cardiovascular: nl pulses, regular rate and rhythm Gastrointestinal: non-tender, soft Musculoskeletal: nl extremities to inspection Extremities: normal pulses Neurological: CELLAR PACKER II-XII intact Results Result Diagram: 10/18/16 0550 10/18/16 0550 Results 24 hrs Laboratory Tests Test 10/18/16 05:50 White Blood Count 5.7 Red Blood Count 3.30 L Hemoglobin 10.2 L Hematocrit 30.8 L Mean Corpuscular Volume 93.3 Mean Corpuscular Hemoglobin 30.9 Mean Corpuscular Hemoglobin Concent 33.1 Red Cell Distribution Width 14.2 Platelet Count 316 Mean Platelet Volume 10.2 Neutrophils % 69.8 Lymphocytes % 17.1 Monocytes % 9.2 Eosinophils % 2.1 Basophils % 1.1 Nucleated Red Blood Cells % 0.0 Neutrophils # 4.0 Lymphocytes # 1.0 Monocytes # 0.5 Eosinophils # 0.1 Basophils # 0.1 Nucleated Red Blood Cells # 0.0 Sodium Level 134 L Potassium Level 4.1 Chloride Level 105 Carbon Dioxide Level 19 L Anion Gap 14 Blood Urea Nitrogen 14 Creatinine 1.15 Glucose Level 110 Calcium Level 8.6 Medications Medications Current Medications Ondansetron HCl (Zofran Inj) 4 mg Q6H PRN IV NAUSEA AND/OR VOMITING; Start 09/30 at 22:30 Metoclopramide HCl (Reglan) 10 mg Q6H PRN IV NAUSEA AND/OR VOMITING; Start 09/30 at 22:30 Aspirin (Halfprin) 81 mg DAILY PO Last administered on 10/18/16 09:25; Admin Dose 81 MG; Start 10/01/16 at 09:00 Atorvastatin Calcium (Lipitor) 40 mg DAILY PO Last administered on 10/18/16 09 :27; Admin Dose 40 MG; Start 10/01/16 at 09:00 Docusate Sodium (Colace) 300 mg BID PO Last administered on 10/18/16 09:27; Admin Dose 300 MG; Start 10/01/16 at 09:00 Ferrous Sulfate (Ferrous Sulfate (Ec)) 325 mg DAILY PO Last administered on 09:25; Admin Dose 325 MG; Start 10/01/16 at 09:00 Losartan Potassium (Cozaar) 50 mg DAILY PO Last administered on 10/18/16 09:24 ; Admin Dose 50 MG; Start 10/01/16 at 09:00 Morphine Sulfate (morphine) 4 mg Q4H PRN IV PAIN LEVEL 4-7 Last administered on 10/03/16 08:34; Admin Dose 4 MG; Start 10/01/16 at 06:30 Simethicone (Mylicon) 80 mg TID PRN PO DISTENSION/GAS/BLOATING Last administered on 10/01/16 09:39; Admin Dose 80 MG; Start 10/01/16 at 09:00 Acetaminophen (Tylenol Tab) 650 mg Q4H PRN PO PAIN AND OR ELEVATED TEMP Last administered on 10/09/16 17:29; Admin Dose 650 MG; Start 10/04/16 at 23:00 Famotidine (Pepcid) 20 mg BID PO Last administered on 10/18/16 09:25; Admin Dose 20 MG; Start 10/06/16 at 21:00 Enoxaparin Sodium (Lovenox) 115 mg Q12 SC Last administered on 10/18/16 09:36 ; Admin Dose 115 MG; Start 10/07/16 at 21:00 Magnesium Chloride (Mag 64) 64 mg BID PO Last administered on 10/18/16 09:25; Admin Dose 64 MG; Start 10/08/16 at 21:00 Mexiletine HCl (Mexitil) 150 mg Q8 PO Last administered on 10/18/16 13:20; Admin Dose 150 MG; Start 10/11/16 at 16:30 Metoprolol Tartrate (Lopressor) 150 mg BID PO Last administered on 10/18/16 09 :25; Admin Dose 150 MG; Start 10/11/16 at 21:00 Amiodarone HCl (Cordarone) 200 mg BID PO Last administered on 10/18/16 09:26; Admin Dose 200 MG; Start 10/12/16 at 21:00 ANGELI BLACKWELL Oct 18, 2016 16:44
--- NOTE | 2016-10-18 21:25 | CONS ---
Date/Time of Note Date/Time of Note DATE: 10/18/16 TIME: 21:23 Assessment/Plan Assessment/Plan Chief Complaint/Hosp Course May consider working up anemia Problems: Additional Assessment/Plan Will continue present Rx, pt is out of pickard from renal standpoint. Consultation Date/Type/Reason Admit Date/Time Sep 30, 2016 at 22:33 Initial Consult Date lethargic Type of Consultation: renal Exam/Review of Systems Vital Signs Vitals Vital Signs Date Time Temp Pulse Resp B/P Pulse Ox O2 Delivery O2 Flow Rate FiO2 10/18/16 20:53 65 10/18/16 19:49 98.8 20 143/69 98 10/17/16 08:43 Room Air 10/16/16 18:21 21 10/15/16 06:07 2.0 Intake and Output 10/17/16 10/17/16 10/18/16 15:00 23:00 07:00 Intake Total 2800 ml 780 ml Output Total 1175 ml 800 ml Balance 1625 ml -20 ml Exam Constitutional: alert, oriented, well developed Psych: nl mood/affect, no complaints Head: atraumatic, normocephalic Eyes: EOMI, PERRL, nl conjunctiva, nl lids, nl sclera ENMT: nl external ears & nose, nl lips & teeth, nl nasal mucosa & septum Neck: non-tender, supple Respiratory: clear to auscultation, normal air movement Cardiovascular: nl pulses, regular rate and rhythm Gastrointestinal: nl liver, spleen, non-tender, soft Musculoskeletal: nl extremities to inspection, nl gait and stance Extremities: normal pulses Neurological: FORM TAMPER II-XII intact, nl mental status, nl speech, nl strength Skin: nl turgor, No rash or lesions Lymph: nl lymph nodes Results Renal fn has improved Result Diagram: 10/18/16 0550 10/18/16 0550 Results 24 hrs Laboratory Tests Test 10/18/16 05:50 White Blood Count 5.7 Red Blood Count 3.30 L Hemoglobin 10.2 L Hematocrit 30.8 L Mean Corpuscular Volume 93.3 Mean Corpuscular Hemoglobin 30.9 Mean Corpuscular Hemoglobin Concent 33.1 Red Cell Distribution Width 14.2 Platelet Count 316 Mean Platelet Volume 10.2 Neutrophils % 69.8 Lymphocytes % 17.1 Monocytes % 9.2 Eosinophils % 2.1 Basophils % 1.1 Nucleated Red Blood Cells % 0.0 Neutrophils # 4.0 Lymphocytes # 1.0 Monocytes # 0.5 Eosinophils # 0.1 Basophils # 0.1 Nucleated Red Blood Cells # 0.0 Sodium Level 134 L Potassium Level 4.1 Chloride Level 105 Carbon Dioxide Level 19 L Anion Gap 14 Blood Urea Nitrogen 14 Creatinine 1.15 Glucose Level 110 Calcium Level 8.6 Medications Medications Current Medications Ondansetron HCl (Zofran Inj) 4 mg Q6H PRN IV NAUSEA AND/OR VOMITING; Start 09/30 at 22:30 Metoclopramide HCl (Reglan) 10 mg Q6H PRN IV NAUSEA AND/OR VOMITING; Start 09/30 at 22:30 Aspirin (Halfprin) 81 mg DAILY PO Last administered on 10/18/16 09:25; Admin Dose 81 MG; Start 10/01/16 at 09:00 Atorvastatin Calcium (Lipitor) 40 mg DAILY PO Last administered on 10/18/16 09 :27; Admin Dose 40 MG; Start 10/01/16 at 09:00 Docusate Sodium (Colace) 300 mg BID PO Last administered on 10/18/16 09:27; Admin Dose 300 MG; Start 10/01/16 at 09:00 Ferrous Sulfate (Ferrous Sulfate (Ec)) 325 mg DAILY PO Last administered on 09:25; Admin Dose 325 MG; Start 10/01/16 at 09:00 Losartan Potassium (Cozaar) 50 mg DAILY PO Last administered on 10/18/16 09:24 ; Admin Dose 50 MG; Start 10/01/16 at 09:00 Morphine Sulfate (morphine) 4 mg Q4H PRN IV PAIN LEVEL 4-7 Last administered on 10/03/16 08:34; Admin Dose 4 MG; Start 10/01/16 at 06:30 Simethicone (Mylicon) 80 mg TID PRN PO DISTENSION/GAS/BLOATING Last administered on 10/01/16 09:39; Admin Dose 80 MG; Start 10/01/16 at 09:00 Acetaminophen (Tylenol Tab) 650 mg Q4H PRN PO PAIN AND OR ELEVATED TEMP Last administered on 10/09/16 17:29; Admin Dose 650 MG; Start 10/04/16 at 23:00 Famotidine (Pepcid) 20 mg BID PO Last administered on 10/18/16 09:25; Admin Dose 20 MG; Start 10/06/16 at 21:00 Enoxaparin Sodium (Lovenox) 115 mg Q12 SC Last administered on 10/18/16 09:36 ; Admin Dose 115 MG; Start 10/07/16 at 21:00 Magnesium Chloride (Mag 64) 64 mg BID PO Last administered on 10/18/16 09:25; Admin Dose 64 MG; Start 10/08/16 at 21:00 Mexiletine HCl (Mexitil) 150 mg Q8 PO Last administered on 10/18/16 13:20; Admin Dose 150 MG; Start 10/11/16 at 16:30 Metoprolol Tartrate (Lopressor) 150 mg BID PO Last administered on 10/18/16 09 :25; Admin Dose 150 MG; Start 10/11/16 at 21:00 Amiodarone HCl (Cordarone) 200 mg BID PO Last administered on 10/18/16 09:26; Admin Dose 200 MG; Start 10/12/16 at 21:00 ABHIJEET MARIE MD Oct 18, 2016 21:25
[2016-10-19] VITALS (9 sets, daily range): BP systolic 120–132; BP diastolic 56–64; PULSE 54–62; RESP 17–20
[2016-10-19] MEDS: MEXILETINE 150 MG CAP PO SCH ×2 (05:58→13:49)
[2016-10-19 07:48] LABS: ADD SCAN DIFF NO
[2016-10-19 07:56] LABS: BASOPHIL # 0.1 10^3/ul (0.0-0.1); BASOPHILS % 1.3 % (0.0-2.0); EOSINOPHILS # 0.1 10^3/ul (0.0-0.5); EOSINOPHILS % 2.6 % (0.0-7.0); HEMATOCRIT 30.4 % (42.0-52.0); HEMOGLOBIN 10.3 g/dl (14.0-18.0); LYMPHOCYTES # 0.9 10^3/ul (0.8-2.9); LYMPHOCYTES % 19.4 % (15.0-51.0); MEAN CORPUSCULAR HEMOGLOBIN 31.7 pg (29.0-33.0); MEAN CORPUSCULAR HGB CONC 33.9 g/dl (32.0-37.0); MEAN CORPUSCULAR VOLUME 93.5 fl (82.0-101.0); MONOCYTE # 0.6 10^3/ul (0.3-0.9); MONOCYTES % 12.2 % (0.0-11.0); NEUTROPHILS % 64.3 % (39.0-77.0); PLATELET COUNT 300 10^3/UL (140-415); RED BLOOD COUNT 3.25 10^6/ul (4.70-6.10); RED CELL DISTRIBUTION WIDTH 14.2 % (11.5-14.5); WHITE BLOOD COUNT 4.7 10^3/ul (4.8-10.8)
[2016-10-19 08:23] LABS: CREATININE 1.08 mg/dl (0.61-1.24)
[2016-10-19 08:24] LABS: CALCIUM 8.9 mg/dl (8.4-10.2)
[2016-10-19] MEDS: METOPROLOL 100 MG TAB PO SCH (08:36)
[2016-10-19] MEDS: FERROUS SULFATE (EC) 325 MG TAB PO SCH (08:36)
[2016-10-19] MEDS: LOSARTAN 50 MG TAB PO SCH (08:36)
[2016-10-19] MEDS: DOCUSATE SODIUM 100 MG CAP PO SCH (08:36)
[2016-10-19] MEDS: ATORVASTATIN 40 MG TAB PO SCH (08:36)
[2016-10-19] MEDS: FAMOTIDINE 20 MG TAB PO SCH (08:36)
[2016-10-19] MEDS: ASPIRIN (EC) 81 MG TAB PO SCH (08:37)
[2016-10-19] MEDS: AMIODARONE 200 MG TAB PO SCH (08:37)
[2016-10-19] MEDS ORDERED: ENOXAPARIN 40 MG/0.4 ML SYG SC SCH (09:00)
[2016-10-19] MEDS: MAGNESIUM CHLORIDE (SR) 64 MG TAB PO SCH (10:44)
--- NOTE | 2016-10-19 16:46 | CONS ---
Date/Time of Note Date/Time of Note DATE: 10/19/16 TIME: 16:44 Assessment/Plan Assessment/Plan Additional Assessment/Plan Ventricular tachycardia status post ICD firing Sepsis with acute cholecystitis Cardiomyopathy with ejection fraction 40% status post ICD Coronary artery disease Hypertension Dyslipidemia Left upper extremity cephalic and basilic superficial vein thrombosis -Patient tolerating current dose of beta-alejandro, amiodarone and mexiletine. Case management looking into insurance coverage for all patients cardiac medications. Telemetry reviewed with no significant arrhythmias. Increase ambulation and activity. Renal function improving. DC planning Consultation Date/Type/Reason Admit Date/Time Sep 30, 2016 at 22:33 Type of Consultation: cv 24 HR Interval Summary Free Text/Dictation Patient denies chest pain, shortness of breath or palpitations. Ambulated today and feeling better Exam/Review of Systems Vital Signs Vitals Vital Signs Date Time Temp Pulse Resp B/P Pulse Ox O2 Delivery O2 Flow Rate FiO2 10/19/16 16:13 55 10/19/16 15:48 98.1 17 120/56 98 10/17/16 08:43 Room Air 10/16/16 18:21 21 Intake and Output 10/18/16 10/18/16 10/19/16 15:00 23:00 07:00 Intake Total 1560 ml 120 ml Output Total 1650 ml 600 ml Balance -90 ml -480 ml Exam No apparent distress Constitutional: alert, oriented Head: normocephalic Neck: supple Respiratory: clear to auscultation, normal air movement Cardiovascular: other (S1-S2 heard), regular rate and rhythm Gastrointestinal: bowel sounds, non-tender, other (No guarding), soft Extremities: other (No edema or cyanosis) Results Result Diagram: 10/19/16 0700 10/19/16 0700 Results 24 hrs Laboratory Tests Test 10/19/16 07:00 White Blood Count 4.7 L Red Blood Count 3.25 L Hemoglobin 10.3 L Hematocrit 30.4 L Mean Corpuscular Volume 93.5 Mean Corpuscular Hemoglobin 31.7 Mean Corpuscular Hemoglobin Concent 33.9 Red Cell Distribution Width 14.2 Platelet Count 300 Mean Platelet Volume 10.0 Neutrophils % 64.3 Lymphocytes % 19.4 Monocytes % 12.2 H Eosinophils % 2.6 Basophils % 1.3 Nucleated Red Blood Cells % 0.0 Neutrophils # 3.0 Lymphocytes # 0.9 Monocytes # 0.6 Eosinophils # 0.1 Basophils # 0.1 Nucleated Red Blood Cells # 0.0 Sodium Level 134 L Potassium Level 4.0 Chloride Level 106 Carbon Dioxide Level 20 L Anion Gap 12 Blood Urea Nitrogen 13 Creatinine 1.08 Glucose Level 93 Calcium Level 8.9 Medications Medications Current Medications Ondansetron HCl (Zofran Inj) 4 mg Q6H PRN IV NAUSEA AND/OR VOMITING; Start 09/30 at 22:30 Metoclopramide HCl (Reglan) 10 mg Q6H PRN IV NAUSEA AND/OR VOMITING; Start 09/30 at 22:30 Aspirin (Halfprin) 81 mg DAILY PO Last administered on 10/19/16 08:37; Admin Dose 81 MG; Start 10/01/16 at 09:00 Atorvastatin Calcium (Lipitor) 40 mg DAILY PO Last administered on 10/19/16 08 :36; Admin Dose 40 MG; Start 10/01/16 at 09:00 Docusate Sodium (Colace) 300 mg BID PO Last administered on 10/19/16 08:36; Admin Dose 300 MG; Start 10/01/16 at 09:00 Ferrous Sulfate (Ferrous Sulfate (Ec)) 325 mg DAILY PO Last administered on 08:36; Admin Dose 325 MG; Start 10/01/16 at 09:00 Losartan Potassium (Cozaar) 50 mg DAILY PO Last administered on 10/19/16 08:36 ; Admin Dose 50 MG; Start 10/01/16 at 09:00 Morphine Sulfate (morphine) 4 mg Q4H PRN IV PAIN LEVEL 4-7 Last administered on 10/03/16 08:34; Admin Dose 4 MG; Start 10/01/16 at 06:30 Simethicone (Mylicon) 80 mg TID PRN PO DISTENSION/GAS/BLOATING Last administered on 10/01/16 09:39; Admin Dose 80 MG; Start 10/01/16 at 09:00 Acetaminophen (Tylenol Tab) 650 mg Q4H PRN PO PAIN AND OR ELEVATED TEMP Last administered on 10/09/16 17:29; Admin Dose 650 MG; Start 10/04/16 at 23:00 Famotidine (Pepcid) 20 mg BID PO Last administered on 10/19/16 08:36; Admin Dose 20 MG; Start 10/06/16 at 21:00 Magnesium Chloride (Mag 64) 64 mg BID PO Last administered on 10/19/16 10:44; Admin Dose 64 MG; Start 10/08/16 at 21:00 Mexiletine HCl (Mexitil) 150 mg Q8 PO Last administered on 10/19/16 13:49; Admin Dose 150 MG; Start 10/11/16 at 16:30 Metoprolol Tartrate (Lopressor) 150 mg BID PO Last administered on 10/19/16 08 :36; Admin Dose 150 MG; Start 10/11/16 at 21:00 Amiodarone HCl (Cordarone) 200 mg BID PO Last administered on 10/19/16 08:37; Admin Dose 200 MG; Start 10/12/16 at 21:00 Enoxaparin Sodium (Lovenox) 40 mg DAILY SC Last administered on 10/19/16 08:37 ; Admin Dose 40 MG; Start 10/19/16 at 09:00 Nate Butler DO Oct 19, 2016 16:45
[2016-10-19] MEDS ORDERED: METO-407 PO (17:30)
[2016-10-19] MEDS ORDERED: LOSA50TA6 PO (17:30)
[2016-10-19] MEDS ORDERED: SLOMAG PO (17:30)
[2016-10-19] MEDS ORDERED: MEX150 PO (17:30)
[2016-10-19] MEDS ORDERED: AMIO200T2 PO (17:30)
--- NOTE | 2016-10-19 18:19 | PN ---
Date/Time of Note Date/Time of Note DATE: 10/19/16 TIME: 18:18 Assessment/Plan VTE Prophylaxis VTE Prophylaxis Intervention: SCD's Lines/Catheters IV Catheter Type (from [facility]): [facility] Assessment/Plan Chief Complaint/Hosp Course Assessment and plan - Renal insufficiency, resolved. Dr. Wheat is following patient in nephrology consultation. - Left cephalic and left basilic veins thrombosis, continue Lovenox. - Ventricular tachycardia status post ICD firing, Dr. Butler is following in cardiology consultation. Continue p.o. amiodarone, metoprolol and Mexitil per cardiology, continue telemetry monitoring. - Elevated troponin secondary to #1. - Sepsis 2 to acute cholecystitis with gram-negative rods bacteremia. Dr. Persaud is following infection disease consultation. - Acute cholecystitis, continue antibiotics per ID. Status post evaluation by Dr. Vargas and general surgery consultation. Plan for laparoscopic cholecystectomy as an outpatient when patient cardiac condition improves. - Cardiomyopathy with ejection fraction 40%. - Coronary artery disease. Continue aspirin. - Hypertension, continue Cozaar. - Dyslipidemia, continue Lipitor. D/C home with home health PT. Further recommendations based on clinical course. Plan of care discussed with Dr. Duron. Problems: Exam/Review of Systems Vital Signs Vitals Vital Signs Date Time Temp Pulse Resp B/P Pulse Ox O2 Delivery O2 Flow Rate FiO2 10/19/16 16:13 55 10/19/16 15:48 98.1 17 120/56 98 10/17/16 08:43 Room Air 10/16/16 18:21 21 Intake and Output 10/18/16 10/18/16 10/19/16 15:00 23:00 07:00 Intake Total 1560 ml 120 ml Output Total 1650 ml 600 ml Balance -90 ml -480 ml Exam Constitutional: alert, oriented Psych: no complaints Head: atraumatic, normocephalic Eyes: nl conjunctiva ENMT: nl external ears & nose Neck: non-tender, supple Respiratory: clear to auscultation, normal air movement Cardiovascular: nl pulses, regular rate and rhythm Gastrointestinal: non-tender, soft Musculoskeletal: nl extremities to inspection Extremities: normal pulses Neurological: QUALITY PROJECT MANAGER II-XII intact Results Result Diagram: 10/19/16 0700 10/19/16 0700 Results 24 hrs Laboratory Tests Test 10/19/16 07:00 White Blood Count 4.7 L Red Blood Count 3.25 L Hemoglobin 10.3 L Hematocrit 30.4 L Mean Corpuscular Volume 93.5 Mean Corpuscular Hemoglobin 31.7 Mean Corpuscular Hemoglobin Concent 33.9 Red Cell Distribution Width 14.2 Platelet Count 300 Mean Platelet Volume 10.0 Neutrophils % 64.3 Lymphocytes % 19.4 Monocytes % 12.2 H Eosinophils % 2.6 Basophils % 1.3 Nucleated Red Blood Cells % 0.0 Neutrophils # 3.0 Lymphocytes # 0.9 Monocytes # 0.6 Eosinophils # 0.1 Basophils # 0.1 Nucleated Red Blood Cells # 0.0 Sodium Level 134 L Potassium Level 4.0 Chloride Level 106 Carbon Dioxide Level 20 L Anion Gap 12 Blood Urea Nitrogen 13 Creatinine 1.08 Glucose Level 93 Calcium Level 8.9 Medications Medications Current Medications Ondansetron HCl (Zofran Inj) 4 mg Q6H PRN IV NAUSEA AND/OR VOMITING; Start 09/30 at 22:30 Metoclopramide HCl (Reglan) 10 mg Q6H PRN IV NAUSEA AND/OR VOMITING; Start 09/30 at 22:30 Aspirin (Halfprin) 81 mg DAILY PO Last administered on 10/19/16 08:37; Admin Dose 81 MG; Start 10/01/16 at 09:00 Atorvastatin Calcium (Lipitor) 40 mg DAILY PO Last administered on 10/19/16 08 :36; Admin Dose 40 MG; Start 10/01/16 at 09:00 Docusate Sodium (Colace) 300 mg BID PO Last administered on 10/19/16 08:36; Admin Dose 300 MG; Start 10/01/16 at 09:00 Ferrous Sulfate (Ferrous Sulfate (Ec)) 325 mg DAILY PO Last administered on 08:36; Admin Dose 325 MG; Start 10/01/16 at 09:00 Losartan Potassium (Cozaar) 50 mg DAILY PO Last administered on 10/19/16 08:36 ; Admin Dose 50 MG; Start 10/01/16 at 09:00 Morphine Sulfate (morphine) 4 mg Q4H PRN IV PAIN LEVEL 4-7 Last administered on 10/03/16 08:34; Admin Dose 4 MG; Start 10/01/16 at 06:30 Simethicone (Mylicon) 80 mg TID PRN PO DISTENSION/GAS/BLOATING Last administered on 10/01/16 09:39; Admin Dose 80 MG; Start 10/01/16 at 09:00 Acetaminophen (Tylenol Tab) 650 mg Q4H PRN PO PAIN AND OR ELEVATED TEMP Last administered on 10/09/16 17:29; Admin Dose 650 MG; Start 10/04/16 at 23:00 Famotidine (Pepcid) 20 mg BID PO Last administered on 10/19/16 08:36; Admin Dose 20 MG; Start 10/06/16 at 21:00 Magnesium Chloride (Mag 64) 64 mg BID PO Last administered on 10/19/16 10:44; Admin Dose 64 MG; Start 10/08/16 at 21:00 Mexiletine HCl (Mexitil) 150 mg Q8 PO Last administered on 10/19/16 13:49; Admin Dose 150 MG; Start 10/11/16 at 16:30 Metoprolol Tartrate (Lopressor) 150 mg BID PO Last administered on 10/19/16 08 :36; Admin Dose 150 MG; Start 10/11/16 at 21:00 Amiodarone HCl (Cordarone) 200 mg BID PO Last administered on 10/19/16 08:37; Admin Dose 200 MG; Start 10/12/16 at 21:00 Enoxaparin Sodium (Lovenox) 40 mg DAILY SC Last administered on 10/19/16 08:37 ; Admin Dose 40 MG; Start 10/19/16 at 09:00 ANGELI BLACKWELL Oct 19, 2016 18:19
--- NOTE | 2016-10-19 22:14 | CONS ---
Date/Time of Note Date/Time of Note DATE: 10/19/16 TIME: 22:11 Assessment/Plan Assessment/Plan Chief Complaint/Hosp Course May consider working up anemia Problems: Additional Assessment/Plan equested Iron studies to eval anemia Consultation Date/Type/Reason Admit Date/Time Sep 30, 2016 at 22:33 Initial Consult Date lethargic Type of Consultation: renal 24 HR Interval Summary Free Text/Dictation Much more alert & responsive Exam/Review of Systems Vital Signs Vitals Vital Signs Date Time Temp Pulse Resp B/P Pulse Ox O2 Delivery O2 Flow Rate FiO2 10/19/16 16:13 55 10/19/16 15:48 98.1 17 120/56 98 10/17/16 08:43 Room Air 10/16/16 18:21 21 Intake and Output 10/18/16 10/18/16 10/19/16 15:00 23:00 07:00 Intake Total 1560 ml 120 ml Output Total 1650 ml 600 ml Balance -90 ml -480 ml Exam Constitutional: alert, oriented, well developed Psych: nl mood/affect, no complaints Head: atraumatic, normocephalic Eyes: EOMI, PERRL, nl conjunctiva, nl lids, nl sclera ENMT: nl external ears & nose, nl lips & teeth, nl nasal mucosa & septum Neck: non-tender, supple Respiratory: clear to auscultation, normal air movement Cardiovascular: nl pulses, other (Chest wall defibrillator in place), regular rate and rhythm Gastrointestinal: nl liver, spleen, non-tender, soft Musculoskeletal: nl extremities to inspection, nl gait and stance Extremities: normal pulses Neurological: INSIDE SALES ACCOUNT REPRESENTATIVE II-XII intact, nl mental status, nl speech, nl strength Skin: nl turgor, No rash or lesions Lymph: nl lymph nodes Results Renal fn has improved Result Diagram: 10/19/16 0700 10/19/16 0700 Results 24 hrs Laboratory Tests Test 10/19/16 07:00 White Blood Count 4.7 L Red Blood Count 3.25 L Hemoglobin 10.3 L Hematocrit 30.4 L Mean Corpuscular Volume 93.5 Mean Corpuscular Hemoglobin 31.7 Mean Corpuscular Hemoglobin Concent 33.9 Red Cell Distribution Width 14.2 Platelet Count 300 Mean Platelet Volume 10.0 Neutrophils % 64.3 Lymphocytes % 19.4 Monocytes % 12.2 H Eosinophils % 2.6 Basophils % 1.3 Nucleated Red Blood Cells % 0.0 Neutrophils # 3.0 Lymphocytes # 0.9 Monocytes # 0.6 Eosinophils # 0.1 Basophils # 0.1 Nucleated Red Blood Cells # 0.0 Sodium Level 134 L Potassium Level 4.0 Chloride Level 106 Carbon Dioxide Level 20 L Anion Gap 12 Blood Urea Nitrogen 13 Creatinine 1.08 Glucose Level 93 Calcium Level 8.9 ABHIJEET MARIE MD Oct 19, 2016 22:14
== END 2016-10-19 19:00 | disposition home health service (06) | DRG 871 ==
LOC: E/R 20:19 → ICU 22:33 → TEL 10-03 19:10
PROVIDERS: ADMIT Internal Medicine; ATTEND Internal Medicine
DX: A41.53 Sepsis due to Serratia (principal); I21.4 Non-ST elevation (NSTEMI) myocardial infarction; I47.2 Ventricular tachycardia; N17.9 Acute kidney failure, unspecified; K81.0 Acute cholecystitis; D69.6 Thrombocytopenia, unspecified; J18.9 Pneumonia, unspecified organism; I42.9 Cardiomyopathy, unspecified; I82.612 Acute embolism and thrombosis of superficial veins of left upper extremity; N39.0 Urinary tract infection, site not specified; E78.5 Hyperlipidemia, unspecified; Z95.810 Presence of automatic (implantable) cardiac defibrillator; E87.6 Hypokalemia; Z85.46 Personal history of malignant neoplasm of prostate; I25.5 Ischemic cardiomyopathy; K52.9 Noninfective gastroenteritis and colitis, unspecified; R31.9 Hematuria, unspecified; E66.9 Obesity, unspecified; Z68.33 Body mass index [BMI] 33.0-33.9, adult; R65.20 Severe sepsis without septic shock
CPT/HCPCS: 36415; 71010; 74176; 78226; 80048; 80053; 80061; 81001; 81003; 82550; 82553; 83036; 83605; 83735; 83880; 83935; 84100; 84300; 84439; 84443; 84484; 85025; 85610; 85730; 87040; 87045; 87075; 87081; 87086; 93005; 93306; 93971; 96361; 96374; 96375; 96376; 97116; 97162; A9537; J0282; J0456; J0692; J0696; J1650; J2060; J2270; J3475; J3480; J7030; J7042; J7050; J7060

== ENCOUNTER 2016-11-02 14:59 | Emergency (ER) | payer BC, MEDICAID ==
[~2016-11-02] VITALS: Ht 177.8 cm; Wt 103.0 kg
[~2016-11-02 14:59] MED LIST changes: -ALFU10TA2 PO; -FLUT125C PO; -ISOS30TA5 PO; -MEGE400O2 PO; +METO-407 PO; -METO-448 PO; +MEX150 PO; +SLOMAG PO; -SPIR25TA PO
[2016-11-02 15:01] VITALS: Ht 177.8 cm; Wt 103.0 kg
== END 2016-11-02 16:50 | disposition left against medical advice (07) ==
LOC: E/R 14:59
DX: Z53.21 Procedure and treatment not carried out due to patient leaving prior to being seen by health care provider (principal)

== ENCOUNTER 2016-11-09 11:24 | Emergency (ER) | payer BC, MEDICAID ==
[~2016-11-09] VITALS: Ht 182.9 cm; Wt 90.0 kg
[2016-11-09 11:30] VITALS: Ht 182.9 cm; Wt 90.0 kg
--- NOTE | 2016-11-09 11:47 | ERA ---
ER Documentation Chief Complaint Date/Time DATE: 11/09/16 TIME: 11:45 Chief Complaint WEAKNESS,DIZZINESS,Pt VERBALIZED DEFIBRILATOR WENT OFF HPI The patient is a 66-year-old male, presenting to the ER because the defibrillator went off about 7:30 AM this morning. He had similar symptom in September 2016 when he was hospitalized. He came to the ER when his blood pressure was noticed to be low at triage. He complains of generalized weakness, denies syncope, near syncope, seizure, neck pain, chest pain, dyspnea. He had abdominal pain last night but denies any abdominal pain now, complains of constipation, denies dysuria. He does not smoke or drink Past medical history: Hypertension, dyslipidemia, history of left basilic and cephalic thrombosis, history of ventricular tachycardia, cardiomyopathy with low EF of 40%, CAD, hypertension, dyslipidemia, history of cholecystitis treated with antibiotic Past surgical history: AICD 4 years ago, left undescended testicle ROS All systems reviewed and are negative except as per history of present illness. Medications Home Meds Active Scripts Losartan Potassium* (Losartan Potassium*) 50 Mg Tablet, 50 MG PO DAILY for 30 Days, TAB Prov:ANGELI BLACKWELL 10/19/16 Amiodarone Hcl* (Amiodarone Hcl*) 200 Mg Tablet, 200 MG PO BID for 30 Days, TAB Prov:ANGELI BLACKWELL 10/19/16 Reported Medications Famotidine* (Famotidine*) 20 Mg Tablet, 20 MG PO DAILY, #30 TAB 11/09/16 Furosemide* (Furosemide*) 20 Mg Tablet, 20 MG PO DAILY, #60 TAB 11/09/16 Potassium Chloride* (Potassium Chloride*) 20 Meq Tablet.er, 20 MEQ PO DAILY, TAB.SA 11/09/16 Metoprolol Tartrate* (Lopressor*) 100 Mg Tablet, 100 MG PO BID, #60 TAB 11/09/16 Magnesium Chloride* (Mag-64*) 64 Mg Tablet.er, 64 MG PO BID, TAB 11/09/16 Mexiletine Hcl* (Mexiletine Hcl*) 150 Mg Capsule, 150 MG PO BID, CAP 11/09/16 Calcium Carbonate/Vitamin D3 (Calcium 600 + D Tablet) 1 Each Tablet, 1 EACH PO BID, TAB 07/30/15 Docusate Sodium* (Colace*) 100 Mg Capsule, 300 MG PO BID, #60 CAP 07/30/15 Ferrous Sulfate* (Ferrous Sulfate*) 325 Mg Tablet, 325 MG PO DAILY, TAB 07/30/15 Aspirin* (Aspirin* EC) 81 Mg Tablet.dr, 81 MG PO DAILY 07/12/13 Atorvastatin* (Atorvastatin*) 40 Mg Tablet, 40 MG PO DAILY 07/12/13 Discontinued Scripts Magnesium Chloride* (Mag 64*) 64 Mg Tabsr, 64 MG PO BID for 14 Days, TAB Prov:ANGELI BLACKWELL 10/19/16 Mexiletine Hcl* (Mexiletine Hcl*) 150 Mg Capsule, 150 MG PO Q8 for 30 Days, CAP Prov:ANGELI BLACKWELL 10/19/16 Metoprolol Tartrate* (Lopressor*) 100 Mg Tablet, 150 MG PO BID for 30 Days, TAB Prov:ANGELI BLACKWELL 10/19/16 Allergies Allergies: Coded Allergies: lisinopril (Verified Allergy, Severe, ANGIO EDEMA, 09/30/16) PMhx/Soc History of Surgery: Yes Anesthesia Reaction: No Hx Neurological Disorder: No Hx Respiratory Disorders: No Hx Cardiac Disorders: Yes Hx Psychiatric Problems: No Hx Miscellaneous Medical Probl: Yes (CHF,CAD,HTN,HYPERCHOLESTEROLEMIA,ICD PLACEMENT) Hx Alcohol Use: Yes (Daily wine) Hx Substance Use: No Hx Tobacco Use: Yes (No longer smoking) Physical Exam Vitals Vital Signs Date Time Temp Pulse Resp B/P Pulse Ox O2 Delivery O2 Flow Rate FiO2 11/09/16 17:15 98.2 79 20 105/71 98 Room Air 11/09/16 15:30 98.5 76 20 102/71 98 Room Air 11/09/16 14:09 85 20 105/64 98 Room Air 11/09/16 14:05 87 25 105/64 98 Room Air 11/09/16 12:10 89 29 79/53 95 Room Air 11/09/16 11:30 98.5 92 18 79/51 98 Physical Exam Const: No acute distress. Head: Atraumatic. Eyes: Normal Conjunctiva. ENT: Normal External Ears, Nose and Mouth. Neck: Full range of motion. No meningismus. Resp: Clear to auscultation bilaterally. Cardio: Regular rate and rhythm, no murmurs. Abd: Soft, non distended, normal bowel sounds, non tender. Skin: No petechiae or rashes. Back: No midline or flank tenderness. Ext: No cyanosis, or edema. Neur: Awake and alert. No focal deficit Psych: Normal Mood and Affect. Result Diagram: 11/09/16 1210 11/09/16 1210 Results 24 hrs Laboratory Tests Test 11/09/16 12:10 11/09/16 14:20 11/09/16 14:30 White Blood Count 10.610^3/ul Red Blood Count 3.2510^6/ul Hemoglobin 10.1g/dl Hematocrit 30.1% Mean Corpuscular Volume 92.6fl Mean Corpuscular Hemoglobin 31.1pg Mean Corpuscular Hemoglobin Concent 33.6g/dl Red Cell Distribution Width 13.9% Platelet Count 42231^3/UL Mean Platelet Volume 10.4fl Neutrophils % 81.0% Band Neutrophils % 11.0% Lymphocytes % 5.0% Monocytes % 3.0% Eosinophils % % Neutrophils # 8.610^3/ul Lymphocytes # 0.510^3/ul Monocytes # 0.310^3/ul Eosinophils # 10^3/ul Prothrombin Time 15.6Sec Prothrombin Time Ratio 1.2 INR International Normalized Ratio 1.23 Activated Partial Thromboplast Time 31.2Sec Sodium Level 133mmol/L Potassium Level 3.9mmol/L Chloride Level 100mmol/L Carbon Dioxide Level 22mmol/L Anion Gap 15 Blood Urea Nitrogen 20mg/dl Creatinine 2.50mg/dl Glucose Level 139mg/dl Lactic Acid Level 3.4mmol/L 1.9mmol/L Calcium Level 9.4mg/dl Magnesium Level 1.3mg/dl Total Bilirubin 1.2mg/dl Direct Bilirubin 0.70mg/dl Indirect Bilirubin 0.5mg/dl Aspartate Amino Transf (AST/SGOT) 454IU/L Alanine Aminotransferase (ALT/SGPT) 333IU/L Alkaline Phosphatase 600IU/L Troponin I 0.078ng/ml Total Protein 6.7g/dl Albumin 3.5g/dl Globulin 3.20g/dl Albumin/Globulin Ratio 1.09 Lipase 389U/L Bedside Urine pH (LAB) 6.0 Bedside Urine Protein (LAB) 1+ Bedside Urine Glucose (UA) Negative Bedside Urine Ketones (LAB) Negative Bedside Urine Blood 2+ Bedside Urine Nitrite (LAB) Negative Bedside Urine Leukocyte Esterase (L Negative Current Medications Medications (Trade) Dose Ordered Sig/Nanette Route PRN Reason Start Time Stop Time Status Last Admin Dose Admin Sodium Chloride 500 ml @ 500 mls/hr Q1H ONCE IV 11/09/16 12:00 11/09/16 12:59 DC 11/09/16 12:10 Vancomycin HCl 250 ml @ 125 mls/hr ONCE IVPB 11/09/16 14:00 11/09/16 15:59 DC 11/09/16 15:21 Cefepime HCl 50 ml @ 100 mls/hr ONCE ONCE IVPB 11/09/16 14:00 11/09/16 14:29 DC 11/09/16 14:08 Sodium Chloride (NS) 500 ml @ 500 mls/hr Q1H ONCE IV 11/09/16 15:00 11/09/16 15:59 DC 11/09/16 15:21 Procedures/MDM EKG: Read by emergency physician Rate/Rhythm: Normal Sinus Rhythm 90 beats/min QRS, ST, T-waves: No ST elevation, no T inversion Impression: EKG [place] [id number] Radiology Main Line: [phone] DIAGNOSTIC IMAGING REPORT Patient: JURGEN JIMENEZ : 1950 Age: 66 Sex: M MR #: [id number] DOS: 11/09/16 1200 Ordering MD: ROD BOYER MD Location: E/R Room/Bed: PROCEDURE: XR Chest. CLINICAL INDICATION: Shortness of breath. TECHNIQUE: Single frontal view. COMPARISON: 09/30/2016. FINDINGS: There is right basilar atelectasis or pneumonia, worse than seen previously. The lungs are otherwise clear. The heart is enlarged. There is calcification in the aorta consistent with atherosclerosis. There is a dual lead permanent pacemaker/internal cardiac defibrillator. There is no pleural effusion. There is no pneumothorax. IMPRESSION: 1. Worse appearance of the right lung base. 2. No other change from 09/30/2016. RPTAT: QQ .Yogesh Thibodeaux MD, Date Time Electronically viewed and signed by .Yogesh Thibodeaux MD, on 11/09/2016 13:17 .R/ CC: ROD BOYER MD MEDICAL MAKING DECISION: The patient is a 66-year-old male, presenting with acute cardiac arrhythmia versus malfunctional AICD, acute severe sepsis, acute pneumonia, acute kidney injury, acute hypomagnesemia. He was treated with vancomycin IV, IV, normal saline 500 mL IV 2 with good response. The differential diagnoses considered include but are not limited to asthma, COPD, pneumonia, pulmonary embolus, pleural effusion, congestive heart failure. Admit MDM: Patient's infectious symptoms have not stabilized and the patient is at risk of rapid decompensation. The patient will be admitted for careful hydration, antibiotic therapy, and infectious source control. Severe Sepsis criteria: Infectious source: Pneumonia End organ damage indicated by: Lactate > 2.0 mmol/L Hypotension (SBP < 90 or >40 mmHG drop or MAP < 65) Sepsis Management: Time of recognition of severe sepsis/septic shock:12:15 pm Within 3 hours of recognition: Blood cultures x 2 before broad-spectrum antibiotics: Yes 30 ml/kg NS bolus no completed because patient has history of CHF with cardiomyopathy with low EF of 40% Initial lactate 3.4 Repeat lactate pending Critical Care: Critical care time 35 minutes Emergent fluid management while maintaining close respiratory support. Provision of immediate and broad-spectrum antibiotic therapy. Simultaneous assessment for possible sources in order to direct targeted therapy. Consideration for invasive and chemical support to prevent cardiopulmonary collapse. Septic Shock Assessment: Any lactic acid > 4.0 no Persistent hypotension (SBP < 90 or 40 mmHg drop, MAP < 65) despite 30 mL/kg IV fluid bolusno Departure Diagnosis: Primary Impression: Cardiac arrhythmia Additional Impressions: Severe sepsis Pneumonia Acute kidney injury Hypomagnesemia Anemia Abnormal LFTs Condition: Stable Comments I discussed the findings with the patient. I discussed the patient with his physician Dr. Duron who was made aware of the lab, the treatment, the patient condition. The patient is admitted to telemetry at 1:40 PM However the IPA physician Dr Nicholson would like to transfer the patient to [facility]. I discussed the patient with him, he was made aware of the lab, treatment, the patient condition and requested transfer at 2:15 PM via ambulance ROD BOYER MD Nov 09, 2016 11:46
[2016-11-09] MEDS ORDERED: SOD CHLORIDE 0.9% 500 ML IV ONE ×2 (12:00→15:00)
[2016-11-09 12:19] LABS: ADD SCAN DIFF NO
[2016-11-09 12:22] LABS: ABNORMAL IP MESSAGE 1; HEMATOCRIT 30.1 % (42.0-52.0); HEMOGLOBIN 10.1 g/dl (14.0-18.0); MEAN CORPUSCULAR HEMOGLOBIN 31.1 pg (29.0-33.0); MEAN CORPUSCULAR HGB CONC 33.6 g/dl (32.0-37.0); MEAN CORPUSCULAR VOLUME 92.6 fl (82.0-101.0); MEAN PLATELET VOLUME 10.4 fl (7.4-10.4); PLATELET COUNT 210 10^3/UL (140-415); RED BLOOD COUNT 3.25 10^6/ul (4.70-6.10); RED CELL DISTRIBUTION WIDTH 13.9 % (11.5-14.5); WHITE BLOOD COUNT 10.6 10^3/ul (4.8-10.8)
[2016-11-09 12:31] LABS: INR 1.23; PROTIME 15.6 Sec (12.2-14.2); PT RATIO 1.2
[2016-11-09 12:32] LABS: PARTIAL THROMBOPLASTIN TIME 31.2 Sec (25.0-35.0)
[2016-11-09 12:39] LABS: ALBUMIN 3.5 g/dl (3.3-4.9); ALBUMIN/GLOBULIN RATIO 1.09; BILIRUBIN,DIRECT 0.7 mg/dl (0.00-0.20); BILIRUBIN,INDIRECT 0.5 mg/dl (0-1.1); BILIRUBIN,TOTAL 1.2 mg/dl (0.2-1.3); CALCIUM 9.4 mg/dl (8.4-10.2); CREATININE 2.5 mg/dl (0.61-1.24); MAGNESIUM 1.3 mg/dl (1.7-2.5); POTASSIUM 3.9 mmol/L (3.5-5.1); TOTAL PROTEIN 6.7 g/dl (6.1-8.1)
[2016-11-09 12:48] LABS: TROPONIN-I 0.078 ng/ml (0.00-0.12)
--- NOTE | 2016-11-09 13:17 | RADRPT ---
PROCEDURE: XR Chest. CLINICAL INDICATION: Shortness of breath. TECHNIQUE: Single frontal view. COMPARISON: 09/30/2016. FINDINGS: There is right basilar atelectasis or pneumonia, worse than seen previously. The lungs are otherwis e clear. The heart is enlarged. There is calcification in the aorta consistent with atherosclerosis. There is a dual lead permanent pacemaker/internal cardiac defibrillator. There is no pleural effusion. There is no pneumothorax. IMPRESSION: 1. Worse appearance of the right lung base. 2. No other change from 09/30/2016. RPTAT: QQ .Yogesh Thibodeaux MD, MD Date Time Electronically viewed and signed by .Yogesh Thibodeaux MD, on 11/09/2016 13:17 .R/
[2016-11-09 13:34] LABS: LYMPHOCYTES # 0.5 10^3/ul (0.8-2.9); MONOCYTE # 0.3 10^3/ul (0.3-0.9); NEUTROPHIL # 8.6 10^3/ul (1.6-7.5)
[2016-11-09] MEDS ORDERED: SLOMAG PO (13:47)
[2016-11-09] MEDS ORDERED: MEX150 PO (13:47)
[2016-11-09] MEDS ORDERED: METO-407 PO (13:48)
[2016-11-09] MEDS ORDERED: POTA20TA96 PO (13:49)
[2016-11-09] MEDS ORDERED: FURO20TA3 PO (13:49)
[2016-11-09] MEDS ORDERED: FAMO20TA18 PO (13:50)
[2016-11-09] MEDS ORDERED: CEFEPIME 1GM/50 ML (PMX) 50 ML IVPB ONE (14:00)
[2016-11-09] MEDS ORDERED: VANCOMYCIN 1 GM (PMX) 250 ML IVPB SCH (14:00)
[2016-11-09 14:30] LABS: URINE BLOOD (Dip) POC 2+ (NEGATIVE)
--- NOTE | 2016-11-09 16:05 | HP ---
DATE OF ADMISSION: 11/09/2016 CHIEF COMPLAINT: AICD firing and weakness. HISTORY OF PRESENT ILLNESS: The patient is a 66-year-old gentleman well known to me. The patient h as history of coronary artery disease, cardiomyopathy with EF of 40%. The patient has history of ve ntricular tachycardia status post automatic implantable cardioverter-defibrillator. The patient was recently admitted at [facility] due to recurrent episodes of ventricular tachycar lj. Patient was started on amiodarone and also subsequently, meclizine was added. The patient als o has history of prostate cancer and was supposed to see his new oncologist and also was supposed to see Dr. Rodriguez for gallstones. During recent admission, the patient was also diagnosed with acute cholecystitis, which resolved after antibiotic management. The patient, however, could not get card iac clearance and therefore the patient was sent home. Patient at that time was seen by Dr. Mojica. However, the patient's insurance apparently gave him a referral to see Dr. Rodriguez; however, he has not seen him yet. The patient felt AICD firing and also felt weak and dizzy. The patient was brou ght into hospital and his blood pressure initially was 79/51. The patient was given IV fluids and t he blood pressure went up to 105/64. The patient did report episode of epigastric discomfort after he ate yesterday. Patient reported that the pain was preceded by eating eggs. Patient denied any v omiting today. No reported headache. No reported chest pain. No reported diaphoresis, no reported leg edema. No reported dysuria or hematuria. No reported focal weakness. REVIEW OF SYSTEMS: Rest of review of systems was unremarkable. PAST MEDICAL HISTORY: Please look at medical record. The patient has prolonged hospitalization rec ently for multiple medical issues as listed above and also had acute kidney injury which resolved a nd also had left cephalic and left basilic vein thrombosis during that admission. PAST MEDICAL HISTORY: Significant for prostate cancer, status post radiation therapy. The patient is planning to switch his oncologist. PAST SURGICAL HISTORY: AICD placement. FAMILY HISTORY: Noncontributory. SOCIAL HISTORY: The patient is an ex-smoker and also drinks alcohol socially. PHYSICAL EXAMINATION: GENERAL: The patient is conscious, awake, alert, fairly oriented. VITAL SIGNS: Upon arrival, temperature 98.5, pulse 92, respirations 18, blood pressure 79/51, O2 sa turation 98% on room air. HEENT: Atraumatic, normocephalic. Conjunctivae and lids normal. Oropharynx clear. NECK: Supple. No thyromegaly. CHEST: Fairly clear. No use of accessory muscles. CARDIOVASCULAR: S1, S2 normal. No murmur. ABDOMEN: Soft, nondistended, nontender. EXTREMITIES: No leg edema. NEUROLOGIC: The patient is awake, alert with no gross focal deficit. LABORATORY DATA: WBC 10.6, hemoglobin 10.1, platelets 210. Chemistries: Sodium 133, potassium 3.9 , BUN 20, creatinine 2.5 up from 1, which was his baseline back in September 2016. Lactic acid level wa s 3.4, magnesium 1.3, AST 454, ALT 333, alkaline phosphatase 600. All the readings are abnormal as compared to his baseline. UA was negative for leukocyte esterase trace and nitrite. Chest x-ray re vealed right basilar atelectasis, worse than seen previously. IMPRESSION: 1. Ventricular tachycardia status post recurrent episodes of automatic implantable cardioverter def ibrillator firing. 2. Coronary artery disease. 3. Current cardiomyopathy with ejection fraction of 40%. 4. Acute kidney injury. 5. History of cholecystitis. 6. Acute kidney injury. 7. Dyslipidemia. PLAN: The patient admitted on telemetry floor. The patient had received vancomycin and cefepime an d will do a urine culture and blood culture . We will also replace magnesium. We will also give IV fluid cautiously due to acute kidney injury. We will notify Dr. Wheat from nephrology standpoint. T he patient will continue to follow with his new oncologist for prostate CA. As far as elevated live r enzymes are concerned, will discuss with the research associate quality control qc because elevated liver enzymes could be due to ____from amiodarone. Plan of care discussed with patient's brother. The patient's workup is still pending. Further recommendations will depend on patient's hospital course and recommendation s from consultants. Patient currently is awake and alert. Dictated By: ASHIA AVERY/BARRON Conf#: [id number] DID#: [id number]
[2016-11-09 17:15] VITALS: BP 105/71; PULSE 79; RESP 20; TEMP 98.2
== END 2016-11-09 17:20 | disposition short-term general hospital (02) ==
LOC: E/R 11:24
DX: I49.9 Cardiac arrhythmia, unspecified (principal); R65.20 Severe sepsis without septic shock; A41.9 Sepsis, unspecified organism; J18.9 Pneumonia, unspecified organism; N17.9 Acute kidney failure, unspecified; E83.42 Hypomagnesemia; D64.9 Anemia, unspecified; R94.5 Abnormal results of liver function studies; I10 Essential (primary) hypertension; I25.10 Atherosclerotic heart disease of native coronary artery without angina pectoris; I50.9 Heart failure, unspecified; Z87.891 Personal history of nicotine dependence; Z85.46 Personal history of malignant neoplasm of prostate
CPT/HCPCS: 71010; 80053; 81003; 83605; 83690; 83735; 84484; 85025; 85610; 85730; 87040; 87086; 93005; J0692; J3370; J7040; 36415; 96361; 96365; 96366; 96367

== ENCOUNTER 2018-10-13 19:37 | Emergency (ER) | payer BC, MEDICAID ==
[~2018-10-13] VITALS: Wt 92.4 kg
[~2018-10-13 19:37] MED LIST changes: -AMIO200T2 PO; +AMIO200T4 PO; -ASPI-664 PO; +ASPI-817 PO; +FAMO20TA18 PO; +FURO20TA3 PO; +LOSA50TA14 PO; -LOSA50TA6 PO; +MAGN64TA10 PO; +POTA20TA96 PO; -SLOMAG PO
--- NOTE | 2018-10-13 21:02 | ERD ---
ER Documentation Chief Complaint Chief Complaint IMPLANTED DEFIB "BUZZED" TWICE IN CHEST, NO OTHER COMPLAINTS HPI Very pleasant 68-year-old gentleman history of ICD placed in 2013 who presents to the emergency room because he felt a buzzing sensation in his chest x2 rectally 1 hour prior to arrival. He was asymptomatic at the time. The patient has had the fibrillations in the past and this did not feel like a defibrillation. Otherwise he is asymptomatic. No chest pain no fevers no chills no pleuritic pain. ROS All systems reviewed and are negative except as per history of present illness. Medications Home Meds Reported Medications Ferrous Sulfate* (Ferrous Sulfate*) 325 Mg Tabec, 325 MG PO DAILY, TAB 10/13/18 Famotidine* (Famotidine*) 20 Mg Tablet, 20 MG PO DAILY, #30 TAB 10/13/18 Tamsulosin Hcl* (Tamsulosin Hcl*) 0.4 Mg Cap.er.24h, 0.4 MG PO HS, CAP 10/13/18 Furosemide* (Furosemide*) 20 Mg Tablet, 20 MG PO DAILY, #60 TAB 10/13/18 Potassium Chloride* (Potassium Chloride*) 20 Meq Tablet.er, 20 MEQ PO DAILY, TAB.SA 10/13/18 Docusate Sodium* (Colace*) 250 Mg Capsule, 250 MG PO BID, #60 CAP 10/13/18 Atorvastatin* (Atorvastatin*) 40 Mg Tablet, 40 MG PO DAILY, #30 TAB 10/13/18 Aspirin* (Aspirin* EC) 81 Mg Tablet.dr, 81 MG PO DAILY, TAB 10/13/18 Losartan Potassium* (Losartan Potassium*) 50 Mg Tablet, 50 MG PO DAILY, TAB 10/13/18 Calcium Carb & Cit-Vitamin D3 (Calcium + D3 ER) 1 Each Tablet.er, 1 TAB PO BID, TAB 10/13/18 Metoprolol Tartrate* (Lopressor*) 100 Mg Tablet, 100 MG PO BID, #60 TAB 10/13/18 Amiodarone Hcl* (Amiodarone Hcl*) 200 Mg Tablet, 200 MG PO DAILY, #30 TAB 10/13/18 Pantoprazole* (Pantoprazole*) 40 Mg Tablet.dr, 40 MG PO AC BREAKFAST, TAB 10/13/18 Mexiletine Hcl* (Mexiletine Hcl*) 150 Mg Capsule, 150 MG PO TID, CAP 10/13/18 Discontinued Reported Medications Famotidine* (Famotidine*) 20 Mg Tablet, 20 MG PO DAILY, #30 TAB 11/09/16 Furosemide* (Furosemide*) 20 Mg Tablet, 20 MG PO DAILY, #60 TAB 11/09/16 Potassium Chloride* (Potassium Chloride*) 20 Meq Tablet.er, 20 MEQ PO DAILY, TAB.SA 11/09/16 Metoprolol Tartrate* (Lopressor*) 100 Mg Tablet, 100 MG PO BID, #60 TAB 11/09/16 Magnesium Chloride* (Mag-64*) 64 Mg Tablet.er, 64 MG PO BID, TAB 11/09/16 Mexiletine Hcl* (Mexiletine Hcl*) 150 Mg Capsule, 150 MG PO BID, CAP 11/09/16 Calcium Carbonate/Vitamin D3 (Calcium 600 + D Tablet) 1 Each Tablet, 1 EACH PO BID, TAB 07/30/15 Docusate Sodium* (Colace*) 100 Mg Capsule, 300 MG PO BID, #60 CAP 07/30/15 Ferrous Sulfate* (Ferrous Sulfate*) 325 Mg Tablet, 325 MG PO DAILY, TAB 07/30/15 Aspirin* (Aspirin* EC) 81 Mg Tablet.dr, 81 MG PO DAILY 07/12/13 Atorvastatin* (Atorvastatin*) 40 Mg Tablet, 40 MG PO DAILY 07/12/13 Discontinued Scripts Losartan Potassium* (Losartan Potassium*) 50 Mg Tablet, 50 MG PO DAILY for 30 Days, TAB Prov:ANGELI BLACKWELL 10/19/16 Amiodarone Hcl* (Amiodarone Hcl*) 200 Mg Tablet, 200 MG PO BID for 30 Days, TAB Prov:ANGELI BLACKWELL 10/19/16 Allergies Allergies: Coded Allergies: lisinopril (Verified Allergy, Severe, ANGIO EDEMA, 10/13/18) PMhx/Soc History of Surgery: Yes (ICD 2013) Anesthesia Reaction: No Hx Neurological Disorder: No Hx Respiratory Disorders: No Hx Cardiac Disorders: Yes (HTN, CHF, CAD) Hx Psychiatric Problems: No Hx Miscellaneous Medical Probl: Yes (HYPERCHOLESTEROLEMIA. PROSTATE CA 2014) Hx Alcohol Use: Yes (Daily wine) Hx Substance Use: No Hx Tobacco Use: Yes (2012) FmHx Family History: No diabetes Physical Exam Vitals Vital Signs Date Temp Pulse Resp B/P (MAP) Pulse Ox O2 O2 Flow FiO2 Time Delivery Rate 10/13/18 98.3 50 18 134/68 100 Room Air 22:25 (90) 10/13/18 97.4 53 17 118/58 100 19:53 (78) Physical Exam General: Well developed, well nourished, no acute distress Head: Normocephalic, atraumatic. Eyes: Pupils equally reactive, EOM intact ENT: Moist mucous membranes Neck: Supple, no lymphadenopathy Respiratory: Lungs clear bilaterally, no distress Cardiovascular: RRR, no murmurs, rubs, or gallops Abdominal: Soft, non-tender, non-distended, no peritoneal signs : Deferred MSK: No edema, no unilateral swelling, 5/5 strength Neurologic: Alert and oriented, moving all extremities, normal speech, no focal weakness, no cerebellar signs Skin: No rash Psych: Normal mood Result Diagram: 10/13/18205510/13/182055 Results 24 hrs Laboratory Tests Test 10/13/18 20:56 White Blood Count 3.1 10^3/ul Red Blood Count 4.03 10^6/ul Hemoglobin 12.1 g/dl Hematocrit 36.6 % Mean Corpuscular Volume 90.8 fl Mean Corpuscular Hemoglobin 30.0 pg Mean Corpuscular Hemoglobin Concent 33.1 g/dl Red Cell Distribution Width 14.2 % Platelet Count 155 10^3/UL Mean Platelet Volume 10.9 fl Immature Granulocytes % 0.300 % Neutrophils % 54.3 % Lymphocytes % 28.8 % Monocytes % 10.2 % Eosinophils % 5.1 % Basophils % 1.3 % Nucleated Red Blood Cells % 0.0 /100WBC Immature Granulocytes # 0.010 10^3/ul Neutrophils # 1.7 10^3/ul Lymphocytes # 0.9 10^3/ul Monocytes # 0.3 10^3/ul Eosinophils # 0.2 10^3/ul Basophils # 0.0 10^3/ul Nucleated Red Blood Cells # 0.0 10^3/ul Sodium Level 141 mmol/L Potassium Level 3.9 mmol/L Chloride Level 105 mmol/L Carbon Dioxide Level 27 mmol/L Anion Gap 9 Blood Urea Nitrogen 18 mg/dl Creatinine 1.31 mg/dl Est Glomerular Filtrat Rate mL/min > 60 mL/min Glucose Level 100 mg/dl Calcium Level 9.6 mg/dl Magnesium Level 2.1 mg/dl Troponin I < 0.012 ng/ml Procedures/MDM EKG, MONITORS, & DIAGNOSTIC IMAGING: EKG: I reviewed and interpreted a 12-lead EKG. Rhythm: Paced rhythm ST Changes: No contiguous ST segment elevations T waves: No contiguous T wave inversions Impression: [No evidence of acute cardiac ischemia] Chest x-ray: I reviewed and interpreted a 1 view of the chest Mediastinum: No enlargement Cardiac silhouette: No cardiomegaly Airspace: Clear lung arnold bilaterally without evidence of pneumothorax implantable device in good position Bones: No evidence of fracture LAB INTERPRETATION: I reviewed the laboratory testing and it shows [no evidence of acute process] MEDICAL DECISION MAKING: The patient felt a buzzing sensation in his chest. He states this is very different from defibrillation. He is otherwise asymptomatic. I doubt acute coronary syndrome or cardiac arrhythmia though the patient requires pacemaker and defibrillator interrogation. The patient's device is a [employer]. The ocular care technician has been called to evaluate the patient. If the patient has no evidence of significant arrhythmia or event he can be safely discharged with primary care follow-up. His primary winder operator is Dr. Urias. ER COURSE: * The patient had interrogation that revealed of nonsustained VT over sensing * The patient had no other cardiac events. I spoke to Dr. Rocha who agrees with discharge and outpatient follow-up. Observation Note: Indication: ICD Miss-sensing Duration: Greater than 4 hours Family history: As above The patient was observed with serial exams over the above timeframe. The patient continued to be well-appearing, and observation continued without complication. CONSULTATION: Registered Nurse Fetal as above DISPOSITION PLAN: The patient does not have an identifiable emergent medical condition that [facility] inpatient hospitalization at this time. The patient is deemed safe for discharge with outpatient follow-up. We discussed follow up with the patient's primary care doctor within 24 to 48 hours as needed. We also discussed return to the emergency room for worsening symptoms or worsening condition. Outpatient referral: Cardiology Discharge Medications: None Required Departure Diagnosis: Primary Impression: Abnormal ICD sensing Encounter type: initial encounter Qualified Codes: T82.190A - Other mechanical complication of cardiac electrode, initial encounter Condition: Stable ADI MATAMOROS MD Oct 13, 2018 21:02
[2018-10-13] MEDS ORDERED: MEX150 PO (21:17)
[2018-10-13] MEDS ORDERED: PANT40TA4 PO (21:17)
[2018-10-13] MEDS ORDERED: AMIO200T4 PO (21:18)
[2018-10-13] MEDS ORDERED: METO-407 PO (21:19)
[2018-10-13] MEDS ORDERED: CALC-543 PO (21:20)
[2018-10-13] MEDS ORDERED: LOSA50TA14 PO (21:21)
[2018-10-13] MEDS ORDERED: ASPI-817 PO (21:21)
[2018-10-13] MEDS ORDERED: DOCU250C58 PO (21:22)
[2018-10-13] MEDS ORDERED: ATOR40TA68 PO (21:22)
[2018-10-13] MEDS ORDERED: POTA20TA96 PO (21:22)
[2018-10-13] MEDS ORDERED: FURO20TA3 PO (21:23)
[2018-10-13] MEDS ORDERED: TAMS0.4C2 PO (21:23)
[2018-10-13] MEDS ORDERED: FAMO20TA18 PO (21:24)
[2018-10-13] MEDS ORDERED: FER325 PO (21:26)
[2018-10-14 01:06] VITALS: BP 131/65; PULSE 60; RESP 18
== END 2018-10-14 01:06 | disposition home or self-care (01) ==
LOC: E/R 19:37
DX: T82.190A Other mechanical complication of cardiac electrode, initial encounter (principal); R40.2142 Coma scale, eyes open, spontaneous, at arrival to emergency department; R40.2362 Coma scale, best motor response, obeys commands, at arrival to emergency department; R40.2252 Coma scale, best verbal response, oriented, at arrival to emergency department; I11.0 Hypertensive heart disease with heart failure; I50.9 Heart failure, unspecified; I25.10 Atherosclerotic heart disease of native coronary artery without angina pectoris; Y71.2 Prosthetic and other implants, materials and accessory cardiovascular devices associated with adverse incidents; Z85.46 Personal history of malignant neoplasm of prostate; Z87.891 Personal history of nicotine dependence; Z79.82 Long term (current) use of aspirin
CPT/HCPCS: 36415; 71045; 80048; 83735; 84484; 85025; 93005